=== PATIENT | female | born 1940 | race Two or more races ===

== ENCOUNTER 2018-03-28 18:05 | Inpatient (IN) | payer MEDICAID, MEDICARE ==
--- NOTE | 2018-03-28 19:01 | RADIOLOGY REPORT (SQ) ---
EXAM DESCRIPTION: CHEST SINGLE VIEW COMPLETED DATE/TIME: 03/28/2018 6:54 pm REASON FOR STUDY: SOB COMPARISON: 03/23/2007 EXAM PARAMETERS: NUMBER OF VIEWS: One view. TECHNIQUE: Single frontal radiographic view of the chest acquired. RADIATION DOSE: NA LIMITATIONS: None. FINDINGS: LUNGS AND PLEURA: No opacities, masses or pneumothorax. No pleural effusion. MEDIASTINUM AND HILAR STRUCTURES: No masses. Contour normal. HEART AND VASCULAR STRUCTURES: Heart normal in size. Normal vasculature. BONES: No acute findings. HARDWARE: None in the chest. OTHER: No other significant finding. IMPRESSION: NO ACUTE RADIOGRAPHIC FINDING IN THE CHEST. TECHNICAL DOCUMENTATION: JOB ID: [id number] [employer]- All Rights Reserved Reading location - IP/workstation name: [email or web address]
[2018-03-28 19:02] LABS: HEMATOCRIT 29.2 % (36.0-47.0); HEMOGLOBIN 9.3 g/dL (12.0-15.5); MEAN CORPUSCULAR HEMOGLOBIN 24.4 pg (27.0-33.4); MEAN CORPUSCULAR VOLUME 76 fl (80-97); PLATELET COUNT 366 10^3/uL (150-450); RED BLOOD COUNT 3.82 10^6/uL (3.72-5.28); RED CELL DISTRIBUTION WIDTH 16.4 % (11.5-14.0); WHITE BLOOD COUNT 12.5 10^3/uL (4.0-10.5)
[2018-03-28 19:18] LABS: ALANINE AMINOTRANSFERASE 25 U/L (9-52); ALBUMIN 3.4 g/dL (3.5-5.0); ALKALINE PHOSPHATASE 115 U/L (38-126); ANION GAP 11 (5-19); ASPARTATE AMINO TRANSFERASE 26 U/L (14-36); BILIRUBIN,DIRECT 0.2 mg/dL (0.0-0.4); BILIRUBIN,TOTAL 0.4 mg/dL (0.2-1.3); BLOOD UREA NITROGEN 14 mg/dL (7-20); CALCIUM 8.8 mg/dL (8.4-10.2); CARBON DIOXIDE 27 mmol/L (22-30); CHLORIDE 99 mmol/L (98-107); GLUCOSE 168 mg/dL (75-110); POTASSIUM 3.9 mmol/L (3.6-5.0); TOTAL PROTEIN 6.9 g/dL (6.3-8.2)
[2018-03-28 19:20] LABS: ABSOLUTE LYMPHOCYTES# (MANUAL) 0.3 10^3/uL (0.5-4.7); ABSOLUTE MONOCYTES # (MANUAL) 0.3 10^3/uL (0.1-1.4); BASOPHILS % (MANUAL) 0 % (0-2); EOSINOPHILS % (MANUAL) 0 % (0-6); LYMPHOCYTES % (MANUAL) 2 % (13-45); MONOCYTES % (MANUAL) 2 % (3-13); SEGMENTED NEUTROPHILS % (MAN) 96 % (42-78); TOTAL CELLS COUNTED 100
[2018-03-28 19:23] LABS: ANISOCYTOSIS 1+; PLATELET COMMENT ADEQUATE
[2018-03-28] MEDS ORDERED: ALBUTEROL SULFATE 0.083% NEB 2.5 MG/3 ML AMPUL NEB ONE (19:40)
--- NOTE | 2018-03-28 19:41 | ER Document Report ---
ED General - General Chief Complaint: Shortness Of Breath Stated Complaint: SHORTNESS OF BREATH Time Seen by Provider: 03/28/18 18:19 TRAVEL OUTSIDE OF THE [place] IN LAST 30 DAYS: No - HPI Notes: Patient is a 89-year-old female that presents to the emergency department for chief complaint of cough and shortness of breath. Patient has a history of COPD and was last admitted to the hospital in [place] where she lives 1 week ago. She is currently off of steroids and was not discharged home on antibiotics. Last night she started having increased work of breathing and cough. Patient was seen at an urgent care facility today and had a O2 of 85% on room air. Urgent care gave her 125 mg of Solu-Medrol, 3 DuoNeb's, and 1 g IM Rocephin and referred her to the emergency room. Patient does not wear oxygen at home. She has not been intubated for her COPD previously. She has not had any fevers or increased sputum production. Patient denies chest pain as well. He does have a nebulizer at home that she has used one time today. Past Medical History: COPD, hypertension, hyperlipidemia, diabetes Past Surgical History: Tubal ligation Social History: Quit smoking 20 years ago. Denies alcohol. Family History: Reviewed and noncontributory for presenting illness Allergies: Reviewed, see documented allergy list. REVIEW OF SYSTEMS: CONSTITUTIONAL : No fever No chills No diaphoresis No recent illness EENT: No vision changes No congestion No sore throat CARDIOVASCULAR: No chest pain No palpitations RESPIRATORY: shortness of breath cough difficulty breathing GASTROINTESTINAL: No abdominal pain No nausea No vomiting No diarrhea GENITOURINARY: No dysuria No hematuria No difficulty urinating MUSCULOSKELETAL: No back pain No leg pain No arm pain SKIN: No rashes No lesions LYMPHATIC: No swollen, enlarged glands. NEUROLOGICAL: No lightheadedness No headache No weakness No paresthesias PSYCHIATRIC: No anxiety No depression PHYSICAL EXAMINATION: Vital signs reviewed, nursing noted reviewed. GENERAL: Well-appearing, well-nourished and in mild acute distress. HEAD: Atraumatic, normocephalic. EYES: Eyes appear normal, extraocular movements intact, sclera anicteric, conjunctiva are normal. ENT: nares patent, oropharynx clear without exudates. Moist mucous membranes. NECK: Normal range of motion, supple without lymphadenopathy LUNGS: Diminished lung sounds bilaterally with end expiratory wheezing, tachypnea, moderate accessory muscle use HEART: Cardiac rate and regular rhythm without murmurs ABDOMEN: Soft, nontender, normoactive bowel sounds. No rebound, guarding, or rigidity. No masses appreciated. EXTREMITIES: Nontender, good range of motion, no pitting or edema. NEUROLOGICAL: No focal neurological deficits. Moves all extremities spontaneously Motor and sensory grossly intact on exam. PSYCH: Normal mood, normal affect. SKIN: Warm, Dry, normal turgor, no rashes or lesions noted on exposed skin - Related Data Allergies/Adverse Reactions: Sulfa (Sulfonamide Antibiotics) Allergy (Intermediate, Verified 03/28/18 19:55) Hives codeine Adverse Reaction (Intermediate, Verified 03/28/18 19:56) Hives tiotropium [From Spiriva with HandiHaler] Adverse Reaction (Verified 03/28/18 19:57) Hives Past Medical History - Social History Smoking Status: Former Smoker Family History: Reviewed & Not Pertinent Physical Exam - Vital signs Vitals: Resp Pulse Ox 33 H 98 03/28/18 18:10 03/28/18 18:10 Course - Re-evaluation Re-evalutation: 03/28/18 19:38 Vitals reviewed. Nursing notes reviewed. Patient is currently oxygenating at 97% on 2 L nasal cannula. She reports significant improvement after receiving the 3 DuoNeb treatments. Patient is still very diminished and wheezing with increased work of breathing, she will be given other albuterol treatment. Patient's EKG shows tachycardia with multiple PVCs and PACs. Patient is tachycardic with a leukocytosis however chest x-ray shows no pneumonia. She is afebrile. Her leukocytosis and tachycardia are likely related to recent steroid use and the albuterol. She is not septic or requiring antibiotics. Patient is still requiring oxygen and will be admitted to the hospital for COPD exacerbation. Laboratory 03/28/18 03/28/18 03/28/18 18:30 18:30 18:30 WBC 12.5 H RBC 3.82 Hgb 9.3 L Hct 29.2 L MCV 76 L MCH 24.4 L MCHC 32.0 RDW 16.4 H Plt Count 366 Total Counted 100 Seg Neutrophils % Not Reportable Seg Neuts % (Manual) 96 H Lymphocytes % Not Reportable Lymphocytes % (Manual) 2 L Monocytes % Not Reportable Monocytes % (Manual) 2 L Eosinophils % Not Reportable Eosinophils % (Manual) 0 Basophils % Not Reportable Basophils % (Manual) 0 Absolute Neutrophils Not Reportable Abs Neuts (Manual) 12.0 H Absolute Lymphocytes Not Reportable Abs Lymphs (Manual) 0.3 L Absolute Monocytes Not Reportable Abs Monocytes (Manual) 0.3 Absolute Eosinophils Not Reportable Absolute Eos (Manual) 0.0 Absolute Basophils Not Reportable Abs Basophils (Manual) 0.0 Platelet Comment ADEQUATE Anisocytosis 1+ Microcytosis SLIGHT Sodium 137.0 Potassium 3.9 Chloride 99 Carbon Dioxide 27 Anion Gap 11 BUN 14 Creatinine 0.57 Est GFR ( Amer) > 60 Est GFR (Non-Af Amer) > 60 Glucose 168 H Calcium 8.8 Total Bilirubin 0.4 Direct Bilirubin 0.2 Neonat Total Bilirubin Not Reportable Neonat Direct Bilirubin Not Reportable Neonat Indirect Bili Not Reportable AST 26 ALT 25 Alkaline Phosphatase 115 Troponin I 0.025 Total Protein 6.9 Albumin 3.4 L Chest X-Ray 03/28/18 18:13 IMPRESSION: NO ACUTE RADIOGRAPHIC FINDING IN THE CHEST. 03/28/18 21:24 Patient's ABG shows hypoxia with no hypercapnia or acid-base disturbance. Her work of breathing was improved after the repeat albuterol. Patient is still requiring oxygen and will be admitted to the hospital for further management of her COPD exacerbation. She is not currently requiring noninvasive ventilation. She is stable at time of admission. Case discussed with admitting physician Dr. Johnston. - Vital Signs Vital signs: Temp Pulse Resp BP Pulse Ox 99.9 F 111 H 30 H 137/77 H 95 03/28/18 18:12 03/28/18 18:12 03/28/18 20:01 03/28/18 20:01 03/28/18 20:01 - Laboratory Result Diagrams: 03/28/18 18:30 03/28/18 18:30 Laboratory results interpreted by me: 03/28/18 03/28/18 03/28/18 18:30 18:30 20:25 WBC 12.5 H Hgb 9.3 L Hct 29.2 L MCV 76 L MCH 24.4 L RDW 16.4 H Seg Neuts % (Manual) 96 H Lymphocytes % (Manual) 2 L Monocytes % (Manual) 2 L Abs Neuts (Manual) 12.0 H Abs Lymphs (Manual) 0.3 L ABG pO2 74.0 L ABG HCO3 25.2 H ABG Total CO2 26.3 H Glucose 168 H Albumin 3.4 L - EKG Interpretation by Me Additional EKG results interpreted by me: 03/28/18 19:40 Interpreted by myself 1833: Sinus tachycardia, rate 106, normal axis, PVCs and PACs, incomplete right bundle branch block, borderline prolonged QT, QTc 494 Critical Care Note - Critical Care Note Total time excluding time spent on procedures (mins): 35 Comments: 35 Minutes of critical care time spent in direct contact evaluating and reevaluating the patient, treating symptoms, reviewing labs and studies and speaking with family and consultants excluding any procedures Discharge - Discharge Clinical Impression: COPD exacerbation, Hypoxia Condition: Stable Disposition: ADMITTED INPATIENT Admitting Provider: Hospitalist Unit Admitted: Medical Floor Referrals: LOCALMD,NO [NO LOCAL MD] - Follow up as needed
[2018-03-28 20:41] LABS: ARTERIAL BLOOD BASE EXCESS 1.2 mmol/L; ARTERIAL BLOOD H2CO3 1.13 mmol/L (1.05-1.35); ARTERIAL BLOOD HCO3 25.2 mmol/L (20-24); ARTERIAL BLOOD O2 SATURATION 95.5 % (94-98); ARTERIAL BLOOD PCO2 37.4 mmHg (35-45); ARTERIAL BLOOD PH 7.45 (7.35-7.45); ARTERIAL BLOOD TOTAL CO2 26.3 mmol/L (21-25)
[2018-03-28 20:42] LABS: ARTERIAL BLOOD FIO2 2L
[2018-03-28] MEDS ORDERED: MAGNESIUM HYDROXIDE SUSP 30 ML UDCUP PO PRN (21:32)
[2018-03-28] MEDS ORDERED: ONDANSETRON HCL INJ/PF 4 MG/2 ML SDV IV PRN (21:32)
[2018-03-28] MEDS ORDERED: MAG HYDROX/AL HYDROX/SIMETH SUSP 30 ML UDCUP PO PRN (21:32)
[2018-03-28] MEDS ORDERED: ONDANSETRON 4 MG TAB.RAPDIS PO PRN (21:32)
[2018-03-28] MEDS ORDERED: ACETAMINOPHEN 325 MG TABLET PO PRN (21:37)
[2018-03-28] MEDS ORDERED: ALBUTEROL SULFATE 0.083% NEB 2.5 MG/3 ML AMPUL NEB PRN (21:37)
[2018-03-28] MEDS ORDERED: ACETAMINOPHEN 650 MG SUPP.RECT PR PRN (21:37)
[2018-03-28] MEDS ORDERED: NICOTINE 21 MG/24 HR PATCH.TD24 TD PRN (21:41)
[2018-03-28] MEDS: FAMOTIDINE 20 MG TABLET PO SCH (21:58)
[2018-03-28] MEDS: HEPARIN SOD (PORCINE) 5,000 UNIT/ML 1 ML SYRINGE SUBCUT SCH (21:59)
[2018-03-28] MEDS ORDERED: LEVOFLOXACIN 500 MG TABLET PO SCH (22:00)
[2018-03-29] MEDS: METHYLPREDNISOLONE INJ 40 MG/1 ML SDV IV SCH ×3 (00:04→13:28)
[2018-03-29] MEDS: IPRATROPIUM BROMIDE 0.02% NEB 0.5 MG/2.5 ML AMPUL NEB SCH ×3 (00:05→16:08)
--- NOTE | 2018-03-29 00:15 | PDOC H&P ---
History of Present Illness Admission Date/PCP: 03/28/18 21:33 Patient complains of: Dyspnea History of Present Illness: ANALI MAIN is a 77 year old female who presented to the emergency room by direct transfer from the urgent care clinic where she had originally presented with a one-week history of progressively worsening dyspnea accompanied by a nonproductive cough. She admits that her dyspnea has been worsening since she was discharged from the hospital in [place] one week ago. She had been treated there for an exacerbation of her COPD and was not discharged on antibiotics but did receive a short course of steroids and uses a nebulizer on a regular basis. Over the last 24 hours prior to admission her dyspnea and cough significantly increased such that she felt the need for medical attention. She rates her dyspnea as severe and admits numerous similar prior episodes due to her COPD exacerbations. She has not identified any aggravating or ameliorating factors for her dyspnea at home. When she was seen at the urgent care her O2 saturation on room air was 85% and she was subsequently treated with a 125 mg Solu-Medrol injection as well as 3 DuoNeb treatments and she was given a gram of Rocephin IM. As she had not significantly improved she was sent to the emergency room where she was again treated with albuterol nebulizers and though she had shown some improvement she was still requiring supplemental O2 and had significant work of breathing. Chest x-ray showed no evidence of pneumonia and an ABG showed a low PaO2 of 74 on 28% oxygen. Thus patient was admitted to the hospital for further evaluation and treatment of her acute on chronic respiratory failure with hypoxia. Past Medical History Cardiac Medical History: Reports: Hyperlipidema, Hypertension Pulmonary Medical History: Reports: Chronic Obstructive Pulmonary Disease (COPD) EENT Medical History: Reports: None Neurological Medical History: Denies: Hemorrhagic CVA, Ischemic CVA, Multiple Sclerosis, Seizures Endocrine Medical History: Reports: Diabetes Mellitus Type 2 Denies: Diabetes Mellitus Type 1, Obesity Renal/ Medical History: Denies: Chronic Kidney Disease, Nephrolithiasis Malignancy Medical History: Reports: None GI Medical History: Denies: Cirrhosis, Hepatitis Musculoskeltal Medical History: Denies: Arthritis, Gout Skin Medical History: Denies: Eczema, Psoriasis Psychiatric Medical History: Denies: Alcohol Dependency, Substance Abuse, Tobacco Dependency Traumatic Medical History: Reports: None Hematology: Denies: Anemia, Bleeding Tendencies Infectious Medical History: Reports: None Past Surgical History Past Surgical History: Reports: Tubal Ligation Social History Information Source: Patient Smoking Status: Former Smoker Frequency of Alcohol Use: None Hx Recreational Drug Use: No Drugs: None Hx Prescription Drug Abuse: No - Advance Directive Resuscitation Status: Full Code Surrogate healthcare decision maker:: J Luis Main Family History Family History: DM, Hypertension Parental Family History Reviewed: Yes Children Family History Reviewed: No Sibling(s) Family History Reviewed.: Yes Medication/Allergy Allergies/Adverse Reactions: Sulfa (Sulfonamide Antibiotics) Allergy (Intermediate, Verified 03/28/18 19:55) Hives codeine Adverse Reaction (Intermediate, Verified 03/28/18 19:56) Hives tiotropium [From Spiriva with HandiHaler] Adverse Reaction (Verified 03/28/18 19:57) Hives Review of Systems Constitutional: ABSENT: chills, fever(s) Eyes: ABSENT: visual disturbances, other Ears: PRESENT: other - Ear pain. ABSENT: hearing changes Nose, Mouth, and Throat: ABSENT: mouth pain, sore throat Cardiovascular: PRESENT: dyspnea on exertion. ABSENT: chest pain, orthropnea, palpitations Respiratory: PRESENT: cough - Nonproductive, dyspnea. ABSENT: hemoptysis Gastrointestinal: ABSENT: abdominal pain, constipation, diarrhea, nausea, vomiting Genitourinary: ABSENT: dysuria, hematuria Musculoskeletal: ABSENT: back pain, joint swelling Integumentary: ABSENT: pruritus, rash Neurological: ABSENT: confusion, convulsions, lack of coordination, memory loss, tremor(s) Psychiatric: ABSENT: anxiety, depression Endocrine: ABSENT: cold intolerance, heat intolerance Hematologic/Lymphatic: ABSENT: easy bleeding, easy bruising Physical Exam Vital Signs: Temp Pulse Resp BP Pulse Ox 99.9 F 111 H 30 H 137/77 H 95 03/28/18 18:12 03/28/18 18:12 03/28/18 20:01 03/28/18 20:01 03/28/18 20:01 Intake & Output 03/26/18 03/27/18 03/28/18 23:59 23:59 23:59 Weight 46.2 kg General appearance: PRESENT: cooperative, mild distress - Respiratory distress, thin Head exam: PRESENT: atraumatic, normocephalic Eye exam: PRESENT: conjunctiva pink, EOMI. ABSENT: scleral icterus Ear exam: PRESENT: normal external ear exam. ABSENT: drainage Mouth exam: PRESENT: dry mucosa, neck supple Neck exam: ABSENT: thyromegaly, tracheal deviation Respiratory exam: PRESENT: accessory muscle use, decreased breath sounds - Mild decreased breath sounds throughout all rodríguez, prolonged expiratory phas - Moderately prolonged expiratory phase, retraction, symmetrical, tachypnea, wheezes - High-pitched end expiratory wheezing. ABSENT: rales, rhonchi Cardiovascular exam: PRESENT: RRR, tachycardia. ABSENT: clicks, gallop, rubs Pulses: PRESENT: normal radial pulses, normal dorsalis pedis pul Vascular exam: PRESENT: normal capillary refill. ABSENT: pallor GI/Abdominal exam: PRESENT: normal bowel sounds, soft Rectal exam: PRESENT: deferred Extremities exam: ABSENT: joint swelling, pedal edema Musculoskeletal exam: ABSENT: deformity, dislocation Neurological exam: PRESENT: alert, oriented to person, oriented to place, oriented to time, oriented to situation Psychiatric exam: PRESENT: appropriate affect, normal mood Skin exam: PRESENT: dry, intact, warm. ABSENT: jaundice, rash, urticaria Results Laboratory Results: 03/28/18 18:30 03/28/18 18:30 03/28/18 03/28/18 03/28/18 18:30 18:30 20:21 WBC 12.5 H RBC 3.82 Hgb 9.3 L Hct 29.2 L MCV 76 L MCH 24.4 L MCHC 32.0 RDW 16.4 H Plt Count 366 Seg Neutrophils % Not Reportable Lymphocytes % Not Reportable Monocytes % Not Reportable Eosinophils % Not Reportable Basophils % Not Reportable Absolute Neutrophils Not Reportable Absolute Lymphocytes Not Reportable Absolute Monocytes Not Reportable Absolute Eosinophils Not Reportable Absolute Basophils Not Reportable Carbonic Acid HCO3/H2CO3 Ratio ABG pH ABG pCO2 ABG pO2 ABG HCO3 ABG O2 Saturation ABG Base Excess FiO2 Sodium 137.0 Potassium 3.9 Chloride 99 Carbon Dioxide 27 Anion Gap 11 BUN 14 Creatinine 0.57 Est GFR ( Amer) > 60 Est GFR (Non-Af Amer) > 60 Glucose 168 H Lactic Acid 1.0 Calcium 8.8 Total Bilirubin 0.4 AST 26 ALT 25 Alkaline Phosphatase 115 Total Protein 6.9 Albumin 3.4 L 03/28/18 20:25 WBC RBC Hgb Hct MCV MCH MCHC RDW Plt Count Seg Neutrophils % Lymphocytes % Monocytes % Eosinophils % Basophils % Absolute Neutrophils Absolute Lymphocytes Absolute Monocytes Absolute Eosinophils Absolute Basophils Carbonic Acid 1.13 HCO3/H2CO3 Ratio 22:1 ABG pH 7.45 ABG pCO2 37.4 ABG pO2 74.0 L ABG HCO3 25.2 H ABG O2 Saturation 95.5 ABG Base Excess 1.2 FiO2 2L Sodium Potassium Chloride Carbon Dioxide Anion Gap BUN Creatinine Est GFR ( Amer) Est GFR (Non-Af Amer) Glucose Lactic Acid Calcium Total Bilirubin AST ALT Alkaline Phosphatase Total Protein Albumin 03/28/18 18:30 Troponin I 0.025 Impressions: Chest X-Ray 03/28/18 18:13 IMPRESSION: NO ACUTE RADIOGRAPHIC FINDING IN THE CHEST. Status: Image reviewed by me - Changes consistent with moderate COPD, no acute airspace or interstitial disease, no cardiac or pulmonary acute process present. Assessment & Plan - Diagnosis (1) Acute on chronic respiratory failure with hypoxia Is this a current diagnosis for this admission?: Yes Plan: Patient is admitted to the medical floor and is continued on oxygen supplementation. She will be receiving an aggressive pulmonary toilet utilizing Xopenex, Atrovent, albuterol and Pulmicort. She will also be receiving IV steroids utilizing Solu-Medrol. She will be reassessed clinically on an ongoing basis. (2) COPD exacerbation Is this a current diagnosis for this admission?: Yes Plan: Patient is admitted to the medical floor and is continued on oxygen supplementation. She will be receiving an aggressive pulmonary toilet utilizing Xopenex, Atrovent, albuterol and Pulmicort. She will also be receiving IV steroids utilizing Solu-Medrol. She will be reassessed clinically on an ongoing basis. Additionally she will be receiving Levaquin 500 mg p.o. daily. (3) HTN (hypertension) Qualifiers: Hypertension type: essential hypertension Qualified Code(s): I10 - Essenti al (primary) hypertension Is this a current diagnosis for this admission?: Yes Plan: Patient will be continued on her home antihypertensive regiment as soon as that information is available. (4) Diabetes mellitus type 2 in nonobese Is this a current diagnosis for this admission?: Yes Plan: Patient will be continued on her home diabetic regiment as soon that information is available. (5) HLD (hyperlipidemia) Qualifiers: Hyperlipidemia type: unspecified Qualified Code(s): E78.5 - Hyperlipidemia, unspecified Is this a current diagnosis for this admission?: Yes Plan: Patient will be continued on her routine therapy as soon as that information is available. - Time Time Spent: 30 to 50 Minutes Critical Time spent with patient: Less than 15 minutes Medications reviewed and adjusted accordingly: Yes Anticipated discharge: Home - Inpatient Certification Based on my medical assessment, after consideration of the patient's comorbidities, presenting symptoms, or acuity I expect that the services needed warrant INPATIENT care.: Yes I certify that my determination is in accordance with my understanding of Medicare's requirements for reasonable and necessary INPATIENT services [42 CFR 412.3e].: Yes Medical Necessity: Failure to Improve With Outpatient Therapy, Significant Comorbidiites Make Outpatient Treatment Too Risky, Need Close Monitoring Due to Risk of Patient Decompensation, Need for Nebulizer Therapy and Monitoring of Response, Risk of Complication if Not Cared For in Hospital
[2018-03-29] MEDS: LEVALBUTEROL HCL NEB 1.25 MG/3 ML AMPUL NEB SCH ×3 (00:19→16:08)
[2018-03-29] MEDS: HEPARIN SOD (PORCINE) 5,000 UNIT/ML 1 ML SYRINGE SUBCUT SCH ×3 (05:40→23:09)
[2018-03-29 06:36] LABS: ABSOLUTE LYMPHOCYTES (AUTO) 0.2 10^3/uL (0.5-4.7); ABSOLUTE MONOCYTES (AUTO) 0.1 10^3/uL (0.1-1.4); ABSOLUTE NEUT (AUTO) 1.8 10^3/uL (1.7-8.2); BASOPHILS % (AUTO) 0.4 % (0-2); EOSINOPHILS % (AUTO) 0.1 % (0-6); HEMATOCRIT 24.7 % (36.0-47.0); LYMPHOCYTES % (AUTO) 8.8 % (13-45); MEAN CORPUSCULAR HEMOGLOBIN 24.1 pg (27.0-33.4); MEAN CORPUSCULAR HGB CONC 31.9 g/dL (32.0-36.0); MEAN CORPUSCULAR VOLUME 76 fl (80-97); PLATELET COUNT 262 10^3/uL (150-450); RED BLOOD COUNT 3.26 10^6/uL (3.72-5.28); SEGMENTED NEUTROPHILS % (AUTO) 85.7 % (42-78); TOTAL CELLS COUNTED % (AUTO) 100 %
[2018-03-29 06:58] LABS: HEMOGLOBIN 7.9 g/dL (12.0-15.5); WHITE BLOOD COUNT 2.2 10^3/uL (4.0-10.5)
[2018-03-29] MEDS ORDERED: DIPHENHYDRAMINE HCL 25 MG CAPSULE PO PRN (06:58)
[2018-03-29] MEDS ORDERED: ACETAMINOPHEN 325 MG TABLET PO PRN (06:58)
[2018-03-29] MEDS ORDERED: NORMAL SALINE 250 ML IV PRN ×2 (06:58)
[2018-03-29 07:07] LABS: ANION GAP 10 (5-19); BLOOD UREA NITROGEN 24 mg/dL (7-20); CALCIUM 8.2 mg/dL (8.4-10.2); CARBON DIOXIDE 27 mmol/L (22-30); CHLORIDE 102 mmol/L (98-107); GLUCOSE 206 mg/dL (75-110); POTASSIUM 4.2 mmol/L (3.6-5.0); SODIUM 138.5 mmol/L (137-145)
[2018-03-29] MEDS: BUDESONIDE NEB 0.5 MG/2 ML AMPUL NEB SCH ×2 (07:28→20:48)
[2018-03-29 09:40] LABS: FREE T3 2.55 pg/mL (2.77-5.27); FREE T4 (FREE THYROXINE) 1.37 ng/dL (0.78-2.19)
[2018-03-29 09:53] LABS: THYROID STIMULATING HORMONE 1.38 uIU/mL (0.47-4.68)
[2018-03-29] MEDS ORDERED: PENTOSAN POLYSULFATE SODIUM PO SCH (10:00)
[2018-03-29] MEDS: DOCUSATE SODIUM 100 MG CAPSULE PO SCH ×2 (10:08→17:26)
[2018-03-29] MEDS: FAMOTIDINE 20 MG TABLET PO SCH ×2 (10:08→23:06)
--- NOTE | 2018-03-29 14:54 | EKG REPORT ---
SEVERITY:- ABNORMAL ECG - SINUS TACHYCARDIA INCOMPLETE RIGHT BUNDLE BRANCH BLOCK BORDERLINE PROLONGED QT INTERVAL : Confirmed by: Wilbur Quarles 29-Mar-2018 14:53:13
--- NOTE | 2018-03-29 17:41 | PDOC PROGRESS REPORT ---
Subjective Progress Note for:: 03/29/18 Subjective:: No adverse events overnight. She says she feels like her breathing has improved. She has not had a cough. No sputum production. No fever. Reason For Visit: ACUTE EXACERBATION OF COPD Physical Exam Vital Signs: Temp Pulse Resp BP Pulse Ox 98.3 F 79 15 141/36 H 97 03/29/18 15:34 03/29/18 15:34 03/29/18 15:34 03/29/18 15:34 03/29/18 15:34 Intake & Output 03/28/18 03/29/18 03/30/18 06:59 06:59 06:59 Weight 46.2 kg 44.9 kg General appearance: PRESENT: no acute distress, cooperative, disheveled, thin Teeth exam: PRESENT: edentulous Respiratory exam: PRESENT: symmetrical, unlabored, wheezes - Bilaterally. ABSENT: accessory muscle use, crackles, rhonchi, tachypnea Cardiovascular exam: PRESENT: RRR, +S1, +S2 Vascular exam: PRESENT: normal capillary refill GI/Abdominal exam: PRESENT: normal bowel sounds, soft. ABSENT: distended, guarding, rebound, tenderness Extremities exam: ABSENT: clubbing, pedal edema Musculoskeletal exam: PRESENT: normal inspection. ABSENT: deformity Neurological exam: PRESENT: alert, awake, oriented to person, oriented to place, oriented to time Psychiatric exam: PRESENT: appropriate affect, normal mood Skin exam: PRESENT: dry, warm Results Laboratory Results: 03/29/18 06:17 03/29/18 06:17 03/28/18 03/28/18 03/28/18 18:30 18:30 20:21 WBC 12.5 H RBC 3.82 Hgb 9.3 L Hct 29.2 L MCV 76 L MCH 24.4 L MCHC 32.0 RDW 16.4 H Plt Count 366 Seg Neutrophils % Not Reportable Lymphocytes % Not Reportable Monocytes % Not Reportable Eosinophils % Not Reportable Basophils % Not Reportable Absolute Neutrophils Not Reportable Absolute Lymphocytes Not Reportable Absolute Monocytes Not Reportable Absolute Eosinophils Not Reportable Absolute Basophils Not Reportable Carbonic Acid HCO3/H2CO3 Ratio ABG pH ABG pCO2 ABG pO2 ABG HCO3 ABG O2 Saturation ABG Base Excess FiO2 Sodium 137.0 Potassium 3.9 Chloride 99 Carbon Dioxide 27 Anion Gap 11 BUN 14 Creatinine 0.57 Est GFR ( Amer) > 60 Est GFR (Non-Af Amer) > 60 Glucose 168 H Lactic Acid 1.0 Calcium 8.8 Magnesium Total Bilirubin 0.4 AST 26 ALT 25 Alkaline Phosphatase 115 Total Protein 6.9 Albumin 3.4 L TSH Free T4 Free T3 pg/mL Blood Type Antibody Screen 03/28/18 03/29/18 03/29/18 20:25 06:17 06:17 WBC 2.2 L D RBC 3.26 L Hgb 7.9 L Hct 24.7 L MCV 76 L MCH 24.1 L MCHC 31.9 L RDW 16.0 H Plt Count 262 Seg Neutrophils % 85.7 H Lymphocytes % 8.8 L Monocytes % 5.0 Eosinophils % 0.1 Basophils % 0.4 Absolute Neutrophils 1.8 Absolute Lymphocytes 0.2 L Absolute Monocytes 0.1 Absolute Eosinophils 0.0 Absolute Basophils 0.0 Carbonic Acid 1.13 HCO3/H2CO3 Ratio 22:1 ABG pH 7.45 ABG pCO2 37.4 ABG pO2 74.0 L ABG HCO3 25.2 H ABG O2 Saturation 95.5 ABG Base Excess 1.2 FiO2 2L Sodium 138.5 Potassium 4.2 Chloride 102 Carbon Dioxide 27 Anion Gap 10 BUN 24 H Creatinine 0.67 Est GFR ( Amer) > 60 Est GFR (Non-Af Amer) > 60 Glucose 206 H Lactic Acid Calcium 8.2 L Magnesium 1.6 Total Bilirubin AST ALT Alkaline Phosphatase Total Protein Albumin TSH Free T4 Free T3 pg/mL Blood Type Antibody Screen 03/29/18 03/29/18 06:17 07:32 WBC RBC Hgb Hct MCV MCH MCHC RDW Plt Count Seg Neutrophils % Lymphocytes % Monocytes % Eosinophils % Basophils % Absolute Neutrophils Absolute Lymphocytes Absolute Monocytes Absolute Eosinophils Absolute Basophils Carbonic Acid HCO3/H2CO3 Ratio ABG pH ABG pCO2 ABG pO2 ABG HCO3 ABG O2 Saturation ABG Base Excess FiO2 Sodium Potassium Chloride Carbon Dioxide Anion Gap BUN Creatinine Est GFR ( Amer) Est GFR (Non-Af Amer) Glucose Lactic Acid Calcium Magnesium Total Bilirubin AST ALT Alkaline Phosphatase Total Protein Albumin TSH 1.38 Free T4 1.37 Free T3 pg/mL 2.55 L Blood Type O POSITIVE Antibody Screen NEGATIVE 03/28/18 18:30 Troponin I 0.025 Impressions: Chest X-Ray 03/28/18 18:13 IMPRESSION: NO ACUTE RADIOGRAPHIC FINDING IN THE CHEST. Assessment & Plan - Diagnosis (1) Acute on chronic respiratory failure with hypoxia Is this a current diagnosis for this admission?: Yes Plan: Currently stable on 2 L nasal cannula. Continue to maintain oxygen saturation greater than 90%. (2) COPD exacerbation Is this a current diagnosis for this admission?: Yes Plan: Continue steroids and bronchodilators. - Time Time Spent with patient: 15-24 minutes
[2018-03-29] MEDS: MONTELUKAST SODIUM 10 MG TABLET PO SCH (23:06)
[2018-03-29] MEDS: ZOLPIDEM TARTRATE 5 MG TABLET PO PRN (23:07)
[2018-03-29] MEDS: LEVOFLOXACIN 500 MG TABLET PO SCH (23:07)
[2018-03-30] MEDS: LEVALBUTEROL HCL NEB 1.25 MG/3 ML AMPUL NEB SCH ×3 (00:17→16:33)
[2018-03-30] MEDS: IPRATROPIUM BROMIDE 0.02% NEB 0.5 MG/2.5 ML AMPUL NEB SCH ×3 (00:17→16:33)
[2018-03-30] MEDS: HEPARIN SOD (PORCINE) 5,000 UNIT/ML 1 ML SYRINGE SUBCUT SCH ×3 (05:48→21:52)
[2018-03-30 06:30] LABS: ABSOLUTE LYMPHOCYTES (AUTO) 0.6 10^3/uL (0.5-4.7); ABSOLUTE MONOCYTES (AUTO) 0.8 10^3/uL (0.1-1.4); ABSOLUTE NEUT (AUTO) 4.8 10^3/uL (1.7-8.2); BASOPHILS % (AUTO) 0.5 % (0-2); HEMATOCRIT 24.6 % (36.0-47.0); LYMPHOCYTES % (AUTO) 9.5 % (13-45); MEAN CORPUSCULAR HEMOGLOBIN 24.6 pg (27.0-33.4); MEAN CORPUSCULAR HGB CONC 32.5 g/dL (32.0-36.0); MEAN CORPUSCULAR VOLUME 76 fl (80-97); PLATELET COUNT 285 10^3/uL (150-450); RED BLOOD COUNT 3.24 10^6/uL (3.72-5.28); RED CELL DISTRIBUTION WIDTH 16.1 % (11.5-14.0); TOTAL CELLS COUNTED % (AUTO) 100 %
[2018-03-30 06:35] LABS: WHITE BLOOD COUNT 6.3 10^3/uL (4.0-10.5)
[2018-03-30 06:47] LABS: ANION GAP 8 (5-19); BLOOD UREA NITROGEN 37 mg/dL (7-20); CALCIUM 8.5 mg/dL (8.4-10.2); CARBON DIOXIDE 28 mmol/L (22-30); CHLORIDE 103 mmol/L (98-107); GLUCOSE 105 mg/dL (75-110)
[2018-03-30] MEDS: BUDESONIDE NEB 0.5 MG/2 ML AMPUL NEB SCH ×2 (08:30→19:43)
[2018-03-30] MEDS: FAMOTIDINE 20 MG TABLET PO SCH ×2 (09:43→21:52)
[2018-03-30] MEDS: DOCUSATE SODIUM 100 MG CAPSULE PO SCH ×2 (10:03→17:47)
[2018-03-30] MEDS ORDERED: PREDNISONE 20 MG TABLET PO ONE (11:30)
--- NOTE | 2018-03-30 17:27 | PDOC PROGRESS REPORT ---
Subjective Progress Note for:: 03/30/18 Subjective:: No adverse events overnight. No new complaints. She denies cough or fever. She feels okay at rest and when she tries to get up and move around she gets short of breath and it takes her a few minutes to catch her breath. She still currently on 2 L of oxygen and is stable on that. Reason For Visit: ACUTE EXACERBATION OF COPD Physical Exam Vital Signs: Temp Pulse Resp BP Pulse Ox 97.4 F 80 18 167/44 H 99 03/30/18 11:57 03/30/18 11:57 03/30/18 11:57 03/30/18 11:57 03/30/18 11:57 Intake & Output 03/29/18 03/30/18 03/31/18 06:59 06:59 06:59 Intake Total 328 Balance 328 Weight 46.2 kg 45.7 kg General appearance: PRESENT: no acute distress, cooperative, disheveled, thin Teeth exam: PRESENT: edentulous Respiratory exam: PRESENT: symmetrical, unlabored, wheezes - Bilaterally, prolonged expiratory phase. ABSENT: accessory muscle use, crackles, rhonchi, tachypnea Cardiovascular exam: PRESENT: RRR, +S1, +S2 Vascular exam: PRESENT: normal capillary refill GI/Abdominal exam: PRESENT: normal bowel sounds, soft. ABSENT: distended, guarding, rebound, tenderness Extremities exam: ABSENT: clubbing, pedal edema Musculoskeletal exam: PRESENT: normal inspection. ABSENT: deformity Neurological exam: PRESENT: alert, awake, oriented to person, oriented to place, oriented to time Psychiatric exam: PRESENT: appropriate affect, normal mood Skin exam: PRESENT: dry, warm Results Laboratory Results: 03/30/18 05:30 03/30/18 05:30 03/30/18 03/30/18 05:30 05:30 WBC 6.3 D RBC 3.24 L Hgb 8.0 L Hct 24.6 L MCV 76 L MCH 24.6 L MCHC 32.5 RDW 16.1 H Plt Count 285 Seg Neutrophils % 77.0 Lymphocytes % 9.5 L Monocytes % 13.0 Eosinophils % 0.0 Basophils % 0.5 Absolute Neutrophils 4.8 Absolute Lymphocytes 0.6 Absolute Monocytes 0.8 Absolute Eosinophils 0.0 Absolute Basophils 0.0 Sodium 139.0 Potassium 4.0 Chloride 103 Carbon Dioxide 28 Anion Gap 8 BUN 37 H Creatinine 0.73 Est GFR ( Amer) > 60 Est GFR (Non-Af Amer) > 60 Glucose 105 Calcium 8.5 Magnesium 2.1 03/28/18 18:30 Troponin I 0.025 Impressions: Chest X-Ray 03/28/18 18:13 IMPRESSION: NO ACUTE RADIOGRAPHIC FINDING IN THE CHEST. Assessment & Plan - Diagnosis (1) Acute on chronic respiratory failure with hypoxia Is this a current diagnosis for this admission?: Yes Plan: Currently stable on 2 L nasal cannula. Continue to maintain oxygen saturation greater than 90%. (2) COPD exacerbation Is this a current diagnosis for this admission?: Yes Plan: Continue steroids and bronchodilators. She is diabetic so we are keeping an eye on her blood sugars to make sure they do not get to high from steroids. - Time Time Spent with patient: 15-24 minutes
[2018-03-30] MEDS: METFORMIN HCL 500 MG TABLET PO SCH (17:43)
[2018-03-30] MEDS: ZOLPIDEM TARTRATE 5 MG TABLET PO PRN (21:52)
[2018-03-30] MEDS: LEVOFLOXACIN 500 MG TABLET PO SCH (21:52)
[2018-03-30] MEDS: MONTELUKAST SODIUM 10 MG TABLET PO SCH (22:03)
[2018-03-30] MEDS: IPRATROPIUM/ALBUTEROL 0.5-2.5 MG/3 ML AMPUL NEB SCH (23:14)
[2018-03-31] MEDS: IPRATROPIUM/ALBUTEROL 0.5-2.5 MG/3 ML AMPUL NEB SCH ×5 (02:22→19:54)
[2018-03-31] MEDS: HEPARIN SOD (PORCINE) 5,000 UNIT/ML 1 ML SYRINGE SUBCUT SCH ×3 (05:51→21:37)
[2018-03-31 06:50] LABS: ABSOLUTE LYMPHOCYTES (AUTO) 1.2 10^3/uL (0.5-4.7); ABSOLUTE MONOCYTES (AUTO) 0.6 10^3/uL (0.1-1.4); ABSOLUTE NEUT (AUTO) 3.3 10^3/uL (1.7-8.2); BASOPHILS % (AUTO) 0.3 % (0-2); EOSINOPHILS % (AUTO) 0.4 % (0-6); HEMATOCRIT 22.7 % (36.0-47.0); LYMPHOCYTES % (AUTO) 23.5 % (13-45); MEAN CORPUSCULAR HEMOGLOBIN 24.4 pg (27.0-33.4); MEAN CORPUSCULAR HGB CONC 32.4 g/dL (32.0-36.0); MEAN CORPUSCULAR VOLUME 75 fl (80-97); MONOCYTES % (AUTO) 11.3 % (3-13); PLATELET COUNT 245 10^3/uL (150-450); RED BLOOD COUNT 3.01 10^6/uL (3.72-5.28); RED CELL DISTRIBUTION WIDTH 15.5 % (11.5-14.0); SEGMENTED NEUTROPHILS % (AUTO) 64.5 % (42-78); TOTAL CELLS COUNTED % (AUTO) 100 %; WHITE BLOOD COUNT 5.1 10^3/uL (4.0-10.5)
[2018-03-31 07:03] LABS: HEMOGLOBIN 7.4 g/dL (12.0-15.5)
[2018-03-31 07:11] LABS: ANION GAP 7 (5-19); BLOOD UREA NITROGEN 31 mg/dL (7-20); CALCIUM 8.5 mg/dL (8.4-10.2); CARBON DIOXIDE 29 mmol/L (22-30); CHLORIDE 103 mmol/L (98-107); GLUCOSE 90 mg/dL (75-110); SODIUM 138.5 mmol/L (137-145)
[2018-03-31] MEDS: BUDESONIDE NEB 0.5 MG/2 ML AMPUL NEB SCH ×2 (08:27→19:52)
[2018-03-31] MEDS: DOCUSATE SODIUM 100 MG CAPSULE PO SCH ×2 (09:18→17:13)
[2018-03-31] MEDS: METFORMIN HCL 500 MG TABLET PO SCH ×2 (09:18→17:12)
[2018-03-31] MEDS: FAMOTIDINE 20 MG TABLET PO SCH ×2 (09:19→21:35)
[2018-03-31] MEDS ORDERED: PREDNISONE 20 MG TABLET PO SCH (10:00)
[2018-03-31] MEDS ORDERED: METHYLPREDNISOLONE INJ 125 MG/2 ML SDV ONE (10:05)
[2018-03-31 10:14] LABS: ABSOLUTE RETICS # 0.067 10^6/uL (0.028-0.122)
[2018-03-31 11:36] LABS: FOLATE 5.46 ng/mL (>2.76); IRON(TIBC) < 10.1 ug/dL (37-170)
[2018-03-31 11:37] LABS: FERRITIN 8.55 ng/mL (11.1-264.0)
[2018-03-31] MEDS: GUAIFENESIN 600 MG TABLET.SA PO SCH ×2 (11:44→21:35)
[2018-03-31] MEDS ORDERED: METHYLPREDNISOLONE INJ 125 MG/2 ML SDV IV ONE (12:00)
[2018-03-31] MEDS ORDERED: IPRATROPIUM/ALBUTEROL 0.5-2.5 MG/3 ML AMPUL NEB ONE (13:00)
--- NOTE | 2018-03-31 16:07 | PDOC PROGRESS REPORT ---
Subjective Progress Note for:: 03/31/18 Subjective:: She was refusing her neb treatments yesterday because she said she did not think they were helping. Her breathing had gotten worse this morning so we gave her a neb and she sounded a little bit better and we gave her another 1, her breathing had been improved to the point where we were not concerned about having to put her on BiPAP. Reason For Visit: ACUTE EXACERBATION OF COPD Physical Exam Vital Signs: Temp Pulse Resp BP Pulse Ox 98.4 F 105 H 20 141/43 H 98 03/31/18 12:00 03/31/18 12:13 03/31/18 12:13 03/31/18 12:00 03/31/18 12:13 Intake & Output 03/30/18 03/31/18 04/01/18 06:59 06:59 06:59 Intake Total 328 2100 Balance 328 2100 Weight 45.7 kg 45.6 kg General appearance: PRESENT: cooperative, disheveled, mild distress, thin Respiratory exam: PRESENT: prolonged expiratory phas, rhonchi, symmetrical, wheezes. ABSENT: accessory muscle use, crackles, stridor, tachypnea, unlabored Cardiovascular exam: PRESENT: RRR, +S1, +S2 Vascular exam: PRESENT: normal capillary refill GI/Abdominal exam: PRESENT: normal bowel sounds, soft. ABSENT: distended, guarding, rebound, tenderness Extremities exam: ABSENT: clubbing, pedal edema Musculoskeletal exam: PRESENT: normal inspection. ABSENT: deformity Neurological exam: PRESENT: alert, awake, oriented to person, oriented to place, oriented to situation Psychiatric exam: PRESENT: anxious Skin exam: PRESENT: dry, warm Results Laboratory Results: 03/31/18 06:09 03/31/18 06:09 03/31/18 03/31/18 03/31/18 06:09 06:09 06:09 WBC 5.1 RBC 3.01 L Hgb 7.4 L Hct 22.7 L MCV 75 L MCH 24.4 L MCHC 32.4 RDW 15.5 H Plt Count 245 Seg Neutrophils % 64.5 Lymphocytes % 23.5 Monocytes % 11.3 Eosinophils % 0.4 Basophils % 0.3 Absolute Neutrophils 3.3 Absolute Lymphocytes 1.2 Absolute Monocytes 0.6 Absolute Eosinophils 0.0 Absolute Basophils 0.0 Retic Count (auto) 2.20 Absolute Retic 0.067 Sodium 138.5 Potassium 4.0 Chloride 103 Carbon Dioxide 29 Anion Gap 7 BUN 31 H Creatinine 0.76 Est GFR ( Amer) > 60 Est GFR (Non-Af Amer) > 60 Glucose 90 Calcium 8.5 Magnesium 2.3 Iron TIBC % Saturation Ferritin Vitamin B12 Folate 03/31/18 06:09 WBC RBC Hgb Hct MCV MCH MCHC RDW Plt Count Seg Neutrophils % Lymphocytes % Monocytes % Eosinophils % Basophils % Absolute Neutrophils Absolute Lymphocytes Absolute Monocytes Absolute Eosinophils Absolute Basophils Retic Count (auto) Absolute Retic Sodium Potassium Chloride Carbon Dioxide Anion Gap BUN Creatinine Est GFR ( Amer) Est GFR (Non-Af Amer) Glucose Calcium Magnesium Iron < 10.1 L TIBC 349 % Saturation UNABLE TO CALCULATE Ferritin 8.55 L Vitamin B12 423.0 Folate 5.46 03/28/18 18:30 Troponin I 0.025 Impressions: Chest X-Ray 03/28/18 18:13 IMPRESSION: NO ACUTE RADIOGRAPHIC FINDING IN THE CHEST. Assessment & Plan - Diagnosis (1) Acute on chronic respiratory failure with hypoxia Is this a current diagnosis for this admission?: Yes Plan: I was able to convince her of the importance of using a nebulizer treatments and they began to show the desired effect. For now she is doing fine on the nasal cannula, but want to keep a close eye on her to make sure she does not need to go on BiPAP. (2) COPD exacerbation Is this a current diagnosis for this admission?: Yes Plan: I have stopped the prednisone in favor of putting her back on IV Solu-Medrol. She is also getting some antibiotics. We will continue with bronchodilator therapy as well as supplemental O2. - Time Time Spent with patient: 25-34 minutes
[2018-03-31] MEDS: METHYLPREDNISOLONE INJ 125 MG/2 ML SDV IV SCH (17:12)
[2018-03-31] MEDS ORDERED: IRON SUCROSE COMPLEX INJ/PF 100 MG/5 ML SDV IV ONE ×2 (17:15→17:45)
[2018-03-31] MEDS: MONTELUKAST SODIUM 10 MG TABLET PO SCH (21:35)
[2018-03-31] MEDS: LEVOFLOXACIN 500 MG TABLET PO SCH (21:37)
[2018-04-01] MEDS: IPRATROPIUM/ALBUTEROL 0.5-2.5 MG/3 ML AMPUL NEB SCH ×7 (00:05→23:47)
[2018-04-01] MEDS: METHYLPREDNISOLONE INJ 125 MG/2 ML SDV IV SCH ×3 (02:36→17:28)
[2018-04-01] MEDS: HEPARIN SOD (PORCINE) 5,000 UNIT/ML 1 ML SYRINGE SUBCUT SCH ×3 (06:15→21:54)
[2018-04-01] MEDS: BUDESONIDE NEB 0.5 MG/2 ML AMPUL NEB SCH ×2 (08:37→20:36)
[2018-04-01] MEDS: METFORMIN HCL 500 MG TABLET PO SCH ×2 (08:55→17:28)
[2018-04-01] MEDS: DOCUSATE SODIUM 100 MG CAPSULE PO SCH ×2 (10:26→17:28)
[2018-04-01] MEDS: FAMOTIDINE 20 MG TABLET PO SCH ×2 (10:27→22:30)
[2018-04-01] MEDS: GUAIFENESIN 600 MG TABLET.SA PO SCH ×2 (10:27→22:30)
--- NOTE | 2018-04-01 18:08 | PDOC PROGRESS REPORT ---
Subjective Progress Note for:: 04/01/18 Subjective:: No adverse events overnight. She is doing a lot better this morning. She is off supplemental O2. She says her breathing feels better. She says that she can feel that she is not wheezing. No cough. No sputum production. No fever. Reason For Visit: ACUTE EXACERBATION OF COPD Physical Exam Vital Signs: Temp Pulse Resp BP Pulse Ox 98.7 F 94 18 137/45 H 96 04/01/18 16:00 04/01/18 16:00 04/01/18 16:00 04/01/18 16:00 04/01/18 16:00 Intake & Output 03/31/18 04/01/18 04/02/18 06:59 06:59 06:59 Intake Total 2099 1949 Balance 2099 1949 Weight 45.6 kg 45.9 kg General appearance: PRESENT: no acute distress, cooperative, disheveled, thin Teeth exam: PRESENT: edentulous Respiratory exam: PRESENT: decreased breath sounds, prolonged expiratory phas - Lightly, unlabored, wheezes - Faint wheezing in the left lung base. ABSENT: accessory muscle use, rhonchi, tachypnea Cardiovascular exam: PRESENT: RRR, +S1, +S2, systolic murmur - Now that her lungs cleared up, I can hear that she has what sounds like a 3 out of 6 systolic murmur Vascular exam: PRESENT: normal capillary refill GI/Abdominal exam: PRESENT: normal bowel sounds, soft. ABSENT: distended, guarding, rebound, tenderness Extremities exam: ABSENT: clubbing, pedal edema Musculoskeletal exam: PRESENT: normal inspection. ABSENT: deformity Neurological exam: PRESENT: alert, awake, oriented to person, oriented to place, oriented to situation Psychiatric exam: PRESENT: appropriate affect, normal mood Skin exam: PRESENT: dry, warm Results Laboratory Results: 03/31/18 06:09 03/31/18 06:09 03/28/18 18:30 Troponin I 0.025 Impressions: Chest X-Ray 03/28/18 18:13 IMPRESSION: NO ACUTE RADIOGRAPHIC FINDING IN THE CHEST. Assessment & Plan - Diagnosis (1) Acute on chronic respiratory failure with hypoxia Is this a current diagnosis for this admission?: Yes Plan: This is resolved. Her oxygen saturations are greater than 90% on room air. (2) COPD exacerbation Is this a current diagnosis for this admission?: Yes Plan: Still wheezing a bit but overall improved. I will probably switch her to oral prednisone tomorrow. Continue with antibiotics and nebulizer treatments. - Time Time Spent with patient: 15-24 minutes
[2018-04-01] MEDS: MONTELUKAST SODIUM 10 MG TABLET PO SCH (22:30)
[2018-04-01] MEDS: ZOLPIDEM TARTRATE 5 MG TABLET PO PRN (22:30)
[2018-04-02] MEDS: IPRATROPIUM/ALBUTEROL 0.5-2.5 MG/3 ML AMPUL NEB SCH ×3 (04:07→11:38)
[2018-04-02] MEDS: METHYLPREDNISOLONE INJ 125 MG/2 ML SDV IV SCH ×2 (04:21→09:33)
[2018-04-02] MEDS: HEPARIN SOD (PORCINE) 5,000 UNIT/ML 1 ML SYRINGE SUBCUT SCH (05:14)
[2018-04-02] MEDS: BUDESONIDE NEB 0.5 MG/2 ML AMPUL NEB SCH (08:01)
[2018-04-02] MEDS: METFORMIN HCL 500 MG TABLET PO SCH (08:20)
[2018-04-02] MEDS: GUAIFENESIN 600 MG TABLET.SA PO SCH (09:33)
[2018-04-02] MEDS: FAMOTIDINE 20 MG TABLET PO SCH (09:33)
[2018-04-02] MEDS: DOCUSATE SODIUM 100 MG CAPSULE PO SCH (09:33)
[2018-04-02 12:37] VITALS: BP 107/58
--- NOTE | 2018-04-02 17:45 | PDOC DISCHARGE SUMMARY ---
General - Admit/Disc Date/PCP Admission Date/Primary Care Provider: 03/28/18 21:33 Discharge Date: 04/02/18 - Discharge Diagnosis (1) Acute on chronic respiratory failure with hypoxia Is this a current diagnosis for this admission?: Yes Summary: She at one point was going to require BiPAP but we were able to improve her breathing and keep her on a nasal cannula. We were eventually able to titrate off the nasal cannula and she was breathing fine on room air at discharge. (2) COPD exacerbation Is this a current diagnosis for this admission?: Yes Summary: It took her a couple of days before she really started to improve on IV steroids. She is going to finish up her course of prednisone and antibiotics at home. - Additional Information Resuscitation Status: Full Code Discharge Diet: Diabetic Discharge Activity: Slowly Increase Activity, Supervised Activity Prescriptions: Doxycycline Hyclate [Vibramycin 100 mg Tablet] 100 mg PO BID #10 tablet Prednisone [Deltasone 20 mg Tablet] 60 mg PO DAILY #15 tablet Home Medications: Arformoterol Tartrate [Brovana Inhalation Solution 15 mcg/2 mL] 15 mcg IH BID 03/29/18 Budesonide [Pulmicort Neb 0.5 mg/2 ml Ampul] 0.5 mg IH BID 03/29/18 Esomeprazole Mag Trihydrate [Nexium] 1 cap PO DAILY 03/29/18 Metformin HCl 1,000 mg PO BID 03/29/18 Montelukast Sodium [Singulair 10 mg Tablet] 10 mg PO QHS 03/29/18 Pentosan Polysulfate Sodium [Elmiron 100 mg Capsule] 1 cap PO TID 03/29/18 Zolpidem Tartrate [Ambien] 10 mg PO HSP PRN 03/29/18 Doxycycline Hyclate [Vibramycin 100 mg Tablet] 100 mg PO BID #10 tablet 04/02/18 Prednisone [Deltasone 20 mg Tablet] 60 mg PO DAILY #15 tablet 04/02/18 History of Present Illness History of Present Illness: ANALI ARIAS is a 77 year old female who presented to the emergency room by direct transfer from the urgent care clinic where she had originally presented with a one-week history of progressively worsening dyspnea accompanied by a nonproductive cough. She admits that her dyspnea has been worsening since she was discharged from the hospital in [place] one week ago. She had been treated there for an exacerbation of her COPD and was not discharged on antibiotics but did receive a short course of steroids and uses a nebulizer on a regular basis. Over the last 24 hours prior to admission her dyspnea and cough significantly increased such that she felt the need for medical attention. She rates her dyspnea as severe and admits numerous similar prior episodes due to her COPD exacerbations. She has not identified any aggravating or ameliorating factors for her dyspnea at home. When she was seen at the urgent care her O2 saturation on room air was 85% and she was subsequently treated with a 125 mg Solu-Medrol injection as well as 3 DuoNeb treatments and she was given a gram of Rocephin IM. As she had not significantly improved she was sent to the emergency room where she was again treated with albuterol nebulizers and though she had shown some improvement she was still requiring supplemental O2 and had significant work of breathing. Chest x-ray showed no evidence of pneumonia and an ABG showed a low PaO2 of 74 on 28% oxygen. Thus patient was admitted to the hospital for further evaluation and treatment of her acute on chronic respiratory failure with hypoxia. Hospital Course Hospital Course: It took her a couple of days before she really started to improve. At one point she was refusing the bronchodilators because she thought they were helping. However, one morning without we are going to have to put her on BiPAP and we gave her a couple of neb treatments and opened her up and she continued to do fine on the nasal cannula. We were able to get her on room air and she was able to ambulate to the bathroom without getting short of breath. She is here with her daughter and they are planning to return to [place] in the next couple of days. We gave her a prescription for prednisone and antibiotic to finish as an outpatient. She has a nebulizer and she has medication for it. Her labs and examination were reassuring and she was discharged today in good condition. Physical Exam Vital Signs: Temp Pulse Resp BP Pulse Ox 98.3 F 91 14 107/58 L 99 04/02/18 12:34 04/02/18 12:34 04/02/18 12:34 04/02/18 12:34 04/02/18 12:34 Intake & Output 04/01/18 04/02/18 04/03/18 06:59 06:59 06:59 Intake Total 1950 725 Balance 1950 725 Weight 45.9 kg 46.6 kg General appearance: PRESENT: no acute distress, cooperative, disheveled, thin Teeth exam: PRESENT: edentulous Respiratory exam: PRESENT: decreased breath sounds, prolonged expiratory phase - slightly; unlabored, breath sounds are a bit coarse. ABSENT: accessory muscle use, rhonchi, tachypnea, wheezes Cardiovascular exam: PRESENT: RRR, +S1, +S2, systolic murmur - Now that her lungs cleared up, I can hear that she has what sounds like a 3 out of 6 systolic murmur Vascular exam: PRESENT: normal capillary refill GI/Abdominal exam: PRESENT: normal bowel sounds, soft. ABSENT: distended, guarding, rebound, tenderness Extremities exam: ABSENT: clubbing, pedal edema Musculoskeletal exam: PRESENT: normal inspection. ABSENT: deformity Neurological exam: PRESENT: alert, awake, oriented to person, oriented to place, oriented to situation Psychiatric exam: PRESENT: appropriate affect, normal mood Skin exam: PRESENT: dry, warm Results Laboratory Results: 03/31/18 06:09 03/31/18 06:09 03/28/18 18:30 Troponin I 0.025 Impressions: Chest X-Ray 03/28/18 18:13 IMPRESSION: NO ACUTE RADIOGRAPHIC FINDING IN THE CHEST. Qualifiers - * PATIENT BEING DISCHARGED WITH ANY OF THE FOLLOWING DIAGNOSIS: No
== END 2018-04-02 13:00 | disposition home or self-care (01) | DRG 189 ==
LOC: ER 18:05 → EH 21:33 → 5 03-29 12:21
PROVIDERS: ADMIT Emergency Medicine; ATTEND Emergency Medicine
PROC: 3E0F73Z Introduction of Anti-inflammatory into Respiratory Tract, Via Natural or Artificial Opening (ICD-10-PCS; principal; 2018-03-28)
DX: J96.21 Acute and chronic respiratory failure with hypoxia (principal); J44.1 Chronic obstructive pulmonary disease with (acute) exacerbation; I10 Essential (primary) hypertension; E78.5 Hyperlipidemia, unspecified; E11.9 Type 2 diabetes mellitus without complications; Z87.891 Personal history of nicotine dependence; Z88.2 Allergy status to sulfonamides; Z88.6 Allergy status to analgesic agent; Z88.8 Allergy status to other drugs, medicaments and biological substances
CPT/HCPCS: 36415; 36600; 71045; 80048; 80053; 82607; 82728; 82746; 82803; 83540; 83550; 83605; 83735; 84439; 84443; 84481; 84484; 85025; 85045; 86850; 86900; 86901; 86920; 87040; 93005; 93010; 99291; J1644; J1756; J2920; J2930; J3490; J7512; J7620

== ENCOUNTER 2019-03-24 12:12 | Inpatient (IN) | payer MEDICARE, MEDICAID ==
[2019-03-24] MEDS ORDERED: IPRATROPIUM/ALBUTEROL 0.5-2.5 MG/3 ML AMPUL NEB ONE ×2 (12:26→15:46)
--- NOTE | 2019-03-24 12:43 | EKG REPORT ---
SEVERITY:- ABNORMAL ECG - SINUS TACHYCARDIA INCOMPLETE RIGHT BUNDLE BRANCH BLOCK : Confirmed by: Rosa Johnson MD 24-Mar-2019 12:43:25
[2019-03-24 12:44] LABS: ABSOLUTE BASOPHILS # (AUTO) 0.1 10^3/uL (0.0-0.2); ABSOLUTE LYMPHOCYTES (AUTO) 2.2 10^3/uL (0.5-4.7); ABSOLUTE MONOCYTES (AUTO) 0.8 10^3/uL (0.1-1.4); ABSOLUTE NEUT (AUTO) 12.7 10^3/uL (1.7-8.2); BASOPHILS % (AUTO) 0.4 % (0-2); EOSINOPHILS % (AUTO) 0.2 % (0-6); HEMOGLOBIN 9.6 g/dL (12.0-15.5); LYMPHOCYTES % (AUTO) 13.7 % (13-45); MEAN CORPUSCULAR HEMOGLOBIN 28.6 pg (27.0-33.4); MEAN CORPUSCULAR VOLUME 92 fl (80-97); MONOCYTES % (AUTO) 4.9 % (3-13); PLATELET COUNT 270 10^3/uL (150-450); RED BLOOD COUNT 3.35 10^6/uL (3.72-5.28); RED CELL DISTRIBUTION WIDTH 15.1 % (11.5-14.0); SEGMENTED NEUTROPHILS % (AUTO) 80.8 % (42-78); TOTAL CELLS COUNTED % (AUTO) 100 %; WHITE BLOOD COUNT 15.8 10^3/uL (4.0-10.5)
[2019-03-24 13:01] LABS: VENOUS BLOOD BASE EXCESS -2.3 mmol/L; VENOUS BLOOD HCO3 24.9 mmol/L (20-32); VENOUS BLOOD PCO2 54.6 mmHg (35-63); VENOUS BLOOD PH 7.28 (7.30-7.42)
[2019-03-24 13:07] LABS: ALKALINE PHOSPHATASE 87 U/L (38-126); ANION GAP 9 (5-19); ASPARTATE AMINO TRANSFERASE 93 U/L (14-36); BILIRUBIN,DIRECT 0.2 mg/dL (0.0-0.4); BILIRUBIN,TOTAL 0.5 mg/dL (0.2-1.3); BLOOD UREA NITROGEN 23 mg/dL (7-20); CALCIUM 8.5 mg/dL (8.4-10.2); CARBON DIOXIDE 26 mmol/L (22-30); CHLORIDE 108 mmol/L (98-107); CREATINE KINASE 90 U/L (30-135); POTASSIUM 3.8 mmol/L (3.6-5.0); TOTAL PROTEIN 6.2 g/dL (6.3-8.2)
[2019-03-24 13:10] LABS: GLUCOSE 62 mg/dL (75-110)
[2019-03-24] MEDS ORDERED: WATER IV ONE (13:12)
[2019-03-24] MEDS ORDERED: DEXTROSE 10% IV ONE (13:12)
--- NOTE | 2019-03-24 13:12 | ER Document Report ---
Entered by SHELBY LOZA SCRIBE 03/24/19 1225 Acting as scribe for:SANDRINE VIDAL MD ED General - General Stated Complaint: DIFFICULTY BREATHING Time Seen by Provider: 03/24/19 12:20 Mode of Arrival: Medic Information source: Relative, Emergency Med Personnel, [facility] Records Notes: This 78 year old female patient with a history of COPD brought in by EMS presents to the ED today with complaints of dyspnea that began prior to arrival per EMS. EMS states that the patient had an upper respiratory infection last night according to the family and when they arrived today, the patient was unre sponsive and had a O2 Sat of 59%. EMS notes that after giving the patient a non- rebreather mask, O2 sat went up to 100% and the patient became more responsive. Per EMS, patient was given 3 albuterol and 1 DuoNeb. Patient's relative states that the patient is visiting from [place] and experienced similar symptoms when she was visiting last year around this time. The patient has never been on a ve ntilator. She has been on BiPAP several times in the past. TRAVEL OUTSIDE OF THE [place] IN LAST 30 DAYS: No - Related Data Allergies/Adverse Reactions: Sulfa (Sulfonamide Antibiotics) Allergy (Intermediate, Verified 03/28/18 19:55) Hives codeine Adverse Reaction (Intermediate, Verified 03/28/18 19:56) Hives tiotropium [From Spiriva with HandiHaler] Adverse Reaction (Verified 03/28/18 19:57) Hives Past Medical History - General Information source: Relative, Emergency Med Personnel, [facility] Records - Social History Smoking Status: Former Smoker - quit x20 years ago Cigarette use (# per day): No Chew tobacco use (# tins/day): No Smoking Education Provided: No Frequency of alcohol use: None Drug Abuse: None Occupation: retired Lives with: Family Family History: DM, Hypertension - Past Medical History Cardiac Medical History: Reports: Hx Hypercholesterolemia, Hx Hypertension, Othe r - Aortic Stenosis Pulmonary Medical History: Reports: Hx COPD Endocrine Medical History: Reports: Hx Diabetes Mellitus Type 2 Past Surgical History: Reports: Hx Tubal Ligation - Immunizations Hx Pneumococcal Vaccination: 05/03/17 Review of Systems - Review of Systems Constitutional: No symptoms reported EENT: No symptoms reported Cardiovascular: See HPI, Dyspnea Respiratory: See HPI, Cough Gastrointestinal: No symptoms reported Genitourinary: No symptoms reported Female Genitourinary: No symptoms reported Musculoskeletal: No symptoms reported Skin: No symptoms reported Hematologic/Lymphatic: No symptoms reported Neurological/Psychological: No symptoms reported -: Yes All other systems reviewed and negative Physical Exam - Vital signs Vitals: Temp Resp BP Pulse Ox 100.6 F H 29 H 152/47 H 100 03/24/19 12:19 03/24/19 12:19 03/24/19 12:19 03/24/19 12:19 - General General appearance: Alert, Other - Weak - HEENT Head: Normocephalic, Atraumatic Eyes: Normal Pupils: PERRL - Respiratory Respiratory status: Respiratory distress - on BiPAP Chest status: Nontender Breath sounds: Rhonchi - diffused expiratory rhonchi, Wheezing - diffused expiratory wheezing Chest palpation: Normal - Cardiovascular Rhythm: Tachycardia Heart sounds: Normal auscultation Murmur: No - Abdominal Inspection: Normal Distension: No distension Bowel sounds: Normal Tenderness: Nontender Organomegaly: No organomegaly - Back Back: Normal, Nontender - Extremities General upper extremity: Normal inspection General lower extremity: Edema - trace pitting edema - Neurological Neuro grossly intact: Yes Orientation: AAOx4 - Psychological Associated symptoms: Normal affect, Normal mood - Skin Skin Temperature: Warm Skin Moisture: Dry Skin Color: Normal Course - Re-evaluation Re-evalutation: 03/24/19 14:39 The patient is alert, oriented, tolerating BiPAP well. She is smiling now and states her breathing does feel much better. - Vital Signs Vital signs: Temp Pulse Resp BP Pulse Ox 100.6 F H 30 H 113/42 L 98 03/24/19 12:19 03/24/19 14:01 03/24/19 14:00 03/24/19 14:01 - Laboratory Result Diagrams: 03/24/19 12:30 03/24/19 12:30 Laboratory results interpreted by me: 03/24/19 03/24/19 03/24/19 12:30 12:30 12:30 WBC 15.8 H RBC 3.35 L Hgb 9.6 L Hct 31.0 L MCHC 31.0 L RDW 15.1 H Absolute Neuts (auto) 12.7 H Seg Neutrophils % 80.8 H VBG pH 7.28 L Chloride 108 H BUN 23 H Glucose 62 L AST 93 H Total Protein 6.2 L Albumin 3.0 L Urine Protein Urine Blood 03/24/19 14:31 WBC RBC Hgb Hct MCHC RDW Absolute Neuts (auto) Seg Neutrophils % VBG pH Chloride BUN Glucose AST Total Protein Albumin Urine Protein >=500 H Urine Blood SMALL H - Diagnostic Test Radiology reviewed: Image reviewed - Chest x-ray appears to show moderate COPD with no airspace disease., Reports reviewed - Chest x-ray does not show acute cardiopulmonary process. - EKG Interpretation by Me EKG shows normal: Sinus rhythm, Royal, Intervals, QRS Complexes, ST-T Waves Rate: Tachycardia - 113 Royal/QRS: RBBB - Incomplete right bundle branch block When compared to previous EKG there are: No significant change - Consults Dr. Myers Time consulted: 15:10 Consulted provider: will come to ER Critical Care Note - Critical Care Note Total time excluding time spent on procedures (mins): 40 Discharge - Discharge Clinical Impression: Acute on chronic respiratory failure with hypoxia, COPD exacerbation, Hypoxia, Hypoglycemia associated with type 2 diabetes mellitus, Elevated troponin Leukocytosis Qualifiers: Leukocytosis type: unspecified Qualified Code(s): D72.829 - Elevated white blood cell count, unspecified Fever Qualifiers: Fever type: unspecified Qualified Code(s): R50.9 - Fever, unspecified Condition: Fair Disposition: ADMITTED INPATIENT Admitting Provider: Louis (Hospitalist) Unit Admitted: [facility] Scribe Attestation: 03/24/19 14:48 I personally performed the services described in the documentation, reviewed and edited the documentation which was dictated to the scribe in my presence, and it accurately records my words and actions. I personally performed the services described in the documentation, reviewed and edited the documentation which was dictated to the scribe in my presence, and it accurately records my words and actions.
[2019-03-24] MEDS: MAGNESIUM SULFATE/D5W 1 GM/100 ML RTUPB IV SCH ×2 (13:17→13:50)
[2019-03-24] MEDS ORDERED: LEVOFLOXACIN 750 MG/D5W RTU 750 MG/150 ML RTUPB IV ONE (13:53)
--- NOTE | 2019-03-24 13:59 | RADIOLOGY REPORT (SQ) ---
EXAM DESCRIPTION: CHEST SINGLE VIEW COMPLETED DATE/TIME: 03/24/2019 1:13 pm REASON FOR STUDY: COPD exacerbation, hypoxia COMPARISON: 03/28/2018 EXAM PARAMETERS: NUMBER OF VIEWS: One view. TECHNIQUE: Single frontal radiographic view of the chest acquired. RADIATION DOSE: NA LIMITATIONS: None FINDINGS: LUNGS AND PLEURA: No opacities, masses or pneumothorax. No pleural effusion. MEDIASTINUM AND HILAR STRUCTURES: No masses. Contour normal. HEART AND VASCULAR STRUCTURES: Heart normal in size. Normal vasculature. BONES: No acute findings. HARDWARE: None in the chest. OTHER: No other significant finding. IMPRESSION: NO ACUTE RADIOGRAPHIC FINDING IN THE CHEST. TECHNICAL DOCUMENTATION: JOB ID: [id number] [employer]- All Rights Reserved Reading location - IP/workstation name: [email or web address]
[2019-03-24] MEDS ORDERED: ACETAMINOPHEN 325 MG TABLET PO ONE (14:39)
[2019-03-24] MEDS ORDERED: ALBUTEROL SULFATE 0.083% NEB 2.5 MG/3 ML AMPUL NEB ONE (14:39)
[2019-03-24 14:57] LABS: APPEARANCE,URINE SLIGHTLY-CLOUDY; BILIRUBIN,URINE NEGATIVE (NEGATIVE); COLOR,URINE YELLOW; GLUCOSE, URINE NEGATIVE (NEGATIVE); KETONES,URINE NEGATIVE (NEGATIVE); LEUKOCYTE ESTERASE,URINE NEGATIVE (NEGATIVE); NITRITE,URINE NEGATIVE (NEGATIVE); PROTEIN,URINE >=500 mg/dL (NEGATIVE); URINE SPECIFIC GRAVITY 1.016; UROBILINOGEN,URINE NEGATIVE mg/dL (<2.0)
[2019-03-24 15:06] LABS: A TYPE INFLUENZA AG NEGATIVE (NEGATIVE); B INFLUENZA AG NEGATIVE (NEGATIVE)
[2019-03-24] MEDS ORDERED: NORMAL SALINE 1000 ML 1,000 ML IV PRN (15:46)
[2019-03-24] MEDS ORDERED: ONDANSETRON HCL INJ/PF 4 MG/2 ML SDV IV PRN (15:46)
[2019-03-24] MEDS ORDERED: ACETAMINOPHEN 325 MG TABLET PO PRN (15:46)
[2019-03-24] MEDS ORDERED: GLUCAGON,HUMAN RECOMB 1 MG INJ IM PRN (15:54)
[2019-03-24] MEDS ORDERED: DEXTROSE 40% GEL 15 GM TUBE PO PRN ×2 (15:54)
[2019-03-24] MEDS ORDERED: DEXTROSE 50%-WATER 25 GM/50 ML DISP.SYRIN IV PRN ×2 (15:54)
[2019-03-24] MEDS ORDERED: CEFTRIAXONE INJ 1000 MG VIAL IV SCH (16:00)
--- NOTE | 2019-03-24 16:08 | PDOC H&P ---
History of Present Illness Patient complains of: Shortness of breath associated with wheezing from this morning History of Present Illness: ANALI ARIAS is a 78 year old female with history of COPD not on home oxygen, hypertension, diabetes mellitus, history of aortic stenosis, ex-smoker, hypercholesterolemia brought to the emergency room by family members after noticing increasing shortness of breath associated with wheezing from this morning. She came to visit her family from [place]. Primary care physician in [place]. Most of the history provided by the family members patient is unable to speak any Khmer. Work-up in the emergency room indicates elevated WBC of 15,000, temp of 100.6 in the ER with hypoxia. Troponin was elevated 2.2 in the emergency room EKG was normal the impression from the ER physician is most likely secondary to hypoxia demand mismatch. Family is aware of the elevated troponin they agreed to keep the patient here for further investigation and management of the COPD. As per the family members CODE STATUS is full code. Past Medical History Cardiac Medical History: Reports: Hyperlipidema, Hypertension, Other - Aortic Stenosis Pulmonary Medical History: Reports: Chronic Obstructive Pulmonary Disease (COPD) Neurological Medical History: Denies: Seizures Endocrine Medical History: Reports: Diabetes Mellitus Type 2 Denies: Diabetes Mellitus Type 1 GI Medical History: Denies: Cirrhosis, Hepatitis Musculoskeltal Medical History: Denies: Arthritis, Gout Skin Medical History: Denies: Eczema, Psoriasis Hematology: Denies: Anemia, Bleeding Tendencies Past Surgical History Past Surgical History: Reports: Tubal Ligation Social History Information 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, 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 Lives with: Family Smoking Status: Former Smoker - quit x20 years ago Electronic Cigarette use?: No Frequency of Alcohol Use: None Hx Recreational Drug Use: No Drugs: None Hx Prescription Drug Abuse: No - Advance Directive Resuscitation Status: Full Code Family History Family History: DM, Hypertension Parental Family History Reviewed: Yes - Other with history of hypertension and diabetes mellitus Children Family History Reviewed: Yes Sibling(s) Family History Reviewed.: Yes Medication/Allergy Allergies/Adverse Reactions: Sulfa (Sulfonamide Antibiotics) Allergy (Intermediate, Verified 03/28/18 19:55) Hives codeine Adverse Reaction (Intermediate, Verified 03/28/18 19:56) Hives tiotropium [From Spiriva with HandiHaler] Adverse Reaction (Verified 03/28/18 19:57) Hives Review of Systems Constitutional: PRESENT: fever(s). ABSENT: chills, fatigue Eyes: ABSENT: visual disturbances Ears: ABSENT: hearing changes Nose, Mouth, and Throat: ABSENT: sore throat Cardiovascular: ABSENT: chest pain, dyspnea on exertion Respiratory: PRESENT: cough, dyspnea, other - Wheezing Gastrointestinal: ABSENT: abdominal pain, constipation, diarrhea, hematemesis, hematochezia, nausea, vomiting Genitourinary: ABSENT: dysuria, hematuria Integumentary: ABSENT: rash, wounds Neurological: PRESENT: other - Patient was confused this morning as per the family members Psychiatric: ABSENT: anxiety, depression, homidical ideation, suicidal ideation Physical Exam Vital Signs: Temp Pulse Resp BP Pulse Ox 100.6 F H 30 H 113/42 L 98 03/24/19 12:19 03/24/19 14:01 03/24/19 14:00 03/24/19 14:01 Intake & Output 03/23/19 03/24/19 03/25/19 06:59 06:59 06:59 Intake Total 350 Balance 350 Weight 50.7 kg General appearance: PRESENT: no acute distress, thin Head exam: PRESENT: atraumatic Eye exam: PRESENT: PERRLA Mouth exam: PRESENT: moist, tongue midline Teeth exam: PRESENT: poor dentation Neck exam: ABSENT: carotid bruit, JVD, lymphadenopathy, thyromegaly Respiratory exam: PRESENT: decreased breath sounds. ABSENT: rales, rhonchi, wheezes Cardiovascular exam: PRESENT: systolic murmur Pulses: PRESENT: normal dorsalis pedis pul GI/Abdominal exam: PRESENT: normal bowel sounds, soft. ABSENT: distended, guarding, mass, organolmegaly, rebound, tenderness Rectal exam: PRESENT: deferred Extremities exam: PRESENT: full ROM. ABSENT: calf tenderness, clubbing, pedal edema Neurological exam: PRESENT: alert, awake, oriented to person, oriented to place, oriented to time, oriented to situation, CN II-XII grossly intact. ABSENT: motor sensory deficit Psychiatric exam: PRESENT: appropriate affect, normal mood. ABSENT: homicidal ideation, suicidal ideation Results Laboratory Results: 03/24/19 12:30 03/24/19 12:30 03/24/19 03/24/19 03/24/19 12:30 12:30 12:30 WBC 15.8 H RBC 3.35 L Hgb 9.6 L Hct 31.0 L MCV 92 MCH 28.6 MCHC 31.0 L RDW 15.1 H Plt Count 270 Seg Neutrophils % 80.8 H VBG pH VBG pCO2 VBG HCO3 VBG Base Excess Sodium 142.5 Potassium 3.8 Chloride 108 H Carbon Dioxide 26 Anion Gap 9 BUN 23 H Creatinine 0.90 Est GFR ( Amer) > 60 Glucose 62 L Lactic Acid 2.1 Calcium 8.5 Total Bilirubin 0.5 AST 93 H Alkaline Phosphatase 87 Total Protein 6.2 L Albumin 3.0 L Urine Color Urine Appearance Urine pH Ur Specific [place] Urine Protein Urine Glucose (UA) Urine Ketones Urine Blood Urine Nitrite Ur Leukocyte Esterase Urine WBC (Auto) Urine RBC (Auto) 03/24/19 03/24/19 12:30 14:31 WBC RBC Hgb Hct MCV MCH MCHC RDW Plt Count Seg Neutrophils % VBG pH 7.28 L VBG pCO2 54.6 VBG HCO3 24.9 VBG Base Excess -2.3 Sodium Potassium Chloride Carbon Dioxide Anion Gap BUN Creatinine Est GFR ( Amer) Glucose Lactic Acid Calcium Total Bilirubin AST Alkaline Phosphatase Total Protein Albumin Urine Color YELLOW Urine Appearance SLIGHTLY-CLOUDY Urine pH 5.0 Ur Specific [place] 1.016 Urine Protein >=500 H Urine Glucose (UA) NEGATIVE Urine Ketones NEGATIVE Urine Blood SMALL H Urine Nitrite NEGATIVE Ur Leukocyte Esterase NEGATIVE Urine WBC (Auto) 0 Urine RBC (Auto) 2 03/24/19 03/24/19 12:30 12:30 Creatine Kinase 90 Troponin I 2.200 Impressions: Chest X-Ray 03/24/19 12:30 IMPRESSION: NO ACUTE RADIOGRAPHIC FINDING IN THE CHEST. Assessment and Plan - Diagnosis (1) Acute on chronic respiratory failure with hypoxia Is this a current diagnosis for this admission?: Yes Plan: 03/24/2019-patient is going to be admitted to [facility] with a diagnosis of acute on chronic respiratory failure with hypoxia plan is to do the CT chest without contrast. Chest x-ray did not indicate of any pneumonia. Patient is going to be on supplemental oxygen 2 L oxygen via nasal cannula, albuterol nebulizations and a flutter valve therapy. Started on IV Rocephin 2 g daily. Blood cultures sputum cultures are requested. At the time of discharge plan is to evaluate for home oxygen needs. GI prophylaxis initiated started on full dose of Lovenox because of the elevated troponins. (2) Elevated troponin Is this a current diagnosis for this admission?: Yes Plan: 03/24/2019-troponin is 2.2 today plan is to do the every 6 hours serial troponins, started on Lovenox 40 mg subcu every 12 hours, aspirin and atorvastatin. Repeat EKG was requested around 8 PM today. Elevated troponins in my opinion most likely secondary to oxygen demand and supply mismatch. KG was in normal sinus rhythm no acute changes noticed. (3) Leukocytosis Qualifiers: Leukocytosis type: unspecified Qualified Code(s): D72.829 - Elevated white blood cell count, unspecified Is this a current diagnosis for this admission?: Yes Plan: 03/24/2019-patient's WBC count is elevated 15,600 most likely secondary to underlying section. Started on IV Rocephin 2 g daily. Blood cultures, urine analysis and sputum cultures are requested. (4) Diabetes mellitus type 2 in nonobese Is this a current diagnosis for this admission?: No Plan: 03/24/2019-has a history of type 2 diabetes mellitus started on insulin sliding scale before meals and at bedtime and to check for hemoglobin A1c in the morning. (5) HTN (hypertension) Qualifiers: Hypertension type: essential hypertension Qualified Code(s): I10 - Essential (primary) hypertension Is this a current diagnosis for this admission?: No Plan: 03/24/2019-patient has history of chronic essential hypertension blood pressure is 113/42 started on IV fluids normal saline at 75 cc/h to closely monitor the blood pressures every shift. (6) SIRS (systemic inflammatory response syndrome) Is this a current diagnosis for this admission?: Yes Plan: 03/24/2019-patient came in with fever of 100.6, WBC count of 15,600 and lactic acid level is 2.1. Started on IV fluids normal saline 75 cc/h plan is to give IV Rocephin 2 g daily. Patient latest systolic blood pressure in the 90s to g joya normal saline bolus 500 cc continue IV fluids at 75 cc/h. Plan is to repeat the lactic acid level tonight.
[2019-03-24] MEDS ORDERED: NORMAL SALINE 1000 ML 1,000 ML IV ONE (16:09)
[2019-03-24] MEDS: INSULIN LISPRO 100 UNIT/ML 3 ML VIAL SUBCUT SCH (16:37)
--- NOTE | 2019-03-24 16:50 | RADIOLOGY REPORT (SQ) ---
EXAM DESCRIPTION: CT CHEST WITHOUT COMPLETED DATE/TIME: 03/24/2019 4:23 pm REASON FOR STUDY: shortness of breath COMPARISON: Chest films 03/24/2019, 03/28/2018, 03/23/2007 TECHNIQUE: CT scan performed of the chest without intravenous contrast. Images reviewed with lung, soft tissue and bone windows. Reconstructed coronal and sagittal MPR images reviewed. All images st ored on PACS. All CT scanners at this facility use dose modulation, iterative reconstruction, and/or weight based d osing when appropriate to reduce radiation dose to as low as reasonably achievable (ALARA). [facility]: Dose Right [facility]: CareDose [facility]: Dose Right [facility]: Teradose 4D [facility]: [employer] Technologies RADIATION DOSE: CT Rad equipment meets quality standard of care and radiation dose reduction techniq ues were employed. CTDIvol: 5.7 mGy. DLP: 204 mGy-cm. mGy. LIMITATIONS: No technical limitations. FINDINGS: LUNGS AND PLEURA: A 1.5 x 1.4 cm lung nodule is present in the left upper lobe, best shown on axial image 30/59, coronal image 21, sagittal image 54. A 6 mm nodule is present in the right middle lobe on axial image 35/59. This could represent volume averaging artifact, this is difficult to discern on the sagittal and coronal reconstructions. No focal pulmonary infiltrates worrisome for pneumonia. Small bilateral pleural effusions are present. No pneumothorax HILAR AND MEDIASTINAL STRUCTURES: No identified masses or abnormal nodes. No obvious aneurysm. HEART AND VASCULAR STRUCTURES: No aneurysm. No pericardial effusion. Calcified aortic valve. Moder ate coronary artery calcifications UPPER ABDOMEN: Moderate ascites in the upper abdomen. Nodular contour of the liver worrisome for cir rhosis. THYROID AND OTHER SOFT TISSUES: No masses. No adenopathy. BONES: No significant finding. HARDWARE: None in the chest. OTHER: No other significant findings. IMPRESSION: 1.5 cm left upper lobe mass worrisome for malignancy 6 mm right middle lobe nodule of uncertain clinical significance Upper abdominal ascites, nodular liver from cirrhosis TECHNICAL DOCUMENTATION: JOB ID: [id number] Quality ID # [id number]: Final reports with documentation of one or more dose reduction techniques (e.g., Au tomated exposure control, adjustment of the mA and/or kV according to patient size, use of iterative reconstruction technique) 2010 [employer]- All Rights Reserved Reading location - IP/workstation name: [email or web address]
[2019-03-24] MEDS: CEFTRIAXONE 2 GM/D5W RTU 2 GM/50 ML RTUPB IV SCH (17:25)
[2019-03-24] MEDS: FERROUS SULFATE 325 MG TABLET PO SCH (19:41)
[2019-03-24] MEDS: ASCORBIC ACID 500 MG TABLET PO SCH (19:42)
[2019-03-24] MEDS: ASPIRIN 81 MG TABLET, CHEWABLE PO SCH (19:42)
[2019-03-24] MEDS ORDERED: ENOXAPARIN SODIUM INJ 40 MG/0.4 ML DISP.SYRIN SUBCUT SCH (22:00)
[2019-03-24] MEDS ORDERED: HEPARIN SOD (PORCINE) 5,000 UNIT/ML 1 ML VIAL SUBCUT SCH (22:00)
--- NOTE | 2019-03-24 22:30 | EKG REPORT ---
SEVERITY:- ABNORMAL ECG - SINUS RHYTHM RIGHT BUNDLE BRANCH BLOCK : Confirmed by: Rosa Johnson MD 24-Mar-2019 22:29:42
[2019-03-24] MEDS: FAMOTIDINE 20 MG TABLET PO SCH (22:57)
[2019-03-24] MEDS: MONTELUKAST SODIUM 10 MG TABLET PO SCH (22:57)
[2019-03-25] MEDS: ENOXAPARIN SODIUM INJ 60 MG/0.6 ML DISP.SYRIN SUBCUT SCH ×3 (00:08→21:12)
[2019-03-25] MEDS: INSULIN LISPRO 100 UNIT/ML 3 ML VIAL SUBCUT SCH ×3 (03:14→22:03)
[2019-03-25 05:05] LABS: HEMATOCRIT 23.3 % (36.0-47.0); MEAN CORPUSCULAR HEMOGLOBIN 29.1 pg (27.0-33.4); MEAN CORPUSCULAR VOLUME 91 fl (80-97); PLATELET COUNT 114 10^3/uL (150-450); RED BLOOD COUNT 2.57 10^6/uL (3.72-5.28); RED CELL DISTRIBUTION WIDTH 14.7 % (11.5-14.0); WHITE BLOOD COUNT 6.2 10^3/uL (4.0-10.5)
[2019-03-25 05:07] LABS: HEMOGLOBIN 7.5 g/dL (12.0-15.5)
[2019-03-25 05:16] LABS: ALBUMIN 2.4 g/dL (3.5-5.0); ALKALINE PHOSPHATASE 58 U/L (38-126); ANION GAP 8 (5-19); ASPARTATE AMINO TRANSFERASE 151 U/L (14-36); BILIRUBIN,DIRECT 0.1 mg/dL (0.0-0.4); BILIRUBIN,TOTAL 0.2 mg/dL (0.2-1.3); BLOOD UREA NITROGEN 29 mg/dL (7-20); CALCIUM 7.6 mg/dL (8.4-10.2); CARBON DIOXIDE 23 mmol/L (22-30); CHLORIDE 109 mmol/L (98-107); GLUCOSE 136 mg/dL (75-110); POTASSIUM 3.7 mmol/L (3.6-5.0); TOTAL PROTEIN 5.3 g/dL (6.3-8.2)
[2019-03-25 05:34] LABS: ABSOLUTE LYMPHOCYTES# (MANUAL) 0.2 10^3/uL (0.5-4.7); ABSOLUTE MONOCYTES # (MANUAL) 0.3 10^3/uL (0.1-1.4); BAND NEUTROPHILS % (MANUAL) 2 % (3-5); BASOPHILS % (MANUAL) 0 % (0-2); EOSINOPHILS % (MANUAL) 0 % (0-6); LYMPHOCYTES % (MANUAL) 3 % (13-45); MONOCYTES % (MANUAL) 5 % (3-13); SEGMENTED NEUTROPHILS % (MAN) 90 % (42-78); TOTAL CELLS COUNTED 100
[2019-03-25 05:37] LABS: ANISOCYTOSIS SLIGHT; OVALOCYTES SLIGHT; PLATELET COMMENT DECREASED; POIKILOCYTOSIS SLIGHT; SCHISTOCYTES SLIGHT; TEAR DROP CELLS SLIGHT; TOXIC GRANULATION SLIGHT
[2019-03-25 06:28] LABS: ARTERIAL BLOOD BASE EXCESS -4.2 mmol/L; ARTERIAL BLOOD H2CO3 1.13 mmol/L (1.05-1.35); ARTERIAL BLOOD HCO3 20.8 mmol/L (20-24); ARTERIAL BLOOD O2 SATURATION 83.5 % (94-98); ARTERIAL BLOOD PCO2 37.5 mmHg (35-45); ARTERIAL BLOOD PH 7.36 (7.35-7.45)
[2019-03-25 06:29] LABS: ARTERIAL BLOOD FIO2 28%
--- NOTE | 2019-03-25 08:50 | PDOC PROGRESS REPORT ---
Subjective Progress Note for:: 03/25/19 Subjective:: 03/25/2019-chest pain Reason For Visit: COPD EXARBATION Physical Exam Vital Signs: Temp Pulse Resp BP Pulse Ox 98.2 F 93 22 H 167/51 H 98 03/25/19 07:31 03/25/19 07:31 03/25/19 07:31 03/25/19 07:31 03/25/19 07:31 Intake & Output 03/24/19 03/25/19 03/26/19 06:59 06:59 06:59 Intake Total 1550 Balance 1550 Weight 51.5 kg General appearance: PRESENT: no acute distress, well-developed, well-nourished Neck exam: ABSENT: carotid bruit, JVD, lymphadenopathy, thyromegaly Respiratory exam: PRESENT: decreased breath sounds, rales - Bases, symmetrical, tachypnea, unlabored, wheezes Cardiovascular exam: PRESENT: RRR. ABSENT: diastolic murmur, rubs, systolic murmur Pulses: PRESENT: +1 pedal pulses bilateral Vascular exam: PRESENT: normal capillary refill GI/Abdominal exam: PRESENT: normal bowel sounds, soft. ABSENT: distended, guarding, mass, organolmegaly, rebound, tenderness Extremities exam: PRESENT: full ROM. ABSENT: calf tenderness, clubbing, pedal edema Neurological exam: PRESENT: alert, awake, oriented to person, oriented to place, oriented to time, oriented to situation, CN II-XII grossly intact. ABSENT: motor sensory deficit Psychiatric exam: PRESENT: appropriate affect, normal mood. ABSENT: homicidal ideation, suicidal ideation Skin exam: PRESENT: dry, intact, warm. ABSENT: cyanosis, rash Results Laboratory Results: 03/25/19 04:24 03/25/19 04:24 03/24/19 03/24/19 03/24/19 12:30 12:30 12:30 WBC 15.8 H RBC 3.35 L Hgb 9.6 L Hct 31.0 L MCV 92 MCH 28.6 MCHC 31.0 L RDW 15.1 H Plt Count 270 Seg Neutrophils % 80.8 H Carbonic Acid HCO3/H2CO3 Ratio ABG pH ABG pCO2 ABG pO2 ABG HCO3 ABG O2 Saturation ABG Base Excess VBG pH VBG pCO2 VBG HCO3 VBG Base Excess FiO2 Sodium 142.5 Potassium 3.8 Chloride 108 H Carbon Dioxide 26 Anion Gap 9 BUN 23 H Creatinine 0.90 Est GFR ( Amer) > 60 Glucose 62 L Lactic Acid 2.1 Calcium 8.5 Magnesium Total Bilirubin 0.5 AST 93 H Alkaline Phosphatase 87 Total Protein 6.2 L Albumin 3.0 L TSH Urine Color Urine Appearance Urine pH Ur Specific [place] Urine Protein Urine Glucose (UA) Urine Ketones Urine Blood Urine Nitrite Ur Leukocyte Esterase Urine WBC (Auto) Urine RBC (Auto) 03/24/19 03/24/19 03/25/19 12:30 14:31 04:24 WBC 6.2 RBC 2.57 L Hgb 7.5 L D Hct 23.3 L MCV 91 MCH 29.1 MCHC 32.0 RDW 14.7 H Plt Count 114 L Seg Neutrophils % Not Reportable Carbonic Acid HCO3/H2CO3 Ratio ABG pH ABG pCO2 ABG pO2 ABG HCO3 ABG O2 Saturation ABG Base Excess VBG pH 7.28 L VBG pCO2 54.6 VBG HCO3 24.9 VBG Base Excess -2.3 FiO2 Sodium Potassium Chloride Carbon Dioxide Anion Gap BUN Creatinine Est GFR ( Amer) Glucose Lactic Acid Calcium Magnesium Total Bilirubin AST Alkaline Phosphatase Total Protein Albumin TSH Urine Color YELLOW Urine Appearance SLIGHTLY-CLOUDY Urine pH 5.0 Ur Specific [place] 1.016 Urine Protein >=500 H Urine Glucose (UA) NEGATIVE Urine Ketones NEGATIVE Urine Blood SMALL H Urine Nitrite NEGATIVE Ur Leukocyte Esterase NEGATIVE Urine WBC (Auto) 0 Urine RBC (Auto) 2 03/25/19 03/25/19 03/25/19 04:24 04:24 06:20 WBC RBC Hgb Hct MCV MCH MCHC RDW Plt Count Seg Neutrophils % Carbonic Acid 1.13 HCO3/H2CO3 Ratio 18:1 ABG pH 7.36 ABG pCO2 37.5 ABG pO2 49.0 L ABG HCO3 20.8 ABG O2 Saturation 83.5 L ABG Base Excess -4.2 VBG pH VBG pCO2 VBG HCO3 VBG Base Excess FiO2 28% Sodium 139.7 Potassium 3.7 Chloride 109 H Carbon Dioxide 23 Anion Gap 8 BUN 29 H Creatinine 1.08 Est GFR ( Amer) > 60 Glucose 136 H Lactic Acid Calcium 7.6 L Magnesium 2.5 H Total Bilirubin 0.2 AST 151 H Alkaline Phosphatase 58 Total Protein 5.3 L Albumin 2.4 L TSH 1.55 Urine Color Urine Appearance Urine pH Ur Specific [place] Urine Protein Urine Glucose (UA) Urine Ketones Urine Blood Urine Nitrite Ur Leukocyte Esterase Urine WBC (Auto) Urine RBC (Auto) 03/24/19 03/24/19 03/24/19 12:30 12:30 16:33 Creatine Kinase 90 Troponin I 2.200 3.410 03/24/19 03/25/19 21:47 04:24 Creatine Kinase Troponin I 2.750 2.110 Impressions: Chest CT 03/24/19 00:00 IMPRESSION: 1.5 cm left upper lobe mass worrisome for malignancy 6 mm right middle lobe nodule of uncertain clinical significance Upper abdominal ascites, nodular liver from cirrhosis Chest X-Ray 03/24/19 12:30 IMPRESSION: NO ACUTE RADIOGRAPHIC FINDING IN THE CHEST. Assessment and Plan - Diagnosis (1) Acute on chronic respiratory failure with hypoxia Is this a current diagnosis for this admission?: Yes Plan: 03/24/2019-patient is going to be admitted to [facility] with a diagnosis of acute on chronic respiratory failure with hypoxia plan is to do the CT chest without contrast. Chest x-ray did not indicate of any pneumonia. Patient is going to be on supplemental oxygen 2 L oxygen via nasal cannula, albuterol nebulizations and a flutter valve therapy. Started on IV Rocephin 2 g daily. Blood cultures sputum cultures are requested. At the time of discharge plan is to evaluate for home oxygen needs. GI prophylaxis initiated started on full dose of Lovenox because of the elevated troponins. 03/25/2019-CTA chest shows possible mass suspicious for malignancy. Will discuss this with patient. Patient continues on nasal cannula at this time able to speak in broken sentences. Cough with complaint of chest pain without radiation. Most likely costochondral in nature. Patient did have positive troponins and was given full dose Lovenox. Patient was started on Rocephin 2 g IV daily, bronchodilators. Will follow (2) Elevated troponin Is this a current diagnosis for this admission?: Yes Plan: 03/24/2019-troponin is 2.2 today plan is to do the every 6 hours serial troponins, started on Lovenox 40 mg subcu every 12 hours, aspirin and atorvastatin. Repeat EKG was requested around 8 PM today. Elevated troponins in my opinion most likely secondary to oxygen demand and supply mismatch. KG was in normal sinus rhythm no acute changes noticed. (3) Leukocytosis Qualifiers: Leukocytosis type: unspecified Qualified Code(s): D72.829 - Elevated white blood cell count, unspecified Is this a current diagnosis for this admission?: Yes Plan: 03/24/2019-patient's WBC count is elevated 15,600 most likely secondary to underlying section. Started on IV Rocephin 2 g daily. Blood cultures, urine analysis and sputum cultures are requested. 03/25/2019-continue antibiotic therapy await cultures (4) SIRS (systemic inflammatory response syndrome) Is this a current diagnosis for this admission?: Yes Plan: 03/24/2019-patient came in with fever of 100.6, WBC count of 15,600 and lactic acid level is 2.1. Started on IV fluids normal saline 75 cc/h plan is to give IV Rocephin 2 g daily. Patient latest systolic blood pressure in the 90s to give normal saline bolus 500 cc continue IV fluids at 75 cc/h. Plan is to repeat the lactic acid level tonight. 03/25/2019-resolved. White count down to 6000 and fever down to 98.2. Will follow DC IV fluids at this time. Will give patient 40 mg IV Lasix as patient sounds wet. (5) Diabetes mellitus type 2 in nonobese Is this a current diagnosis for this admission?: No Plan: 03/24/2019-has a history of type 2 diabetes mellitus started on insulin sliding scale before meals and at bedtime and to check for hemoglobin A1c in the morning. 03/25/2019-stable continue sliding scale insulin before meals and at bedtime. A1c 5.1 this is most likely due to stress and steroid use. (6) HTN (hypertension) Qualifiers: Hypertension type: essential hypertension Qualified Code(s): I10 - Essential (primary) hypertension Is this a current diagnosis for this admission?: No Plan: 03/24/2019-patient has history of chronic essential hypertension blood pressure is 113/42 started on IV fluids normal saline at 75 cc/h to closely monitor the blood pressures every shift. 03/25/2019-running high at this time 167 systolic will restart home lisinopril and Coreg - Time Time Spent with patient: 15-24 minutes - Inpatient Certification Based on my medical assessment, after consideration of the patient's comorbidities, presenting symptoms, or acuity I expect that the services needed warrant INPATIENT care.: Yes I certify that my determination is in accordance with my understanding of Medicare's requirements for reasonable and necessary INPATIENT services [42 CFR 412.3e].: Yes Medical Necessity: Significant Comorbidiites Make Outpatient Treatment Too Risky, Need Close Monitoring Due to Risk of Patient Decompensation
[2019-03-25] MEDS: CARVEDILOL 12.5 MG TABLET PO SCH ×2 (09:24→21:02)
[2019-03-25] MEDS: PANTOPRAZOLE SODIUM 40 MG TABLET.DR PO SCH (09:25)
[2019-03-25] MEDS: ATORVASTATIN CALCIUM 40 MG TABLET PO SCH (09:25)
[2019-03-25] MEDS: ASCORBIC ACID 500 MG TABLET PO SCH (09:25)
[2019-03-25] MEDS: FERROUS SULFATE 325 MG TABLET PO SCH ×2 (09:25→20:18)
[2019-03-25] MEDS: LISINOPRIL 10 MG TABLET PO SCH (09:25)
[2019-03-25] MEDS: FAMOTIDINE 20 MG TABLET PO SCH ×2 (09:25→21:03)
[2019-03-25] MEDS: ASPIRIN 81 MG TABLET, CHEWABLE PO SCH (09:25)
[2019-03-25] MEDS: CEFTRIAXONE 2 GM/D5W RTU 2 GM/50 ML RTUPB IV SCH (09:28)
[2019-03-25] MEDS ORDERED: FUROSEMIDE INJ/PF 40 MG/4 ML SDV IV ONE (09:30)
[2019-03-25] MEDS ORDERED: NORMAL SALINE 250 ML IV PRN ×2 (09:57)
[2019-03-25] MEDS ORDERED: PREDNISONE 5 MG TABLET PO SCH (10:00)
[2019-03-25] MEDS ORDERED: ATORVASTATIN CALCIUM 10 MG TABLET PO SCH (10:00)
[2019-03-25] MEDS ORDERED: MORPHINE SULFATE 10 MG/ML INJ IV ONE (10:30)
--- NOTE | 2019-03-25 10:32 | PDOC CONSULTATION ---
Consultation Consult Date: 03/25/19 Attending physician:: ANGELY ALMAZAN Provider Consulted: CARISSA BRUNO Consult reason:: Elevated troponin History of Present Illness Admission Date/PCP: 03/24/19 16:02 Patient complains of: Shortness of breath History of Present Illness: ANALI ARIAS is a 78 year old female With past medical history of COPD, diabetes, hypertension, aortic stenosis, ex- smoker, hyperlipidemia comes to the hospital with progressively increasing shortness of breath. No orthopnea. No PND. While she was in the emergency department her troponin was noted to be 2.2 and it went up to 3.8. She has no chest pain. She did have some minimal fever. No prior history of known coronary artery disease. Currently non-smoker. No alcohol. No drugs. No significant family history. Patient is a poor historian. Past Medical History Cardiac Medical History: Reports: Hyperlipidema, Hypertension, Other - Aortic Stenosis Pulmonary Medical History: Reports: Chronic Obstructive Pulmonary Disease (COPD) Neurological Medical History: Denies: Seizures Endocrine Medical History: Reports: Diabetes Mellitus Type 2 Denies: Diabetes Mellitus Type 1 GI Medical History: Denies: Cirrhosis, Hepatitis Musculoskeltal Medical History: Denies: Arthritis, Gout Skin Medical History: Denies: Eczema, Psoriasis Hematology: Denies: Anemia, Bleeding Tendencies Past Surgical History Past Surgical History: Reports: Tubal Ligation Social History Lives with: Family Smoking Status: Former Smoker Electronic Cigarette use?: No Frequency of Alcohol Use: None Hx Recreational Drug Use: No Drugs: None Hx Prescription Drug Abuse: No - Advance Directive Resuscitation Status: Full Code Family History Family History: DM, Hypertension Parental Family History Reviewed: Yes Children Family History Reviewed: Yes Sibling(s) Family History Reviewed.: Yes Medication/Allergy Home Medications: Arformoterol Tartrate [Brovana] 15 mcg IH BID 03/24/19 Ascorbic Acid [Vitamin C 500 mg Tablet] 500 mg PO DAILY 03/24/19 Atorvastatin Calcium [Lipitor 40 mg Tablet] 40 mg PO DAILY 03/24/19 Budesonide [Pulmicort] 0.5 mg IH BID 03/24/19 Carvedilol [Coreg 12.5 mg Tablet] 12.5 mg PO BID 03/24/19 Esomeprazole Mag Trihydrate [Nexium] 40 mg PO DAILY 03/24/19 Ferrous Sulfate [Feosol] 325 mg PO BID 03/24/19 Lisinopril [Prinivil 10 mg Tablet] 10 mg PO DAILY 03/24/19 Metformin HCl 500 mg PO BID 03/24/19 Montelukast Sodium [Singulair 10 mg Tablet] 10 mg PO QHS 03/24/19 Prednisone [Deltasone 5 mg Tablet] 5 mg PO DAILY 03/24/19 Zolpidem Tartrate 10 mg PO QHS 03/24/19 Allergies/Adverse Reactions: Sulfa (Sulfonamide Antibiotics) Allergy (Intermediate, Verified 03/28/18 19:55) Hives codeine Adverse Reaction (Intermediate, Verified 03/28/18 19:56) Hives tiotropium [From Spiriva with HandiHaler] Adverse Reaction (Verified 03/28/18 19:57) Hives Physical Exam Vital Signs: Temp Pulse Resp BP Pulse Ox 98.2 F 93 22 H 167/51 H 98 03/25/19 07:31 03/25/19 07:31 03/25/19 07:31 03/25/19 07:31 03/25/19 07:31 Intake & Output 03/24/19 03/25/19 03/26/19 06:59 06:59 06:59 Intake Total 1550 Balance 1550 Weight 51.5 kg Respiratory exam: PRESENT: rhonchi, wheezes Results Laboratory Results: 03/25/19 04:24 03/25/19 04:24 03/24/19 03/24/19 03/24/19 12:30 12:30 12:30 WBC 15.8 H RBC 3.35 L Hgb 9.6 L Hct 31.0 L MCV 92 MCH 28.6 MCHC 31.0 L RDW 15.1 H Plt Count 270 Seg Neutrophils % 80.8 H Carbonic Acid HCO3/H2CO3 Ratio ABG pH ABG pCO2 ABG pO2 ABG HCO3 ABG O2 Saturation ABG Base Excess VBG pH VBG pCO2 VBG HCO3 VBG Base Excess FiO2 Sodium 142.5 Potassium 3.8 Chloride 108 H Carbon Dioxide 26 Anion Gap 9 BUN 23 H Creatinine 0.90 Est GFR ( Amer) > 60 Glucose 62 L Lactic Acid 2.1 Calcium 8.5 Magnesium Total Bilirubin 0.5 AST 93 H Alkaline Phosphatase 87 Total Protein 6.2 L Albumin 3.0 L TSH Urine Color Urine Appearance Urine pH Ur Specific Devers Urine Protein Urine Glucose (UA) Urine Ketones Urine Blood Urine Nitrite Ur Leukocyte Esterase Urine WBC (Auto) Urine RBC (Auto) 03/24/19 03/24/19 03/25/19 12:30 14:31 04:24 WBC 6.2 RBC 2.57 L Hgb 7.5 L D Hct 23.3 L MCV 91 MCH 29.1 MCHC 32.0 RDW 14.7 H Plt Count 114 L Seg Neutrophils % Not Reportable Carbonic Acid HCO3/H2CO3 Ratio ABG pH ABG pCO2 ABG pO2 ABG HCO3 ABG O2 Saturation ABG Base Excess VBG pH 7.28 L VBG pCO2 54.6 VBG HCO3 24.9 VBG Base Excess -2.3 FiO2 Sodium Potassium Chloride Carbon Dioxide Anion Gap BUN Creatinine Est GFR ( Amer) Glucose Lactic Acid Calcium Magnesium Total Bilirubin AST Alkaline Phosphatase Total Protein Albumin TSH Urine Color YELLOW Urine Appearance SLIGHTLY-CLOUDY Urine pH 5.0 Ur Specific Devers 1.016 Urine Protein >=500 H Urine Glucose (UA) NEGATIVE Urine Ketones NEGATIVE Urine Blood SMALL H Urine Nitrite NEGATIVE Ur Leukocyte Esterase NEGATIVE Urine WBC (Auto) 0 Urine RBC (Auto) 2 03/25/19 03/25/19 03/25/19 04:24 04:24 06:20 WBC RBC Hgb Hct MCV MCH MCHC RDW Plt Count Seg Neutrophils % Carbonic Acid 1.13 HCO3/H2CO3 Ratio 18:1 ABG pH 7.36 ABG pCO2 37.5 ABG pO2 49.0 L ABG HCO3 20.8 ABG O2 Saturation 83.5 L ABG Base Excess -4.2 VBG pH VBG pCO2 VBG HCO3 VBG Base Excess FiO2 28% Sodium 139.7 Potassium 3.7 Chloride 109 H Carbon Dioxide 23 Anion Gap 8 BUN 29 H Creatinine 1.08 Est GFR ( Amer) > 60 Glucose 136 H Lactic Acid Calcium 7.6 L Magnesium 2.5 H Total Bilirubin 0.2 AST 151 H Alkaline Phosphatase 58 Total Protein 5.3 L Albumin 2.4 L TSH 1.55 Urine Color Urine Appearance Urine pH Ur Specific Devers Urine Protein Urine Glucose (UA) Urine Ketones Urine Blood Urine Nitrite Ur Leukocyte Esterase Urine WBC (Auto) Urine RBC (Auto) 03/24/19 03/24/19 03/24/19 12:30 12:30 16:33 Creatine Kinase 90 Troponin I 2.200 3.410 03/24/19 03/25/19 03/25/19 21:47 04:24 08:54 Creatine Kinase Troponin I 2.750 2.110 1.780 Impressions: Chest CT 03/24/19 00:00 IMPRESSION: 1.5 cm left upper lobe mass worrisome for malignancy 6 mm right middle lobe nodule of uncertain clinical significance Upper abdominal ascites, nodular liver from cirrhosis Chest X-Ray 03/24/19 12:30 IMPRESSION: NO ACUTE RADIOGRAPHIC FINDING IN THE CHEST. Assessment & Plan - Diagnosis (1) Elevated troponin Is this a current diagnosis for this admission?: Yes Plan: This is most likely a type II myocardial infarction. Her troponins have come down. She can get another 24 hours of heparin after which she can be discontinued. I reviewed the echocardiogram. I do not see any significant wall motion abnormalities. Since she is not from here I would not do a cardiac catheterization. 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 I suspect this elevation in troponin is most likely due to COPD exacerbation (2) Aortic stenosis Qualifiers: Cardiac valve disease etiology: nonrheumatic Qualified Code(s): I35.0 - Nonrheumatic aortic (valve) stenosis Is this a current diagnosis for this admission?: Yes Plan: this does not seem to be an acute issue at this time.
[2019-03-25] MEDS ORDERED: NITROGLYCERIN 2% OINTMENT 1 GM PACKET ONE (10:37)
[2019-03-25] MEDS: METHYLPREDNISOLONE INJ 40 MG/1 ML SDV IV SCH ×2 (13:28→21:02)
[2019-03-25] MEDS ORDERED: HYDRALAZINE HCL INJ/PF 20 MG/1 ML SDV IV PRN (16:13)
[2019-03-25] MEDS ORDERED: ONDANSETRON HCL INJ/PF 4 MG/2 ML SDV IV PRN (16:56)
[2019-03-25] MEDS ORDERED: LORAZEPAM INJ 2 MG/1 ML VIAL ONE (16:57)
[2019-03-25] MEDS: CLONIDINE HCL 0.2 MG TABLET PO SCH (17:10)
[2019-03-25] MEDS ORDERED: HYDRALAZINE HCL INJ/PF 20 MG/1 ML SDV IV ONE (17:30)
[2019-03-25] MEDS ORDERED: LORAZEPAM INJ 2 MG/1 ML VIAL IV ONE (17:30)
[2019-03-25] MEDS ORDERED: IPRATROPIUM/ALBUTEROL 0.5-2.5 MG/3 ML AMPUL NEB ONE (18:15)
--- NOTE | 2019-03-25 19:29 | XCELERA REPORT ---
[address] [address] Transthoracic Echocardiogram Report Name: ANALI ARIAS Age: 78 yrs Gender: Female : 1940 Patient Status: Inpatient Patient Location: [address] [place] [address] Study Date: 03/24/2019 05:55 PM Height: 61 in Weight: 111 lb BSA: 1.5 m2 Procedure: A complete two-dimensional transthoracic echocardiogram was performed (2D, M-mode, spectral and color flow Doppler). The study was technically difficult with many images being suboptimal in quality. Reason For Study: elevated troponoin Ordering Physician: CARISSA BRUNO Performed By: Deborah Chen Interpretation Summary The left ventricular ejection fraction is normal. There is mild concentric left ventricular hypertrophy. The left ventricle is grossly normal size. Doppler measurements suggest pseudonormalized left ventricular relaxation, which is associated with grade II/IV or mild to moderate diastolic dysfunction Wall motion cannot be accurately commented on, but no definite regional wall motion abnormalities noted. The right ventricular systolic function is normal. The left atrium is mildly dilated. The right atrium is normal. There is a mild amount of mitral regurgitation There is no mitral valve stenosis. Can not R/O severe , looks severe by planimetry but moderate by gradient. There is moderate to severe aortic stenosis There is a mild amount of aortic regurgitation There is a mild amount of tricuspid regurgitation Right ventricular systolic pressure is at the upper limits of normal The aortic root is not well visualized. The inferior vena cava appeared normal and decreased > 50% with respiration (RAP 5-10 mmHg) There is no pericardial effusion. MMode/2D Measurements & Calculations RVDd: 1.9 cm LVIDd: 5.0 cm FS: 23.6 % Ao root diam: 2.5 cm IVSd: 0.69 cm LVIDs: 3.8 cm EDV(Teich): 117.5 ml Ao root area: 4.8 cm2 LVPWd: 0.76 cm ESV(Teich): 62.3 ml LA dimension: 3.2 cm EF(Teich): 47.0 % LVOT diam: 1.9 cm LVOT area: 2.9 cm2 Doppler Measurements & Calculations MV E max stevenson: MV P1/2t max stevenson: Ao V2 max: AI max stevenson: 79.0 cm/sec 119.1 cm/sec 246.7 cm/sec 252.5 cm/sec MV A max stevenson: MV P1/2t: 58.8 msec Ao max PG: AI max P.5 mmHg 92.8 cm/sec MVA(P1/2t): 3.7 cm2 24.3 mmHg AI dec slope: MV E/A: 0.85 MV dec slope: FABIANO(V,D): 0.97 rd5373.4 cm/sec2 AI P1/2t: 380.4 msec 593.7 cm/sec2 MV dec time: 0.21 sec LV V1 max PG: PA V2 max: TR max stevenson: AV P1/2t-pr_phl: 2.8 mmHg 73.8 cm/sec 237.5 cm/sec 380.4 msec LV V1 max: PA max P.2 mmHg TR max P.6 cm/sec 22.6 mmHg MV P1/2t-pr_phl: 58.8 msec Left Ventricle The left ventricle is grossly normal size. There is mild concentric left ventricular hypertrophy. The left ventricular ejection fraction is normal. Doppler measurements suggest pseudonormalized left ventricular relaxation, which is associated with grade II/IV or mild to moderate diastolic dysfunction. Wall motion cannot be accurately commented on, but no definite regional wall motion abnormalities noted. Right Ventricle The right ventricle is grossly normal size. There is normal right ventricular wall thickness. The right ventricular systolic function is normal. Atria The right atrium is normal. The left atrium is mildly dilated. Interarterial septum not well visualized and not well dopplered. Cannot comment on ASD/PFO presence. Mitral Valve The mitral valve leaflets are sclerotic, but show no functional abnormalities. There is no mitral valve stenosis. There is a mild amount of mitral regurgitation. Aortic Valve The aortic valve is heavily calcified. There is moderate to severe aortic stenosis. Can not R/O severe , looks severe by planimetry but moderate by gradient. There is a mild amount of aortic regurgitation. Tricuspid Valve The tricuspid valve is not well visualized, but is grossly normal. There is no tricuspid stenosis. There is a mild amount of tricuspid regurgitation. Right ventricular systolic pressure is at the upper limits of normal. Pulmonic Valve The pulmonic valve is not well visualized. Great Vessels The aortic root is not well visualized. The inferior vena cava appeared normal and decreased > 50% with respiration (RAP 5-10 mmHg). Effusions There is no pericardial effusion. : CARISSA BRUNO Shyamal
--- NOTE | 2019-03-25 20:17 | EKG REPORT ---
SEVERITY:- ABNORMAL ECG - SINUS RHYTHM INCOMPLETE RIGHT BUNDLE BRANCH BLOCK CONSIDER LEFT VENTRICULAR HYPERTROPHY : Confirmed by: Rosa Johnson MD 25-Mar-2019 20:16:09
[2019-03-25] MEDS ORDERED: FUROSEMIDE INJ/PF 20 MG/2 ML SDV IV ONE (20:30)
[2019-03-25] MEDS: ZOLPIDEM TARTRATE 5 MG TABLET PO SCH (21:02)
[2019-03-25] MEDS: MONTELUKAST SODIUM 10 MG TABLET PO SCH (21:03)
[2019-03-25 22:06] LABS: HEMATOCRIT 25.7 % (36.0-47.0); HEMOGLOBIN 8.4 g/dL (12.0-15.5); MEAN CORPUSCULAR HEMOGLOBIN 29.4 pg (27.0-33.4); MEAN CORPUSCULAR HGB CONC 32.7 g/dL (32.0-36.0); MEAN CORPUSCULAR VOLUME 90 fl (80-97); PLATELET COUNT 113 10^3/uL (150-450); RED BLOOD COUNT 2.85 10^6/uL (3.72-5.28); RED CELL DISTRIBUTION WIDTH 14.8 % (11.5-14.0); WHITE BLOOD COUNT 4.5 10^3/uL (4.0-10.5)
[2019-03-26] MEDS: CLONIDINE HCL 0.2 MG TABLET PO SCH ×4 (00:54→21:19)
[2019-03-26 05:49] LABS: HEMATOCRIT 24.3 % (36.0-47.0); MEAN CORPUSCULAR HEMOGLOBIN 29.2 pg (27.0-33.4); MEAN CORPUSCULAR HGB CONC 32.6 g/dL (32.0-36.0); MEAN CORPUSCULAR VOLUME 90 fl (80-97); PLATELET COUNT 105 10^3/uL (150-450); RED CELL DISTRIBUTION WIDTH 14.6 % (11.5-14.0); WHITE BLOOD COUNT 3.1 10^3/uL (4.0-10.5)
[2019-03-26 05:50] LABS: HEMOGLOBIN 7.9 g/dL (12.0-15.5)
[2019-03-26 06:04] LABS: BLOOD UREA NITROGEN 49 mg/dL (7-20); CALCIUM 7.9 mg/dL (8.4-10.2); GLUCOSE 113 mg/dL (75-110)
[2019-03-26 06:05] LABS: ANION GAP 9 (5-19); CARBON DIOXIDE 24 mmol/L (22-30); CHLORIDE 107 mmol/L (98-107)
[2019-03-26] MEDS: METHYLPREDNISOLONE INJ 40 MG/1 ML SDV IV SCH ×3 (06:38→21:22)
[2019-03-26] MEDS: INSULIN LISPRO 100 UNIT/ML 3 ML VIAL SUBCUT SCH ×4 (08:50→21:48)
--- NOTE | 2019-03-26 09:03 | PDOC PROGRESS REPORT ---
Subjective Progress Note for:: 03/26/19 Subjective:: 03/25/2019-chest pain 03/26/2019-no complaints this a.m. Reason For Visit: COPD EXARBATION Physical Exam Vital Signs: Temp Pulse Resp BP Pulse Ox 98.1 F 66 16 140/57 H 100 03/26/19 07:42 03/26/19 07:42 03/26/19 07:42 03/26/19 07:42 03/26/19 07:42 Intake & Output 03/25/19 03/26/19 03/27/19 06:59 06:59 06:59 Intake Total 1550 2122 Output Total 400 Balance 1550 1722 Weight 51.5 kg 49.3 kg General appearance: PRESENT: no acute distress, well-developed, well-nourished Neck exam: ABSENT: carotid bruit, JVD, lymphadenopathy, thyromegaly Respiratory exam: PRESENT: decreased breath sounds, symmetrical, unlabored. ABSENT: rales, rhonchi, wheezes Cardiovascular exam: PRESENT: RRR. ABSENT: diastolic murmur, rubs, systolic mur mur Pulses: PRESENT: +1 pedal pulses bilateral Vascular exam: PRESENT: normal capillary refill Extremities exam: PRESENT: full ROM. ABSENT: calf tenderness, clubbing, pedal edema Neurological exam: PRESENT: alert, awake, oriented to person, oriented to place, oriented to time, oriented to situation, CN II-XII grossly intact. ABSENT: motor sensory deficit Psychiatric exam: PRESENT: appropriate affect, normal mood. ABSENT: homicidal ideation, suicidal ideation Skin exam: PRESENT: dry, intact, warm. ABSENT: cyanosis, rash Results Laboratory Results: 03/26/19 05:25 03/26/19 05:25 03/25/19 03/25/19 03/26/19 11:05 21:59 05:25 WBC 4.5 3.1 L RBC 2.85 L 2.70 L Hgb 8.4 L 7.9 L Hct 25.7 L 24.3 L MCV 90 90 MCH 29.4 29.2 MCHC 32.7 32.6 RDW 14.8 H 14.6 H Plt Count 113 L 105 L Sodium Potassium Chloride Carbon Dioxide Anion Gap BUN Creatinine Est GFR ( Amer) Glucose Calcium Blood Type O POSITIVE Antibody Screen NEGATIVE 03/26/19 05:25 WBC RBC Hgb Hct MCV MCH MCHC RDW Plt Count Sodium 140.2 Potassium 4.0 Chloride 107 Carbon Dioxide 24 Anion Gap 9 BUN 49 H Creatinine 1.10 Est GFR ( Amer) 58 L Glucose 113 H Calcium 7.9 L Blood Type Antibody Screen 03/24/19 03/24/19 03/24/19 12:30 12:30 16:33 Creatine Kinase 90 Troponin I 2.200 3.410 03/24/19 03/25/19 03/25/19 21:47 04:24 08:54 Creatine Kinase Troponin I 2.750 2.110 1.780 Impressions: Chest CT 03/24/19 00:00 IMPRESSION: 1.5 cm left upper lobe mass worrisome for malignancy 6 mm right middle lobe nodule of uncertain clinical significance Upper abdominal ascites, nodular liver from cirrhosis Chest X-Ray 03/24/19 12:30 IMPRESSION: NO ACUTE RADIOGRAPHIC FINDING IN THE CHEST. Assessment and Plan - Diagnosis (1) Acute on chronic respiratory failure with hypoxia Is this a current diagnosis for this admission?: Yes Plan: 03/24/2019-patient is going to be admitted to [facility] with a diagnosis of acute on chronic respiratory failure with hypoxia plan is to do the CT chest without contrast. Chest x-ray did not indicate of any pneumonia. Patient is going to be on supplemental oxygen 2 L oxygen via nasal cannula, albuterol nebulizations and a flutter valve therapy. Started on IV Rocephin 2 g daily. Blood cultures sputum cultures are requested. At the time of discharge plan is to evaluate for home oxygen needs. GI prophylaxis initiated started on full dose of Lovenox because of the elevated troponins. 03/25/2019-CTA chest shows possible mass suspicious for malignancy. Will discuss this with patient. Patient continues on nasal cannula at this time able to speak in broken sentences. Cough with complaint of chest pain without radiation. Most likely costochondral in nature. Patient did have positive tro ponins and was given full dose Lovenox. Patient was started on Rocephin 2 g IV daily, bronchodilators. Will follow 03/26/2019-consult oncology for left upper mass worrisome for malignancy. Also 6 mm right middle lobe nodule uncertain clinical significance. Chest pain is resolved most likely costochondral in nature. I have stopped Lovenox. Patient able to talk in full sentences on nasal cannula. (2) Elevated troponin Is this a current diagnosis for this admission?: Yes Plan: 03/24/2019-troponin is 2.2 today plan is to do the every 6 hours serial troponins, started on Lovenox 40 mg subcu every 12 hours, aspirin and leela rvastatin. Repeat EKG was requested around 8 PM today. Elevated troponins in my opinion most likely secondary to oxygen demand and supply mismatch. KG was in normal sinus rhythm no acute changes noticed. 03/26/2019-patient evaluated by cardiology suspect this is mostly from COPD demand. Lovenox has been DC'd. Continue aspirin atorvastatin and beta- blockers. (3) Leukocytosis Qualifiers: Leukocytosis type: unspecified Qualified Code(s): D72.829 - Elevated white blood cell count, unspecified Is this a current diagnosis for this admission?: Yes Plan: 03/24/2019-patient's WBC count is elevated 15,600 most likely secondary to underlying section. Started on IV Rocephin 2 g daily. Blood cultures, urine analysis and sputum cultures are requested. 03/25/2019-continue antibiotic therapy await cultures 03/26/2019-resolved stable (4) SIRS (systemic inflammatory response syndrome) Is this a current diagnosis for this admission?: Yes Plan: 03/24/2019-patient came in with fever of 100.6, WBC count of 15,600 and lactic acid level is 2.1. Started on IV fluids normal saline 75 cc/h plan is to give IV Rocephin 2 g daily. Patient latest systolic blood pressure in the 90s to give normal saline bolus 500 cc continue IV fluids at 75 cc/h. Plan is to repeat the lactic acid level tonight. 03/25/2019-resolved. White count down to 6000 and fever down to 98.2. Will follow DC IV fluids at this time. Will give patient 40 mg IV Lasix as patient sounds wet. 03/26/2019-resolved stable (5) Diabetes mellitus type 2 in nonobese Is this a current diagnosis for this admission?: No Plan: 03/24/2019-has a history of type 2 diabetes mellitus started on insulin sliding scale before meals and at bedtime and to check for hemoglobin A1c in the morning. 03/25/2019-stable continue sliding scale insulin before meals and at bedtime. A1c 5.1 this is most likely due to stress and steroid use. 03/26/2019-hyperglycemia secondary to stress reaction to acute illness. Continue slight scale insulin. A1c 5.1 (6) HTN (hypertension) Qualifiers: Hypertension type: essential hypertension Qualified Code(s): I10 - Essential (primary) hypertension Is this a current diagnosis for this admission?: No Plan: 03/24/2019-patient has history of chronic essential hypertension blood pressure is 113/42 started on IV fluids normal saline at 75 cc/h to closely monitor the blood pressures every shift. 03/25/2019-running high at this time 167 systolic will restart home lisinopril and Coreg 03/26/2019-improved. I did have to start clonidine 0.2 mg p.o. 3 times daily yesterday blood pressures in the 140 systolic. - Time Time Spent with patient: 15-24 minutes - Inpatient Certification Based on my medical assessment, after consideration of the patient's comorbidities, presenting symptoms, or acuity I expect that the services needed warrant INPATIENT care.: Yes I certify that my determination is in accordance with my understanding of Medicare's requirements for reasonable and necessary INPATIENT services [42 CFR 412.3e].: Yes Medical Necessity: Significant Comorbidiites Make Outpatient Treatment Too Risky, Need Close Monitoring Due to Risk of Patient Decompensation, Need for IV Antibiotics
[2019-03-26] MEDS: ATORVASTATIN CALCIUM 40 MG TABLET PO SCH (09:50)
[2019-03-26] MEDS: FERROUS SULFATE 325 MG TABLET PO SCH ×2 (09:50→17:07)
[2019-03-26] MEDS: ASCORBIC ACID 500 MG TABLET PO SCH (09:50)
[2019-03-26] MEDS: FAMOTIDINE 20 MG TABLET PO SCH ×2 (09:50→21:22)
[2019-03-26] MEDS: LISINOPRIL 10 MG TABLET PO SCH (09:50)
[2019-03-26] MEDS: CARVEDILOL 12.5 MG TABLET PO SCH ×2 (09:51→21:19)
[2019-03-26] MEDS: CEFTRIAXONE 2 GM/D5W RTU 2 GM/50 ML RTUPB IV SCH (09:51)
[2019-03-26] MEDS: PANTOPRAZOLE SODIUM 40 MG TABLET.DR PO SCH (09:51)
[2019-03-26 09:53] LABS: IRON(TIBC) 25.3 ug/dL (37-170)
--- NOTE | 2019-03-26 09:53 | PDOC CONSULTATION ---
Consultation Consult Date: 03/26/19 Attending physician:: SAURAV SINGLETON Provider Consulted: WIL BAL Consult reason:: Left lung lesion History of Present Illness Admission Date/PCP: 03/24/19 16:02 Patient complains of: Shortness of breath, dyspnea on exertion History of Present Illness: ANALI ARIAS is a 78 year old female who presented with multiple medical issues including what appears to be a COPD exacerbation, but also troponin elevation which was sent because of chest pressure, ultimately it was decided by cardiology that most likely this troponin elevation is related to the COPD exacerbation and heart strain from that as opposed to true coronary artery disease. CT of the chest was done because of the shortness of breath which indicated a 1.5 cm left upper lobe nodule and a 6 mm right lung nodule. She does have extensive smoking history. Was not able to get much more history from her as she is Maltese-speaking only and I placed a call to her daughter but have yet to hear back. Past Medical History Cardiac Medical History: Reports: Hyperlipidema, Hypertension, Other - Aortic Stenosis Pulmonary Medical History: Reports: Chronic Obstructive Pulmonary Disease (COPD) Neurological Medical History: Denies: Seizures Endocrine Medical History: Reports: Diabetes Mellitus Type 2 Denies: Diabetes Mellitus Type 1 GI Medical History: Denies: Cirrhosis, Hepatitis Musculoskeltal Medical History: Denies: Arthritis, Gout Skin Medical History: Denies: Eczema, Psoriasis Hematology: Denies: Anemia, Bleeding Tendencies Past Surgical History Past Surgical History: Reports: Tubal Ligation Social History Information Source: Patient, [facility] Records Lives with: Family Smoking Status: Former Smoker Electronic Cigarette use?: No Frequency of Alcohol Use: None Hx Recreational Drug Use: No Drugs: None Hx Prescription Drug Abuse: No - Advance Directive Resuscitation Status: Full Code Family History Family History: DM, Hypertension Parental Family History Reviewed: Yes Children Family History Reviewed: Yes Sibling(s) Family History Reviewed.: Yes Medication/Allergy Home Medications: Arformoterol Tartrate [Brovana] 15 mcg IH BID 03/24/19 Ascorbic Acid [Vitamin C 500 mg Tablet] 500 mg PO DAILY 03/24/19 Atorvastatin Calcium [Lipitor 40 mg Tablet] 40 mg PO DAILY 03/24/19 Budesonide [Pulmicort] 0.5 mg IH BID 03/24/19 Carvedilol [Coreg 12.5 mg Tablet] 12.5 mg PO BID 03/24/19 Esomeprazole Mag Trihydrate [Nexium] 40 mg PO DAILY 03/24/19 Ferrous Sulfate [Feosol] 325 mg PO BID 03/24/19 Lisinopril [Prinivil 10 mg Tablet] 10 mg PO DAILY 03/24/19 Metformin HCl 500 mg PO BID 03/24/19 Montelukast Sodium [Singulair 10 mg Tablet] 10 mg PO QHS 03/24/19 Prednisone [Deltasone 5 mg Tablet] 5 mg PO DAILY 03/24/19 Zolpidem Tartrate 10 mg PO QHS 03/24/19 Allergies/Adverse Reactions: Sulfa (Sulfonamide Antibiotics) Allergy (Intermediate, Verified 03/28/18 19:55) Hives codeine Adverse Reaction (Intermediate, Verified 03/28/18 19:56) Hives tiotropium [From Spiriva with HandiHaler] Adverse Reaction (Verified 03/28/18 19:57) Hives Review of Systems Constitutional: ABSENT: chills, fever(s), headache(s), weight gain, weight loss Eyes: ABSENT: visual disturbances Ears: ABSENT: hearing changes Cardiovascular: ABSENT: chest pain, dyspnea on exertion, edema, orthropnea, palpitations Respiratory: ABSENT: cough, hemoptysis Gastrointestinal: ABSENT: abdominal pain, constipation, diarrhea, hematemesis, hematochezia, nausea, vomiting Genitourinary: ABSENT: dysuria, hematuria Musculoskeletal: ABSENT: joint swelling Integumentary: ABSENT: rash, wounds Neurological: ABSENT: abnormal gait, abnormal speech, confusion, dizziness, focal weakness, syncope Psychiatric: ABSENT: anxiety, depression, homidical ideation, suicidal ideation Endocrine: ABSENT: cold intolerance, heat intolerance, polydipsia, polyuria Hematologic/Lymphatic: ABSENT: easy bleeding, easy bruising Physical Exam Vital Signs: Temp Pulse Resp BP Pulse Ox 98.1 F 66 16 140/57 H 100 03/26/19 07:42 03/26/19 07:42 03/26/19 07:42 03/26/19 07:42 03/26/19 07:42 Intake & Output 03/25/19 03/26/19 03/27/19 06:59 06:59 06:59 Intake Total 1550 2122 Output Total 400 Balance 1550 1722 Weight 51.5 kg 49.3 kg General appearance: PRESENT: no acute distress, well-developed, well-nourished Head exam: PRESENT: atraumatic, normocephalic Eye exam: PRESENT: conjunctiva pink, EOMI, PERRLA. ABSENT: scleral icterus Ear exam: PRESENT: normal external ear exam Mouth exam: PRESENT: moist, tongue midline Neck exam: ABSENT: carotid bruit, JVD, lymphadenopathy, thyromegaly Respiratory exam: PRESENT: clear to auscultation wilmer. ABSENT: rales, rhonchi, wheezes Cardiovascular exam: PRESENT: RRR. ABSENT: diastolic murmur, rubs, systolic murmur Pulses: PRESENT: normal dorsalis pedis pul Vascular exam: PRESENT: normal capillary refill GI/Abdominal exam: PRESENT: normal bowel sounds, soft. ABSENT: distended, guarding, mass, organolmegaly, rebound, tenderness Rectal exam: PRESENT: deferred Extremities exam: PRESENT: full ROM. ABSENT: calf tenderness, clubbing, pedal edema Neurological exam: PRESENT: alert, awake, oriented to person, oriented to place, oriented to time, oriented to situation, CN II-XII grossly intact. ABSENT: motor sensory deficit Psychiatric exam: PRESENT: appropriate affect, normal mood. ABSENT: homicidal ideation, suicidal ideation Skin exam: PRESENT: dry, intact, warm. ABSENT: cyanosis, rash Results Laboratory Results: 03/26/19 05:25 03/26/19 05:25 03/25/19 03/25/19 03/26/19 11:05 21:59 05:25 WBC 4.5 3.1 L RBC 2.85 L 2.70 L Hgb 8.4 L 7.9 L Hct 25.7 L 24.3 L MCV 90 90 MCH 29.4 29.2 MCHC 32.7 32.6 RDW 14.8 H 14.6 H Plt Count 113 L 105 L Sodium Potassium Chloride Carbon Dioxide Anion Gap BUN Creatinine Est GFR ( Amer) Glucose Calcium Blood Type O POSITIVE Antibody Screen NEGATIVE 03/26/19 05:25 WBC RBC Hgb Hct MCV MCH MCHC RDW Plt Count Sodium 140.2 Potassium 4.0 Chloride 107 Carbon Dioxide 24 Anion Gap 9 BUN 49 H Creatinine 1.10 Est GFR ( Amer) 58 L Glucose 113 H Calcium 7.9 L Blood Type Antibody Screen 03/24/19 03/24/19 03/24/19 12:30 12:30 16:33 Creatine Kinase 90 Troponin I 2.200 3.410 03/24/19 03/25/19 03/25/19 21:47 04:24 08:54 Creatine Kinase Troponin I 2.750 2.110 1.780 Impressions: Chest CT 03/24/19 00:00 IMPRESSION: 1.5 cm left upper lobe mass worrisome for malignancy 6 mm right middle lobe nodule of uncertain clinical significance Upper abdominal ascites, nodular liver from cirrhosis Chest X-Ray 03/24/19 12:30 IMPRESSION: NO ACUTE RADIOGRAPHIC FINDING IN THE CHEST. Status: Image reviewed by me Assessment & Plan - Diagnosis (1) Lung mass Is this a current diagnosis for this admission?: Yes Plan: Patient does have a pulmonary nodule that is worrisome for primary lung cancer, ultimately she would benefit from a PET/CT upon discharge. In discussion with the nurse, it appears she lives in [place] so she may need to get follow-up there. I tried to contact her daughter, but the number that is in the chart says it is disconnected. I will have them call me when she comes back in. - Time Time Spent: Greater than 70 Minutes - Inpatient Certification Based on my medical assessment, after consideration of the patient's comorbidities, presenting symptoms, or acuity I expect that the services needed warrant INPATIENT care.: Yes I certify that my determination is in accordance with my understanding of Medicare's requirements for reasonable and necessary INPATIENT services [42 CFR 412.3e].: Yes Medical Necessity: Need for Nebulizer Therapy and Monitoring of Response, Risk of Complication if Not Cared For in Hospital
[2019-03-26 09:56] LABS: ABSOLUTE RETICS # 0.063 10^6/uL (0.028-0.122); RETICULOCYTE COUNT (AUTO) 2.38 % (0.66-2.85)
[2019-03-26] MEDS ORDERED: CARVEDILOL 3.125 MG TABLET PO SCH (10:00)
[2019-03-26] MEDS ORDERED: ASPIRIN 81 MG TABLET, CHEWABLE PO SCH (10:00)
[2019-03-26] MEDS: ASPIRIN 81 MG TABLET, CHEWABLE PO SCH (10:44)
[2019-03-26 11:01] LABS: FOLATE 4.33 ng/mL (>2.76)
[2019-03-26] MEDS: ZOLPIDEM TARTRATE 5 MG TABLET PO SCH (21:22)
[2019-03-26] MEDS: MONTELUKAST SODIUM 10 MG TABLET PO SCH (21:22)
[2019-03-27 04:00] LABS: APPEARANCE,URINE CLEAR; BILIRUBIN,URINE NEGATIVE (NEGATIVE); COLOR,URINE YELLOW; GLUCOSE, URINE NEGATIVE (NEGATIVE); KETONES,URINE NEGATIVE (NEGATIVE); LEUKOCYTE ESTERASE,URINE NEGATIVE (NEGATIVE); NITRITE,URINE NEGATIVE (NEGATIVE); PROTEIN,URINE 100 mg/dL (NEGATIVE); URINE SPECIFIC GRAVITY 1.015; UROBILINOGEN,URINE NEGATIVE mg/dL (<2.0)
[2019-03-27] MEDS: METHYLPREDNISOLONE INJ 40 MG/1 ML SDV IV SCH ×3 (05:24→21:40)
[2019-03-27] MEDS: CLONIDINE HCL 0.2 MG TABLET PO SCH ×3 (05:24→21:38)
[2019-03-27 05:31] LABS: HEMATOCRIT 23.7 % (36.0-47.0); MEAN CORPUSCULAR HEMOGLOBIN 29.3 pg (27.0-33.4); MEAN CORPUSCULAR HGB CONC 32.7 g/dL (32.0-36.0); MEAN CORPUSCULAR VOLUME 90 fl (80-97); PLATELET COUNT 111 10^3/uL (150-450); RED BLOOD COUNT 2.64 10^6/uL (3.72-5.28); RED CELL DISTRIBUTION WIDTH 15.2 % (11.5-14.0); WHITE BLOOD COUNT 2.8 10^3/uL (4.0-10.5)
[2019-03-27 05:33] LABS: HEMOGLOBIN 7.7 g/dL (12.0-15.5)
[2019-03-27 05:56] LABS: ANION GAP 9 (5-19); BLOOD UREA NITROGEN 62 mg/dL (7-20); CALCIUM 7.8 mg/dL (8.4-10.2); CARBON DIOXIDE 25 mmol/L (22-30); CHLORIDE 105 mmol/L (98-107); GLUCOSE 155 mg/dL (75-110); POTASSIUM 3.9 mmol/L (3.6-5.0)
--- NOTE | 2019-03-27 07:58 | PDOC PROGRESS REPORT ---
Subjective Progress Note for:: 03/27/19 Subjective:: No acute events overnight, apparently patient sat in a chair yesterday. I now have a good number for the patient's daughter, and I placed a call to her awaiting callback Reason For Visit: COPD EXARBATION Physical Exam Vital Signs: Temp Pulse Resp BP Pulse Ox 97.2 F 55 L 16 155/42 H 100 03/27/19 04:09 03/27/19 07:00 03/27/19 04:09 03/27/19 04:09 03/27/19 04:09 Intake & Output 03/26/19 03/27/19 03/28/19 06:59 06:59 06:59 Intake Total 2122 750 Output Total 400 600 Balance 1722 150 Weight 49.3 kg 50.2 kg General appearance: PRESENT: no acute distress, well-developed, well-nourished Head exam: PRESENT: atraumatic, normocephalic Eye exam: PRESENT: conjunctiva pink, EOMI, PERRLA. ABSENT: scleral icterus Ear exam: PRESENT: normal external ear exam Mouth exam: PRESENT: moist, tongue midline Neck exam: ABSENT: carotid bruit, JVD, lymphadenopathy, thyromegaly Respiratory exam: PRESENT: clear to auscultation wilmer. ABSENT: rales, rhonchi, wheezes Cardiovascular exam: PRESENT: RRR. ABSENT: diastolic murmur, rubs, systolic m urmur Pulses: PRESENT: normal dorsalis pedis pul Vascular exam: PRESENT: normal capillary refill GI/Abdominal exam: PRESENT: normal bowel sounds, soft. ABSENT: distended, guarding, mass, organolmegaly, rebound, tenderness Rectal exam: PRESENT: deferred Extremities exam: PRESENT: full ROM. ABSENT: calf tenderness, clubbing, pedal edema Neurological exam: PRESENT: alert, awake, oriented to person, oriented to place, oriented to time, oriented to situation, CN II-XII grossly intact. ABSENT: motor sensory deficit Psychiatric exam: PRESENT: appropriate affect, normal mood. ABSENT: homicidal ideation, suicidal ideation Skin exam: PRESENT: dry, intact, warm. ABSENT: cyanosis, rash Results Laboratory Results: 03/27/19 04:44 03/27/19 04:44 03/26/19 03/26/19 03/26/19 05:25 05:25 22:55 WBC RBC Hgb Hct MCV MCH MCHC RDW Plt Count Retic Count (auto) 2.38 Sodium Potassium Chloride Carbon Dioxide Anion Gap BUN Creatinine Est GFR ( Amer) Glucose Calcium Iron 25.3 L TIBC 258 % Saturation 10 Ferritin 59.30 Vitamin B12 637.0 Folate 4.33 Urine Color YELLOW Urine Appearance CLEAR Urine pH 5.0 Ur Specific [place] 1.015 Urine Protein 100 H Urine Glucose (UA) NEGATIVE Urine Ketones NEGATIVE Urine Blood NEGATIVE Urine Nitrite NEGATIVE Ur Leukocyte Esterase NEGATIVE Urine WBC (Auto) 1 Urine RBC (Auto) 0 03/27/19 03/27/19 04:44 04:44 WBC 2.8 L RBC 2.64 L Hgb 7.7 L Hct 23.7 L MCV 90 MCH 29.3 MCHC 32.7 RDW 15.2 H Plt Count 111 L Retic Count (auto) Sodium 139.1 Potassium 3.9 Chloride 105 Carbon Dioxide 25 Anion Gap 9 BUN 62 H Creatinine 1.26 H Est GFR ( Amer) 50 L Glucose 155 H Calcium 7.8 L Iron TIBC % Saturation Ferritin Vitamin B12 Folate Urine Color Urine Appearance Urine pH Ur Specific [place] Urine Protein Urine Glucose (UA) Urine Ketones Urine Blood Urine Nitrite Ur Leukocyte Esterase Urine WBC (Auto) Urine RBC (Auto) 03/24/19 03/24/19 03/24/19 12:30 12:30 16:33 Creatine Kinase 90 Troponin I 2.200 3.410 03/24/19 03/25/19 03/25/19 21:47 04:24 08:54 Creatine Kinase Troponin I 2.750 2.110 1.780 Impressions: Chest CT 03/24/19 00:00 IMPRESSION: 1.5 cm left upper lobe mass worrisome for malignancy 6 mm right middle lobe nodule of uncertain clinical significance Upper abdominal ascites, nodular liver from cirrhosis Chest X-Ray 03/24/19 12:30 IMPRESSION: NO ACUTE RADIOGRAPHIC FINDING IN THE CHEST. Assessment & Plan - Diagnosis (1) Lung mass Is this a current diagnosis for this admission?: Yes Plan: As an outpatient, patient would benefit from PET/CT. Hopefully I will be able to connect with the daughter to make sure the patient will desire to stay around this area for further work-up and care for the probable primary lung cancer. - Time Time Spent with patient: 35 or more minutes
[2019-03-27] MEDS: INSULIN LISPRO 100 UNIT/ML 3 ML VIAL SUBCUT SCH ×4 (08:01→21:40)
--- NOTE | 2019-03-27 08:41 | PDOC PROGRESS REPORT ---
Subjective Progress Note for:: 03/27/19 Subjective:: 03/25/2019-chest pain 03/26/2019-no complaints this a.m. 03/27/2019-no complaints Reason For Visit: COPD EXARBATION Physical Exam Vital Signs: Temp Pulse Resp BP Pulse Ox 97.3 F 57 L 18 170/41 H 100 03/27/19 07:44 03/27/19 07:44 03/27/19 07:44 03/27/19 07:44 03/27/19 07:44 Intake & Output 03/26/19 03/27/19 03/28/19 06:59 06:59 06:59 Intake Total 2122 750 Output Total 400 600 Balance 1722 150 Weight 49.3 kg 50.2 kg General appearance: PRESENT: no acute distress, well-developed, well-nourished Neck exam: ABSENT: carotid bruit, JVD, lymphadenopathy, thyromegaly Respiratory exam: PRESENT: decreased breath sounds, symmetrical, unlabored. ABSENT: rales, rhonchi, wheezes Cardiovascular exam: PRESENT: RRR. ABSENT: diastolic murmur, rubs, systolic murmur Pulses: PRESENT: +1 pedal pulses bilateral Vascular exam: PRESENT: normal capillary refill GI/Abdominal exam: PRESENT: normal bowel sounds, soft. ABSENT: distended, guarding, mass, organolmegaly, rebound, tenderness Extremities exam: PRESENT: full ROM. ABSENT: calf tenderness, clubbing, pedal edema Neurological exam: PRESENT: alert, awake, oriented to person, oriented to place, oriented to time, oriented to situation, CN II-XII grossly intact. ABSENT: motor sensory deficit Psychiatric exam: PRESENT: appropriate affect, normal mood. ABSENT: homicidal ideation, suicidal ideation Skin exam: PRESENT: dry, intact, warm. ABSENT: cyanosis, rash Results Laboratory Results: 03/27/19 04:44 03/27/19 04:44 03/26/19 03/26/19 03/26/19 05:25 05:25 22:55 WBC RBC Hgb Hct MCV MCH MCHC RDW Plt Count Retic Count (auto) 2.38 Sodium Potassium Chloride Carbon Dioxide Anion Gap BUN Creatinine Est GFR ( Amer) Glucose Calcium Iron 25.3 L TIBC 258 % Saturation 10 Ferritin 59.30 Vitamin B12 637.0 Folate 4.33 Urine Color YELLOW Urine Appearance CLEAR Urine pH 5.0 Ur Specific [place] 1.015 Urine Protein 100 H Urine Glucose (UA) NEGATIVE Urine Ketones NEGATIVE Urine Blood NEGATIVE Urine Nitrite NEGATIVE Ur Leukocyte Esterase NEGATIVE Urine WBC (Auto) 1 Urine RBC (Auto) 0 03/27/19 03/27/19 04:44 04:44 WBC 2.8 L RBC 2.64 L Hgb 7.7 L Hct 23.7 L MCV 90 MCH 29.3 MCHC 32.7 RDW 15.2 H Plt Count 111 L Retic Count (auto) Sodium 139.1 Potassium 3.9 Chloride 105 Carbon Dioxide 25 Anion Gap 9 BUN 62 H Creatinine 1.26 H Est GFR ( Amer) 50 L Glucose 155 H Calcium 7.8 L Iron TIBC % Saturation Ferritin Vitamin B12 Folate Urine Color Urine Appearance Urine pH Ur Specific [place] Urine Protein Urine Glucose (UA) Urine Ketones Urine Blood Urine Nitrite Ur Leukocyte Esterase Urine WBC (Auto) Urine RBC (Auto) 03/24/19 03/24/19 03/24/19 12:30 12:30 16:33 Creatine Kinase 90 Troponin I 2.200 3.410 03/24/19 03/25/19 03/25/19 21:47 04:24 08:54 Creatine Kinase Troponin I 2.750 2.110 1.780 Impressions: Chest CT 03/24/19 00:00 IMPRESSION: 1.5 cm left upper lobe mass worrisome for malignancy 6 mm right middle lobe nodule of uncertain clinical significance Upper abdominal ascites, nodular liver from cirrhosis Chest X-Ray 03/24/19 12:30 IMPRESSION: NO ACUTE RADIOGRAPHIC FINDING IN THE CHEST. Assessment and Plan - Diagnosis (1) Acute on chronic respiratory failure with hypoxia Is this a current diagnosis for this admission?: Yes Plan: 03/24/2019-patient is going to be admitted to [facility] with a diagnosis of acute on chronic respiratory failure with hypoxia plan is to do the CT chest without contrast. Chest x-ray did not indicate of any pneumonia. Patient is going to be on supplemental oxygen 2 L oxygen via nasal cannula, albuterol nebulizations and a flutter valve therapy. Started on IV Rocephin 2 g daily. Blood cultures sputum cultures are requested. At the time of discharge plan is to evaluate for home oxygen needs. GI prophylaxis initiated started on full dose of Lovenox because of the elevated troponins. 03/25/2019-CTA chest shows possible mass suspicious for malignancy. Will discuss this with patient. Patient continues on nasal cannula at this time able to speak in broken sentences. Cough with complaint of chest pain without radia tion. Most likely costochondral in nature. Patient did have positive troponins and was given full dose Lovenox. Patient was started on Rocephin 2 g IV daily, bronchodilators. Will follow 03/26/2019-consult oncology for left upper mass worrisome for malignancy. Also 6 mm right middle lobe nodule uncertain clinical significance. Chest pain is resolved most likely costochondral in nature. I have stopped Lovenox. Patient able to talk in full sentences on nasal cannula. 03/27/2019-continue to follow with oncology. Patient with most likely benefit from PET scan/CT scan outpatient. Will discuss with patient's daughter (2) Elevated troponin Is this a current diagnosis for this admission?: Yes Plan: 03/24/2019-troponin is 2.2 today plan is to do the every 6 hours serial troponins, started on Lovenox 40 mg subcu every 12 hours, aspirin and atorvastatin. Repeat EKG was requested around 8 PM today. Elevated troponins in my opinion most likely secondary to oxygen demand and supply mismatch. KG was in normal sinus rhythm no acute changes noticed. 03/26/2019-patient evaluated by cardiology suspect this is mostly from COPD demand. Lovenox has been DC'd. Continue aspirin atorvastatin and beta- blockers. 03/27/2019-stable. Continue current therapy (3) Leukocytosis Qualifiers: Leukocytosis type: unspecified Qualified Code(s): D72.829 - Elevated white blood cell count, unspecified Is this a current diagnosis for this admission?: Yes Plan: 03/24/2019-patient's WBC count is elevated 15,600 most likely secondary to underlying section. Started on IV Rocephin 2 g daily. Blood cultures, urine analysis and sputum cultures are requested. 03/25/2019-continue antibiotic therapy await cultures 03/26/2019-resolved stable 03/27/2019-stable (4) SIRS (systemic inflammatory response syndrome) Is this a current diagnosis for this admission?: Yes Plan: 03/24/2019-patient came in with fever of 100.6, WBC count of 15,600 and lactic acid level is 2.1. Started on IV fluids normal saline 75 cc/h plan is to give IV Rocephin 2 g daily. Patient latest systolic blood pressure in the 90s to give normal saline bolus 500 cc continue IV fluids at 75 cc/h. Plan is to repeat the lactic acid level tonight. 03/25/2019-resolved. White count down to 6000 and fever down to 98.2. Will follow DC IV fluids at this time. Will give patient 40 mg IV Lasix as patient sounds wet. 03/26/2019-resolved stable 03/27/2019-stable (5) Diabetes mellitus type 2 in nonobese Is this a current diagnosis for this admission?: No Plan: 03/24/2019-has a history of type 2 diabetes mellitus started on insulin sliding scale before meals and at bedtime and to check for hemoglobin A1c in the morning. 03/25/2019-stable continue sliding scale insulin before meals and at bedtime. A1c 5.1 this is most likely due to stress and steroid use. 03/26/2019-hyperglycemia secondary to stress reaction to acute illness. Continue slight scale insulin. A1c 5.1 03/27/2019-stable (6) HTN (hypertension) Qualifiers: Hypertension type: essential hypertension Qualified Code(s): I10 - Essential (primary) hypertension Is this a current diagnosis for this admission?: No Plan: 03/24/2019-patient has history of chronic essential hypertension blood pressure is 113/42 started on IV fluids normal saline at 75 cc/h to closely monitor the blood pressures every shift. 03/25/2019-running high at this time 167 systolic will restart home lisinopril and Coreg 03/26/2019-improved. I did have to start clonidine 0.2 mg p.o. 3 times daily yesterday blood pressures in the 140 systolic. 03/27/2019-elevated again today. Hydralazine 25 mg p.o. 3 times daily. Titrate to effect - Time Time Spent with patient: 15-24 minutes - Inpatient Certification Based on my medical assessment, after consideration of the patient's comorbidities, presenting symptoms, or acuity I expect that the services needed warrant INPATIENT care.: Yes I certify that my determination is in accordance with my understanding of Medicare's requirements for reasonable and necessary INPATIENT services [42 CFR 412.3e].: Yes Medical Necessity: Significant Comorbidiites Make Outpatient Treatment Too Risky, Need Close Monitoring Due to Risk of Patient Decompensation, Need For IV Fluids
[2019-03-27] MEDS: ASPIRIN 81 MG TABLET, CHEWABLE PO SCH ×2 (09:50→10:15)
[2019-03-27] MEDS: CEFTRIAXONE 2 GM/D5W RTU 2 GM/50 ML RTUPB IV SCH (09:50)
[2019-03-27] MEDS: ASCORBIC ACID 500 MG TABLET PO SCH (09:51)
[2019-03-27] MEDS: FERROUS SULFATE 325 MG TABLET PO SCH ×2 (09:51→17:15)
[2019-03-27] MEDS: PANTOPRAZOLE SODIUM 40 MG TABLET.DR PO SCH ×2 (09:51→10:01)
[2019-03-27] MEDS: ATORVASTATIN CALCIUM 40 MG TABLET PO SCH (09:51)
[2019-03-27] MEDS: FAMOTIDINE 20 MG TABLET PO SCH ×3 (09:51→21:38)
[2019-03-27] MEDS: NORMAL SALINE 1000 ML 1,000 ML IV PRN (09:51)
[2019-03-27] MEDS: CARVEDILOL 12.5 MG TABLET PO SCH ×2 (09:51→21:39)
[2019-03-27] MEDS: LISINOPRIL 10 MG TABLET PO SCH ×2 (09:51→10:15)
[2019-03-27] MEDS: HYDRALAZINE HCL 25 MG TABLET PO SCH ×2 (16:02→21:39)
[2019-03-27] MEDS: ZOLPIDEM TARTRATE 5 MG TABLET PO SCH (21:38)
[2019-03-27] MEDS: MONTELUKAST SODIUM 10 MG TABLET PO SCH (21:39)
[2019-03-28 05:15] LABS: HEMATOCRIT 25.4 % (36.0-47.0); HEMOGLOBIN 8.3 g/dL (12.0-15.5); MEAN CORPUSCULAR HEMOGLOBIN 29.3 pg (27.0-33.4); MEAN CORPUSCULAR HGB CONC 32.6 g/dL (32.0-36.0); MEAN CORPUSCULAR VOLUME 90 fl (80-97); PLATELET COUNT 117 10^3/uL (150-450); RED BLOOD COUNT 2.82 10^6/uL (3.72-5.28); RED CELL DISTRIBUTION WIDTH 15.4 % (11.5-14.0); WHITE BLOOD COUNT 3.4 10^3/uL (4.0-10.5)
[2019-03-28] MEDS: HYDRALAZINE HCL 25 MG TABLET PO SCH (05:29)
[2019-03-28] MEDS: CLONIDINE HCL 0.2 MG TABLET PO SCH (05:29)
[2019-03-28] MEDS: METHYLPREDNISOLONE INJ 40 MG/1 ML SDV IV SCH (05:30)
[2019-03-28 05:38] LABS: ANION GAP 7 (5-19); BLOOD UREA NITROGEN 52 mg/dL (7-20); CALCIUM 7.8 mg/dL (8.4-10.2); CARBON DIOXIDE 26 mmol/L (22-30); CHLORIDE 109 mmol/L (98-107); GLUCOSE 168 mg/dL (75-110); POTASSIUM 3.8 mmol/L (3.6-5.0)
[2019-03-28] MEDS: NORMAL SALINE 1000 ML 1,000 ML IV PRN (07:55)
--- NOTE | 2019-03-28 08:25 | PDOC PROGRESS REPORT ---
Subjective Progress Note for:: 03/28/19 Subjective:: Had long discussion with patient's daughter yesterday, spent about 45 minutes in discussion. The daughter and the patient both live in [place] and are just visiting her brother. Therefore they would like to pursue further diagnostic and treatment in [place] for the lung mass. I communicated that a PET/CT would be the next best step for them. She voiced understanding and agreement. Reason For Visit: COPD EXARBATION Physical Exam Vital Signs: Temp Pulse Resp BP Pulse Ox 97.2 F 59 L 18 143/38 H 100 03/28/19 07:30 03/28/19 07:30 03/28/19 07:30 03/28/19 07:30 03/28/19 07:30 Intake & Output 03/27/19 03/28/19 03/29/19 06:59 06:59 06:59 Intake Total 750 1510 Output Total 600 Balance 150 1510 Weight 50.2 kg 50 kg General appearance: PRESENT: no acute distress, well-developed, well-nourished Head exam: PRESENT: atraumatic, normocephalic Eye exam: PRESENT: conjunctiva pink, EOMI, PERRLA. ABSENT: scleral icterus Ear exam: PRESENT: normal external ear exam Mouth exam: PRESENT: moist, tongue midline Neck exam: ABSENT: carotid bruit, JVD, lymphadenopathy, thyromegaly Respiratory exam: PRESENT: clear to auscultation wilmer. ABSENT: rales, rhonchi, wheezes Cardiovascular exam: PRESENT: RRR. ABSENT: diastolic murmur, rubs, systolic murmur Pulses: PRESENT: normal dorsalis pedis pul Vascular exam: PRESENT: normal capillary refill GI/Abdominal exam: PRESENT: normal bowel sounds, soft. ABSENT: distended, guarding, mass, organolmegaly, rebound, tenderness Rectal exam: PRESENT: deferred Extremities exam: PRESENT: full ROM. ABSENT: calf tenderness, clubbing, pedal edema Neurological exam: PRESENT: alert, awake, oriented to person, oriented to place, oriented to time, oriented to situation, CN II-XII grossly intact. ABSENT: motor sensory deficit Psychiatric exam: PRESENT: appropriate affect, normal mood. ABSENT: homicidal ideation, suicidal ideation Skin exam: PRESENT: dry, intact, warm. ABSENT: cyanosis, rash Results Laboratory Results: 03/28/19 04:45 03/28/19 04:45 03/28/19 03/28/19 04:45 04:45 WBC 3.4 L RBC 2.82 L Hgb 8.3 L Hct 25.4 L MCV 90 MCH 29.3 MCHC 32.6 RDW 15.4 H Plt Count 117 L Sodium 141.6 Potassium 3.8 Chloride 109 H Carbon Dioxide 26 Anion Gap 7 BUN 52 H Creatinine 1.01 Est GFR ( Amer) > 60 Glucose 168 H Calcium 7.8 L 03/24/19 03/24/19 03/24/19 12:30 12:30 16:33 Creatine Kinase 90 Troponin I 2.200 3.410 03/24/19 03/25/19 03/25/19 21:47 04:24 08:54 Creatine Kinase Troponin I 2.750 2.110 1.780 Impressions: Chest CT 03/24/19 00:00 IMPRESSION: 1.5 cm left upper lobe mass worrisome for malignancy 6 mm right middle lobe nodule of uncertain clinical significance Upper abdominal ascites, nodular liver from cirrhosis Chest X-Ray 03/24/19 12:30 IMPRESSION: NO ACUTE RADIOGRAPHIC FINDING IN THE CHEST. Assessment & Plan - Diagnosis (1) Lung mass Is this a current diagnosis for this admission?: Yes Plan: Plan for discharge soon per hospitalist team based upon lung status, COPD exacerbation as well as pneumonia, next step in outpatient care would be a PET/CT, this will be done per daughter in [place]. I will sign off, please call with any questions. - Time Time Spent with patient: 35 or more minutes
[2019-03-28] MEDS: INSULIN LISPRO 100 UNIT/ML 3 ML VIAL SUBCUT SCH (08:36)
--- NOTE | 2019-03-28 09:06 | PDOC DISCHARGE SUMMARY ---
Impression - Admit/DC Date/PCP Admission Date/Primary Care Provider: 03/24/19 16:02 Discharge Date: 03/28/19 - Discharge Diagnosis (1) Acute on chronic respiratory failure with hypoxia Is this a current diagnosis for this admission?: Yes (2) Elevated troponin Is this a current diagnosis for this admission?: Yes (3) Leukocytosis Is this a current diagnosis for this admission?: Yes (4) SIRS (systemic inflammatory response syndrome) Is this a current diagnosis for this admission?: Yes (5) Diabetes mellitus type 2 in nonobese Is this a current diagnosis for this admission?: No (6) HTN (hypertension) Is this a current diagnosis for this admission?: No - Additional Information Resuscitation Status: Full Code Discharge Diet: As Tolerated Discharge Activity: Activity As Tolerated Home Medications: Arformoterol Tartrate [Brovana Inhalation Solution 15 mcg/2 mL] 15 mcg IH BID Ascorbic Acid [Vitamin C 500 mg Tablet] 500 mg PO DAILY 03/24/19 Atorvastatin Calcium [Lipitor 40 mg Tablet] 40 mg PO DAILY 03/24/19 Budesonide [Pulmicort] 0.5 mg IH BID 03/24/19 Carvedilol [Coreg 12.5 mg Tablet] 12.5 mg PO BID 03/24/19 Esomeprazole Mag Trihydrate [Nexium] 40 mg PO DAILY 03/24/19 Ferrous Sulfate [Feosol] 325 mg PO BID 03/24/19 Lisinopril [Prinivil 10 mg Tablet] 10 mg PO DAILY 03/24/19 Metformin HCl 500 mg PO BID 03/24/19 Montelukast Sodium [Singulair 10 mg Tablet] 10 mg PO QHS 03/24/19 Prednisone [Deltasone 5 mg Tablet] 5 mg PO DAILY 03/24/19 Zolpidem Tartrate 10 mg PO QHS 03/24/19 Aspirin [Aspirin 81 mg Chewable Tablet] 81 mg PO DAILY tab.chew 03/28/19 History of Present Illiness History of Present Illness: ANALI MAIN is a 78 year old female who presented to the ER with shortness of breath associated with wheezing. Hospital Course Hospital Course: Patient presented to the ER with a history of COPD not on home oxygen, hypertension, diabetes mellitus, history of aortic stenosis, ex-smoker, hypercholesterolemia who was brought to the ER by family member after dose increasing shortness of breath associated with wheezing. She is from [place] visiting her family here in [place]. Patient found to have white blood cell count of 15,000, temp of 100.6 and hypoxia. Troponin was elevated 2.2 with normal EKG. Patient was admitted to [facility] treated aggressively with bronchodilators, steroids and antibiotics. Patient was also found to have a 1.5 cm right upper lobe mass suspicious for primary neoplasm of the lung. Patient has been treated aggressively and evaluated by cardiology. Cardiology suspects that elevated troponin was from demand versus from her COPD. Patient remains on aspirin at this time. Patient has improved sufficiently and will be discharged today with follow-up with her primary care in [place] as well as an outpatient PET scan. Patient family agrees with plan of care. Physical Exam Vital Signs: Temp Pulse Resp BP Pulse Ox 97.2 F 59 L 18 143/38 H 100 03/28/19 07:30 03/28/19 07:30 03/28/19 07:30 03/28/19 07:30 03/28/19 07:30 Intake & Output 03/27/19 03/28/19 03/29/19 06:59 06:59 06:59 Intake Total 750 1510 Output Total 600 Balance 150 1510 Weight 50.2 kg 50 kg General appearance: PRESENT: no acute distress Neck exam: ABSENT: carotid bruit, JVD, lymphadenopathy, thyromegaly Respiratory exam: PRESENT: clear to auscultation wilmer. ABSENT: rales, rhonchi, wheezes Cardiovascular exam: PRESENT: RRR. ABSENT: diastolic murmur, rubs, systolic murmur Pulses: PRESENT: normal dorsalis pedis pul Vascular exam: PRESENT: normal capillary refill GI/Abdominal exam: PRESENT: normal bowel sounds, soft. ABSENT: distended, guarding, mass, organolmegaly, rebound, tenderness Extremities exam: PRESENT: full ROM. ABSENT: calf tenderness, clubbing, pedal edema Neurological exam: PRESENT: alert, awake, oriented to person, oriented to place, oriented to time, oriented to situation, CN II-XII grossly intact. ABSENT: motor sensory deficit Psychiatric exam: PRESENT: appropriate affect, normal mood. ABSENT: homicidal ideation, suicidal ideation Skin exam: PRESENT: dry, intact, warm. ABSENT: cyanosis, rash Results Laboratory Results: WBC 3.4 10^3/uL (4.0-10.5) L 03/28/19 04:45 RBC 2.82 10^6/uL (3.72-5.28) L 03/28/19 04:45 Hgb 8.3 g/dL (12.0-15.5) L 03/28/19 04:45 Hct 25.4 % (36.0-47.0) L 03/28/19 04:45 MCV 90 fl (80-97) 03/28/19 04:45 MCH 29.3 pg (27.0-33.4) 03/28/19 04:45 MCHC 32.6 g/dL (32.0-36.0) 03/28/19 04:45 RDW 15.4 % (11.5-14.0) H 03/28/19 04:45 Plt Count 117 10^3/uL (150-450) L 03/28/19 04:45 Lymph % (Auto) Not Reportable 03/25/19 04:24 [place] % (Auto) Not Reportable 03/25/19 04:24 Eos % (Auto) Not Reportable 03/25/19 04:24 Baso % (Auto) Not Reportable 03/25/19 04:24 Reticulocyte # 0.063 10^6/uL (0.028-0.122) 03/26/19 05:25 Absolute Neuts (auto) Not Reportable 03/25/19 04:24 Absolute Lymphs (auto) Not Reportable 03/25/19 04:24 Absolute Monos (auto) Not Reportable 03/25/19 04:24 Absolute Eos (auto) Not Reportable 03/25/19 04:24 Absolute Basos (auto) Not Reportable 03/25/19 04:24 Total Counted 100 03/25/19 04:24 Seg Neutrophils % Not Reportable 03/25/19 04:24 Seg Neuts % (Manual) 90 % (42-78) H 03/25/19 04:24 Band Neutrophils % 2 % (3-5) L 03/25/19 04:24 Lymphocytes % (Manual) 3 % (13-45) L 03/25/19 04:24 Monocytes % (Manual) 5 % (3-13) 03/25/19 04:24 Eosinophils % (Manual) 0 % (0-6) 03/25/19 04:24 Basophils % (Manual) 0 % (0-2) 03/25/19 04:24 Abs Neuts (Manual) 5.7 10^3/uL (1.7-8.2) 03/25/19 04:24 Abs Lymphs (Manual) 0.2 10^3/uL (0.5-4.7) L 03/25/19 04:24 Abs Monocytes (Manual) 0.3 10^3/uL (0.1-1.4) 03/25/19 04:24 Absolute Eos (Manual) 0.0 10^3/uL (0.0-0.6) 03/25/19 04:24 Abs Basophils (Manual) 0.0 10^3/uL (0.0-0.2) 03/25/19 04:24 Toxic Granulation SLIGHT 03/25/19 04:24 Platelet Comment DECREASED 03/25/19 04:24 Poikilocytosis SLIGHT 03/25/19 04:24 Basophilic Stippling PRESENT 03/25/19 04:24 Anisocytosis SLIGHT 03/25/19 04:24 Tear Drop Cells SLIGHT 03/25/19 04:24 Ovalocytes SLIGHT 03/25/19 04:24 Schistocytes SLIGHT 03/25/19 04:24 Retic Count (auto) 2.38 % (0.66-2.85) 03/26/19 05:25 Carbonic Acid 1.13 mmol/L (1.05-1.35) 03/25/19 06:20 HCO3/H2CO3 Ratio 18:1 03/25/19 06:20 ABG pH 7.36 (7.35-7.45) 03/25/19 06:20 ABG pCO2 37.5 mmHg (35-45) 03/25/19 06:20 ABG pO2 49.0 mmHg (80-100) L 03/25/19 06:20 ABG HCO3 20.8 mmol/L (20-24) 03/25/19 06:20 ABG Total CO2 22.0 mmol/L (21-25) 03/25/19 06:20 ABG O2 Saturation 83.5 % (94-98) L 03/25/19 06:20 ABG Base Excess -4.2 mmol/L 03/25/19 06:20 VBG pH 7.28 (7.30-7.42) L 03/24/19 12:30 VBG pCO2 54.6 mmHg (35-63) 03/24/19 12:30 VBG HCO3 24.9 mmol/L (20-32) 03/24/19 12:30 VBG Base Excess -2.3 mmol/L 03/24/19 12:30 FiO2 28% 03/25/19 06:20 Sodium 141.6 mmol/L (137-145) 03/28/19 04:45 Potassium 3.8 mmol/L (3.6-5.0) 03/28/19 04:45 Chloride 109 mmol/L (98-107) H 03/28/19 04:45 Carbon Dioxide 26 mmol/L (22-30) 03/28/19 04:45 Anion Gap 7 (5-19) 03/28/19 04:45 BUN 52 mg/dL (7-20) H 03/28/19 04:45 Creatinine 1.01 mg/dL (0.52-1.25) 03/28/19 04:45 Est GFR ( Amer) > 60 (>60) 03/28/19 04:45 Est GFR (MDRD) Non-Af 53 (>60) L 03/28/19 04:45 Glucose 168 mg/dL (75-110) H 03/28/19 04:45 POC Glucose 203 mg/dL (70-110) H 03/28/19 08:13 Hemoglobin A1c % 5.2 % (4.7-6.0) 03/25/19 04:24 Lactic Acid 2.1 mmol/L (0.7-2.1) 03/24/19 12:30 Calcium 7.8 mg/dL (8.4-10.2) L 03/28/19 04:45 Magnesium 2.5 mg/dL (1.6-2.3) H 03/25/19 04:24 Iron 25.3 ug/dL (37-170) L 03/26/19 05:25 TIBC 258 ug/dL (250-450) 03/26/19 05:25 % Saturation 10 % 03/26/19 05:25 Ferritin 59.30 ng/mL (11.1-264.0) 03/26/19 05:25 Total Bilirubin 0.2 mg/dL (0.2-1.3) 03/25/19 04:24 Direct Bilirubin 0.1 mg/dL (0.0-0.4) 03/25/19 04:24 Neonat Total Bilirubin Not Reportable 03/25/19 04:24 Neonat Direct Bilirubin Not Reportable 03/25/19 04:24 Neonat Indirect Bili Not Reportable 03/25/19 04:24 AST 151 U/L (14-36) H 03/25/19 04:24 ALT 62 U/L (<35) 03/25/19 04:24 Alkaline Phosphatase 58 U/L (38-126) 03/25/19 04:24 Creatine Kinase 90 U/L (30-135) 03/24/19 12:30 Troponin I 1.780 ng/mL 03/25/19 08:54 Total Protein 5.3 g/dL (6.3-8.2) L 03/25/19 04:24 Albumin 2.4 g/dL (3.5-5.0) L 03/25/19 04:24 Vitamin B12 637.0 pg/mL (239-931) 03/26/19 05:25 Folate 4.33 ng/mL (>2.76) 03/26/19 05:25 TSH 1.55 uIU/mL (0.47-4.68) 03/25/19 04:24 Urine Color YELLOW 03/26/19 22:55 Urine Appearance CLEAR 03/26/19 22:55 Urine pH 5.0 (5.0-9.0) 03/26/19 22:55 Ur Specific [place] 1.015 03/26/19 22:55 Urine Protein 100 mg/dL (NEGATIVE) H 03/26/19 22:55 Urine Glucose (UA) NEGATIVE mg/dL (NEGATIVE) 03/26/19 22:55 Urine Ketones NEGATIVE mg/dL (NEGATIVE) 03/26/19 22:55 Urine Blood NEGATIVE (NEGATIVE) 03/26/19 22:55 Urine Nitrite NEGATIVE (NEGATIVE) 03/26/19 22:55 Urine Bilirubin NEGATIVE (NEGATIVE) 03/26/19 22:55 Urine Urobilinogen NEGATIVE mg/dL (<2.0) 03/26/19 22:55 Ur Leukocyte Esterase NEGATIVE (NEGATIVE) 03/26/19 22:55 Urine WBC (Auto) 1 /HPF 03/26/19 22:55 Urine RBC (Auto) 0 /HPF 03/26/19 22:55 U Hyaline Cast (Auto) 1 /LPF 03/26/19 22:55 Squamous Epi Cells Auto 4 /HPF 03/26/19 22:55 Urine Mucus (Auto) RARE /LPF 03/26/19 22:55 Urine Ascorbic Acid 40 (NEGATIVE) H 03/26/19 22:55 Heparin-induced Plt Ab 0.287 OD (0.000-0.40) 03/25/19 11:05 Influenza A (Rapid) NEGATIVE (NEGATIVE) 03/24/19 14:31 Influenza B (Rapid) NEGATIVE (NEGATIVE) 03/24/19 14:31 Blood Type O POSITIVE 03/25/19 11:05 Antibody Screen NEGATIVE 03/25/19 11:05 Crossmatch See Detail 03/25/19 11:05 03/24/19 03/24/19 03/24/19 12:30 16:33 21:47 Troponin I 2.200 3.410 2.750 03/25/19 03/25/19 04:24 08:54 Troponin I 2.110 1.780 Impressions: Chest CT 03/24/19 00:00 IMPRESSION: 1.5 cm left upper lobe mass worrisome for malignancy 6 mm right middle lobe nodule of uncertain clinical significance Upper abdominal ascites, nodular liver from cirrhosis Chest X-Ray 03/24/19 12:30 IMPRESSION: NO ACUTE RADIOGRAPHIC FINDING IN THE CHEST. Plan Plan of Treatment: Ms. Main is from out of town. She will make her follow-up appointment as soon as, she gets home. Goals: Ms. Main is from out of town. She will make her follow-up appointment as soon as, she gets home. Time Spent: Greater than 30 Minutes Stroke Is this a Stroke Patient?: No Acute Heart Failure - Is this a Heart Failure Patient?: No
[2019-03-28] MEDS: ASCORBIC ACID 500 MG TABLET PO SCH (09:31)
[2019-03-28] MEDS: FERROUS SULFATE 325 MG TABLET PO SCH (09:31)
[2019-03-28] MEDS: CARVEDILOL 12.5 MG TABLET PO SCH (09:31)
[2019-03-28] MEDS: ATORVASTATIN CALCIUM 40 MG TABLET PO SCH (09:31)
[2019-03-28] MEDS: FAMOTIDINE 20 MG TABLET PO SCH (09:31)
[2019-03-28] MEDS: CEFTRIAXONE 2 GM/D5W RTU 2 GM/50 ML RTUPB IV SCH (09:31)
[2019-03-28] MEDS: PANTOPRAZOLE SODIUM 40 MG TABLET.DR PO SCH (09:31)
[2019-03-28] MEDS: LISINOPRIL 10 MG TABLET PO SCH (09:31)
[2019-03-28] MEDS: ASPIRIN 81 MG TABLET, CHEWABLE PO SCH (09:32)
[2019-03-28 10:30] VITALS: BP 139/41
== END 2019-03-28 11:10 | disposition home or self-care (01) | DRG 189 ==
LOC: ER 12:12 → EH 16:02 → 3N 17:41
PROVIDERS: ADMIT Internal Medicine; ATTEND Internal Medicine
PROC: 30233N1 Transfusion of Nonautologous Red Blood Cells into Peripheral Vein, Percutaneous Approach (ICD-10-PCS; principal; 2019-03-25)
DX: J96.21 Acute and chronic respiratory failure with hypoxia (principal); J44.1 Chronic obstructive pulmonary disease with (acute) exacerbation; R65.10 Systemic inflammatory response syndrome (SIRS) of non-infectious origin without acute organ dysfunction; R91.8 Other nonspecific abnormal finding of lung field; E78.00 Pure hypercholesterolemia, unspecified; I10 Essential (primary) hypertension; I35.0 Nonrheumatic aortic (valve) stenosis; E11.8 Type 2 diabetes mellitus with unspecified complications; D72.829 Elevated white blood cell count, unspecified; R00.0 Tachycardia, unspecified; D64.9 Anemia, unspecified; Z79.84 Long term (current) use of oral hypoglycemic drugs; Z79.52 Long term (current) use of systemic steroids; Z79.899 Other long term (current) drug therapy; Z88.2 Allergy status to sulfonamides; Z88.8 Allergy status to other drugs, medicaments and biological substances
CPT/HCPCS: 36415; 36430; 36600; 71045; 71250; 80048; 80053; 81001; 82550; 82607; 82728; 82746; 82803; 82962; 83036; 83540; 83550; 83605; 83735; 84443; 84484; 85025; 85027; 85045; 86022; 86850; 86900; 86901; 86920; 87040; 87804; 93005; 93010; 93306; 94640; 94660; 94667; 94668; 96365; 96366; 96367; 99291; J0360; J0696; J1650; J1815; J1940; J1956; J2060; J2270; J2405; J2920; J3475; J3490; J7030; J7620; P9016

== ENCOUNTER 2019-03-30 16:07 | Inpatient (IN) | payer MEDICARE, MEDICAID ==
--- NOTE | 2019-03-30 17:13 | ER Document Report ---
ED Medical Screen (RME) - General Chief Complaint: Fall Injury Stated Complaint: FALL/LEFT HIP PAIN Time Seen by Provider: 03/30/19 17:09 Mode of Arrival: Wheelchair Information source: Patient, Relative Notes: 78-year-old female presents with complaints of left hip pain. Daughter reports patient was transferring from the toilet and fell and landed on her left hip. Reports she has been complaining of pain since that happened yesterday. Reports she will not walk on it and she usually walks around. Left hip very tender to palpate swelling noted. I have greeted and performed a rapid initial assessment of this patient. A comprehensive ED assessment and evaluation of the patient, analysis of test results and completion of the medical decision making process will be conducted by additional ED providers. TRAVEL OUTSIDE OF THE [place] IN LAST 30 DAYS: No - Related Data Allergies/Adverse Reactions: Sulfa (Sulfonamide Antibiotics) Allergy (Intermediate, Verified 03/30/19 17:08) Hives codeine Adverse Reaction (Intermediate, Verified 03/30/19 17:08) Hives tiotropium [From Spiriva with HandiHaler] Adverse Reaction (Verified 03/30/19 17:08) Hives Past Medical History - Past Medical History Cardiac Medical History: Reports: Hx Hypercholesterolemia, Hx Hypertension Pulmonary Medical History: Reports: Hx COPD Neurological Medical History: Denies: Hx Seizures Endocrine Medical History: Reports: Hx Diabetes Mellitus Type 2. Denies: Hx Diabetes Mellitus Type 1 Renal/ Medical History: Denies: Hx Peritoneal Dialysis GI Medical History: Denies: Hx Cirrhosis, Hx Hepatitis Musculoskeltal Medical History: Denies Hx Arthritis, Denies Hx Gout Skin Medical History: Denies Hx Eczema, Denies Hx Psoriasis Infectious Medical History: Denies: Hx Hepatitis Past Surgical History: Reports: Hx Tubal Ligation Physical Exam - Vital signs Vitals: Temp Pulse Resp BP Pulse Ox 98.4 F 95 16 151/37 H 97 03/30/19 16:57 03/30/19 16:57 03/30/19 16:57 03/30/19 16:57 03/30/19 16:57 Course - Vital Signs Vital signs: Temp Pulse Resp BP Pulse Ox 98.4 F 95 16 151/37 H 97 03/30/19 16:57 03/30/19 16:57 03/30/19 16:57 03/30/19 16:57 03/30/19 16:57
--- NOTE | 2019-03-30 18:15 | ER Document Report ---
ED General - General Chief Complaint: Hip Injury Stated Complaint: FALL/LEFT HIP PAIN Time Seen by Provider: 03/30/19 17:09 Mode of Arrival: Wheelchair TRAVEL OUTSIDE OF THE [place] IN LAST 30 DAYS: No - Related Data Allergies/Adverse Reactions: Sulfa (Sulfonamide Antibiotics) Allergy (Intermediate, Verified 03/30/19 17:08) Hives codeine Adverse Reaction (Intermediate, Verified 03/30/19 17:08) Hives tiotropium [From Spiriva with HandiHaler] Adverse Reaction (Verified 03/30/19 17:08) Hives Past Medical History - General Information source: Patient, Relative - Social History Smoking Status: Unknown if Ever Smoked Family History: DM, Hypertension Patient has suicidal ideation: No Patient has homicidal ideation: No - Past Medical History Cardiac Medical History: Reports: Hx Hypercholesterolemia, Hx Hypertension Pulmonary Medical History: Reports: Hx COPD Neurological Medical History: Denies: Hx Seizures Endocrine Medical History: Reports: Hx Diabetes Mellitus Type 2. Denies: Hx Diabetes Mellitus Type 1 Renal/ Medical History: Denies: Hx Peritoneal Dialysis GI Medical History: Denies: Hx Cirrhosis, Hx Hepatitis Musculoskeletal Medical History: Denies Hx Arthritis, Denies Hx Gout Skin Medical History: Denies Hx Eczema, Denies Hx Psoriasis Infectious Medical History: Denies: Hx Hepatitis Past Surgical History: Reports: Hx Tubal Ligation - Immunizations Hx Pneumococcal Vaccination: 05/03/17 Physical Exam - Vital signs Vitals: Temp Pulse Resp BP Pulse Ox 98.4 F 95 16 151/37 H 97 03/30/19 16:57 03/30/19 16:57 03/30/19 16:57 03/30/19 16:57 03/30/19 16:57 - Notes Notes: Patient presents [facility] department complaining of left hip pain status post fall last night. She was in the bathroom to fall and found her laying on the floor. She was not knocked out. Helped her up and carried into bed and today she started having increasing pain in her left hip that he bring in for evaluation. He does not remember what happened. They did not think she hit her head. She denies any headaches or neck pain chest pain shortness of breath abdominal pain. She is been a little nauseated today. Pain increases with movement Past medical history sent for hypertension diabetes COPD mild aortic stenosis. In hospital 2 days ago with COPD at that time CT showed a new lung mass she also has some mild dementia but is ambulatory and functional Social history smoker quit no alcohol. Allergies she had Tylenol with codeine many years ago has some localized hives Review of systems pertinent positives and negatives in HPI otherwise all the systems were reviewed and acutely negative PHYSICIAN EXAM -vital signs are noted triage note and note from triage reviewed GENERAL: Well-appearing, well-nourished and in ___no acute distress___ HEAD: Atraumatic, normocephalic. EYES: Pupils equal round and reactive to light, extraocular movements intact, sclera anicteric, conjunctiva are normal. ENT: nares patent, oropharynx clear without exudates. Moist mucous membranes. Face is nontender NECK: supple without lymphadenopathy nontender midline with full range of motion LUNGS: Breath sounds clear to auscultation bilaterally and equal. Few scattered wheezes but no respiratory distress no chest wall tenderness HEART: Regular rate and rhythm without murmurs ABDOMEN: Soft, nontender, normoactive bowel sounds. EXTREMITIES: Upper extremities are nontender with good range of motion. Right lower extremity is nontender left lower extremity ducted and shortened tenderness over the anterior lateral aspect of the hip is with any movement. Ankle and knee are nontender NEUROLOGICAL: Awake and alert she is no she is in the hospital the year and her name did not remember what month it is or date a week with family says to me ayan t always remember that. She has symmetrical smile and facial expressions. Her motor strength is 5/5 in the upper extremities negative Romberg. 5/5 in the right lower extremity downgoing toes she has 5/5 strength dorsiflexion plantarflexion on the left foot PSYCH: Normal mood, normal affect. SKIN: Warm, Dry, normal turgor, no rashes or lesions noted. BACK-nontender in the midline no pain with sitting. Pelvis is stable with no pain with movement of the right hip Fracture contusion Course - Re-evaluation Re-evalutation: 03/30/19 22:43 ED patient is remained stable she was given IV fluids pain medications potassium and Diaz catheter was inserte Medical decision making patient presents status post post fall with right hip fracture will need admission to the hospital I have consulted hospitalist and discussed the findings he requested we consult cardiology since patient was just here. Initially unable to get Dr. lambert with the patient in the hospital however we were only able to contact him later I discussed the case with the patient including laboratory findings. This was again probably related to her underlying COPD and non-STEMI and the patient can be admitted here medically cleared initially did reconsult hospitalist Note also after discussing plans with family to discuss the possibility of trans ferring the patient. I said that patient could clearly not be transported by automobile and I would be very difficult to find a medical transport to take the patient all the way up to [place] not something we could arrange from here. Indicated that they wanted to try to transfer the patient later changed her mind and were agreeable to have the patient admitted here - Vital Signs Vital signs: Temp Pulse Resp BP Pulse Ox 98.8 F 70 13 148/78 H 100 03/30/19 19:55 03/30/19 18:43 03/30/19 21:02 03/30/19 21:02 03/30/19 21:02 - Laboratory Result Diagrams: 03/30/19 18:51 03/30/19 18:51 Laboratory results interpreted by me: 03/30/19 03/30/19 18:51 18:51 WBC 11.0 H D RBC 3.33 L Hgb 9.8 L Hct 30.0 L RDW 16.0 H [place] % (Auto) 13.1 H Potassium 3.2 L BUN 25 H AST 47 H Total Protein 5.7 L Albumin 2.7 L - Diagnostic Test Radiology reviewed: Reports reviewed - EKG Interpretation by Me Additional EKG results interpreted by me: 03/30/19 22:45 2 EKG read by me shows a normal sinus rhythm with incomplete right bundle branch block. Repeat EKG is unchanged from the first Discharge - Discharge Clinical Impression: COPD exacerbation Closed left hip fracture Qualifiers: Encounter type: initial encounter Qualified Code(s): S72.002A - Fracture of unspecified part of neck of left femur, initial encounter for closed fracture Anemia Qualifiers: Anemia type: unspecified type Qualified Code(s): D64.9 - Anemia, unspecified Condition: Good Disposition: ADMITTED INPATIENT Admitting Provider: Elmer (Hospitalist) Unit Admitted: Telemetry
[2019-03-30] MEDS ORDERED: NORMAL SALINE 1000 ML 1,000 ML IV PRN (18:17)
[2019-03-30] MEDS ORDERED: ONDANSETRON HCL INJ/PF 4 MG/2 ML SDV IV ONE ×2 (18:17→18:51)
[2019-03-30] MEDS ORDERED: NORMAL SALINE 500 ML IV ONE (18:17)
--- NOTE | 2019-03-30 18:28 | RADIOLOGY REPORT (SQ) ---
EXAM DESCRIPTION: CHEST SINGLE VIEW COMPLETED DATE/TIME: 03/30/2019 5:55 pm REASON FOR STUDY: hip fx preop COMPARISON: Chest radiographs 03/24/2019 and 03/28/2018 EXAM PARAMETERS: NUMBER OF VIEWS: One view. TECHNIQUE: Single frontal radiographic view of the chest acquired. RADIATION DOSE: NA LIMITATIONS: None. FINDINGS: LUNGS AND PLEURA: No opacities, masses or pneumothorax. No pleural effusion. MEDIASTINUM AND HILAR STRUCTURES: Unchanged contours. HEART AND VASCULAR STRUCTURES: Heart normal in size. Calcified atherosclerotic changes of the thorac ic aorta. BONES: No acute findings. Old left humeral neck fracture. HARDWARE: None in the chest. OTHER: No other significant finding. IMPRESSION: No acute pulmonary findings. TECHNICAL DOCUMENTATION: JOB ID: [id number] [employer]- All Rights Reserved Reading location - IP/workstation name: [email or web address]
--- NOTE | 2019-03-30 18:34 | RADIOLOGY REPORT (SQ) ---
EXAM DESCRIPTION: HIP LEFT AP/LATERAL COMPLETED DATE/TIME: 03/30/2019 5:55 pm REASON FOR STUDY: fell yesterday, pain swelling COMPARISON: None. NUMBER OF VIEWS: Two views. TECHNIQUE: AP pelvis and additional frog-leg view of the left hip. LIMITATIONS: None. FINDINGS: MINERALIZATION: Normal. LEFT HIP: Comminuted intratrochanteric fracture of the superior and medial displacement of fracture f ragments. RIGHT HIP: No fracture or dislocation. No worrisome bone lesions. PUBIS AND ISCHIUM: No fracture. PELVIS: No fracture. SACRUM: No fracture or dislocation. No worrisome bone lesions. LOWER LUMBAR SPINE: Degenerative changes. SOFT TISSUES: No findings. OTHER: No other significant finding. IMPRESSION: Comminuted intertrochanteric left hip fracture. TECHNICAL DOCUMENTATION: JOB ID: [id number] [email or web address]- All Rights Reserved Reading location - IP/workstation name: [email or web address]
[2019-03-30] MEDS ORDERED: MORPHINE SULFATE 10 MG/ML INJ IV ONE (18:51)
[2019-03-30 19:12] LABS: ABSOLUTE BASOPHILS # (AUTO) 0.1 10^3/uL (0.0-0.2); ABSOLUTE LYMPHOCYTES (AUTO) 1.6 10^3/uL (0.5-4.7); ABSOLUTE MONOCYTES (AUTO) 1.4 10^3/uL (0.1-1.4); ABSOLUTE NEUT (AUTO) 7.8 10^3/uL (1.7-8.2); BASOPHILS % (AUTO) 0.8 % (0-2); EOSINOPHILS % (AUTO) 0.3 % (0-6); HEMOGLOBIN 9.8 g/dL (12.0-15.5); LYMPHOCYTES % (AUTO) 14.2 % (13-45); MEAN CORPUSCULAR HEMOGLOBIN 29.6 pg (27.0-33.4); MEAN CORPUSCULAR HGB CONC 32.7 g/dL (32.0-36.0); MEAN CORPUSCULAR VOLUME 90 fl (80-97); MONOCYTES % (AUTO) 13.1 % (3-13); PLATELET COUNT 199 10^3/uL (150-450); RED BLOOD COUNT 3.33 10^6/uL (3.72-5.28); SEGMENTED NEUTROPHILS % (AUTO) 71.6 % (42-78); TOTAL CELLS COUNTED % (AUTO) 100 %
[2019-03-30 19:13] LABS: INTERNATIONAL RATION (INR) 1.13; PROTHROMBIN TIME 14.6 SEC (11.4-15.4)
[2019-03-30 19:26] LABS: ALBUMIN 2.7 g/dL (3.5-5.0); ALKALINE PHOSPHATASE 64 U/L (38-126); ANION GAP 9 (5-19); ASPARTATE AMINO TRANSFERASE 47 U/L (14-36); BILIRUBIN,DIRECT 0.2 mg/dL (0.0-0.4); BILIRUBIN,TOTAL 0.9 mg/dL (0.2-1.3); BLOOD UREA NITROGEN 25 mg/dL (7-20); CALCIUM 8.4 mg/dL (8.4-10.2); CARBON DIOXIDE 26 mmol/L (22-30); CHLORIDE 106 mmol/L (98-107); GLUCOSE 99 mg/dL (75-110); POTASSIUM 3.2 mmol/L (3.6-5.0); TOTAL PROTEIN 5.7 g/dL (6.3-8.2)
--- NOTE | 2019-03-30 19:26 | EKG REPORT ---
SEVERITY:- ABNORMAL ECG - SINUS RHYTHM ATRIAL PREMATURE COMPLEX INCOMPLETE RIGHT BUNDLE BRANCH BLOCK : Confirmed by: Rosa Johnson MD 30-Mar-2019 19:26:04
[2019-03-30] MEDS ORDERED: CARVEDILOL 12.5 MG TABLET PO ONE (20:22)
[2019-03-30] MEDS ORDERED: LISINOPRIL 10 MG TABLET PO ONE (20:23)
[2019-03-30] MEDS ORDERED: POTASSIUM CHLORIDE 10 MEQ TABLET.ER PO ONE (21:07)
[2019-03-30] MEDS ORDERED: ONDANSETRON HCL INJ/PF 4 MG/2 ML SDV IV PRN (22:09)
[2019-03-30] MEDS ORDERED: LEVALBUTEROL HCL NEB 0.63 MG/3 ML AMPUL NEB PRN (22:09)
[2019-03-30] MEDS ORDERED: ACETAMINOPHEN 650 MG SUPP.RECT PR PRN (22:18)
[2019-03-30] MEDS ORDERED: MORPHINE SULFATE 10 MG/ML INJ IV PRN ×2 (22:18)
[2019-03-30] MEDS ORDERED: HYDRALAZINE HCL INJ/PF 20 MG/1 ML SDV IV PRN (22:18)
[2019-03-30] MEDS ORDERED: DEXTROSE 50%-WATER 25 GM/50 ML DISP.SYRIN IV PRN ×2 (22:19)
[2019-03-30] MEDS ORDERED: DEXTROSE 40% GEL 15 GM TUBE PO PRN ×2 (22:19)
[2019-03-30] MEDS ORDERED: GLUCAGON,HUMAN RECOMB 1 MG INJ IM PRN (22:19)
[2019-03-30] MEDS ORDERED: LORAZEPAM INJ 2 MG/1 ML VIAL IV PRN (22:20)
[2019-03-30] MEDS ORDERED: METOPROLOL TARTRATE PF/INJ 5 MG/5 ML SDV IV PRN (22:20)
[2019-03-31] MEDS ORDERED: FAMOTIDINE INJ/PF 20 MG/2 ML SDV IV ONE (00:15)
[2019-03-31] MEDS: LEVALBUTEROL HCL NEB 1.25 MG/3 ML AMPUL NEB SCH ×3 (00:49→16:01)
[2019-03-31] MEDS: IPRATROPIUM BROMIDE 0.02% NEB 0.5 MG/2.5 ML AMPUL NEB SCH ×3 (00:49→16:01)
[2019-03-31] MEDS: FAMOTIDINE INJ/PF 20 MG/2 ML SDV IV SCH ×2 (00:53→09:13)
[2019-03-31] MEDS: MORPHINE SULFATE 10 MG/ML INJ IV PRN ×4 (01:03→19:30)
[2019-03-31] MEDS: RINGERS SOLUTION,LACTATED 1,000 ML IV PRN ×2 (01:03→08:59)
[2019-03-31] MEDS ORDERED: MAG HYDROX/AL HYDROX/SIMETH SUSP 30 ML UDCUP PO PRN (01:28)
[2019-03-31] MEDS ORDERED: MAGNESIUM HYDROXIDE SUSP 30 ML UDCUP PO PRN (01:28)
[2019-03-31 04:38] LABS: MEAN CORPUSCULAR HEMOGLOBIN 29.2 pg (27.0-33.4); MEAN CORPUSCULAR HGB CONC 32.2 g/dL (32.0-36.0); MEAN CORPUSCULAR VOLUME 91 fl (80-97); PLATELET COUNT 127 10^3/uL (150-450); RED BLOOD COUNT 2.64 10^6/uL (3.72-5.28); RED CELL DISTRIBUTION WIDTH 16.5 % (11.5-14.0); WHITE BLOOD COUNT 7.9 10^3/uL (4.0-10.5)
[2019-03-31 04:41] LABS: ALBUMIN 2.3 g/dL (3.5-5.0); ALKALINE PHOSPHATASE 53 U/L (38-126); ANION GAP 9 (5-19); ASPARTATE AMINO TRANSFERASE 36 U/L (14-36); BILIRUBIN,DIRECT 0.3 mg/dL (0.0-0.4); BILIRUBIN,TOTAL 0.6 mg/dL (0.2-1.3); BLOOD UREA NITROGEN 23 mg/dL (7-20); CALCIUM 7.9 mg/dL (8.4-10.2); CARBON DIOXIDE 26 mmol/L (22-30); CHLORIDE 107 mmol/L (98-107); CREATINE KINASE 44 U/L (30-135); GLUCOSE 76 mg/dL (75-110); POTASSIUM 3.7 mmol/L (3.6-5.0)
[2019-03-31 04:46] LABS: HEMOGLOBIN 7.7 g/dL (12.0-15.5)
[2019-03-31 04:52] LABS: CREATINE KINASE MB 1.37 ng/mL (<4.55)
[2019-03-31] MEDS: HEPARIN SOD (PORCINE) 5,000 UNIT/ML 1 ML VIAL SUBCUT SCH ×2 (05:02→14:33)
[2019-03-31 05:03] LABS: TROPONIN I 0.213 ng/mL
--- NOTE | 2019-03-31 05:19 | PDOC H&P ---
History of Present Illness Admission Date/PCP: 03/30/2019 21:48 No local PCP Patient complains of: Left hip pain History of Present Illness: ANALI MAIN is a 78 year old female who presented to the emergency room with a 1 day history of left hip pain following a fall. The patient and her family admit that she fell in the bathroom last night and had no apparent loss of consciousness with no obvious injuries immediately after the fall. The family members carried her to bed where she rested through the night but upon arising this morning was unable to move or bear weight on her left hip due to exquisite severe pain. Her pain was accompanied by nausea and made worse by any movement or attempted weightbearing. Patient denies prior similar episodes. Patient denies any additional accompanying or associated signs and symptoms. Patient has not identified any additional aggravating or ameliorating factors for her left hip pain. An acute comminuted intertrochanteric fracture of the left hip. Additionally she was noted to have a mildly elevated troponin I which was consistent with prior levels measured on a recent hospitalization for COPD. Patient was subsequently admitted to the hospital service and orthopedic consultation with Dr. Jack Randall will be obtained. Past Medical History Cardiac Medical History: Reports: Hyperlipidema, Hypertension Denies: Atrial Fibrillation, Congestive Heart Failure, Coronary Artery Disease, Myocardial Infarction Pulmonary Medical History: Reports: Chronic Obstructive Pulmonary Disease (COPD), Other - Pulmonary nodule found on recent visit Denies: Asthma EENT Medical History: Denies: Cataracts, Ears - Hearing aids Neurological Medical History: Denies: Hemorrhagic CVA, Ischemic CVA, Seizures Endocrine Medical History: Reports: Diabetes Mellitus Type 2 Denies: Diabetes Mellitus Type 1, Hyperthyroidism, Hypothyroidism, Obesity Renal/ Medical History: Denies: Chronic Kidney Disease, Nephrolithiasis Malignancy Medical History: Reports: None GI Medical History: Denies: Cirrhosis, Crohn's Disease, Gastroesophageal Reflux Disease, Hepatitis, Peptic Ulcer Disease, Ulcerative Colitis Musculoskeltal Medical History: Denies: Arthritis, Gout Skin Medical History: Denies: Eczema, Psoriasis Psychiatric Medical History: Denies: Alcohol Dependency, Substance Abuse, Tobacco Dependency Traumatic Medical History: Reports: None Hematology: Reports: Anemia - Chronic Denies: Bleeding Tendencies Infectious Medical History: Reports: None Past Surgical History Past Surgical History: Reports: Tubal Ligation Social History Information Source: Patient Lives with: Family Smoking Status: Former Smoker Electronic Cigarette use?: No Frequency of Alcohol Use: None Hx Recreational Drug Use: No Drugs: None Hx Prescription Drug Abuse: No - Advance Directive Resuscitation Status: Full Code Surrogate healthcare decision maker:: J Luis Main Family History Family History: DM, Hypertension. denies: CAD, Malignancy Parental Family History Reviewed: Yes Children Family History Reviewed: No Sibling(s) Family History Reviewed.: Yes Medication/Allergy Home Medications: Ascorbic Acid [Vitamin C 500 mg Tablet] 500 mg PO DAILY 03/24/19 Atorvastatin Calcium [Lipitor 40 mg Tablet] 40 mg PO QPM 03/24/19 Carvedilol [Coreg 12.5 mg Tablet] 12.5 mg PO BID 03/24/19 Esomeprazole Mag Trihydrate [Nexium] 40 mg PO DAILY 03/24/19 Ferrous Sulfate [Feosol] 325 mg PO QPM 03/24/19 Lisinopril [Prinivil 10 mg Tablet] 10 mg PO DAILY 03/24/19 Metformin HCl 500 mg PO BID 03/24/19 Montelukast Sodium [Singulair 10 mg Tablet] 10 mg PO QPM 03/24/19 Prednisone [Deltasone 5 mg Tablet] 5 mg PO DAILY 03/24/19 Zolpidem Tartrate 10 mg PO QHS 03/24/19 Allergies/Adverse Reactions: Sulfa (Sulfonamide Antibiotics) Allergy (Intermediate, Verified 03/30/19 17:08) Hives codeine Adverse Reaction (Intermediate, Verified 03/30/19 17:08) Hives tiotropium [From Spiriva with HandiHaler] Adverse Reaction (Verified 03/30/19 17:08) Hives Review of Systems Constitutional: ABSENT: chills, fever(s) Eyes: ABSENT: visual disturbances, other - Eye pain Ears: ABSENT: hearing changes, other - Ear pain Nose, Mouth, and Throat: ABSENT: headache(s), mouth pain, sore throat Cardiovascular: PRESENT: dyspnea on exertion - With recent exacerbation of COPD. ABSENT: chest pain, palpitations Respiratory: PRESENT: cough - With recent exacerbation of COPD, dyspnea - With recent exacerbation of COPD Gastrointestinal: PRESENT: as per HPI, nausea. ABSENT: abdominal pain, constipation, diarrhea, vomiting Genitourinary: ABSENT: dysuria, hematuria Musculoskeletal: PRESENT: as per HPI, other - Severely painful left hip. ABSENT: back pain, joint swelling, muscle weakness Integumentary: ABSENT: pruritus, rash Neurological: ABSENT: confusion, convulsions, focal weakness, memory loss, syncope Psychiatric: ABSENT: anxiety, depression Endocrine: ABSENT: cold intolerance, heat intolerance Hematologic/Lymphatic: ABSENT: easy bleeding, easy bruising Allergic/Immunologic: ABSENT: seasonal rhinorrhea Physical Exam Vital Signs: Temp Pulse Resp BP Pulse Ox 98.8 F 70 13 148/78 H 100 03/30/19 19:55 03/30/19 18:43 03/30/19 21:02 03/30/19 21:02 03/30/19 21:02 Intake & Output 03/28/19 03/29/19 03/30/19 23:59 23:59 23:59 Intake Total 500 Output Total 850 Balance -350 Weight 52.163 kg General appearance: PRESENT: cooperative, mild distress - Secondary to left hip pain Head exam: PRESENT: atraumatic, normocephalic Eye exam: PRESENT: conjunctiva pink. ABSENT: conjunctival injection, scleral icterus Ear exam: PRESENT: normal external ear exam. ABSENT: bleeding, drainage Mouth exam: PRESENT: dry mucosa, neck supple Neck exam: ABSENT: JVD, thyromegaly, tracheal deviation Respiratory exam: PRESENT: decreased breath sounds - Mildly decreased breath sounds throughout all rodríguez consistent with mild to moderate COPD, prolonged expiratory phas - Minimally prolonged expiratory phase in all rodríguez, symmetrical, unlabored, wheezes - Minimal end expiratory wheezes in all rodríguez Cardiovascular exam: PRESENT: RRR, systolic murmur - 2/6 crescendo decrescendo systolic murmur heard best at the aortic root with radiation to the neck. ABSENT: clicks, gallop, rubs Pulses: PRESENT: normal radial pulses, normal dorsalis pedis pul Vascular exam: PRESENT: normal capillary refill. ABSENT: pallor GI/Abdominal exam: PRESENT: normal bowel sounds, soft Rectal exam: PRESENT: deferred Extremities exam: PRESENT: tenderness - Severe tenderness palpation and movement of the left hip. ABSENT: joint swelling, pedal edema Musculoskeletal exam: PRESENT: deformity - Left lower extremity shortened and externally rotated. ABSENT: dislocation Neurological exam: PRESENT: alert, oriented to person, oriented to place, oriented to time, oriented to situation, CN II-XII grossly intact. ABSENT: motor sensory deficit Psychiatric exam: PRESENT: appropriate affect, normal mood Skin exam: PRESENT: dry, intact, warm. ABSENT: jaundice, rash, urticaria Results Laboratory Results: 03/30/19 18:51 03/30/19 18:51 03/30/19 03/30/19 18:51 18:51 WBC 11.0 H D RBC 3.33 L Hgb 9.8 L Hct 30.0 L MCV 90 MCH 29.6 MCHC 32.7 RDW 16.0 H Plt Count 199 Seg Neutrophils % 71.6 Sodium 141.2 Potassium 3.2 L Chloride 106 Carbon Dioxide 26 Anion Gap 9 BUN 25 H Creatinine 0.65 Est GFR ( Amer) > 60 Glucose 99 Calcium 8.4 Total Bilirubin 0.9 AST 47 H Alkaline Phosphatase 64 Total Protein 5.7 L Albumin 2.7 L 03/30/19 18:51 Troponin I 0.282 Impressions: Chest X-Ray 03/30/19 00:00 IMPRESSION: No acute pulmonary findings. Hip X-Ray 03/30/19 17:12 IMPRESSION: Comminuted intertrochanteric left hip fracture. Assessment and Plan - Diagnosis (1) Closed comminuted intertrochanteric fracture of left femur Qualifiers: Encounter type: initial encounter Qualified Code(s): S72.142A - Displaced intertrochanteric fracture of left femur, initial encounter for closed fracture Is this a current diagnosis for this admission?: Yes (2) Chronic obstructive pulmonary disease Qualifiers: COPD type: unspecified COPD Qualified Code(s): J44.9 - Chronic obstructive pulmonary disease, unspecified Is this a current diagnosis for this admission?: Yes (3) HTN (hypertension) Qualifiers: Hypertension type: essential hypertension Qualified Code(s): I10 - Essential (primary) hypertension Is this a current diagnosis for this admission?: Yes (4) Diabetes mellitus type 2 in nonobese Is this a current diagnosis for this admission?: Yes (5) HLD (hyperlipidemia) Qualifiers: Hyperlipidemia type: unspecified Qualified Code(s): E78.5 - Hyperlipidemia, unspecified Is this a current diagnosis for this admission?: Yes (6) Elevated troponin Is this a current diagnosis for this admission?: Yes (7) Leukocytosis Qualifiers: Leukocytosis type: unspecified Qualified Code(s): D72.829 - Elevated white blood cell count, unspecified Is this a current diagnosis for this admission?: Yes (8) Aortic stenosis Qualifiers: Cardiac valve disease etiology: nonrheumatic Qualified Code(s): I35.0 - Nonrheumatic aortic (valve) stenosis Is this a current diagnosis for this admission?: Yes (9) Lung mass Is this a current diagnosis for this admission?: Yes - Plan Summary Summary: Patient will be admitted to the surgical floor where she will receive routine supportive and symptomatic cares. A surgical consultation for Dr. Jack Randall will be placed. Patient will be maintained n.p.o. overnight until evaluated by Dr. Randall. Patient will be maintained on IV fluids utilizing lactated Ringer's at 125 mL/h. She will be treated with morphine sulfate 2 to 4 mg IV every 2 hours on an as-needed basis utilizing a sliding scale for pain. Serial CBCs and metabolic profiles with magnesium levels will be obtained as appropriate. A pulmonary toilet utilizing Xopenex, Pulmicort and Atrovent delivered via nebulizer therapy will be instituted. Before meals and at bedtime Accu-Cheks will be obtained with sliding scale insulin used to treat hyperglycemia and a hypoglycemic protocol in place. - Time Time Spent with patient: 15-24 minutes Medications reviewed and adjusted accordingly: Yes Anticipated discharge: SNF - Inpatient Certification Based on my medical assessment, after consideration of the patient's comorbidities, presenting symptoms, or acuity I expect that the services needed warrant INPATIENT care.: Yes I certify that my determination is in accordance with my understanding of Medicare's requirements for reasonable and necessary INPATIENT services [42 CFR 412.3e].: Yes Medical Necessity: Significant Comorbidiites Make Outpatient Treatment Too Risky, Need Close Monitoring Due to Risk of Patient Decompensation, Need For IV Fluids, Need For Continuous Telemetry Monitoring, Need for Nebulizer Therapy and Monitoring of Response, Need for Pain Control, Need for Surgery, Risk of Complication if Not Cared For in Hospital
--- NOTE | 2019-03-31 07:42 | EKG REPORT ---
SEVERITY:- ABNORMAL ECG - SINUS RHYTHM INCOMPLETE RIGHT BUNDLE BRANCH BLOCK : Confirmed by: Khanh Florentino MD 31-Mar-2019 07:42:24
[2019-03-31] MEDS: INSULIN REG, HUMAN 100 UNIT/ML 3 ML VIAL (PYX) SUBCUT SCH ×3 (07:44→16:43)
[2019-03-31] MEDS: BUDESONIDE NEB 0.5 MG/2 ML AMPUL NEB SCH ×2 (08:06→21:11)
[2019-03-31] MEDS: POTASSIUM CHLORIDE 10 MEQ TABLET.ER PO SCH ×3 (09:02→18:03)
[2019-03-31] MEDS: DOCUSATE SODIUM 100 MG CAPSULE PO SCH ×2 (09:02→18:02)
[2019-03-31 10:44] LABS: CREATINE KINASE MB 1.54 ng/mL (<4.55); TROPONIN I 0.22 ng/mL
--- NOTE | 2019-03-31 12:46 | PDOC CONSULTATION ---
Consultation Consult Date: 03/31/19 Provider Consulted: BETH BARR JR Consult reason:: Left hip fracture. Left shoulder fracture dislocation History of Present Illness Admission Date/PCP: 03/30/19 23:14 SOL EARL MD History of Present Illness: ANALI ARIAS is a 78 year old female taken some Ativan this morning and was very sleepy. I was unable to obtain a full history from her. However I spoke with her daughter afterwards on the telephone who explains that she is demented at baseline and her daughter does much of the medical decision making for her. She fell onto her left side sustaining a a injury that led her to be unable to ambulate. She has severe pain on the left side. Further history is unobtainable at this time Past Medical History Past Medical History: Not able to obtain at this time directly from the patient due to patient condition Cardiac Medical History: Reports: Hyperlipidema, Hypertension Denies: Atrial Fibrillation, Congestive Heart Failure, Coronary Artery Disease, Myocardial Infarction Pulmonary Medical History: Reports: Chronic Obstructive Pulmonary Disease (COPD), Other - Pulmonary nodule found on recent visit Denies: Asthma EENT Medical History: Denies: Cataracts, Ears - Hearing aids Neurological Medical History: Denies: Hemorrhagic CVA, Ischemic CVA, Seizures Endocrine Medical History: Reports: Diabetes Mellitus Type 2 Denies: Diabetes Mellitus Type 1, Hyperthyroidism, Hypothyroidism, Obesity Renal/ Medical History: Denies: Chronic Kidney Disease, Nephrolithiasis Malignancy Medical History: Reports: None GI Medical History: Denies: Cirrhosis, Crohn's Disease, Gastroesophageal Reflux Disease, Hepatitis, Peptic Ulcer Disease, Ulcerative Colitis Musculoskeltal Medical History: Denies: Arthritis, Gout Skin Medical History: Denies: Eczema, Psoriasis Psychiatric Medical History: Denies: Alcohol Dependency, Substance Abuse, Tobacco Dependency Traumatic Medical History: Reports: None Hematology: Reports: Anemia - Chronic Denies: Bleeding Tendencies Infectious Medical History: Reports: None Past Surgical History Past Surgical History: Reports: Tubal Ligation Social History Information Source: Patient Lives with: Family Smoking Status: Former Smoker Electronic Cigarette use?: No Frequency of Alcohol Use: None Hx Recreational Drug Use: No Drugs: None Hx Prescription Drug Abuse: No - Advance Directive Resuscitation Status: Full Code Family History Family History: DM, Hypertension. denies: CAD, Malignancy Parental Family History Reviewed: No Children Family History Reviewed: NA Sibling(s) Family History Reviewed.: NA Medication/Allergy Home Medications: Ascorbic Acid [Vitamin C 500 mg Tablet] 500 mg PO DAILY 03/24/19 Atorvastatin Calcium [Lipitor 40 mg Tablet] 40 mg PO QPM 03/24/19 Carvedilol [Coreg 12.5 mg Tablet] 12.5 mg PO BID 03/24/19 Esomeprazole Mag Trihydrate [Nexium] 40 mg PO DAILY 03/24/19 Ferrous Sulfate [Feosol] 325 mg PO QPM 03/24/19 Lisinopril [Prinivil 10 mg Tablet] 10 mg PO DAILY 03/24/19 Metformin HCl 500 mg PO BID 03/24/19 Montelukast Sodium [Singulair 10 mg Tablet] 10 mg PO QPM 03/24/19 Prednisone [Deltasone 5 mg Tablet] 5 mg PO DAILY 03/24/19 Zolpidem Tartrate 10 mg PO QHS 03/24/19 Allergies/Adverse Reactions: Sulfa (Sulfonamide Antibiotics) Allergy (Intermediate, Verified 03/30/19 17:08) Hives codeine Adverse Reaction (Intermediate, Verified 03/30/19 17:08) Hives tiotropium [From Spiriva with HandiHaler] Adverse Reaction (Verified 03/30/19 17:08) Hives Review of Systems ROS unobtainable: Due to mental status Physical Exam Vital Signs: Temp Pulse Resp BP Pulse Ox 97.9 F 85 14 133/57 H 98 03/31/19 11:18 03/31/19 11:18 03/31/19 11:18 03/31/19 11:18 03/31/19 11:18 Intake & Output 03/30/19 03/31/19 04/01/19 06:59 06:59 06:59 Intake Total 500 992 Output Total 1050 75 Balance -550 917 Weight 38.3 kg Physical Exam: General appearance: PRESENT: no acute distress, lethargic, thin Head exam: PRESENT: atraumatic, normocephalic Eye exam: PRESENT: EOMI Ear exam: PRESENT: normal external ear exam Mouth exam: PRESENT: neck supple Neck exam: ABSENT: tracheal deviation Respiratory exam: PRESENT: symmetrical, unlabored. ABSENT: accessory muscle use, wheezes Pulses: PRESENT: normal radial pulses, normal dorsalis pedis pulse Vascular exam: PRESENT: normal capillary refill GI/Abdominal exam: ABSENT: distended, firm Extremities exam: PRESENT: Unable to obtain a full active exam due to patient condition Musculoskeletal exam: PRESENT: full ROM, normal inspection of all 4 extremities aside from that noted below. Neurological exam: PRESENT: Currently lethargic, sleeping Psychiatric exam: PRESENT: Sleeping. ABSENT: agitated Skin exam: PRESENT: intact. ABSENT: dry All as above aside from that noted in the HPI and the following: Results Laboratory Results: 03/31/19 03:37 03/31/19 03:37 03/30/19 03/30/19 03/31/19 18:51 18:51 03:37 WBC 11.0 H D RBC 3.33 L Hgb 9.8 L Hct 30.0 L MCV 90 MCH 29.6 MCHC 32.7 RDW 16.0 H Plt Count 199 Seg Neutrophils % 71.6 Sodium 141.2 141.9 Potassium 3.2 L 3.7 Chloride 106 107 Carbon Dioxide 26 26 Anion Gap 9 9 BUN 25 H 23 H Creatinine 0.65 0.71 Est GFR ( Amer) > 60 > 60 Glucose 99 76 Calcium 8.4 7.9 L Magnesium 2.1 Total Bilirubin 0.9 0.6 AST 47 H 36 Alkaline Phosphatase 64 53 Total Protein 5.7 L 5.0 L Albumin 2.7 L 2.3 L 03/31/19 03:37 WBC 7.9 RBC 2.64 L Hgb 7.7 L D Hct 24.0 L MCV 91 MCH 29.2 MCHC 32.2 RDW 16.5 H Plt Count 127 L Seg Neutrophils % Sodium Potassium Chloride Carbon Dioxide Anion Gap BUN Creatinine Est GFR ( Amer) Glucose Calcium Magnesium Total Bilirubin AST Alkaline Phosphatase Total Protein Albumin 03/30/19 03/30/19 03/30/19 18:51 21:25 21:25 Creatine Kinase 51 CK-MB (CK-2) Troponin I 0.282 0.258 03/30/19 03/31/19 03/31/19 21:25 03:37 03:37 Creatine Kinase 44 CK-MB (CK-2) 1.15 1.37 Troponin I Cancelled 0.213 03/31/19 03/31/19 09:53 09:53 Creatine Kinase 44 CK-MB (CK-2) 1.54 Troponin I 0.220 Impressions: Chest X-Ray 03/30/19 00:00 IMPRESSION: No acute pulmonary findings. Hip X-Ray 03/30/19 17:12 IMPRESSION: Comminuted intertrochanteric left hip fracture. Assessment & Plan - Diagnosis (1) Closed comminuted intertrochanteric fracture of left femur Qualifiers: Encounter type: initial encounter Qualified Code(s): S72.142A - Displaced intertrochanteric fracture of left femur, initial encounter for closed fracture Is this a current diagnosis for this admission?: Yes Plan: Plan will be for intramedullary nailing of the left hip tomorrow. Patient will likely need medical clearance due to her multiple comorbidities. Optimization proceed further today. Make n.p.o. at midnight tonight. Hold all chemical anticoagulation at midnight tonight. Bed rest.
[2019-03-31] MEDS ORDERED: LORAZEPAM INJ 2 MG/1 ML VIAL IV PRN (12:50)
[2019-03-31] MEDS: DEXTROSE 5%-NORMAL SALINE 1,000 ML IV PRN (14:37)
--- NOTE | 2019-03-31 15:52 | PDOC PROGRESS REPORT ---
Subjective Progress Note for:: 03/31/19 Subjective:: The patient is a 78-year-old female with a past medical history of h yperlipidemia, hypertension, COPD, and DM 2 who was admitted 03/30/2019 for a closed left femur fracture related to mechanical fall at home. Patient was seen on morning rounds with her daughter present. He was offered and declined at this time; daughter provided translation services. Patient was found resting in bed comfortably, on supplemental oxygen via nasal cannula. She is not home O2 dependent. Patient is slightly confused this morning which the daughter relates to need for IV Ativan overnight due to acute agitation. She does report that her pain is well controlled at present so long as she does not move. She otherwise denies fever, chills, chest pain, palpitations, dyspnea, cough, abdominal pain, nausea vomiting diarrhea. Looking forward to having surgical repair of her hip tomorrow. They have no other questions or concerns at this time. Nursing reports the patient has had downward trend in glucose; request adjustment to IV fluids as the patient will be n.p.o. beginning this evening. Reason For Visit: CLOSED COMMINUTED INTERTROCHANTERIC FRACTURE OF Physical Exam Vital Signs: Temp Pulse Resp BP Pulse Ox 97.9 F 85 14 133/57 H 98 03/31/19 11:18 03/31/19 11:18 03/31/19 11:18 03/31/19 11:18 03/31/19 11:18 Intake & Output 03/30/19 03/31/19 04/01/19 06:59 06:59 06:59 Intake Total 500 1696 Output Total 1050 75 Balance -550 1621 Weight 38.3 kg General appearance: PRESENT: no acute distress, cooperative, thin, well- developed Head exam: PRESENT: atraumatic, normocephalic Eye exam: PRESENT: conjunctiva pink, EOMI, PERRLA. ABSENT: scleral icterus Ear exam: PRESENT: normal external ear exam Mouth exam: PRESENT: moist, tongue midline Teeth exam: PRESENT: poor dentation Neck exam: ABSENT: carotid bruit, JVD, lymphadenopathy, thyromegaly Respiratory exam: PRESENT: clear to auscultation wilmer, prolonged expiratory phas, symmetrical, unlabored, other - Supplemental oxygen via nasal cannula. ABSENT: rales, rhonchi, wheezes Cardiovascular exam: PRESENT: RRR, +S1, +S2, systolic murmur. ABSENT: diastolic murmur, rubs Pulses: PRESENT: normal dorsalis pedis pul Vascular exam: PRESENT: normal capillary refill GI/Abdominal exam: PRESENT: normal bowel sounds, soft. ABSENT: distended, guarding, mass, organolmegaly, rebound, tenderness Rectal exam: PRESENT: deferred Extremities exam: PRESENT: tenderness - Left hip shortened and externally rotated. ABSENT: calf tenderness, clubbing, pedal edema Neurological exam: PRESENT: alert, awake, oriented to person, oriented to place, oriented to time, oriented to situation, CN II-XII grossly intact. ABSENT: guillaume r sensory deficit Psychiatric exam: PRESENT: appropriate affect, normal mood. ABSENT: homicidal ideation, suicidal ideation Skin exam: PRESENT: dry, intact, warm. ABSENT: cyanosis, rash Results Laboratory Results: 03/31/19 03:37 03/31/19 03:37 03/30/19 03/30/19 03/31/19 18:51 18:51 03:37 WBC 11.0 H D RBC 3.33 L Hgb 9.8 L Hct 30.0 L MCV 90 MCH 29.6 MCHC 32.7 RDW 16.0 H Plt Count 199 Seg Neutrophils % 71.6 Sodium 141.2 141.9 Potassium 3.2 L 3.7 Chloride 106 107 Carbon Dioxide 26 26 Anion Gap 9 9 BUN 25 H 23 H Creatinine 0.65 0.71 Est GFR ( Amer) > 60 > 60 Glucose 99 76 Calcium 8.4 7.9 L Magnesium 2.1 Total Bilirubin 0.9 0.6 AST 47 H 36 Alkaline Phosphatase 64 53 Total Protein 5.7 L 5.0 L Albumin 2.7 L 2.3 L 03/31/19 03:37 WBC 7.9 RBC 2.64 L Hgb 7.7 L D Hct 24.0 L MCV 91 MCH 29.2 MCHC 32.2 RDW 16.5 H Plt Count 127 L Seg Neutrophils % Sodium Potassium Chloride Carbon Dioxide Anion Gap BUN Creatinine Est GFR ( Amer) Glucose Calcium Magnesium Total Bilirubin AST Alkaline Phosphatase Total Protein Albumin 03/30/19 03/30/19 03/30/19 18:51 21:25 21:25 Creatine Kinase 51 CK-MB (CK-2) Troponin I 0.282 0.258 03/30/19 03/31/1919 21:25 03:37 03:37 Creatine Kinase 44 CK-MB (CK-2) 1.15 1.37 Troponin I Cancelled 0.213 03/31/19 03/31/19 09:53 09:53 Creatine Kinase 44 CK-MB (CK-2) 1.54 Troponin I 0.220 Impressions: Chest X-Ray 03/30/19 00:00 IMPRESSION: No acute pulmonary findings. Hip X-Ray 03/30/19 17:12 IMPRESSION: Comminuted intertrochanteric left hip fracture. Assessment and Plan - Diagnosis (1) Closed comminuted intertrochanteric fracture of left femur Qualifiers: Encounter type: initial encounter Qualified Code(s): S72.142A - Displaced intertrochanteric fracture of left femur, initial encounter for closed fracture Is this a current diagnosis for this admission?: Yes Plan: Primary management per orthopedic service. We will defer DVT prophylaxis to their expertise. Cardiology service has been consulted to provide preoperative clearance. Analgesics as needed. (2) Chronic obstructive pulmonary disease Qualifiers: COPD type: unspecified COPD Qualified Code(s): J44.9 - Chronic obstructive pulmonary disease, unspecified Is this a current diagnosis for this admission?: Yes Plan: Stable and without exacerbation at this time. Continue supplemental oxygen as needed to maintain saturations greater than 89%. Continue scheduled and as needed nebulizer treatments. Pulmicort twice daily. Continue home dose of p.o. prednisone and Singulair Incentive spirometer and flutter valve to bedside. (3) Aortic stenosis Qualifiers: Cardiac valve disease etiology: nonrheumatic Qualified Code(s): I35.0 - Nonrheumatic aortic (valve) stenosis Is this a current diagnosis for this admission?: Yes Plan: Cardiology services consulted to provide preop clearance. Avoid drastic fluid volume changes. (4) Diabetes mellitus type 2 in nonobese Is this a current diagnosis for this admission?: Yes Plan: A1C 5.2% Currently on cardiac/consistent carb diet. N.p.o. after midnight for surgery. Accu-Cheks before meals and at bedtime with Humalog for sliding scale coverage. Due to poor p.o. intake and downward trend in glucose; have started the patient on D5 NS @ 100ml/hr. Hypoglycemia protocol. Given the patient's age, frailty and risk for falls, will advise liberating diet and discontinuing diabetic medications at discharge. For a patient of this age and life expectancy, a goal A1c of less than 8.5% is acceptable. (5) Elevated troponin Is this a current diagnosis for this admission?: Yes Plan: Stable; 0.282 -> 0.258-> 0.213-> 0.220 Unchanged from previous admission. Nml renal function. EKG shows incomplete RBBB; no acute changes. Pt denies chest pain. Cardiology services is consulted. (6) HLD (hyperlipidemia) Qualifiers: Hyperlipidemia type: unspecified Qualified Code(s): E78.5 - Hyperlipidemia, unspecified Is this a current diagnosis for this admission?: Yes Plan: Cardiac diet. Continue home dose statin therapy. (7) HTN (hypertension) Qualifiers: Hypertension type: essential hypertension Qualified Code(s): I10 - Essential (primary) hypertension Is this a current diagnosis for this admission?: Yes Plan: Cardiac diet. Continue home dose carvedilol and lisinopril. (8) Leukocytosis Qualifiers: Leukocytosis type: unspecified Qualified Code(s): D72.829 - Elevated white blood cell count, unspecified Is this a current diagnosis for this admission?: Yes Plan: Resolved; Secondary to #1. No s/sx of infectious process No indications for antibiotic therapy at this time. (9) Lung mass Is this a current diagnosis for this admission?: Yes Plan: Follow up as outpatient as previously arranged. - Time Time Spent with patient: 25-34 minutes Medications reviewed and adjusted accordingly: Yes Anticipated discharge: SNF Within: within 72 hours
[2019-03-31] MEDS ORDERED: NORMAL SALINE 250 ML IV PRN ×2 (17:16)
[2019-03-31] MEDS: ATORVASTATIN CALCIUM 40 MG TABLET PO SCH (18:02)
[2019-03-31] MEDS: CARVEDILOL 12.5 MG TABLET PO SCH (18:02)
[2019-03-31] MEDS: FERROUS SULFATE 325 MG TABLET PO SCH (18:02)
[2019-03-31] MEDS: MONTELUKAST SODIUM 10 MG TABLET PO SCH (18:02)
[2019-04-01] MEDS: HEPARIN SOD (PORCINE) 5,000 UNIT/ML 1 ML VIAL SUBCUT SCH ×4 (00:12→22:35)
[2019-04-01] MEDS: INSULIN REG, HUMAN 100 UNIT/ML 3 ML VIAL (PYX) SUBCUT SCH ×5 (00:12→23:17)
[2019-04-01] MEDS: FAMOTIDINE INJ/PF 20 MG/2 ML SDV IV SCH ×3 (00:14→23:18)
[2019-04-01] MEDS: LEVALBUTEROL HCL NEB 1.25 MG/3 ML AMPUL NEB SCH ×3 (00:25→20:27)
[2019-04-01] MEDS: IPRATROPIUM BROMIDE 0.02% NEB 0.5 MG/2.5 ML AMPUL NEB SCH ×3 (00:25→20:27)
[2019-04-01 07:25] LABS: BLOOD UREA NITROGEN 18 mg/dL (7-20); CALCIUM 7.8 mg/dL (8.4-10.2); GLUCOSE 119 mg/dL (75-110); POTASSIUM 3.5 mmol/L (3.6-5.0)
[2019-04-01 07:30] LABS: CARBON DIOXIDE 28 mmol/L (22-30); CHLORIDE 111 mmol/L (98-107)
[2019-04-01 07:48] LABS: ANION GAP 4 (5-19)
[2019-04-01] MEDS: POTASSIUM CHLORIDE 10 MEQ TABLET.ER PO SCH ×3 (08:00→17:28)
[2019-04-01] MEDS: BUDESONIDE NEB 0.5 MG/2 ML AMPUL NEB SCH ×2 (08:00→20:27)
[2019-04-01 08:32] LABS: HEMATOCRIT 30.3 % (36.0-47.0); HEMOGLOBIN 9.9 g/dL (12.0-15.5); MEAN CORPUSCULAR HEMOGLOBIN 29.6 pg (27.0-33.4); MEAN CORPUSCULAR HGB CONC 32.8 g/dL (32.0-36.0); MEAN CORPUSCULAR VOLUME 90 fl (80-97); PLATELET COUNT 117 10^3/uL (150-450); RED BLOOD COUNT 3.36 10^6/uL (3.72-5.28); RED CELL DISTRIBUTION WIDTH 16.4 % (11.5-14.0); WHITE BLOOD COUNT 9.4 10^3/uL (4.0-10.5)
[2019-04-01] MEDS: MORPHINE SULFATE 10 MG/ML INJ IV PRN ×3 (08:43→20:31)
--- NOTE | 2019-04-01 09:13 | PDOC PROGRESS REPORT ---
Subjective Progress Note for:: 04/01/19 Subjective:: Patient is awake this morning. Oriented and appropriately responsive but still lethargic and somewhat unreliable this morning in regards to her history and physical exam. Reason For Visit: CLOSED COMMINUTED INTERTROCHANTERIC FRACTURE OF Physical Exam Vital Signs: Temp Pulse Resp BP Pulse Ox 100.2 F 87 18 159/72 H 98 04/01/19 07:42 04/01/19 08:00 04/01/19 08:00 04/01/19 07:42 04/01/19 08:00 Intake & Output 03/31/19 04/01/19 04/02/19 06:59 06:59 06:59 Intake Total 1500 2286 Output Total 1050 725 Balance 450 1561 Weight 38.3 kg 38.3 kg Physical Exam: General appearance: PRESENT: no acute distress, cooperative, well-nourished Head exam: PRESENT: atraumatic, normocephalic Eye exam: PRESENT: EOMI Ear exam: PRESENT: normal external ear exam Mouth exam: PRESENT: neck supple Neck exam: ABSENT: tracheal deviation Respiratory exam: PRESENT: symmetrical, slightly labored on oxygen Pulses: PRESENT: normal radial pulses, normal dorsalis pedis pulse Vascular exam: PRESENT: normal capillary refill GI/Abdominal exam: ABSENT: distended, firm Neurological exam: PRESENT: alert, awake, oriented to person, oriented to place, oriented to time Psychiatric exam: PRESENT: appropriate affect. ABSENT: agitated Focused psych exam: ABSENT: catatonic Skin exam: PRESENT: intact. ABSENT: dry All as above aside from that noted in the HPI and the following: Musculoskeletal -Pulses 2+ distally -Compartments soft -Sensation grossly intact to L3-4-5 S1 -Motor grossly intact to EHL TA gastroc and quad Leg shortened externally rotated Results Laboratory Results: 04/01/19 06:43 04/01/19 06:43 03/31/19 04/01/19 04/01/19 17:53 06:43 06:43 WBC 9.4 RBC 3.36 L Hgb 9.9 L D Hct 30.3 L MCV 90 MCH 29.6 MCHC 32.8 RDW 16.4 H Plt Count 117 L Sodium 143.2 Potassium 3.5 L Chloride 111 H Carbon Dioxide 28 Anion Gap 4 L BUN 18 Creatinine 0.79 Est GFR ( Amer) > 60 Glucose 119 H Calcium 7.8 L Magnesium 1.8 Blood Type O POSITIVE Antibody Screen NEGATIVE 03/30/19 03/30/19 03/30/19 18:51 21:25 21:25 Creatine Kinase 51 CK-MB (CK-2) Troponin I 0.282 0.258 03/30/19 03/31/19 03/31/19 21:25 03:37 03:37 Creatine Kinase 44 CK-MB (CK-2) 1.15 1.37 Troponin I Cancelled 0.213 03/31/19 03/31/19 09:53 09:53 Creatine Kinase 44 CK-MB (CK-2) 1.54 Troponin I 0.220 Impressions: Chest X-Ray 03/30/19 00:00 IMPRESSION: No acute pulmonary findings. Hip X-Ray 03/30/19 17:12 IMPRESSION: Comminuted intertrochanteric left hip fracture. Assessment & Plan - Diagnosis (1) Closed comminuted intertrochanteric fracture of left femur Qualifiers: Encounter type: initial encounter Qualified Code(s): S72.142A - Displaced intertrochanteric fracture of left femur, initial encounter for closed fracture Is this a current diagnosis for this admission?: Yes Plan: Unfortunately due to the patient's multiple comorbidities we will have to hold operative intervention at this time. -She received 1 unit of packed red blood cells due to preoperative anemia and expected blood loss -She is getting a nuclear scan today for further cardiac evaluation prior to op erative clearance -I have placed her on the schedule for tomorrow morning she is to be n.p.o. at midnight tonight -Bedrest with regular mobilization to prevent bedsore development -Diaz catheter in place -Ancef to be given 2 g preoperatively 30 minutes prior to procedure -Continue current DVT prophylaxis, cease all chemical DVT prophylaxis at 12:00 tonight - Time Time Spent with patient: Less than 15 minutes
[2019-04-01 09:36] LABS: APPEARANCE,URINE CLEAR; BILIRUBIN,URINE NEGATIVE (NEGATIVE); CALCIUM OXALATE CRYSTALS,URINE RARE /HPF; COLOR,URINE YELLOW; GLUCOSE, URINE NEGATIVE (NEGATIVE); KETONES,URINE NEGATIVE (NEGATIVE); PROTEIN,URINE 100 mg/dL (NEGATIVE); URINE SPECIFIC GRAVITY 1.013; UROBILINOGEN,URINE NEGATIVE mg/dL (<2.0)
[2019-04-01] MEDS: LISINOPRIL 10 MG TABLET PO SCH (10:00)
[2019-04-01] MEDS ORDERED: PREDNISONE 5 MG TABLET PO SCH (10:00)
[2019-04-01] MEDS: CARVEDILOL 12.5 MG TABLET PO SCH ×2 (10:00→17:27)
--- NOTE | 2019-04-01 14:36 | PDOC CONSULTATION ---
Consultation-Blank Consultation: Cardiology Consultation by on . Prelimnary Note .Formal consult to follow. No evidence of recent NC by Technitium Pyrophosphate scan.hence patient in view of her age and frail build and COPD will be moderate risk for this orthopedic procedure.Elevated Troponin most likely due to acute Anemia.(Type 2 Mi due to supply demand mismatch). Discussed with the hospitalist provider and the patient's daughter by phone. CARDIOLOGY CONSULTATION by Dr. Rosa Elizabeth on 04/01/2019. Patient seen at 12:30 PM. 60 minutes spent on this patient. REASON FOR CONSULTATION: Preoperative risk assessment in a patient with elevated troponin. CONSULT REQUESTING PHYSICIAN: Ms. Bhakti Fierro, nurse practitioner, [facility] and Dr. Randall orthopedist. HISTORY OF PRESENT ILLNESS: The patient does not speak [place]onese and also has dementia. Hence history obtained from the chart and also from the patient's daughter on the telephone. The patient admitted with a fall and fracture of her hip. Although she had no chest pain or discomfort the patient troponin was elevated. Of note the patient was admitted recently to this hospital with acute exacerbation of COPD and had an elevated troponin. It was thought it was secondary to type II supply demand mismatch by the funeral limousine driver was consulted at that time. The patient had no chest pain then also. She had an echocardiogram which is within normal limits as per the report. This admission the patient has no acute exacerbation COPD symptoms, but her hemoglobin did drop to 7.7. The troponins are trending down. The EKG shows no acute changes. The patient had a technetium pyrophosphate scan nuclear scan [infarct AVID scan] and this showed no evidence of recent NC at least within the last 72 hours. The patient appears to be in no acute distress. Past Medical History Cardiac Medical History: Reports: Hyperlipidema, Hypertension Denies: Atrial Fibrillation, Congestive Heart Failure, Coronary Artery Disease, Myocardial Infarction Pulmonary Medical History: Reports: Chronic Obstructive Pulmonary Disease (COPD), Other - Pulmonary nodule found on recent visit Denies: Asthma EENT Medical History: Denies: Cataracts, Ears - Hearing aids Neurological Medical History: Denies: Hemorrhagic CVA, Ischemic CVA, Seizures Endocrine Medical History: Reports: Diabetes Mellitus Type 2 Denies: Diabetes Mellitus Type 1, Hyperthyroidism, Hypothyroidism, Obesity Renal/ Medical History: Denies: Chronic Kidney Disease, Nephrolithiasis Malignancy Medical History: Reports: None GI Medical History: Denies: Cirrhosis, Crohn's Disease, Gastroesophageal Reflux Disease, Hepatitis, Peptic Ulcer Disease, Ulcerative Colitis Musculoskeltal Medical History: Denies: Arthritis, Gout Skin Medical History: Denies: Eczema, Psoriasis Psychiatric Medical History: Denies: Alcohol Dependency, Substance Abuse, Tobacco Dependency Traumatic Medical History: Reports: None Hematology: Reports: Anemia - Chronic Denies: Bleeding Tendencies Infectious Medical History: Reports: None Past Surgical History Past Surgical History: Reports: Tubal Ligation Social History Information Source: Patient Lives with: Family Smoking Status: Former Smoker Electronic Cigarette use?: No Frequency of Alcohol Use: None Hx Recreational Drug Use: No Drugs: None Hx Prescription Drug Abuse: No - Advance Directive Resuscitation Status: Full Code Surrogate healthcare decision maker:: J Luis Main Family History Family History: DM, Hypertension. denies: CAD, Malignancy Parental Family History Reviewed: Yes Children Family History Reviewed: No Sibling(s) Family History Reviewed.: Yes Medication/Allergy Home Medications: Ascorbic Acid [Vitamin C 500 mg Tablet] 500 mg PO DAILY 03/24/19 Atorvastatin Calcium [Lipitor 40 mg Tablet] 40 mg PO QPM 03/24/19 Carvedilol [Coreg 12.5 mg Tablet] 12.5 mg PO BID 03/24/19 Esomeprazole Mag Trihydrate [Nexium] 40 mg PO DAILY 03/24/19 Ferrous Sulfate [Feosol] 325 mg PO QPM 03/24/19 Lisinopril [Prinivil 10 mg Tablet] 10 mg PO DAILY 03/24/19 Metformin HCl 500 mg PO BID 03/24/19 Montelukast Sodium [Singulair 10 mg Tablet] 10 mg PO QPM 03/24/19 Prednisone [Deltasone 5 mg Tablet] 5 mg PO DAILY 03/24/19 Zolpidem Tartrate 10 mg PO QHS 03/24/19 Allergies/Adverse Reactions: Sulfa (Sulfonamide Antibiotics) Allergy (Intermediate, Verified 03/30/19 17:08) Hives codeine Adverse Reaction (Intermediate, Verified 03/30/19 17:08) Hives tiotropium [From Spiriva with HandiHaler] Adverse Reaction (Verified 03/30/19 17:08) Hives REVIEW of SYSTEMS: Not obtainable due to the patient's lack of speaking [place]onese and the patient having dementia. Physical EXAMINATION: The patient is a frail build and appears to be chronically ill. Selected Entries 04/01/19 11:28 Temperature 98.7 F Temperature Oral Source Pulse Rate 80 Respiratory 15 Rate Blood Pressure 162/46 H Blood Pressure 84 Mean BP Location Left Arm BP Position Supine O2 Sat by Pulse 97 Oximetry Oxygen Delivery Room Air Method HEAD: Is atraumatic normocephalic. PUPILS are equal round regular reactive light accommodation. ENT is negative. Neck is supple there is no JVD carotids are equal there is no bruit. There is no accessory muscle respiration use. Trachea central. Lungs are diminished air entry prolonged expiration. There is no rhonchi rales or wheezing. HEART: S1-S2 is heard. There is no S3 gallop. There is no S4 gallop there is systolic murmur left sternal border and the apex there is no rub. ABDOMEN: Soft. Nontender there is no possible megaly. Bowel sounds are well heard. EXTREMITIES: Femorals are diminished there is no femoral bruits. Leg pulses are diminished. There is no pedal edema. There is no DVT or cellulitis there is no calf tenderness. 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 PSYCHIATRIC site full psych exam not done due to patient's mental condition she does not appear to be agitated or anxious. Labs- Entire Visit 03/30/19 03/30/19 03/30/19 18:51 18:51 18:51 WBC 11.0 H D RBC 3.33 L Hgb 9.8 L Hct 30.0 L MCV 90 MCH 29.6 MCHC 32.7 RDW 16.0 H Plt Count 199 Lymph % (Auto) 14.2 [place] % (Auto) 13.1 H Eos % (Auto) 0.3 Baso % (Auto) 0.8 Absolute Neuts (auto) 7.8 Absolute Lymphs (auto) 1.6 Absolute Monos (auto) 1.4 Absolute Eos (auto) 0.0 Absolute Basos (auto) 0.1 Seg Neutrophils % 71.6 PT 14.6 INR 1.13 Sodium 141.2 Potassium 3.2 L Chloride 106 Carbon Dioxide 26 Anion Gap 9 BUN 25 H Creatinine 0.65 Est GFR ( Amer) > 60 Est GFR (MDRD) Non-Af > 60 Glucose 99 POC Glucose Calcium 8.4 Magnesium Total Bilirubin 0.9 Direct Bilirubin 0.2 Neonat Total Bilirubin Not Reportable Neonat Direct Bilirubin Not Reportable Neonat Indirect Bili Not Reportable AST 47 H ALT 60 Alkaline Phosphatase 64 Creatine Kinase CK-MB (CK-2) Troponin I Total Protein 5.7 L Albumin 2.7 L Urine Color Urine Appearance Urine pH Ur Specific [place] Urine Protein Urine Glucose (UA) Urine Ketones Urine Blood Urine Nitrite (Reflex) Urine Bilirubin Urine Urobilinogen Leukocyte Esterase Rfl Urine RBC (Auto) U Hyaline Cast (Auto) Urine Bacteria (Auto) Urine WBC (Reflex) Calcium Oxalate Cr Auto Urine Mucus (Auto) Urine Ascorbic Acid Blood Type Antibody Screen Crossmatch 03/30/19 03/30/19 03/30/19 18:51 21:25 21:25 WBC RBC Hgb Hct MCV MCH MCHC RDW Plt Count Lymph % (Auto) [place] % (Auto) Eos % (Auto) Baso % (Auto) Absolute Neuts (auto) Absolute Lymphs (auto) Absolute Monos (auto) Absolute Eos (auto) Absolute Basos (auto) Seg Neutrophils % PT INR Sodium Potassium Chloride Carbon Dioxide Anion Gap BUN Creatinine Est GFR ( Amer) Est GFR (MDRD) Non-Af Glucose POC Glucose Calcium Magnesium Total Bilirubin Direct Bilirubin Neonat Total Bilirubin Neonat Direct Bilirubin Neonat Indirect Bili AST ALT Alkaline Phosphatase Creatine Kinase 51 CK-MB (CK-2) Troponin I 0.282 0.258 Total Protein Albumin Urine Color Urine Appearance Urine pH Ur Specific [place] Urine Protein Urine Glucose (UA) Urine Ketones Urine Blood Urine Nitrite (Reflex) Urine Bilirubin Urine Urobilinogen Leukocyte Esterase Rfl Urine RBC (Auto) U Hyaline Cast (Auto) Urine Bacteria (Auto) Urine WBC (Reflex) Calcium Oxalate Cr Auto Urine Mucus (Auto) Urine Ascorbic Acid Blood Type Antibody Screen Crossmatch 03/30/19 03/31/19 03/31/19 21:25 03:37 03:37 WBC RBC Hgb Hct MCV MCH MCHC RDW Plt Count Lymph % (Auto) [place] % (Auto) Eos % (Auto) Baso % (Auto) Absolute Neuts (auto) Absolute Lymphs (auto) Absolute Monos (auto) Absolute Eos (auto) Absolute Basos (auto) Seg Neutrophils % PT INR Sodium 141.9 Potassium 3.7 Chloride 107 Carbon Dioxide 26 Anion Gap 9 BUN 23 H Creatinine 0.71 Est GFR ( Amer) > 60 Est GFR (MDRD) Non-Af > 60 Glucose 76 POC Glucose Calcium 7.9 L Magnesium 2.1 Total Bilirubin 0.6 Direct Bilirubin 0.3 Neonat Total Bilirubin Not Reportable Neonat Direct Bilirubin Not Reportable Neonat Indirect Bili Not Reportable AST 36 ALT 47 Alkaline Phosphatase 53 Creatine Kinase 44 CK-MB (CK-2) 1.15 1.37 Troponin I Cancelled 0.213 Total Protein 5.0 L Albumin 2.3 L Urine Color Urine Appearance Urine pH Ur Specific [place] Urine Protein Urine Glucose (UA) Urine Ketones Urine Blood Urine Nitrite (Reflex) Urine Bilirubin Urine Urobilinogen Leukocyte Esterase Rfl Urine RBC (Auto) U Hyaline Cast (Auto) Urine Bacteria (Auto) Urine WBC (Reflex) Calcium Oxalate Cr Auto Urine Mucus (Auto) Urine Ascorbic Acid Blood Type Antibody Screen Crossmatch 03/31/19 03/31/19 03/31/19 03:37 06:45 07:05 WBC 7.9 RBC 2.64 L Hgb 7.7 L D Hct 24.0 L MCV 91 MCH 29.2 MCHC 32.2 RDW 16.5 H Plt Count 127 L Lymph % (Auto) [place] % (Auto) Eos % (Auto) Baso % (Auto) Absolute Neuts (auto) Absolute Lymphs (auto) Absolute Monos (auto) Absolute Eos (auto) Absolute Basos (auto) Seg Neutrophils % PT INR Sodium Potassium Chloride Carbon Dioxide Anion Gap BUN Creatinine Est GFR ( Amer) Est GFR (MDRD) Non-Af Glucose POC Glucose 61 L 152 H Calcium Magnesium Total Bilirubin Direct Bilirubin Neonat Total Bilirubin Neonat Direct Bilirubin Neonat Indirect Bili AST ALT Alkaline Phosphatase Creatine Kinase CK-MB (CK-2) Troponin I Total Protein Albumin Urine Color Urine Appearance Urine pH Ur Specific [place] Urine Protein Urine Glucose (UA) Urine Ketones Urine Blood Urine Nitrite (Reflex) Urine Bilirubin Urine Urobilinogen Leukocyte Esterase Rfl Urine RBC (Auto) U Hyaline Cast (Auto) Urine Bacteria (Auto) Urine WBC (Reflex) Calcium Oxalate Cr Auto Urine Mucus (Auto) Urine Ascorbic Acid Blood Type Antibody Screen Crossmatch 03/31/19 03/31/19 03/31/19 07:55 09:53 09:53 WBC RBC Hgb Hct MCV MCH MCHC RDW Plt Count Lymph % (Auto) [place] % (Auto) Eos % (Auto) Baso % (Auto) Absolute Neuts (auto) Absolute Lymphs (auto) Absolute Monos (auto) Absolute Eos (auto) Absolute Basos (auto) Seg Neutrophils % PT INR Sodium Potassium Chloride Carbon Dioxide Anion Gap BUN Creatinine Est GFR ( Amer) Est GFR (MDRD) Non-Af Glucose POC Glucose 129 H Calcium Magnesium Total Bilirubin Direct Bilirubin Neonat Total Bilirubin Neonat Direct Bilirubin Neonat Indirect Bili AST ALT Alkaline Phosphatase Creatine Kinase 44 CK-MB (CK-2) 1.54 Troponin I 0.220 Total Protein Albumin Urine Color Urine Appearance Urine pH Ur Specific [place] Urine Protein Urine Glucose (UA) Urine Ketones Urine Blood Urine Nitrite (Reflex) Urine Bilirubin Urine Urobilinogen Leukocyte Esterase Rfl Urine RBC (Auto) U Hyaline Cast (Auto) Urine Bacteria (Auto) Urine WBC (Reflex) Calcium Oxalate Cr Auto Urine Mucus (Auto) Urine Ascorbic Acid Blood Type Antibody Screen Crossmatch 03/31/19 03/31/19 03/31/19 11:17 15:59 17:53 WBC RBC Hgb Hct MCV MCH MCHC RDW Plt Count Lymph % (Auto) [place] % (Auto) Eos % (Auto) Baso % (Auto) Absolute Neuts (auto) Absolute Lymphs (auto) Absolute Monos (auto) Absolute Eos (auto) Absolute Basos (auto) Seg Neutrophils % PT INR Sodium Potassium Chloride Carbon Dioxide Anion Gap BUN Creatinine Est GFR ( Amer) Est GFR (MDRD) Non-Af Glucose POC Glucose 89 130 H Calcium Magnesium Total Bilirubin Direct Bilirubin Neonat Total Bilirubin Neonat Direct Bilirubin Neonat Indirect Bili AST ALT Alkaline Phosphatase Creatine Kinase CK-MB (CK-2) Troponin I Total Protein Albumin Urine Color Urine Appearance Urine pH Ur Specific [place] Urine Protein Urine Glucose (UA) Urine Ketones Urine Blood Urine Nitrite (Reflex) Urine Bilirubin Urine Urobilinogen Leukocyte Esterase Rfl Urine RBC (Auto) U Hyaline Cast (Auto) Urine Bacteria (Auto) Urine WBC (Reflex) Calcium Oxalate Cr Auto Urine Mucus (Auto) Urine Ascorbic Acid Blood Type O POSITIVE Antibody Screen NEGATIVE Crossmatch See Detail 03/31/19 04/01/19 04/01/19 22:13 06:20 06:43 WBC 9.4 RBC 3.36 L Hgb 9.9 L D Hct 30.3 L MCV 90 MCH 29.6 MCHC 32.8 RDW 16.4 H Plt Count 117 L Lymph % (Auto) [place] % (Auto) Eos % (Auto) Baso % (Auto) Absolute Neuts (auto) Absolute Lymphs (auto) Absolute Monos (auto) Absolute Eos (auto) Absolute Basos (auto) Seg Neutrophils % PT INR Sodium Potassium Chloride Carbon Dioxide Anion Gap BUN Creatinine Est GFR ( Amer) Est GFR (MDRD) Non-Af Glucose POC Glucose 146 H 122 H Calcium Magnesium Total Bilirubin Direct Bilirubin Neonat Total Bilirubin Neonat Direct Bilirubin Neonat Indirect Bili AST ALT Alkaline Phosphatase Creatine Kinase CK-MB (CK-2) Troponin I Total Protein Albumin Urine Color Urine Appearance Urine pH Ur Specific [place] Urine Protein Urine Glucose (UA) Urine Ketones Urine Blood Urine Nitrite (Reflex) Urine Bilirubin Urine Urobilinogen Leukocyte Esterase Rfl Urine RBC (Auto) U Hyaline Cast (Auto) Urine Bacteria (Auto) Urine WBC (Reflex) Calcium Oxalate Cr Auto Urine Mucus (Auto) Urine Ascorbic Acid Blood Type Antibody Screen Crossmatch 04/01/19 04/01/19 04/01/19 06:43 08:45 11:29 WBC RBC Hgb Hct MCV MCH MCHC RDW Plt Count Lymph % (Auto) [place] % (Auto) Eos % (Auto) Baso % (Auto) Absolute Neuts (auto) Absolute Lymphs (auto) Absolute Monos (auto) Absolute Eos (auto) Absolute Basos (auto) Seg Neutrophils % PT INR Sodium 143.2 Potassium 3.5 L Chloride 111 H Carbon Dioxide 28 Anion Gap 4 L BUN 18 Creatinine 0.79 Est GFR ( Amer) > 60 Est GFR (MDRD) Non-Af > 60 Glucose 119 H POC Glucose 134 H Calcium 7.8 L Magnesium 1.8 Total Bilirubin Direct Bilirubin Neonat Total Bilirubin Neonat Direct Bilirubin Neonat Indirect Bili AST ALT Alkaline Phosphatase Creatine Kinase CK-MB (CK-2) Troponin I Total Protein Albumin Urine Color YELLOW Urine Appearance CLEAR Urine pH 5.0 Ur Specific [place] 1.013 Urine Protein 100 H Urine Glucose (UA) NEGATIVE Urine Ketones NEGATIVE Urine Blood MODERATE H Urine Nitrite (Reflex) NEGATIVE Urine Bilirubin NEGATIVE Urine Urobilinogen NEGATIVE Leukocyte Esterase Rfl TRACE H Urine RBC (Auto) 9 U Hyaline Cast (Auto) 3 Urine Bacteria (Auto) TRACE Urine WBC (Reflex) 12 Calcium Oxalate Cr Auto RARE Urine Mucus (Auto) RARE Urine Ascorbic Acid NEGATIVE Blood Type Antibody Screen Crossmatch 04/01/19 04/01/19 15:15 21:34 WBC RBC Hgb Hct MCV MCH MCHC RDW Plt Count Lymph % (Auto) [place] % (Auto) Eos % (Auto) Baso % (Auto) Absolute Neuts (auto) Absolute Lymphs (auto) Absolute Monos (auto) Absolute Eos (auto) Absolute Basos (auto) Seg Neutrophils % PT INR Sodium Potassium Chloride Carbon Dioxide Anion Gap BUN Creatinine Est GFR ( Amer) Est GFR (MDRD) Non-Af Glucose POC Glucose 137 H 201 H Calcium Magnesium Total Bilirubin Direct Bilirubin Neonat Total Bilirubin Neonat Direct Bilirubin Neonat Indirect Bili AST ALT Alkaline Phosphatase Creatine Kinase CK-MB (CK-2) Troponin I Total Protein Albumin Urine Color Urine Appearance Urine pH Ur Specific [place] Urine Protein Urine Glucose (UA) Urine Ketones Urine Blood Urine Nitrite (Reflex) Urine Bilirubin Urine Urobilinogen Leukocyte Esterase Rfl Urine RBC (Auto) U Hyaline Cast (Auto) Urine Bacteria (Auto) Urine WBC (Reflex) Calcium Oxalate Cr Auto Urine Mucus (Auto) Urine Ascorbic Acid Blood Type Antibody Screen Crossmatch Chest X-Ray 03/30/19 00:00 IMPRESSION: No acute pulmonary findings. The patient's echo report from previous admission has been reviewed. Hip X-Ray 03/30/19 17:12 IMPRESSION: Comminuted intertrochanteric left hip fracture. EKG x2 shows sinus rhythm with APCs and right bundle branch block pattern. No acute changes. TECHNETIUM PYROPHOSPHATE SCAN: Shows no evidence of myocardial infarction. This is within the timeframe of 72 hours. IMPRESSION RECOMMENDATION: 1. Elevated troponin I. No evidence of acute NC. This is a type II myocardial infarction secondary to supply demand mismatch, most likely secondary to patient's acute anemia/blood loss. 2. Fracture of left hip. For surgical repair 3. Hypertension: Blood pressure still not well controlled most likely secondary to pain. Would recommend increasing the patient's antihypertensive. 4. Chronic obstructive pulmonary disease: Stable 5. Preoperative cardiac risk assessment. 6. Possible dementia. Medications reviewed. Medical regimen and management plan discussed with the attending provider. Any condition making is of high complexity. In view of her age and frail build and COPD will be moderate risk for this orthopedic procedure. Will Follow.
[2019-04-01] MEDS ORDERED: IPRATROPIUM/ALBUTEROL 0.5-2.5 MG/3 ML AMPUL NEB ONE (14:45)
--- NOTE | 2019-04-01 15:51 | PDOC PROGRESS REPORT ---
Subjective Progress Note for:: 04/01/19 Subjective:: The patient is a 78-year-old female with a past medical history of h yperlipidemia, hypertension, COPD, and DM 2 who was admitted 03/30/2019 for a closed left femur fracture related to mechanical fall at home. Patient was seen on afternoon rounds; no family present at this time. Patient was found resting in bed comfortably, on supplemental oxygen via nasal cannula. She is not home O2 dependent. Patient reports that her pain is well controlled at present so long as she does not move. She otherwise denies fever, chills, chest pain, palpitations, dyspnea, orthop durga, cough, abdominal pain, nausea vomiting diarrhea. She has no questions or concerns at this time. No concerns per nursing. Reason For Visit: CLOSED COMMINUTED INTERTROCHANTERIC FRACTURE OF Physical Exam Vital Signs: Temp Pulse Resp BP Pulse Ox 98.7 F 85 18 162/46 H 98 04/01/19 11:28 04/01/19 14:59 04/01/19 14:59 04/01/19 11:28 04/01/19 14:59 Intake & Output 03/31/19 04/01/19 04/02/19 06:59 06:59 06:59 Intake Total 1500 2286 Output Total 1050 725 Balance 450 1561 Weight 38.3 kg 38.3 kg General appearance: PRESENT: no acute distress, cooperative, thin, well- developed Head exam: PRESENT: atraumatic, normocephalic Eye exam: PRESENT: conjunctiva pink, EOMI, PERRLA. ABSENT: scleral icterus Ear exam: PRESENT: normal external ear exam Mouth exam: PRESENT: moist, tongue midline Neck exam: ABSENT: carotid bruit, JVD, lymphadenopathy, thyromegaly Respiratory exam: PRESENT: prolonged expiratory phas, rhonchi, symmetrical, unlabored, wheezes, other - Supplemental oxygen via nasal cannula. ABSENT: rales Cardiovascular exam: PRESENT: RRR, +S1, +S2. ABSENT: diastolic murmur, rubs, systolic murmur Pulses: PRESENT: normal dorsalis pedis pul Vascular exam: PRESENT: normal capillary refill GI/Abdominal exam: PRESENT: normal bowel sounds, soft. ABSENT: distended, guarding, mass, organolmegaly, rebound, tenderness Rectal exam: PRESENT: deferred Extremities exam: ABSENT: calf tenderness, clubbing, full ROM - Left hip, pedal edema Neurological exam: PRESENT: alert, awake, oriented to person, oriented to place, oriented to time, oriented to situation, CN II-XII grossly intact. ABSENT: motor sensory deficit Psychiatric exam: PRESENT: appropriate affect, normal mood. ABSENT: homicidal ideation, suicidal ideation Skin exam: PRESENT: dry, intact, warm. ABSENT: cyanosis, rash Results Laboratory Results: 04/01/19 06:43 04/01/19 06:43 03/31/19 04/01/19 04/01/19 17:53 06:43 06:43 WBC 9.4 RBC 3.36 L Hgb 9.9 L D Hct 30.3 L MCV 90 MCH 29.6 MCHC 32.8 RDW 16.4 H Plt Count 117 L Sodium 143.2 Potassium 3.5 L Chloride 111 H Carbon Dioxide 28 Anion Gap 4 L BUN 18 Creatinine 0.79 Est GFR ( Amer) > 60 Glucose 119 H Calcium 7.8 L Magnesium 1.8 Urine Color Urine Appearance Urine pH Ur Specific Hunt Urine Protein Urine Glucose (UA) Urine Ketones Urine Blood Urine RBC (Auto) Blood Type O POSITIVE Antibody Screen NEGATIVE 04/01/19 08:45 WBC RBC Hgb Hct MCV MCH MCHC RDW Plt Count Sodium Potassium Chloride Carbon Dioxide Anion Gap BUN Creatinine Est GFR ( Amer) Glucose Calcium Magnesium Urine Color YELLOW Urine Appearance CLEAR Urine pH 5.0 Ur Specific Hunt 1.013 Urine Protein 100 H Urine Glucose (UA) NEGATIVE Urine Ketones NEGATIVE Urine Blood MODERATE H Urine RBC (Auto) 9 Blood Type Antibody Screen 03/30/19 03/30/19 03/30/19 18:51 21:25 21:25 Creatine Kinase 51 CK-MB (CK-2) Troponin I 0.282 0.258 03/30/19 03/31/19 03/31/19 21:25 03:37 03:37 Creatine Kinase 44 CK-MB (CK-2) 1.15 1.37 Troponin I Cancelled 0.213 03/31/19 03/31/19 09:53 09:53 Creatine Kinase 44 CK-MB (CK-2) 1.54 Troponin I 0.220 Impressions: Chest X-Ray 03/30/19 00:00 IMPRESSION: No acute pulmonary findings. Hip X-Ray 03/30/19 17:12 IMPRESSION: Comminuted intertrochanteric left hip fracture. Assessment and Plan - Diagnosis (1) Closed comminuted intertrochanteric fracture of left femur Qualifiers: Encounter type: initial encounter Qualified Code(s): S72.142A - Displaced intertrochanteric fracture of left femur, initial encounter for closed fracture Is this a current diagnosis for this admission?: Yes Plan: Primary management per orthopedic service. We will defer DVT prophylaxis to their expertise. Cardiology service has been consulted; Dr. Johnson advises patient has moderate cardiac risk related to orthopedic surgery. Analgesics as needed. (2) Chronic obstructive pulmonary disease Qualifiers: COPD type: unspecified COPD Qualified Code(s): J44.9 - Chronic obstructive pulmonary disease, unspecified Is this a current diagnosis for this admission?: Yes Plan: COPD exacerbation. Patient is noted to have slight expiratory wheeze, improved with intentional cough, and bilateral rhonchi. Continue supplemental oxygen as needed to maintain saturations greater than 89%. Continue scheduled and as needed nebulizer treatments; increased frequency of scheduled nebs. Pulmicort twice daily. Continue home dose Singulair Will provide IV Solu-Medrol for COPD exacerbation. Start Mucinex twice daily. Incentive spirometer and flutter valve to bedside. (3) Aortic stenosis Qualifiers: Cardiac valve disease etiology: nonrheumatic Qualified Code(s): I35.0 - Nonrheumatic aortic (valve) stenosis Is this a current diagnosis for this admission?: Yes Plan: Cardiology services consulted to provide preop clearance. Avoid drastic fluid volume changes. (4) Diabetes mellitus type 2 in nonobese Is this a current diagnosis for this admission?: Yes Plan: A1C 5.2% Currently on cardiac/consistent carb diet. N.p.o. after midnight for surgery. Accu-Cheks before meals and at bedtime with Humalog for sliding scale coverage. Due to poor p.o. intake and downward trend in glucose; have started the patient on D5 NS @ 100ml/hr. Hypoglycemia protocol. Given the patient's age, frailty and risk for falls, will advise liberating diet and discontinuing diabetic medications at discharge. For a patient of this age and life expectancy, a goal A1c of less than 8.5% is acceptable. (5) Elevated troponin Is this a current diagnosis for this admission?: Yes Plan: Stable; 0.282 -> 0.258-> 0.213-> 0.220 Unchanged from previous admission. Nml renal function. EKG shows incomplete RBBB; no acute changes. Pt denies chest pain. Now status post 1 unit PRBC. Nuclear medicine avid scan normal. Cardiology reports that elevated troponin is likely demand mismatch ischemia related to anemia. (6) HLD (hyperlipidemia) Qualifiers: Hyperlipidemia type: unspecified Qualified Code(s): E78.5 - Hyperlipidemia, unspecified Is this a current diagnosis for this admission?: Yes Plan: Cardiac diet. Continue home dose statin therapy. (7) HTN (hypertension) Qualifiers: Hypertension type: essential hypertension Qualified Code(s): I10 - Essential (primary) hypertension Is this a current diagnosis for this admission?: Yes Plan: Cardiac diet. Continue home dose carvedilol and lisinopril. (8) Leukocytosis Qualifiers: Leukocytosis type: unspecified Qualified Code(s): D72.829 - Elevated white blood cell count, unspecified Is this a current diagnosis for this admission?: Yes Plan: Resolved; Secondary to #1. No s/sx of infectious process No indications for antibiotic therapy at this time. Anticipate WBCs will increase tomorrow secondary to start of Solu-Medrol for COPD exacerbation. (9) Lung mass Is this a current diagnosis for this admission?: Yes Plan: Follow up as outpatient as previously arranged. - Time Time Spent with patient: 15-24 minutes Medications reviewed and adjusted accordingly: Yes Anticipated discharge: SNF Within: within 72 hours
[2019-04-01] MEDS: DOCUSATE SODIUM 100 MG CAPSULE PO SCH ×2 (17:15→17:30)
[2019-04-01] MEDS: MONTELUKAST SODIUM 10 MG TABLET PO SCH (17:27)
[2019-04-01] MEDS: ATORVASTATIN CALCIUM 40 MG TABLET PO SCH (17:27)
[2019-04-01] MEDS: METHYLPREDNISOLONE INJ 40 MG/1 ML SDV IV SCH ×2 (17:27→23:17)
[2019-04-01] MEDS: FERROUS SULFATE 325 MG TABLET PO SCH (17:28)
[2019-04-01] MEDS: GUAIFENESIN 600 MG TABLET.SA PO SCH (22:36)
[2019-04-02] MEDS: IPRATROPIUM BROMIDE 0.02% NEB 0.5 MG/2.5 ML AMPUL NEB SCH ×4 (02:16→20:24)
[2019-04-02] MEDS: LEVALBUTEROL HCL NEB 1.25 MG/3 ML AMPUL NEB SCH ×4 (02:16→20:24)
[2019-04-02] MEDS: HEPARIN SOD (PORCINE) 5,000 UNIT/ML 1 ML VIAL SUBCUT SCH ×3 (05:31→21:26)
[2019-04-02] MEDS: METHYLPREDNISOLONE INJ 40 MG/1 ML SDV IV SCH ×4 (05:33→21:32)
[2019-04-02 07:20] LABS: HEMATOCRIT 28.4 % (36.0-47.0); HEMOGLOBIN 9.2 g/dL (12.0-15.5); MEAN CORPUSCULAR HEMOGLOBIN 29.6 pg (27.0-33.4); MEAN CORPUSCULAR HGB CONC 32.5 g/dL (32.0-36.0); MEAN CORPUSCULAR VOLUME 91 fl (80-97); RED BLOOD COUNT 3.12 10^6/uL (3.72-5.28); RED CELL DISTRIBUTION WIDTH 16.8 % (11.5-14.0); WHITE BLOOD COUNT 3.1 10^3/uL (4.0-10.5)
[2019-04-02 07:34] LABS: ANION GAP 5 (5-19); BLOOD UREA NITROGEN 15 mg/dL (7-20); CALCIUM 7.6 mg/dL (8.4-10.2); CARBON DIOXIDE 25 mmol/L (22-30); CHLORIDE 114 mmol/L (98-107); GLUCOSE 189 mg/dL (75-110); POTASSIUM 4.3 mmol/L (3.6-5.0)
[2019-04-02] MEDS ORDERED: IPRATROPIUM/ALBUTEROL 0.5-2.5 MG/3 ML AMPUL NEB ONE (07:56)
[2019-04-02] MEDS ORDERED: MIDAZOLAM 2 MG/2 ML INJ ONE (07:58)
[2019-04-02] MEDS ORDERED: PROPOFOL INJ 200 MG/20 ML VIAL IV ONE (07:58)
[2019-04-02] MEDS ORDERED: LIDOCAINE 2% INJ-PF (20 MG/ML) 10 ML AMPUL ONE (07:58)
[2019-04-02] MEDS ORDERED: FENTANYL CITRATE INJ/PF 100 MCG/2 ML AMPUL ONE (07:58)
[2019-04-02] MEDS ORDERED: EPHEDRINE SULFATE INJ 50 MG/1 ML AMPULE ONE (07:59)
[2019-04-02] MEDS: INSULIN REG, HUMAN 100 UNIT/ML 3 ML VIAL (PYX) SUBCUT SCH ×4 (08:00→22:31)
[2019-04-02 08:06] LABS: PLATELET COUNT 97 10^3/uL (150-450)
[2019-04-02] MEDS: BUDESONIDE NEB 0.5 MG/2 ML AMPUL NEB SCH ×2 (08:23→20:24)
[2019-04-02] MEDS ORDERED: CEFAZOLIN INJ 1 GM VIAL ONE (08:46)
[2019-04-02] MEDS ORDERED: MEPERIDINE HCL/PF INJ 25 MG/1 ML DISP.SYRIN IV PRN (09:04)
[2019-04-02] MEDS ORDERED: FENTANYL CITRATE INJ/PF 100 MCG/2 ML AMPUL IV PRN ×3 (09:04)
[2019-04-02] MEDS ORDERED: ONDANSETRON HCL INJ/PF 4 MG/2 ML SDV IV PRN (09:04)
[2019-04-02] MEDS ORDERED: PROMETHAZINE HCL INJ 25 MG/1 ML VIAL IV PRN (09:04)
[2019-04-02] MEDS ORDERED: DIPHENHYDRAMINE HCL 50 MG/ML VIAL IV PRN (09:04)
[2019-04-02] MEDS ORDERED: OXYCODONE-ACETAMINOPHEN 5-325 MG TABLET PO PRN (09:04)
--- NOTE | 2019-04-02 09:45 | Operative Report ---
Operative Report DATE OF SURGERY: 04/02/19 PREOPERATIVE DIAGNOSIS: Left intertrochanteric hip fracture POSTOPERATIVE DIAGNOSIS: Left intertrochanteric hip fracture OPERATION: Left hip cephalomedullary nail SURGEON: BETH BARR JR ANESTHESIA: Spinal COMPLICATIONS: none ESTIMATED BLOOD LOSS: 50 cc PROCEDURE: DESCRIPTION OF OPERATION: The patient was brought to the operating room, lying supine in their hospital bed. A spinal anesthetic was administered. Once the patient was comfortable, they was transferred over to the fracture table. A Diaz catheter was present prior to surgery. IV antibiotics were administered preoperatively, 2 g of Ancef. The patient was secured onto the fracture table with a boot on the operative leg in a well leg stevens. A perineal post had been placed. The left lower extremity was secured down and longitudinal traction applied through the post. C-arm fluoroscopy was then brought in to check fracture alignment, and with adjustments we obtained near anatomic alignment on AP and lateral views. The lateral hip region was then prepped and draped out in the usual sterile fashion. A stab wound incision was made proximal to the tip of the greater trochanter and a long wire was placed on the tip of the greater trochanter. This was placed down into the femur to the level of the lesser trochanter as confir med by fluoroscopy.. The knife was used to enlarge the opening proximally and a protection guide opening reamer was placed down to the tip of the greater trochanter and then drilled. The cephalo-medullary nail was loaded onto a guide arm and this was then placed into the opened canal. We utilized a short 11 mm [place] nail. We then confirmed under fluoroscopy that it was at the level for appropriate placement of the hip screw. A trocar was placed through the guide arm and incision was made for the hip screw. A pin was then placed and confirmed to be in the center of the femoral head on both AP and lateral views. Measuring off the pin we found that a 95 screw was appropriate. We then set the reamer to that length and reamed up while confirming with fluoroscopy that in fact the length was appropriate. We then inserted our hip screw. After this we removed the trocar and placed another trocar into the distal screw guide. We made an incision, used a hemostat to spread to bone, and then advanced the trocar into the bone. We then drilled and measured off the drill to a 32.5 mm screw. We placed the screw and again took pictures confirming placement both on AP and lateral and then took final x-rays with the guide removed. All the wounds were then irrigated with dilute Betadine solution. The fascial layer proximally was repaired with 0 Vicryl stitches. Subcutaneous tissue was closed with inverted 2-0 PDS interrupted, and the skin was closed with a running 3-0 PDS stitch. Xeroform was then applied followed by sterile 4 x 4's and Tegaderm. The patient was then carefully transferred off the fracture table onto his hospital bed. The patient tolerated the procedure well and was brought to the recovery room in stable condition.
--- NOTE | 2019-04-02 09:57 | PDOC PROGRESS REPORT ---
Subjective Progress Note for:: 04/02/19 Subjective:: The patient had no acute events or complications overnight. I spoke with her daughter who was at bedside prior to surgery in the preoperative area and assists in history. She explains that there is some continued improvement in her overall baseline function. Reason For Visit: CLOSED COMMINUTED INTERTROCHANTERIC FRACTURE OF Physical Exam Vital Signs: Temp Pulse Resp BP Pulse Ox 97.5 F 69 15 186/44 H 100 04/02/19 08:31 04/02/19 08:31 04/02/19 08:31 04/02/19 08:31 04/02/19 08:31 Intake & Output 04/01/19 04/02/19 04/03/19 06:59 06:59 06:59 Intake Total 2286 Output Total 725 900 Balance 1561 -900 Weight 38.3 kg 42.5 kg Physical Exam: General appearance: PRESENT: no acute distress, cooperative, well-nourished Head exam: PRESENT: atraumatic, normocephalic Eye exam: PRESENT: EOMI Ear exam: PRESENT: normal external ear exam Mouth exam: PRESENT: neck supple Neck exam: ABSENT: tracheal deviation Respiratory exam: PRESENT: symmetrical, slightly labored on oxygen Pulses: PRESENT: normal radial pulses, normal dorsalis pedis pulse Vascular exam: PRESENT: normal capillary refill GI/Abdominal exam: ABSENT: distended, firm Neurological exam: Responds appropriately to instruction but has limited communication due to mental status. Currently awaking anesthesia status post left hip nail Psychiatric exam: PRESENT: appropriate affect. ABSENT: agitated Focused psych exam: ABSENT: catatonic Skin exam: PRESENT: intact. ABSENT: dry All as above aside from that noted in the HPI and the following: Musculoskeletal -Pulses 2+ distally -Compartments soft -Sensation grossly intact to L3-4-5 S1 -Motor grossly intact to EHL TA, still under the influence of spinal anesthesia -Wound is clean dry and intact Results Laboratory Results: 04/02/19 06:51 04/02/19 06:51 04/02/19 04/02/19 06:51 06:51 WBC 3.1 L RBC 3.12 L Hgb 9.2 L Hct 28.4 L MCV 91 MCH 29.6 MCHC 32.5 RDW 16.8 H Plt Count 97 L Sodium 143.5 Potassium 4.3 Chloride 114 H Carbon Dioxide 25 Anion Gap 5 BUN 15 Creatinine 0.63 Est GFR ( Amer) > 60 Glucose 189 H Calcium 7.6 L Magnesium 1.9 03/30/19 03/30/19 03/30/19 18:51 21:25 21:25 Creatine Kinase 51 CK-MB (CK-2) Troponin I 0.282 0.258 03/30/19 03/31/19 03/31/19 21:25 03:37 03:37 Creatine Kinase 44 CK-MB (CK-2) 1.15 1.37 Troponin I Cancelled 0.213 03/31/19 03/31/19 09:53 09:53 Creatine Kinase 44 CK-MB (CK-2) 1.54 Troponin I 0.220 Impressions: Chest X-Ray 03/30/19 00:00 IMPRESSION: No acute pulmonary findings. Hip X-Ray 03/30/19 17:12 IMPRESSION: Comminuted intertrochanteric left hip fracture. Assessment & Plan - Diagnosis (1) Closed comminuted intertrochanteric fracture of left femur Qualifiers: Encounter type: initial encounter Qualified Code(s): S72.142A - Displaced intertrochanteric fracture of left femur, initial encounter for closed fracture Is this a current diagnosis for this admission?: Yes Plan: -The patient underwent a left hip cephalo-medullary nail and is awakening anesthesia and recovery. - 2 doses of Ancef postoperatively q 8 hours to complete 24 hours perioperatively -Weightbearing as tolerated, no precautions, encourage out of bed NATA for ADL training - PT/OT -aspirin 325 daily for DVT prophylaxis for 6 weeks, will defer to medicine's recommendations -multimodal pain management to avoid excessive narcotics, including gabapentin, tramadol, Toradol, acetaminophen. -May change dressing as needed to clean dry sterile dressings -May shower with the dressing intact, if it starts to come off she should not get the incision wet. -I would like to follow the patient my office within the next 2 to [address] [place] [address]. in [place] office #: [phone] - Time Time Spent with patient: Less than 15 minutes
[2019-04-02] MEDS ORDERED: EPINEPHRINE INJ/PF 1 MG/1 ML AMPULE ONE (10:40)
--- NOTE | 2019-04-02 10:42 | RADIOLOGY REPORT (SQ) ---
EXAM DESCRIPTION: HIP LEFT AP/LATERAL COMPLETED DATE/TIME: 04/02/2019 10:27 am REASON FOR STUDY: post op COMPARISON: 03/30/2019. NUMBER OF VIEWS: Two view(s). TECHNIQUE: Digital radiographic images of the left hip post-procedure. LIMITATIONS: None. FINDINGS: BONES: Interval fixation of the intertrochanteric fracture. SOFT TISSUES: No worrisome findings. Expected postoperative soft tissue changes. IMPRESSION: SATISFACTORY POSTOPERATIVE LEFT HIP. TECHNICAL DOCUMENTATION: JOB ID: [id number] [employer]- All Rights Reserved Reading location - IP/workstation name: [email or web address]
--- NOTE | 2019-04-02 10:44 | RADIOLOGY REPORT (SQ) ---
EXAM DESCRIPTION: HIP IN OPERATING RM; NO CHG FLUORO COMPLETED DATE/TIME: 04/02/2019 10:33 am REASON FOR STUDY: ORIF LEFT HIP ASST WITH FLUORO IN OR COMPARISON: 03/30/2019. FLUOROSCOPY TIME: 0.9 minutes. 4 images saved to PACS. TECHNIQUE: Intra-operative images acquired during surgical procedure to evaluate progress. NUMBER OF IMAGES: 4 images. LIMITATIONS: None. FINDINGS: Images of the hip acquired during surgical fixation. IMPRESSION: IMAGE(S) OBTAINED DURING PROCEDURE. COMMENT: Quality ID [id number]: Final reports for procedures using fluoroscopy that document radiation exp osure indices, or exposure time and number of fluorographic images (if radiation exposure indices are not available) Please consult full operative report of the attending physician for description of the procedure. TECHNICAL DOCUMENTATION: JOB ID: [id number] [employer]- All Rights Reserved Reading location - IP/workstation name: [email or web address]
--- NOTE | 2019-04-02 10:44 | RADIOLOGY REPORT (SQ) ---
EXAM DESCRIPTION: HIP IN OPERATING RM; NO CHG FLUORO COMPLETED DATE/TIME: 04/02/2019 10:33 am REASON FOR STUDY: ORIF LEFT HIP ASST WITH FLUORO IN OR COMPARISON: 03/30/2019. FLUOROSCOPY TIME: 0.9 minutes. 4 images saved to PACS. TECHNIQUE: Intra-operative images acquired during surgical procedure to evaluate progress. NUMBER OF IMAGES: 4 images. LIMITATIONS: None. FINDINGS: Images of the hip acquired during surgical fixation. IMPRESSION: IMAGE(S) OBTAINED DURING PROCEDURE. COMMENT: Quality ID [id number]: Final reports for procedures using fluoroscopy that document radiation exp osure indices, or exposure time and number of fluorographic images (if radiation exposure indices are not available) Please consult full operative report of the attending physician for description of the procedure. TECHNICAL DOCUMENTATION: JOB ID: [id number] [employer]- All Rights Reserved Reading location - IP/workstation name: [email or web address]
[2019-04-02] MEDS: DEXTROSE 5%-NORMAL SALINE 1,000 ML IV PRN (12:00)
[2019-04-02] MEDS: CARVEDILOL 12.5 MG TABLET PO SCH ×2 (13:14→17:29)
[2019-04-02] MEDS: DOCUSATE SODIUM 100 MG CAPSULE PO SCH ×2 (13:14→17:32)
[2019-04-02] MEDS: FAMOTIDINE INJ/PF 20 MG/2 ML SDV IV SCH ×2 (13:14→21:33)
[2019-04-02] MEDS: LISINOPRIL 10 MG TABLET PO SCH (13:15)
[2019-04-02] MEDS: GUAIFENESIN 600 MG TABLET.SA PO SCH ×2 (13:15→21:33)
[2019-04-02] MEDS ORDERED: TRAMADOL HCL 50 MG TABLET PO PRN (13:21)
[2019-04-02] MEDS ORDERED: DEXTROSE 5%-NORMAL SALINE 1,000 ML IV PRN (13:34)
--- NOTE | 2019-04-02 13:36 | PDOC PROGRESS REPORT ---
Subjective Progress Note for:: 04/02/19 Subjective:: The patient is a 78-year-old female with a past medical history of h yperlipidemia, hypertension, COPD, and DM 2 who was admitted 03/30/2019 for a closed left femur fracture related to mechanical fall at home. Patient was seen on afternoon rounds following return from the OR; daughter is present. Patient was sleeping soundly, and she did wake slightly when I set her name but quickly fell back to sleep. Per daughter, the patient has had no new questions or concerns; specifically no report of difficulty breathing. She does inform me that they are interested in discharge to short-term rehab here in [place] prior to return home in [place]. She has no questions or concerns at this time. No concerns per nursing. Reason For Visit: CLOSED COMMINUTED INTERTROCHANTERIC FRACTURE OF Physical Exam Vital Signs: Temp Pulse Resp BP Pulse Ox 97.1 F 74 15 127/42 H 96 04/02/19 10:45 04/02/19 10:45 04/02/19 10:45 04/02/19 10:45 04/02/19 10:45 Intake & Output 04/01/19 04/02/19 04/03/19 06:59 06:59 06:59 Intake Total 3286 900 Output Total 725 900 400 Balance 2561 -900 500 Weight 38.3 kg 42.5 kg General appearance: PRESENT: no acute distress, thin, well-developed Head exam: PRESENT: atraumatic, normocephalic Eye exam: PRESENT: conjunctiva pink, EOMI, PERRLA. ABSENT: scleral icterus Ear exam: PRESENT: normal external ear exam Mouth exam: PRESENT: moist, tongue midline Respiratory exam: PRESENT: clear to auscultation wilmer, symmetrical, unlabored, other - Supplemental oxygen via nasal cannula. ABSENT: rales, rhonchi, wheezes Cardiovascular exam: PRESENT: RRR, +S1, +S2. ABSENT: diastolic murmur, rubs, systolic murmur Pulses: PRESENT: normal dorsalis pedis pul Vascular exam: PRESENT: normal capillary refill GI/Abdominal exam: PRESENT: normal bowel sounds, soft. ABSENT: distended, guarding, mass, organolmegaly, rebound, tenderness Rectal exam: PRESENT: deferred Extremities exam: ABSENT: calf tenderness, clubbing, pedal edema Neurological exam: PRESENT: oriented to person, oriented to place, oriented to situation, CN II-XII grossly intact, other - Arousable. ABSENT: motor sensory deficit Skin exam: PRESENT: dry, warm. ABSENT: cyanosis, rash Results Laboratory Results: 04/02/19 06:51 04/02/19 06:51 04/02/19 04/02/19 06:51 06:51 WBC 3.1 L RBC 3.12 L Hgb 9.2 L Hct 28.4 L MCV 91 MCH 29.6 MCHC 32.5 RDW 16.8 H Plt Count 97 L Sodium 143.5 Potassium 4.3 Chloride 114 H Carbon Dioxide 25 Anion Gap 5 BUN 15 Creatinine 0.63 Est GFR ( Amer) > 60 Glucose 189 H Calcium 7.6 L Magnesium 1.9 03/30/19 03/30/19 03/30/19 18:51 21:25 21:25 Creatine Kinase 51 CK-MB (CK-2) Troponin I 0.282 0.258 03/30/19 03/31/19 03/31/19 21:25 03:37 03:37 Creatine Kinase 44 CK-MB (CK-2) 1.15 1.37 Troponin I Cancelled 0.213 03/31/19 03/31/19 09:53 09:53 Creatine Kinase 44 CK-MB (CK-2) 1.54 Troponin I 0.220 Impressions: Chest X-Ray 03/30/19 00:00 IMPRESSION: No acute pulmonary findings. Fluoroscopy 04/02/19 00:00 IMPRESSION: IMAGE(S) OBTAINED DURING PROCEDURE. Hip X-Ray 04/02/19 00:00 IMPRESSION: IMAGE(S) OBTAINED DURING PROCEDURE. Assessment and Plan - Diagnosis (1) Closed comminuted intertrochanteric fracture of left femur Qualifiers: Encounter type: initial encounter Qualified Code(s): S72.142A - Displaced intertrochanteric fracture of left femur, initial encounter for closed fracture Is this a current diagnosis for this admission?: Yes Plan: Primary management per orthopedic service; now status post repair by Dr. Randall Per Dr. Randall; recommends 6 weeks of aspirin 325 mg daily for DVT prophylaxis. Cardiology service has been consulted; Dr. Johnson advises patient has mod erate cardiac risk related to orthopedic surgery. Analgesics as needed. PT/OT consulted. Discharge planning consulted. (2) Chronic obstructive pulmonary disease Qualifiers: COPD type: unspecified COPD Qualified Code(s): J44.9 - Chronic obstructive pulmonary disease, unspecified Is this a current diagnosis for this admission?: Yes Plan: COPD exacerbation is significantly improved; lung sounds are clear, no report of shortness of breath today. Does remain on supplemental oxygen at 2 L/min.. Continue supplemental oxygen as needed to maintain saturations greater than 89%. Continue scheduled and as needed nebulizer treatments Pulmicort twice daily. Continue home dose Singulair Will provide IV Solu-Medrol for COPD exacerbation; will begin weaning.. Start Mucinex twice daily. Incentive spirometer and flutter valve to bedside. (3) Aortic stenosis Qualifiers: Cardiac valve disease etiology: nonrheumatic Qualified Code(s): I35.0 - Nonrheumatic aortic (valve) stenosis Is this a current diagnosis for this admission?: Yes Plan: Cardiology services consulted to provide preop clearance. Avoid drastic fluid volume changes. (4) Diabetes mellitus type 2 in nonobese Is this a current diagnosis for this admission?: Yes Plan: A1C 5.2% Currently on cardiac/consistent carb diet. N.p.o. after midnight for surgery. Accu-Cheks before meals and at bedtime with Humalog for sliding scale coverage. Due to poor p.o. intake and downward trend in glucose; have started the patient on D5 NS @ 50ml/hr. Hypoglycemia protocol. Given the patient's age, frailty and risk for falls, will advise liberating diet and discontinuing diabetic medications at discharge. For a patient of this age and life expectancy, a goal A1c of less than 8.5% is acceptable. (5) Elevated troponin Is this a current diagnosis for this admission?: Yes Plan: Stable; 0.282 -> 0.258-> 0.213-> 0.220 Unchanged from previous admission. Nml renal function. EKG shows incomplete RBBB; no acute changes. Pt denies chest pain. Now status post 1 unit PRBC. Nuclear medicine avid scan normal. Cardiology reports that elevated troponin is likely demand mismatch ischemia related to anemia. (6) HLD (hyperlipidemia) Qualifiers: Hyperlipidemia type: unspecified Qualified Code(s): E78.5 - Hyperlipidemia, unspecified Is this a current diagnosis for this admission?: Yes Plan: Cardiac diet. Continue home dose statin therapy. (7) HTN (hypertension) Qualifiers: Hypertension type: essential hypertension Qualified Code(s): I10 - Essential (primary) hypertension Is this a current diagnosis for this admission?: Yes Plan: Cardiac diet. Continue home dose carvedilol and lisinopril. (8) Leukocytosis Qualifiers: Leukocytosis type: unspecified Qualified Code(s): D72.829 - Elevated white blood cell count, unspecified Is this a current diagnosis for this admission?: Yes Plan: Resolved; Secondary to #1. No s/sx of infectious process No indications for antibiotic therapy at this time. Anticipate WBCs will increase tomorrow secondary to start of Solu-Medrol for COPD exacerbation. (9) Lung mass Is this a current diagnosis for this admission?: Yes Plan: Follow up as outpatient as previously arranged. - Time Time Spent with patient: 25-34 minutes Medications reviewed and adjusted accordingly: Yes Anticipated discharge: SNF Within: when bed available
[2019-04-02] MEDS ORDERED: CEFAZOLIN 2 GM/D5W RTU 2 GM/50 ML RTUPB IV SCH (16:30)
[2019-04-02] MEDS: CEFAZOLIN SODIUM 2 GM in DEXTROSE 5%-WATER 100 ML IV SCH ×2 (17:20→21:31)
[2019-04-02] MEDS: MONTELUKAST SODIUM 10 MG TABLET PO SCH (17:32)
[2019-04-02] MEDS: ATORVASTATIN CALCIUM 40 MG TABLET PO SCH (17:32)
[2019-04-02] MEDS: FERROUS SULFATE 325 MG TABLET PO SCH (17:32)
[2019-04-02] MEDS: TRAMADOL HCL 50 MG TABLET PO PRN (17:40)
--- NOTE | 2019-04-02 19:04 | Progress Note ---
Provider Note Provider Note: Cardiology PROGRESS NOTE by Dr. Rosa Johnson on 04/02/2019. SUBJECTIVE: The patient had uneventful pin placement at the site of her left hip fracture. She denies any chest pain discomfort. She does not appear to be short of breath but the patient does have some rhonchi, but no wheezing. There is no TIA CVA symptoms she moves all 4 extremities. There is no cough.. PHYSICAL EXAMINATION: The patient is a frail build and appears to be chronically ill. Selected Entries 04/02/19 14:00 Temperature 97.3 F Pulse Rate 79 Respiratory 16 Rate Blood Pressure 129/29 H O2 Sat by Pulse 99 Oximetry Oxygen Delivery Nasal Cannula Method ( includes room air) Oxygen Flow 2 Rate HEAD: Is atraumatic normocephalic. PUPILS are equal round regular reactive light accommodation. ENT is negative. Neck is supple there is no JVD carotids are equal there is no bruit. There is no accessory muscle respiration use. Trachea central. Lungs are diminished air entry prolonged expiration. There is scattered rhonchi, but no rales or wheezing. HEART: S1-S2 is heard. There is no S3 gallop. There is no S4 gallop there is systolic murmur left sternal border and the apex there is no rub. ABDOMEN: Soft. Nontender there is no possible megaly. Bowel sounds are well heard. EXTREMITIES: Femorals are diminished there is no femoral bruits. Leg pulses are diminished. There is no pedal edema. There is no DVT or cellulitis there is no calf tenderness. [employer] the patient is conscious moves all 4 extremities. PSYCHIATRIC site full psych exam not done due to patient's mental condition she does not appear to be agitated or anxious. Labs- All tests 24 hr 04/01/19 04/02/19 04/02/19 21:34 06:45 06:51 WBC 3.1 L RBC 3.12 L Hgb 9.2 L Hct 28.4 L MCV 91 MCH 29.6 MCHC 32.5 RDW 16.8 H Plt Count 97 L Sodium Potassium Chloride Carbon Dioxide Anion Gap BUN Creatinine Est GFR ( Amer) Est GFR (MDRD) Non-Af Glucose POC Glucose 201 H 194 H Calcium Magnesium 04/02/19 04/02/19 04/02/19 06:51 09:59 11:56 WBC RBC Hgb Hct MCV MCH MCHC RDW Plt Count Sodium 143.5 Potassium 4.3 Chloride 114 H Carbon Dioxide 25 Anion Gap 5 BUN 15 Creatinine 0.63 Est GFR ( Amer) > 60 Est GFR (MDRD) Non-Af > 60 Glucose 189 H POC Glucose 215 H 230 H Calcium 7.6 L Magnesium 1.9 04/02/19 17:00 WBC RBC Hgb Hct MCV MCH MCHC RDW Plt Count Sodium Potassium Chloride Carbon Dioxide Anion Gap BUN Creatinine Est GFR ( Amer) Est GFR (MDRD) Non-Af Glucose POC Glucose 190 H Calcium Magnesium Chest X-Ray 03/30/19 00:00 IMPRESSION: No acute pulmonary findings. Hip X-Ray 03/30/19 17:12 IMPRESSION: Comminuted intertrochanteric left hip fracture. Fluoroscopy 04/02/19 00:00 IMPRESSION: IMAGE(S) OBTAINED DURING PROCEDURE. Hip X-Ray 04/02/19 00:00 IMPRESSION: SATISFACTORY POSTOPERATIVE LEFT HIP. Hip X-Ray 04/02/19 00:00 IMPRESSION: IMAGE(S) OBTAINED DURING PROCEDURE. IMPRESSION RECOMMENDATION: 1. Elevated troponin I. No evidence of acute GA. This is a type II myocardial infarction secondary to supply demand mismatch, most likely secondary to patient's acute anemia/blood loss. 2. Fracture of left hip. For surgical repair 3. Hypertension: Blood pressure still not well controlled most likely secondary to pain. Would recommend increasing the patient's antihypertensive. 4. Chronic obstructive pulmonary disease: Intensified rate respiratory breathing treatments. 5. Preoperative cardiac risk assessment. 6. Possible dementia. Discussed with the patient's son. Cardiac status is stable. Medications reviewed. Medical management and medical regimen discussed with attending physician on the case. Medical decision making is of moderate complexity. 40 minutes spent as patient more than 50% of time spent in direct patient care. Will sign off.
[2019-04-02] MEDS: MORPHINE SULFATE 10 MG/ML INJ IV PRN ×2 (20:09→23:38)
[2019-04-03] MEDS: LEVALBUTEROL HCL NEB 1.25 MG/3 ML AMPUL NEB SCH ×4 (02:00→20:39)
[2019-04-03] MEDS: IPRATROPIUM BROMIDE 0.02% NEB 0.5 MG/2.5 ML AMPUL NEB SCH ×4 (02:00→20:39)
[2019-04-03] MEDS: HEPARIN SOD (PORCINE) 5,000 UNIT/ML 1 ML VIAL SUBCUT SCH ×3 (05:04→21:17)
[2019-04-03] MEDS: METHYLPREDNISOLONE INJ 40 MG/1 ML SDV IV SCH ×3 (05:15→21:16)
[2019-04-03] MEDS: MORPHINE SULFATE 10 MG/ML INJ IV PRN ×3 (05:39→21:16)
[2019-04-03 05:57] LABS: HEMATOCRIT 27.9 % (36.0-47.0); HEMOGLOBIN 9.2 g/dL (12.0-15.5); MEAN CORPUSCULAR HEMOGLOBIN 29.9 pg (27.0-33.4); MEAN CORPUSCULAR HGB CONC 32.8 g/dL (32.0-36.0); MEAN CORPUSCULAR VOLUME 91 fl (80-97); PLATELET COUNT 179 10^3/uL (150-450); RED BLOOD COUNT 3.06 10^6/uL (3.72-5.28); RED CELL DISTRIBUTION WIDTH 17.3 % (11.5-14.0)
[2019-04-03 06:21] LABS: ANION GAP 8 (5-19); BLOOD UREA NITROGEN 20 mg/dL (7-20); CALCIUM 7.2 mg/dL (8.4-10.2); CARBON DIOXIDE 23 mmol/L (22-30); CHLORIDE 109 mmol/L (98-107); GLUCOSE 189 mg/dL (75-110); POTASSIUM 4.1 mmol/L (3.6-5.0)
[2019-04-03] MEDS ORDERED: MAGNESIUM CITRATE 296 ML BOTTLE PO ONE ×2 (08:00→11:00)
[2019-04-03] MEDS: INSULIN REG, HUMAN 100 UNIT/ML 3 ML VIAL (PYX) SUBCUT SCH ×4 (08:27→21:16)
[2019-04-03] MEDS ORDERED: NA PHOS,M-B/NA PHOS,DI-BA (ADULT) 133 ML ENEMA PR PRN ×2 (08:30→09:09)
[2019-04-03] MEDS: BUDESONIDE NEB 0.5 MG/2 ML AMPUL NEB SCH ×2 (09:12→20:39)
--- NOTE | 2019-04-03 09:33 | PDOC PROGRESS REPORT ---
Subjective Progress Note for:: 04/03/19 Subjective:: Doing well this morning. She has no complaints. Pain is well controlled. Reason For Visit: CLOSED COMMINUTED INTERTROCHANTERIC FRACTURE OF Physical Exam Vital Signs: Temp Pulse Resp BP Pulse Ox 97.8 F 62 18 144/35 H 97 04/02/19 23:46 04/03/19 07:00 04/03/19 02:00 04/02/19 23:46 04/03/19 02:00 Intake & Output 04/02/19 04/03/19 04/04/19 06:59 06:59 06:59 Intake Total 1220 Output Total 900 750 Balance -900 470 Weight 42.5 kg 51 kg Physical Exam: -Pulses 2+ distally -Compartments soft -Wound dressing is saturated this morning, will change, she had a significant amount of edema in the tissues at the time of surgery and will likely drain more than normal -Sensation grossly intact to L3-4-5 S1 -Motor grossly intact to EHL TA gastroc and quad Results Laboratory Results: 04/03/19 04:54 04/03/19 04:54 04/03/19 04/03/19 04:54 04:54 WBC 10.0 D RBC 3.06 L Hgb 9.2 L Hct 27.9 L MCV 91 MCH 29.9 MCHC 32.8 RDW 17.3 H Plt Count 179 Sodium 139.8 Potassium 4.1 Chloride 109 H Carbon Dioxide 23 Anion Gap 8 BUN 20 Creatinine 0.91 Est GFR ( Amer) > 60 Glucose 189 H Calcium 7.2 L 03/30/19 03/30/19 03/30/19 18:51 21:25 21:25 Creatine Kinase 51 CK-MB (CK-2) Troponin I 0.282 0.258 03/30/19 03/31/19 03/31/19 21:25 03:37 03:37 Creatine Kinase 44 CK-MB (CK-2) 1.15 1.37 Troponin I Cancelled 0.213 03/31/19 03/31/19 09:53 09:53 Creatine Kinase 44 CK-MB (CK-2) 1.54 Troponin I 0.220 Impressions: Chest X-Ray 03/30/19 00:00 IMPRESSION: No acute pulmonary findings. Fluoroscopy 04/02/19 00:00 IMPRESSION: IMAGE(S) OBTAINED DURING PROCEDURE. Hip X-Ray 04/02/19 00:00 IMPRESSION: IMAGE(S) OBTAINED DURING PROCEDURE. Assessment & Plan - Diagnosis (1) Closed comminuted intertrochanteric fracture of left femur Qualifiers: Encounter type: initial encounter Qualified Code(s): S72.142A - Displaced intertrochanteric fracture of left femur, initial encounter for closed fracture Is this a current diagnosis for this admission?: Yes Plan: - 2 doses of Ancef postoperatively q 8 hours to complete 24 hours perioperatively -Weightbearing as tolerated, no precautions, encourage out of bed NATA for ADL training - PT/OT -aspirin 325 daily for DVT prophylaxis for 6 weeks, will defer to medicine if other DVT prophylaxis preferred. -multimodal pain management to avoid excessive narcotics, including gabapentin, tramadol, Toradol, acetaminophen. -Change dressing as needed -May shower with the dressing intact, if it starts to come off she should not get the incision wet. -I would like to follow the patient my office within the next 7 to [address] [place] [address] in [place] office #: [phone] - Time Time Spent with patient: Less than 15 minutes
[2019-04-03] MEDS: DOCUSATE SODIUM 100 MG CAPSULE PO SCH ×2 (10:02→18:02)
[2019-04-03] MEDS: TRAMADOL HCL 50 MG TABLET PO PRN ×2 (10:02→14:17)
[2019-04-03] MEDS: ASPIRIN 325 MG TABLET PO SCH (10:03)
[2019-04-03] MEDS: LISINOPRIL 10 MG TABLET PO SCH (10:03)
[2019-04-03] MEDS: CARVEDILOL 12.5 MG TABLET PO SCH ×2 (10:03→18:02)
[2019-04-03] MEDS: GUAIFENESIN 600 MG TABLET.SA PO SCH ×2 (10:03→21:16)
[2019-04-03] MEDS: FAMOTIDINE INJ/PF 20 MG/2 ML SDV IV SCH ×2 (10:04→21:17)
--- NOTE | 2019-04-03 13:13 | PDOC PROGRESS REPORT ---
Subjective Progress Note for:: 04/03/19 Subjective:: The patient is a 78-year-old female with a past medical history of h yperlipidemia, hypertension, COPD, and DM 2 who was admitted 03/30/2019 for a closed left femur fracture related to mechanical fall at home. Patient was seen on morning rounds. Patient was sitting up to the recliner, comfortably, on supplemental oxygen. She is not home O2 dependent. She reports she is feeling well today. She reports that her pain is well controlled with current medications. She is helpful to have the Diaz catheter removed. She denies fever, chills, chest pain, palpitations, dyspnea, orthopnea, cough, abdominal pain, nausea vomiting and diarrhea. She has no questions or concerns at this time. No concerns per nursing. Reason For Visit: CLOSED COMMINUTED INTERTROCHANTERIC FRACTURE OF Physical Exam Vital Signs: Temp Pulse Resp BP Pulse Ox 97.6 F 68 18 145/42 H 98 04/03/19 07:43 04/03/19 09:12 04/03/19 09:12 04/03/19 07:43 04/03/19 09:12 Intake & Output 04/02/19 04/03/19 04/04/19 06:59 06:59 06:59 Intake Total 1220 Output Total 900 750 Balance -900 470 Weight 42.5 kg 51 kg General appearance: PRESENT: no acute distress, cooperative, thin, well- developed Head exam: PRESENT: atraumatic, normocephalic Eye exam: PRESENT: conjunctiva pink, EOMI, PERRLA. ABSENT: scleral icterus Ear exam: PRESENT: normal external ear exam Mouth exam: PRESENT: moist, tongue midline Respiratory exam: PRESENT: rhonchi, symmetrical, unlabored, wheezes, other - Supplemental oxygen via nasal cannula. ABSENT: rales Cardiovascular exam: PRESENT: RRR. ABSENT: diastolic murmur, rubs, systolic murmur Pulses: PRESENT: normal dorsalis pedis pul Vascular exam: PRESENT: normal capillary refill GI/Abdominal exam: PRESENT: normal bowel sounds, soft. ABSENT: distended, guarding, mass, organolmegaly, rebound, tenderness Rectal exam: PRESENT: deferred Extremities exam: PRESENT: full ROM. ABSENT: calf tenderness, clubbing, pedal edema Neurological exam: PRESENT: alert, awake, oriented to person, oriented to place, oriented to time, oriented to situation, CN II-XII grossly intact. ABSENT: motor sensory deficit Psychiatric exam: PRESENT: appropriate affect, normal mood. ABSENT: homicidal ideation, suicidal ideation Skin exam: PRESENT: dry, warm. ABSENT: cyanosis, rash Results Laboratory Results: 04/03/19 04:54 04/03/19 04:54 04/03/19 04/03/19 04:54 04:54 WBC 10.0 D RBC 3.06 L Hgb 9.2 L Hct 27.9 L MCV 91 MCH 29.9 MCHC 32.8 RDW 17.3 H Plt Count 179 Sodium 139.8 Potassium 4.1 Chloride 109 H Carbon Dioxide 23 Anion Gap 8 BUN 20 Creatinine 0.91 Est GFR ( Amer) > 60 Glucose 189 H Calcium 7.2 L 04/01/19 08:45 Clean Catch Midstream Urine Culture - Final NO GROWTH 2 DAYS 03/30/19 03/30/19 03/30/19 18:51 21:25 21:25 Creatine Kinase 51 CK-MB (CK-2) Troponin I 0.282 0.258 03/30/19 03/31/19 03/31/19 21:25 03:37 03:37 Creatine Kinase 44 CK-MB (CK-2) 1.15 1.37 Troponin I Cancelled 0.213 03/31/19 03/31/19 09:53 09:53 Creatine Kinase 44 CK-MB (CK-2) 1.54 Troponin I 0.220 Impressions: Chest X-Ray 03/30/19 00:00 IMPRESSION: No acute pulmonary findings. Fluoroscopy 04/02/19 00:00 IMPRESSION: IMAGE(S) OBTAINED DURING PROCEDURE. Hip X-Ray 04/02/19 00:00 IMPRESSION: IMAGE(S) OBTAINED DURING PROCEDURE. Assessment and Plan - Diagnosis (1) Closed comminuted intertrochanteric fracture of left femur Qualifiers: Encounter type: initial encounter Qualified Code(s): S72.142A - Displaced intertrochanteric fracture of left femur, initial encounter for closed fracture Is this a current diagnosis for this admission?: Yes Plan: Primary management per orthopedic service; now status post repair by Dr. Randall Per Dr. Randall; recommends 6 weeks of aspirin 325 mg daily for DVT prophylaxis. Cardiology service was consulted for cardiac clearance. Analgesics as needed. PT/OT consulted. Discharge planning consulted. (2) Chronic obstructive pulmonary disease Qualifiers: COPD type: COPD with acute exacerbation Qualified Code(s): J44.1 - Chronic obstructive pulmonary disease with (acute) exacerbation Is this a current diagnosis for this admission?: Yes Plan: COPD exacerbation is significantly improved; lung sounds are clear, no report of shortness of breath today. Does remain on supplemental oxygen at 2 L/min.. Continue supplemental oxygen as needed to maintain saturations greater than 89%. Continue scheduled and as needed nebulizer treatments Pulmicort twice daily. Continue home dose Singulair Will provide IV Solu-Medrol for COPD exacerbation; plan to transition to p.o. prednisone tomorrow. Mucinex twice daily. Incentive spirometer and flutter valve to bedside. (3) Aortic stenosis Qualifiers: Cardiac valve disease etiology: nonrheumatic Qualified Code(s): I35.0 - Nonrheumatic aortic (valve) stenosis Is this a current diagnosis for this admission?: Yes Plan: Cardiology services consulted to provide preop clearance. Avoid drastic fluid volume changes. (4) Diabetes mellitus type 2 in nonobese Is this a current diagnosis for this admission?: Yes Plan: A1C 5.2% Currently on cardiac/consistent carb diet. Accu-Cheks before meals and at bedtime with Humalog for sliding scale coverage. Hypoglycemia protocol. Given the patient's age, frailty and risk for falls, will advise liberating diet and discontinuing diabetic medications at discharge. For a patient of this age and life expectancy, a goal A1c of less than 8.5% is acceptable. (5) Elevated troponin Is this a current diagnosis for this admission?: Yes Plan: Stable; 0.282 -> 0.258-> 0.213-> 0.220 Unchanged from previous admission. Nml renal function. EKG shows incomplete RBBB; no acute changes. Pt denies chest pain. Now status post 1 unit PRBC. Nuclear medicine avid scan normal. Cardiology reports that elevated troponin is likely demand mismatch ischemia related to anemia. (6) HLD (hyperlipidemia) Qualifiers: Hyperlipidemia type: unspecified Qualified Code(s): E78.5 - Hyperlipidemia, unspecified Is this a current diagnosis for this admission?: Yes Plan: Cardiac diet. Continue home dose statin therapy. (7) HTN (hypertension) Qualifiers: Hypertension type: essential hypertension Qualified Code(s): I10 - Essential (primary) hypertension Is this a current diagnosis for this admission?: Yes Plan: Cardiac diet. Continue home dose carvedilol and lisinopril. (8) Leukocytosis Qualifiers: Leukocytosis type: unspecified Qualified Code(s): D72.829 - Elevated white blood cell count, unspecified Is this a current diagnosis for this admission?: Yes Plan: Resolved; Secondary to #1. No s/sx of infectious process No indications for antibiotic therapy at this time. Anticipate WBCs will increase tomorrow secondary to start of Solu-Medrol for COPD exacerbation. (9) Lung mass Is this a current diagnosis for this admission?: Yes Plan: Follow up as outpatient as previously arranged. - Time Time Spent with patient: 25-34 minutes Medications reviewed and adjusted accordingly: Yes Anticipated discharge: SNF Within: when bed available
[2019-04-03] MEDS ORDERED: MAGNESIUM HYDROXIDE SUSP 30 ML UDCUP PO PRN (16:30)
[2019-04-03] MEDS: FERROUS SULFATE 325 MG TABLET PO SCH (18:02)
[2019-04-03] MEDS: ATORVASTATIN CALCIUM 40 MG TABLET PO SCH (18:02)
[2019-04-03] MEDS: POLYETHYLENE GLYCOL 3350 POWDER 17 GM/1 PACKET PO SCH (18:02)
[2019-04-03] MEDS: MONTELUKAST SODIUM 10 MG TABLET PO SCH (18:02)
[2019-04-04] MEDS: IPRATROPIUM BROMIDE 0.02% NEB 0.5 MG/2.5 ML AMPUL NEB SCH ×3 (02:59→13:48)
[2019-04-04] MEDS: LEVALBUTEROL HCL NEB 1.25 MG/3 ML AMPUL NEB SCH ×3 (02:59→13:48)
[2019-04-04] MEDS: METHYLPREDNISOLONE INJ 40 MG/1 ML SDV IV SCH ×2 (05:28→15:58)
[2019-04-04] MEDS: HEPARIN SOD (PORCINE) 5,000 UNIT/ML 1 ML VIAL SUBCUT SCH ×2 (05:29→15:56)
[2019-04-04] MEDS: TRAMADOL HCL 50 MG TABLET PO PRN ×2 (05:29→12:02)
[2019-04-04] MEDS: BUDESONIDE NEB 0.5 MG/2 ML AMPUL NEB SCH (08:28)
--- NOTE | 2019-04-04 08:29 | PDOC PROGRESS REPORT ---
Subjective Progress Note for:: 04/04/19 Subjective:: Patient doing well this AM. Reports some pain, fairly well controlled on current pain medication. No acute events overnight. Reason For Visit: CLOSED COMMINUTED INTERTROCHANTERIC FRACTURE OF Physical Exam Vital Signs: Temp Pulse Resp BP Pulse Ox 98.1 F 61 16 166/57 H 98 04/04/19 07:52 04/04/19 07:52 04/04/19 07:52 04/04/19 07:52 04/04/19 07:52 Intake & Output 04/03/19 04/04/19 04/05/19 06:59 06:59 06:59 Intake Total 1220 662 Output Total 750 100 Balance 470 562 Weight 51 kg 49.9 kg Physical Exam: Left lower extremity -Pulses 2+ distally -Compartments soft -Wound dressing were changed yesterday, less drainage today. -Sensation grossly intact to L3-4-5 S1 -Motor grossly intact to EHL TA gastroc and quad Results Laboratory Results: 04/03/19 04:54 04/03/19 04:54 04/01/19 08:45 Clean Catch Midstream Urine Culture - Final NO GROWTH 2 DAYS 03/30/19 03/30/19 03/30/19 18:51 21:25 21:25 Creatine Kinase 51 CK-MB (CK-2) Troponin I 0.282 0.258 03/30/19 03/31/19 03/31/19 21:25 03:37 03:37 Creatine Kinase 44 CK-MB (CK-2) 1.15 1.37 Troponin I Cancelled 0.213 03/31/19 03/31/19 09:53 09:53 Creatine Kinase 44 CK-MB (CK-2) 1.54 Troponin I 0.220 Impressions: Chest X-Ray 03/30/19 00:00 IMPRESSION: No acute pulmonary findings. Fluoroscopy 04/02/19 00:00 IMPRESSION: IMAGE(S) OBTAINED DURING PROCEDURE. Hip X-Ray 04/02/19 00:00 IMPRESSION: IMAGE(S) OBTAINED DURING PROCEDURE. Assessment & Plan - Diagnosis (1) Closed comminuted intertrochanteric fracture of left femur Qualifiers: Qualified Code(s): S72.142A - Displaced intertrochanteric fracture of left femur, initial encounter for closed fracture Is this a current diagnosis for this admission?: Yes Plan: -Weightbearing as tolerated, no precautions, encourage out of bed NATA for ADL training - PT/OT -aspirin 325 daily for DVT prophylaxis for 6 weeks, will defer to medicine if other DVT prophylaxis preferred. -multimodal pain management to avoid excessive narcotics, including gabapentin, tramadol, Toradol, acetaminophen. -Change dressing as needed -May shower with the dressing intact, if it starts to come off she should not get the incision wet. -I would like to follow the patient my office within the next 7 to [address] [place] [address] in [place] office #: [phone] - Time Time Spent with patient: Less than 15 minutes
--- NOTE | 2019-04-04 08:30 | PDOC TRANSFER SUMMARY ---
Impression - Admit/DC Date/PCP Admission Date/Primary Care Provider: 03/30/19 23:14 Discharge Date: 04/04/19 - Discharge Diagnosis (1) Closed comminuted intertrochanteric fracture of left femur Is this a current diagnosis for this admission?: Yes (2) Chronic obstructive pulmonary disease Is this a current diagnosis for this admission?: Yes (3) Aortic stenosis Is this a current diagnosis for this admission?: Yes (4) Diabetes mellitus type 2 in nonobese Is this a current diagnosis for this admission?: Yes (5) Elevated troponin Is this a current diagnosis for this admission?: Yes (6) HLD (hyperlipidemia) Is this a current diagnosis for this admission?: Yes (7) HTN (hypertension) Is this a current diagnosis for this admission?: Yes (8) Leukocytosis Is this a current diagnosis for this admission?: Yes (9) Lung mass Is this a current diagnosis for this admission?: Yes - Additional Information Resuscitation Status: Full Code Discharge Diet: Cardiac, Diabetic Discharge Activity: Activity As Tolerated, Balance Activity w/Rest, Slowly Increase Activity, Supervised Activity Referrals: BETH BARR JR, DO [ACTIVE PROVISIONAL STAFF] - (Follow up in 7-10 days: S/P LEFT HIP FX REPAIR) Prescriptions: Aspirin [Aspirin 325 mg Tablet] 325 mg PO DAILY #60 tablet Prednisone [Deltasone 20 mg Tablet] 60 mg PO DAILY #12 tablet Guaifenesin [Mucinex Sr 600 mg Tablet.sa] 600 mg PO Q12 #14 tablet.sa Tramadol HCl [Ultram 50 mg Tablet] 50 mg PO Q4HP PRN #20 tablet PRN Reason: Home Medications: Ascorbic Acid [Vitamin C 500 mg Tablet] 500 mg PO DAILY 03/24/19 Atorvastatin Calcium [Lipitor 40 mg Tablet] 40 mg PO QPM 03/24/19 Carvedilol [Coreg 12.5 mg Tablet] 12.5 mg PO BID 03/24/19 Esomeprazole Mag Trihydrate [Nexium] 40 mg PO DAILY 03/24/19 Ferrous Sulfate [Feosol] 325 mg PO QPM 03/24/19 Lisinopril [Prinivil 10 mg Tablet] 10 mg PO DAILY 03/24/19 Montelukast Sodium [Singulair 10 mg Tablet] 10 mg PO QPM 03/24/19 Prednisone [Deltasone 5 mg Tablet] 5 mg PO DAILY 03/24/19 Zolpidem Tartrate 10 mg PO QHS 03/24/19 Acetaminophen [Tylenol 650 mg Supp] 650 mg GA Q4HP PRN supp.rect 04/04/19 Aspirin [Aspirin 325 mg Tablet] 325 mg PO DAILY #60 tablet 04/04/19 Guaifenesin [Mucinex Sr 600 mg Tablet.sa] 600 mg PO Q12 #14 tablet.sa 04/04/19 Polyethylene Glycol 3350 [Miralax Powder 17 gm/Packet] 17 gm PO DAILY powd.pack 04/04/19 Prednisone [Deltasone 20 mg Tablet] 60 mg PO DAILY #12 tablet 04/04/19 Tramadol HCl [Ultram 50 mg Tablet] 50 mg PO Q4HP PRN #20 tablet 04/04/19 History of Present Illiness History of Present Illness: Per H&P by Dr. Johnston: ANALI ARIAS is a 78 year old female who presented to the emergency room with a 1 day history of left hip pain following a fall. The patient and her family admit that she fell in the bathroom last night and had no apparent loss of consciousness with no obvious injuries immediately after the f all. The family members carried her to bed where she rested through the night but upon arising this morning was unable to move or bear weight on her left hip due to exquisite severe pain. Her pain was accompanied by nausea and made worse by any movement or attempted weightbearing. Patient denies prior similar episodes. Patient denies any additional accompanying or associated signs and symptoms. Patient has not identified any additional aggravating or ameliorating factors for her left hip pain. An acute comminuted intertrochanteric fracture of the left hip. Additionally she was noted to have a mildly elevated troponin I which was consistent with prior levels measured on a recent hospitalization for COPD. Patient was subsequently admitted to the hospital service and orthopedic consultation with Dr. Jack Barr will be obtained. Hospital Course Hospital Course: (1) Closed comminuted intertrochanteric fracture of left femur Now status post repair by Dr. Barr; follow up with Dr. Barr in 7-[address] Barr continue 6 weeks of aspirin 325 mg daily for DVT prophylaxis. Patient is discharged to SNF for short term rehab. (2) Chronic obstructive pulmonary disease COPD exacerbation is significantly improved; maintaining oxygen saturations on room air while at rest, lung sounds are clear, no report of shortness of breath today. Continue home dose Singulair Complete course of p.o. prednisone. Mucinex twice daily. Continue pulmonary toilet wiht Incentive spirometer and flutter valve. (3) Aortic stenosis Cardiology services were consulted to provide preop clearance. (4) Diabetes mellitus type 2 in nonobese A1C 5.2% Given the patient's age, frailty and risk for falls, will advise liberating diet and discontinuing diabetic medications at discharge. For a patient of this age and life expectancy, a goal A1c of less than 8.5% is acceptable. Continue with consistent carb diet. (5) Elevated troponin Stable; 0.282 -> 0.258-> 0.213-> 0.220 Unchanged from previous admission. Nml renal function. EKG shows incomplete RBBB; no acute changes. Pt denies chest pain. Now status post 1 unit PRBC. Nuclear medicine avid scan normal. Cardiology reports that elevated troponin is likely demand mismatch ischemia related to anemia. Follow up with outpatient cardiology upon return to [place], or sooner as needed. Return to the ED as needed for concerning symptoms. (6) HLD (hyperlipidemia) Cardiac diet. Continue home dose statin therapy. (7) HTN (hypertension) Cardiac diet. Continue home dose carvedilol and lisinopril. (8) Leukocytosis Resolved; Secondary to #1. No s/sx of infectious process No indications for antibiotic therapy at this time. (9) Lung mass Follow up as outpatient as previously arranged. Physical Exam Vital Signs: Temp Pulse Resp BP Pulse Ox 98.1 F 61 16 166/57 H 98 04/04/19 07:52 04/04/19 07:52 04/04/19 07:52 04/04/19 07:52 04/04/19 07:52 Intake & Output 04/03/19 04/04/19 04/05/19 06:59 06:59 06:59 Intake Total 1220 662 Output Total 750 100 Balance 470 562 Weight 51 kg 49.9 kg General appearance: PRESENT: no acute distress, cooperative, thin, well- developed Head exam: PRESENT: atraumatic, normocephalic Eye exam: PRESENT: conjunctiva pink, EOMI, PERRLA. ABSENT: scleral icterus Ear exam: PRESENT: normal external ear exam Mouth exam: PRESENT: moist, tongue midline Respiratory exam: PRESENT: clear to auscultation wilmer, symmetrical, unlabored. ABSENT: rales, rhonchi, wheezes Cardiovascular exam: PRESENT: RRR, +S1, +S2. ABSENT: diastolic murmur, rubs, systolic murmur Pulses: PRESENT: normal dorsalis pedis pul Vascular exam: PRESENT: normal capillary refill GI/Abdominal exam: PRESENT: normal bowel sounds, soft. ABSENT: distended, guarding, mass, organolmegaly, rebound, tenderness Rectal exam: PRESENT: deferred Extremities exam: PRESENT: full ROM - Left hip limited r/t pain. ABSENT: calf tenderness, clubbing, pedal edema Neurological exam: PRESENT: alert, awake, oriented to person, oriented to place, oriented to time, oriented to situation, CN II-XII grossly intact. ABSENT: motor sensory deficit Psychiatric exam: PRESENT: appropriate affect, normal mood. ABSENT: homicidal ideation, suicidal ideation Skin exam: PRESENT: dry, warm. ABSENT: cyanosis, rash Results Laboratory Results: WBC 10.0 10^3/uL (4.0-10.5) D 04/03/19 04:54 RBC 3.06 10^6/uL (3.72-5.28) L 04/03/19 04:54 Hgb 9.2 g/dL (12.0-15.5) L 04/03/19 04:54 Hct 27.9 % (36.0-47.0) L 04/03/19 04:54 MCV 91 fl (80-97) 04/03/19 04:54 MCH 29.9 pg (27.0-33.4) 04/03/19 04:54 MCHC 32.8 g/dL (32.0-36.0) 04/03/19 04:54 RDW 17.3 % (11.5-14.0) H 04/03/19 04:54 Plt Count 179 10^3/uL (150-450) 04/03/19 04:54 Lymph % (Auto) 14.2 % (13-45) 03/30/19 18:51 [place] % (Auto) 13.1 % (3-13) H 03/30/19 18:51 Eos % (Auto) 0.3 % (0-6) 03/30/19 18:51 Baso % (Auto) 0.8 % (0-2) 03/30/19 18:51 Absolute Neuts (auto) 7.8 10^3/uL (1.7-8.2) 03/30/19 18:51 Absolute Lymphs (auto) 1.6 10^3/uL (0.5-4.7) 03/30/19 18:51 Absolute Monos (auto) 1.4 10^3/uL (0.1-1.4) 03/30/19 18:51 Absolute Eos (auto) 0.0 10^3/uL (0.0-0.6) 03/30/19 18:51 Absolute Basos (auto) 0.1 10^3/uL (0.0-0.2) 03/30/19 18:51 Seg Neutrophils % 71.6 % (42-78) 03/30/19 18:51 PT 14.6 SEC (11.4-15.4) 03/30/19 18:51 INR 1.13 03/30/19 18:51 Sodium 139.8 mmol/L (137-145) 04/03/19 04:54 Potassium 4.1 mmol/L (3.6-5.0) 04/03/19 04:54 Chloride 109 mmol/L (98-107) H 04/03/19 04:54 Carbon Dioxide 23 mmol/L (22-30) 04/03/19 04:54 Anion Gap 8 (5-19) 04/03/19 04:54 BUN 20 mg/dL (7-20) 04/03/19 04:54 Creatinine 0.91 mg/dL (0.52-1.25) 04/03/19 04:54 Est GFR ( Amer) > 60 (>60) 04/03/19 04:54 Est GFR (MDRD) Non-Af > 60 (>60) 04/03/19 04:54 Glucose 189 mg/dL (75-110) H 04/03/19 04:54 POC Glucose 180 mg/dL (70-110) H 04/04/19 07:52 Calcium 7.2 mg/dL (8.4-10.2) L 04/03/19 04:54 Magnesium 1.9 mg/dL (1.6-2.3) 04/02/19 06:51 Total Bilirubin 0.6 mg/dL (0.2-1.3) 03/31/19 03:37 Direct Bilirubin 0.3 mg/dL (0.0-0.4) 03/31/19 03:37 Neonat Total Bilirubin Not Reportable 03/31/19 03:37 Neonat Direct Bilirubin Not Reportable 03/31/19 03:37 Neonat Indirect Bili Not Reportable 03/31/19 03:37 AST 36 U/L (14-36) 03/31/19 03:37 ALT 47 U/L (<35) 03/31/19 03:37 Alkaline Phosphatase 53 U/L (38-126) 03/31/19 03:37 Creatine Kinase 44 U/L (30-135) 03/31/19 09:53 CK-MB (CK-2) 1.54 ng/mL (<4.55) 03/31/19 09:53 Troponin I 0.220 ng/mL 03/31/19 09:53 Total Protein 5.0 g/dL (6.3-8.2) L 03/31/19 03:37 Albumin 2.3 g/dL (3.5-5.0) L 03/31/19 03:37 Urine Color YELLOW 04/01/19 08:45 Urine Appearance CLEAR 04/01/19 08:45 Urine pH 5.0 (5.0-9.0) 04/01/19 08:45 Ur Specific [place] 1.013 04/01/19 08:45 Urine Protein 100 mg/dL (NEGATIVE) H 04/01/19 08:45 Urine Glucose (UA) NEGATIVE mg/dL (NEGATIVE) 04/01/19 08:45 Urine Ketones NEGATIVE mg/dL (NEGATIVE) 04/01/19 08:45 Urine Blood MODERATE (NEGATIVE) H 04/01/19 08:45 Urine Nitrite (Reflex) NEGATIVE (NEGATIVE) 04/01/19 08:45 Urine Bilirubin NEGATIVE (NEGATIVE) 04/01/19 08:45 Urine Urobilinogen NEGATIVE mg/dL (<2.0) 04/01/19 08:45 Leukocyte Esterase Rfl TRACE (NEGATIVE) H 04/01/19 08:45 Urine RBC (Auto) 9 /HPF 04/01/19 08:45 U Hyaline Cast (Auto) 3 /LPF 04/01/19 08:45 Urine Bacteria (Auto) TRACE /HPF 04/01/19 08:45 Urine WBC (Reflex) 12 /HPF 04/01/19 08:45 Calcium Oxalate Cr Auto RARE /HPF 04/01/19 08:45 Urine Mucus (Auto) RARE /LPF 04/01/19 08:45 Urine Ascorbic Acid NEGATIVE (NEGATIVE) 04/01/19 08:45 Blood Type O POSITIVE 03/31/19 17:53 Antibody Screen NEGATIVE 03/31/19 17:53 Crossmatch See Detail 03/31/19 17:53 03/30/19 03/30/19 03/30/19 18:51 21:25 21:25 CK-MB (CK-2) 1.15 Troponin I 0.282 0.258 Cancelled 03/31/19 03/31/19 03:37 09:53 CK-MB (CK-2) 1.37 1.54 Troponin I 0.213 0.220 Impressions: Chest X-Ray 03/30/19 00:00 IMPRESSION: No acute pulmonary findings. Hip X-Ray 03/30/19 17:12 IMPRESSION: Comminuted intertrochanteric left hip fracture. Fluoroscopy 04/02/19 00:00 IMPRESSION: IMAGE(S) OBTAINED DURING PROCEDURE. Hip X-Ray 04/02/19 00:00 IMPRESSION: SATISFACTORY POSTOPERATIVE LEFT HIP. Hip X-Ray 04/02/19 00:00 IMPRESSION: IMAGE(S) OBTAINED DURING PROCEDURE. Plan Plan of Treatment: Patient is discharged to SNF for short term rehab. Recommend following up with her PCP in [place] immediately upon return to home. Follow up with Dr. Barr in 7-10 days. Take medications as prescribed. Eat a cardiac and consistent carb diet. Return to the emergency department as needed for concerning symptoms. Time Spent: Greater than 30 Minutes Stroke Is this a Stroke Patient?: No Acute Heart Failure - Is this a Heart Failure Patient?: No
[2019-04-04] MEDS: INSULIN REG, HUMAN 100 UNIT/ML 3 ML VIAL (PYX) SUBCUT SCH ×2 (08:36→13:02)
[2019-04-04] MEDS: FAMOTIDINE INJ/PF 20 MG/2 ML SDV IV SCH (09:50)
[2019-04-04] MEDS: POLYETHYLENE GLYCOL 3350 POWDER 17 GM/1 PACKET PO SCH (09:50)
[2019-04-04] MEDS: LISINOPRIL 10 MG TABLET PO SCH (09:50)
[2019-04-04] MEDS: DOCUSATE SODIUM 100 MG CAPSULE PO SCH (09:50)
[2019-04-04] MEDS: CARVEDILOL 12.5 MG TABLET PO SCH (09:50)
[2019-04-04] MEDS: GUAIFENESIN 600 MG TABLET.SA PO SCH (09:51)
[2019-04-04] MEDS: ASPIRIN 325 MG TABLET PO SCH (09:51)
[2019-04-04 12:13] VITALS: BP 158/36
--- NOTE | 2019-04-06 14:29 | RADIOLOGY REPORT (SQ) ---
TECHNETIUM 90 9M PYROPHOSPHATE SCAN. [INFARCT AVID NUCLEAR SCAN] DATE OF PROCEDURE: 04/01/2019 INDICATION: Elevated troponin I, hence assessment for myocardial infarction ORDERING PHYSICIAN: Dr. Tabitha Johnson. PROCEDURE: The patient was injected with 24.7 millicuries of technetium 99m pyrophosphate. 1 hour later imaging of the heart was done in the standard multiple views. FINDINGS: Review of the images shows that there is no hotspots indicative of myocardial uptake in the area of myocardial infarction. IMPRESSION: No evidence of myocardial infarction within the last 72 hours. MTDD
== END 2019-04-04 16:15 | DRG 481 ==
LOC: ER 16:07 → EH 23:14 → 4N 03-31 00:55
PROVIDERS: ADMIT Emergency Medicine; ATTEND Emergency Medicine
PROC: 30233N1 Transfusion of Nonautologous Red Blood Cells into Peripheral Vein, Percutaneous Approach (ICD-10-PCS; 2019-04-01)
PROC: 0SHB34Z Insertion of Internal Fixation Device into Left Hip Joint, Percutaneous Approach (ICD-10-PCS; principal; 2019-04-02 08:00)
DX: S72.142A Displaced intertrochanteric fracture of left femur, initial encounter for closed fracture (principal); J44.1 Chronic obstructive pulmonary disease with (acute) exacerbation; D62 Acute posthemorrhagic anemia; R79.89 Other specified abnormal findings of blood chemistry; R91.8 Other nonspecific abnormal finding of lung field; I35.0 Nonrheumatic aortic (valve) stenosis; I45.10 Unspecified right bundle-branch block; E11.8 Type 2 diabetes mellitus with unspecified complications; I10 Essential (primary) hypertension; E78.00 Pure hypercholesterolemia, unspecified; W18.39XA Other fall on same level, initial encounter; Y93.89 Activity, other specified; Y92.098 Other place in other non-institutional residence as the place of occurrence of the external cause; Z79.84 Long term (current) use of oral hypoglycemic drugs; Z79.51 Long term (current) use of inhaled steroids; Z79.52 Long term (current) use of systemic steroids; Z79.899 Other long term (current) drug therapy
CPT/HCPCS: 01230; 36415; 36430; 51702; 71045; 78466; 80048; 80053; 81001; 82550; 82553; 82962; 83735; 84484; 85025; 85027; 85610; 86850; 86900; 86901; 86920; 87086; 93005; 93010; 94640; 94667; 94799; 96361; 96374; 96375; 99291; A9538; C1713; J0171; J0360; J0690; J1644; J1815; J2060; J2250; J2270; J2405; J2704; J2920; J3010; J3490; J7030; J7040; J7042; J7060; J7120; J7614; J7620; P9016; Q9969; S0028

== ENCOUNTER 2019-04-11 20:09 | Inpatient (IN) | payer MEDICARE, MEDICAID ==
[2019-04-11 21:50] LABS: HEMATOCRIT 31.5 % (36.0-47.0); HEMOGLOBIN 9.7 g/dL (12.0-15.5); MEAN CORPUSCULAR HEMOGLOBIN 28.9 pg (27.0-33.4); MEAN CORPUSCULAR HGB CONC 30.9 g/dL (32.0-36.0); PLATELET COUNT 160 10^3/uL (150-450); RED BLOOD COUNT 3.37 10^6/uL (3.72-5.28); RED CELL DISTRIBUTION WIDTH 17.8 % (11.5-14.0); WHITE BLOOD COUNT 3.5 10^3/uL (4.0-10.5)
[2019-04-11 21:51] LABS: MEAN CORPUSCULAR VOLUME 94 fl (80-97)
[2019-04-11 22:01] LABS: ALBUMIN 2.2 g/dL (3.5-5.0); ALKALINE PHOSPHATASE 83 U/L (38-126); ANION GAP 7 (5-19); ASPARTATE AMINO TRANSFERASE 30 U/L (14-36); BILIRUBIN,DIRECT 0.4 mg/dL (0.0-0.4); BLOOD UREA NITROGEN 50 mg/dL (7-20); CALCIUM 8.5 mg/dL (8.4-10.2); CARBON DIOXIDE 22 mmol/L (22-30); CHLORIDE 106 mmol/L (98-107); CREATINE KINASE 29 U/L (30-135); GLUCOSE 166 mg/dL (75-110); POTASSIUM 4.8 mmol/L (3.6-5.0); TOTAL PROTEIN 5.2 g/dL (6.3-8.2)
[2019-04-11 22:13] LABS: CREATINE KINASE MB 1.08 ng/mL (<4.55)
[2019-04-11 22:15] LABS: ABSOLUTE LYMPHOCYTES# (MANUAL) 0.2 10^3/uL (0.5-4.7); ABSOLUTE MONOCYTES # (MANUAL) 0.2 10^3/uL (0.1-1.4); ANISOCYTOSIS 1+; BAND NEUTROPHILS % (MANUAL) 3 % (3-5); BASOPHILS % (MANUAL) 0 % (0-2); EOSINOPHILS % (MANUAL) 0 % (0-6); HYPOCHROMASIA 1+; LYMPHOCYTES % (MANUAL) 6 % (13-45); MONOCYTES % (MANUAL) 6 % (3-13); SEGMENTED NEUTROPHILS % (MAN) 85 % (42-78); TOTAL CELLS COUNTED 100
[2019-04-11 22:17] LABS: PLATELET COMMENT ADEQUATE; TROPONIN I 0.036 ng/mL
[2019-04-11 22:44] LABS: APPEARANCE,URINE SLIGHTLY-CLOUDY; BILIRUBIN,URINE NEGATIVE (NEGATIVE); COLOR,URINE YELLOW; GLUCOSE, URINE NEGATIVE (NEGATIVE); KETONES,URINE NEGATIVE (NEGATIVE); LEUKOCYTE ESTERASE,URINE TRACE (NEGATIVE); NITRITE,URINE NEGATIVE (NEGATIVE); PROTEIN,URINE 100 mg/dL (NEGATIVE); URINE SPECIFIC GRAVITY 1.016; UROBILINOGEN,URINE NEGATIVE mg/dL (<2.0)
--- NOTE | 2019-04-11 23:29 | RADIOLOGY REPORT (SQ) ---
EXAM DESCRIPTION: XR CHEST 1 VIEW COMPLETED DATE/TME: 04/11/2019 21:53 CLINICAL HISTORY: 78 years, Female, COUGH COMPARISON: 03/30/2019 chest NUMBER OF VIEWS: 1 TECHNIQUE: Portable chest LIMITATIONS: None. FINDINGS: Heart size normal. Atheromatous change thoracic ureter. Osteopenia. Fracture of the left humerus as before. Lungs are hyperinflated with minor emphysematous change. Equivocal right basilar infiltrate.. No pneumothorax. Biapical pleural thickening IMPRESSION: Underlying hyperinflation. Equivocal right basilar infiltrate. copyright 2010 [employer]- All Rights Reserved
[2019-04-11] MEDS ORDERED: NORMAL SALINE 500 ML IV ONE (23:31)
[2019-04-11] MEDS ORDERED: NORMAL SALINE IV ONE (23:42)
[2019-04-11] MEDS ORDERED: ACETAMINOPHEN 650 MG SUPP.RECT PR ONE (23:47)
[2019-04-11] MEDS ORDERED: ACETAMINOPHEN 325 MG SUPP.RECT PR ONE (23:48)
[2019-04-11] MEDS ORDERED: LEVALBUTEROL HCL NEB 0.63 MG/3 ML AMPUL NEB ONE (23:52)
[2019-04-11] MEDS ORDERED: METHYLPREDNISOLONE INJ 125 MG/2 ML SDV IV ONE (23:53)
[2019-04-11 23:55] LABS: INTERNATIONAL RATION (INR) 1.08
[2019-04-11] MEDS ORDERED: LEVOFLOXACIN 750 MG/D5W RTU 750 MG/150 ML RTUPB IV ONE (23:59)
[2019-04-12 00:26] LABS: VENOUS BLOOD BASE EXCESS -1.9 mmol/L; VENOUS BLOOD HCO3 22.9 mmol/L (20-32); VENOUS BLOOD PCO2 39.5 mmHg (35-63); VENOUS BLOOD PH 7.38 (7.30-7.42)
--- NOTE | 2019-04-12 00:28 | ER Document Report ---
Entered by HILTON ONEAL SCRIBE 04/11/19 [id number] Acting as scribe for:STEVEN MAYER IV, MD ED General - General Mode of Arrival: Medic Information source: Relative TRAVEL OUTSIDE OF THE [place] IN LAST 30 DAYS: No <STEVEN MAYER IV - Last Filed: 04/12/19 02:44> <ESTELABASILIO ALLISON - Last Filed: 04/12/19 04:16> - General Chief Complaint: General Weakness Stated Complaint: ABNORMAL LABS/GENERAL WEAKNESS Time Seen by Provider: 04/11/19 23:29 Notes: This 78 year old female patient presents to the emergency department today from her correction with complaints of generalized weakness. Family reports that the patient had hip surgery on 04/02/2019 and was put in a correction for rehab on 04/04/2019. Family reports when they went to visit the patient today she was not acting normally, her lungs sound junky, and she had bilateral leg swelling. (STEVEN MAYER IV) - Related Data Allergies/Adverse Reactions: Sulfa (Sulfonamide Antibiotics) Allergy (Intermediate, Verified 03/30/19 17:08) Hives codeine Adverse Reaction (Intermediate, Verified 03/30/19 17:08) Hives tiotropium [From Spiriva with HandiHaler] Adverse Reaction (Verified 03/30/19 17:08) Hives Past Medical History - General Information source: Relative, [facility] Records Cannot obtain history due to: Altered mental status - Social History Smoking Status: Former Smoker Cigarette use (# per day): No Family History: DM, Hypertension Patient has suicidal ideation: No Patient has homicidal ideation: No - Past Medical History Cardiac Medical History: Reports: Hx Hypercholesterolemia, Hx Hypertension Pulmonary Medical History: Reports: Hx COPD Denies: Hx Asthma Neurological Medical History: Denies: Hx Seizures Endocrine Medical History: Reports: Hx Diabetes Mellitus Type 2. Denies: Hx Diabetes Mellitus Type 1, Hx Hyperthyroidism, Hx Hypothyroidism Renal/ Medical History: Denies: Hx Peritoneal Dialysis GI Medical History: Denies: Hx Cirrhosis, Hx Crohn's Disease, Hx Jayde roesophageal Reflux Disease, Hx Hepatitis, Hx Ulcerative Colitis Musculoskeletal Medical History: Denies Hx Arthritis, Denies Hx Gout Skin Medical History: Denies Hx Eczema, Denies Hx Psoriasis Infectious Medical History: Denies: Hx Hepatitis Past Surgical History: Reports: Hx Tubal Ligation - Immunizations Hx Pneumococcal Vaccination: 05/03/17 <STEVEN MAYER IV - Last Filed: 04/12/19 02:44> Review of Systems - Review of Systems -: Yes ROS unobtainable due to patient's medical condition <STEVEN MAYER IV - Last Filed: 04/12/19 02:44> Physical Exam - Vital signs Interpretation: Normal - General General appearance: Appears well, Alert - HEENT Head: Normocephalic, Atraumatic Eyes: Normal Pupils: PERRL - Respiratory Respiratory status: Respiratory distress, Tachypnea Breath sounds: Rales - Cardiovascular Rhythm: Regular, Tachycardia - into the 130s Heart sounds: Normal auscultation Murmur: No - Abdominal Inspection: Normal Distension: No distension Bowel sounds: Normal Tenderness: Nontender Organomegaly: No organomegaly - Back Back: Normal, Nontender - Extremities General upper extremity: Normal inspection, Nontender, Normal color, Normal ROM, Normal temperature General lower extremity: Edema - 2-3+ edema bilaterally - Neurological Neuro grossly intact: Yes Cognition: Normal Orientation: AAOx4 [place] Coma Scale Eye Opening: Spontaneous [place] Coma Scale Verbal: Oriented [place] Coma Scale Motor: Obeys Commands [place] Coma Scale Total: 15 Speech: Normal Motor strength normal: LUE, RUE, LLE, RLE Sensory: Normal - Psychological Associated symptoms: Normal affect, Normal mood - Skin Skin Temperature: Warm Skin Moisture: Dry Skin Color: Normal <STEVEN MAYER IV - Last Filed: 04/12/19 02:44> - Vital signs Vitals: BP 136/43 H 04/11/19 20:15 Course - Laboratory Result Diagrams: 04/11/19 21:35 04/11/19 21:35 - Diagnostic Test Radiology reviewed: Reports reviewed - Consults KATE OLIVAS, ICU Time consulted: 01:15 - KATE MARTINZE WANTS TO SEE HOW PT DOES ON BIPAP FOR 30-60 MINUTES Consulted provider: will come to ER - Transfer of Care Care transferred to following provider: DR. TANNER [id number] <STEVEN MAYER SHAKA - Last Filed: 04/12/19 02:44> - Laboratory Result Diagrams: 04/11/19 21:35 04/11/19 21:35 <BASILIO ALBERTO - Last Filed: 04/12/19 04:16> - Re-evaluation Re-evalutation: 04/12/19 01:14 0105 hours: Patient remains tachypneic (STEVEN MAYER IV) 04/12/19 04:15 Patient remains tachypnea, still has some increased work of breathing on the BiPAP. LUANNE Olivas agrees to admit the patient to the ICU. (BASILIO ALBERTO) - Vital Signs Vital signs: Temp Pulse Resp BP Pulse Ox 25 H 114/41 L 97 04/12/19 03:01 04/12/19 03:01 04/12/19 03:01 - Laboratory Laboratory results interpreted by me: 04/11/19 04/11/19 04/11/19 21:35 21:35 22:07 WBC 3.5 L RBC 3.37 L Hgb 9.7 L Hct 31.5 L MCHC 30.9 L RDW 17.8 H Seg Neuts % (Manual) 85 H Lymphocytes % (Manual) 6 L Abs Lymphs (Manual) 0.2 L Carbonic Acid ABG pH ABG pCO2 Sodium 135.3 L BUN 50 H Est GFR (MDRD) Non-Af 59 L Glucose 166 H Lactic Acid Creatine Kinase 29 L Total Protein 5.2 L Albumin 2.2 L Urine Protein 100 H Ur Leukocyte Esterase TRACE H Urine Ascorbic Acid 40 H 04/11/19 04/12/19 23:59 01:25 WBC RBC Hgb Hct MCHC RDW Seg Neuts % (Manual) Lymphocytes % (Manual) Abs Lymphs (Manual) Carbonic Acid 0.89 L ABG pH 7.47 H ABG pCO2 29.6 L Sodium BUN Est GFR (MDRD) Non-Af Glucose Lactic Acid 3.9 H Creatine Kinase Total Protein Albumin Urine Protein Ur Leukocyte Esterase Urine Ascorbic Acid - EKG Interpretation by Me Additional EKG results interpreted by me: 04/12/19 01:20 EKG obtained on 04/11/2019 at 2156 hrs. was interpreted by this MD. Findings: Normal sinus rhythm with a rate of 98, P waves are present and preceding QRS complexes, axis is normal, incomplete right bundle branch block is present, there are no obvious patterns of ST elevation or depression seen to suggest myocardial ischemia or infarction. Impression: Sinus rhythm with incomplete right bundle branch block and nonspecific ST segments. (STEVEN MAYER IV) - Consults KATE OLIVAS, ICU Reason for consultation: 04/12/19 01:15 TACHYPNEA, PNEUMONIA, COPD (STEVEN MAYER IV) Critical Care Note - Critical Care Note Total time excluding time spent on procedures (mins): 60 <STEVEN MAYER IV - Last Filed: 04/12/19 02:44> Discharge <STEVEN MAYER IV - Last Filed: 04/12/19 02:44> - Discharge Admitting Provider: Darek (Mixer [employer]ts) - [facility] Admitted: ICU <BASILIO ALBERTO - Last Filed: 04/12/19 04:16> - Discharge Clinical Impression: Pneumonia Qualifiers: Pneumonia type: due to unspecified organism Laterality: right Lung location: lower lobe of lung Qualified Code(s): J18.9 - Pneumonia, unspecified organism Condition: Fair Disposition: ADMITTED INPATIENT I personally performed the services described in the documentation, reviewed and edited the documentation which was dictated to the scribe in my presence, and it accurately records my words and actions.
[2019-04-12 01:33] LABS: ARTERIAL BLOOD BASE EXCESS -2.2 mmol/L; ARTERIAL BLOOD H2CO3 0.89 mmol/L (1.05-1.35); ARTERIAL BLOOD O2 SATURATION 96.8 % (94-98); ARTERIAL BLOOD PCO2 29.6 mmHg (35-45); ARTERIAL BLOOD PH 7.47 (7.35-7.45); ARTERIAL BLOOD PO2 82.1 mmHg (80-100); ARTERIAL BLOOD TOTAL CO2 21.9 mmol/L (21-25)
[2019-04-12 01:34] LABS: ARTERIAL BLOOD FIO2 2L NC
[2019-04-12] MEDS ORDERED: LEVALBUTEROL HCL NEB 0.63 MG/3 ML AMPUL NEB ONE (01:50)
[2019-04-12] MEDS ORDERED: RINGERS SOLUTION,LACTATED 500 ML IV ONE (05:30)
[2019-04-12] MEDS ORDERED: GLUCAGON,HUMAN RECOMB 1 MG INJ IM PRN (06:22)
[2019-04-12] MEDS ORDERED: DEXTROSE 50%-WATER 25 GM/50 ML DISP.SYRIN IV PRN ×2 (06:22)
[2019-04-12] MEDS ORDERED: DEXTROSE 40% GEL 15 GM TUBE PO PRN ×2 (06:22)
[2019-04-12] MEDS ORDERED: CEFTRIAXONE 2 GM/D5W RTU 2 GM/50 ML RTUPB IV SCH (07:00)
[2019-04-12] MEDS: ALBUTEROL SULFATE 0.083% NEB 2.5 MG/3 ML AMPUL NEB SCH ×5 (07:42→21:02)
--- NOTE | 2019-04-12 08:33 | RADIOLOGY REPORT (SQ) ---
CLINICAL HISTORY: r/o intra-abdominal sepsis , EXAM: CT Pulmonary Angiogram 04/12/2019 12:00 [address] ASSISTANCE ADVISOR CT, Abdomen and Pelvis with contrast 04/12/2019 12:00 AM FINANCIAL ASSISTANCE ADVISOR COMPARISON: None. TECHNIQUE: Following the administration of intravenous contrast, Volumetric CT acquisition was performed through the chest, abdomen, and pelvis. Images in the axial, coronal, and sagittal planes were presented for interpretation. Delayed excretory phase images were also obtained. This exam was performed according to our departmental dose-optimization program, which includes automated exposure control, adjustment of the mA and/or kV according to patient size and/or use of iterative reconstruction technique. Radiation dose/contrast: DLP - 1908.86 FINDINGS: Chest: There are no evidence of pulmonary embolism on this diagnostic quality study.. There are mild emphysematous changes throughout the lungs bilaterally with an upper lobe predominance. There is mild peribronchial thickening throughout the lungs bilaterally. There is confluent nodular consolidation throughout the right lower lobe as well as patchy nodular consolidation in the left lower lobe best seen on axial image 77. There is no pleural effusion. The heart is normal in size with moderate coronary artery calcifications.. The thoracic aorta and its primary branches are normal in course and caliber with moderate vascular calcifications. The main pulmonary artery and visualized proximal tracheobronchial tree are within normal limits. There are are no pathologically enlarged mediastinal, hilar, supraclavicular, or axillary lymph nodes. The soft tissue structures of the chest wall are normal. The visualized osseous structures are within normal limits for the patient's age. Abdomen/Pelvis: Within the upper abdomen, the liver and spleen are normal in size and morphology. There is moderate abdominal/pelvic ascites diffusely. The gallbladder is normal in size with layering radiodense gallstones on axial image 157 in the dependent portion of the gallbladder. There is no intra or extrahepatic biliary ductal dilation. The pancreas and adrenal glands are normal in appearance. The kidneys are normal in size bilaterally and the ureters are normal in course and caliber. There are no renal calculi, distal obstructing stones, or evidence of hydronephrosis/hydroureter. The stomach and small intestines are within normal limits for this exam performed without enteric contrast. The appendix is well-visualized and normal, best seen on axial image 180 posterior to the cecum. The colon is stool filled and otherwise unremarkable. There are moderate descending and sigmoid colonic diverticula without associated wall thickening or inflammatory changes. Within the pelvis, the bladder and rectum are normal. The uterus and ovaries are age-appropriate.. There are no pathologically enlarged inguinal, retroperitoneal, portacaval, or mesenteric lymph nodes. The soft tissue structures of the abdominal wall are normal in appearance. The visualized osseous structures within normal limits for the patient's age. There is left proximal femoral fixation hardware. There are extensive vascular calcifications abdominal aorta and iliac arteries. There is ostial calcification of the bilateral renal arteries.. IMPRESSION: Chest: 1. No evidence of pulmonary embolism. 2. Peribronchial thickening with patchy consolidation throughout the lower lobes most confluent in the right lung base. Likely representing multifocal pneumonia. 3. Mild emphysema. 4. Coronary artery and vascular calcifications. Abdomen/Pelvis: 1. Generalized volume overload with mesenteric and body wall edema with moderate abdominal/pelvic ascites. 2. Cholelithiasis without evidence of cholecystitis. 3. Diverticulosis without evidence of diverticulitis.
--- NOTE | 2019-04-12 09:06 | CRITICAL CARE ADMISSION REPORT ---
HPI Date:: 04/12/19 Time:: 04:30 Reason for ICU Reason:: Acute hypoxic respiratory failure HPI: Mrs. Main is a 78 year-old female with PMH HLD, HTN, COPD, DM II who recently had hip surgery and was discharged on 04/04/2019 to a half-way facility for rehabilitation. Patient presented yesterday from SNF with family concerns that Mrs Main was more drowsy and weaker than normal, for which they requested the transfer. EMS had pt on 4L NC during transfer and SPO2 was 88% on room air during trial by ED RN for which she was returned to MD. Patient was noted to have inspiratory as well as expiratory accessory muscle use and ABG demonstrated respiratory alkalosis. She received Methylprednisolone and two Levalbuterol nebs in the ED which did not seem to help her much. To note, patient reportedly allergic to Ipratropium with a hive response that she developed after being on medication for ~1 year. Patient afebrile, sinus tachycardia HR 101, BP 131/39 MAP 70, RR 27, SPO2 99% on 4L NC upon initial encounter for which I suggested the patient be placed on BIPAP to see if work of breathing improved as well as considering the possibility of a PE given recent surgery, hypoxia, resp alkalosis, and immobility. Family reports patient has had a mild non-productive cough over the past couple of days, but denies fever, chills, night sweats, tachypnea, labored work of breathing, or nasal discharge. Upon follow-up, patient's work of breathing somewhat improved, though remains persistent. I am concerned if the patient continues to work, in time she will require intubation. She is a full code and will accept intubation if necessary/temporary. History obtained from:: patient, family, ER physician, medical record - Diagnosis/Plan (1) Acute respiratory failure with hypoxia Is this a current diagnosis for this admission?: Yes (2) Sepsis Qualifiers: Sepsis type: sepsis due to unspecified organism Sepsis acute organ dysfunction status: with acute organ dysfunction Severe sepsis acute organ dysfunction type: acute respiratory failure Acute respiratory failure type: with hypoxia Severe sepsis shock status: without septic shock Qualified Code(s): A41.9 - Sepsis, unspecified organism; R65.20 - Severe sepsis without septic shock; J96.01 - Acute respiratory failure with hypoxia Is this a current diagnosis for this admission?: Yes (3) Pneumonia Qualifiers: Pneumonia type: due to unspecified organism Laterality: right Lung location: lower lobe of lung Qualified Code(s): J18.9 - Pneumonia, unspecified organism Plan: Suspected Pneumonia (4) UTI (urinary tract infection), bacterial Is this a current diagnosis for this admission?: Yes (5) Chronic obstructive pulmonary disease Qualifiers: Is this a current diagnosis for this admission?: Yes (6) Anemia Qualifiers: Anemia type: unspecified type Qualified Code(s): D64.9 - Anemia, unspecified Is this a current diagnosis for this admission?: Yes - . Plan Summary: Neuro: limit sedating medications as able as these could impair respiratory drive, multimodal pain mgmt more ideal Pulm: CTA chest r/o PE, Continue BIPAP for support, scheduled Albuterol nebs which can be changed to Levalbuterol if HR >105, continue Methylprednisolone CV: perform POCUS to determine volume status and basic cardiac performance GI: NPO, start Pantoprazole as pt on Esomeprazole for GERD at home. CT abd/pelvis to r/o intra-abdominal process contributing to lactic acidemia and potentiating respiratory failure. : strict I&O Heme: daily AM CBC ID: Start Ceftriaxone and Azithromycin as empiric agents for possible PNA as well as GNR UTI from 04/09/2019 that is awaiting speciation. Check MRSA and Flu swabs, sputum Cx; BC's pending Endo: Start ISS for diabetes, last A1c 5.5% on 04/07/2019 MSK: Turn q2h, elevate HOB >30, bedrest for now given tenuous respiratory failure Past Medical History Cardiac Medical History: Reports: Hyperlipidema, Hypertension Denies: Atrial Fibrillation, Congestive Heart Failure, Coronary Artery Disease, Myocardial Infarction Pulmonary Medical History: Reports: Chronic Obstructive Pulmonary Disease (COPD), Pneumonia Denies: Asthma, Sleep Apnea EENT Medical History: Reports: Cataracts - s/p surgery both eyes Mar 2019 Neurological Medical History: Denies: Hemorrhagic CVA, Ischemic CVA, Migraine, Multiple Sclerosis, Seizures Endocrine Medical History: Reports: Diabetes Mellitus Type 2 Denies: Diabetes Mellitus Type 1, Hyperthyroidism, Hypothyroidism, Obesity Renal/ Medical History: Denies: Chronic Kidney Disease, Nephrolithiasis Malignancy Medical History: Reports: Other - recently discovred pulmonary nodules GI Medical History: Reports: Gastroesophageal Reflux Disease, Other - Hx H. Pylori 2015 without ulcer-takes Nexium Denies: Cirrhosis, Crohn's Disease, Diverticulitis, Hepatitis, Hiatal Hernia, Peptic Ulcer Disease, Ulcerative Colitis Musculoskeltal Medical History: Denies: Arthritis, Fibromyalgia, Gout Skin Medical History: Reports: Psoriasis Denies: Eczema Psychiatric Medical History: Reports: Other - quit smoking 20 years ago Denies: Alcohol Dependency, Attention Deficit Hyperactivity Disorder, Bipolar Disorder, Depression, General Anxiety Disorder, Post Traumatic Stress Disorder, Schizoaffective Disorder, Tobacco Dependency Traumatic Medical History: Reports: None Hematology: Reports: Anemia - Chronic Denies: Bleeding Tendencies, Heparin Induced Thrombocytopenia, Neutropenia Infectious Medical History: Denies: Clostridium Difficile, Hepatitis B, Hepatitis C, HIV, Methicillin- Resistant Staph Aureus, Vancomycin-Resistant Enterococci Past Surgical History Past Surgical History: Reports: Tubal Ligation, Other - left hip nailing 04/02/[address] Randall Social/Family History - Social History Lives with: Other - daughter in [facility] Smoking Status: Former Smoker - quit ~20 years ago Frequency of Alcohol Use: None Hx Recreational Drug Use: No Drugs: None Hx Prescription Drug Abuse: No - Family History Family History: Hyperlipidemia, Hypertension - Medication/Allergies Home Medications: Ascorbic Acid [Vitamin C 500 mg Tablet] 500 mg PO DAILY 03/24/19 Atorvastatin Calcium [Lipitor 40 mg Tablet] 40 mg PO QPM 03/24/19 Carvedilol [Coreg 12.5 mg Tablet] 12.5 mg PO BID 03/24/19 Esomeprazole Mag Trihydrate [Nexium] 40 mg PO DAILY 03/24/19 Ferrous Sulfate [Feosol] 325 mg PO QPM 03/24/19 Lisinopril [Prinivil 10 mg Tablet] 10 mg PO DAILY 03/24/19 Montelukast Sodium [Singulair 10 mg Tablet] 10 mg PO QPM 03/24/19 Prednisone [Deltasone 5 mg Tablet] 5 mg PO DAILY 03/24/19 Zolpidem Tartrate 10 mg PO QHS 03/24/19 Acetaminophen [Tylenol 650 mg Supp] 650 mg DE Q4HP PRN supp.rect 04/04/19 Aspirin [Aspirin 325 mg Tablet] 325 mg PO DAILY #60 tablet 04/04/19 Guaifenesin [Mucinex Sr 600 mg Tablet.sa] 600 mg PO Q12 #14 tablet.sa 04/04/19 Polyethylene Glycol 3350 [Miralax Powder 17 gm/Packet] 17 gm PO DAILY powd.pack 04/04/19 Prednisone [Deltasone 20 mg Tablet] 60 mg PO DAILY #12 tablet 04/04/19 Tramadol HCl [Ultram 50 mg Tablet] 50 mg PO Q4HP PRN #20 tablet 04/04/19 Allergies/Adverse Reactions: Sulfa (Sulfonamide Antibiotics) Allergy (Intermediate, Verified 03/30/19 17:08) Hives codeine Adverse Reaction (Intermediate, Verified 03/30/19 17:08) Hives tiotropium [From Spiriva with HandiHaler] Adverse Reaction (Verified 03/30/19 17:08) Hives Review of Systems Constitutional: ABSENT: anorexia, chills, fatigue, fever(s), headache(s), night sweats, weight gain, weight loss Eyes: ABSENT: visual disturbances Ears: ABSENT: hearing changes Nose, Mouth, and Throat: ABSENT: mouth pain, sore throat, vertigo Cardiovascular: PRESENT: edema - for ~ 3 days though it has been improving. ABSENT: chest pain, dyspnea on exertion, orthropnea, palpitations Respiratory: PRESENT: cough - for a few days, non-productive. ABSENT: dyspnea, hemoptysis, sputum Gastrointestinal: ABSENT: abdominal pain, bloating, coffee ground emesis, constipation, diarrhea, hematemesis, hematochezia, melena, nausea, vomiting Genitourinary: ABSENT: difficulty urinating, dysuria, hematuria, nocturia Musculoskeletal: PRESENT: muscle weakness. ABSENT: back pain, joint swelling Integumentary: PRESENT: wounds - surgical wound to hip. ABSENT: diaphoresis, erythema, lesions, pruritus, rash Neurological: ABSENT: confusion, convulsions, syncope Psychiatric: ABSENT: anxiety, depression, hallucinations Endocrine: ABSENT: cold intolerance, heat intolerance, polydipsia, polyphagia, polyuria Hematologic/Lymphatic: ABSENT: easy bleeding, easy bruising, lymphadenopathy Allergic/Immunologic: ABSENT: seasonal rhinorrhea Physical Exam Vital Signs: Temp Pulse Resp BP Pulse Ox 25 H 114/41 L 97 04/12/19 03:01 04/12/19 03:01 04/12/19 03:01 Intake & Output 04/10/19 04/11/19 04/12/19 06:59 06:59 06:59 Intake Total 150 Output Total 1200 Balance -1050 Weight 63 kg Weight/Height Weight 63 kg Height 4 ft 9 in General appearance: PRESENT: cooperative, mild distress, thin Head exam: PRESENT: atraumatic, normocephalic Eye exam: PRESENT: conjunctiva pink, EOMI, PERRLA Ear exam: PRESENT: normal external ear exam Mouth exam: PRESENT: moist, neck supple, tongue midline Throat exam: ABSENT: post pharyngeal erythema Neck exam: ABSENT: full ROM, JVD, lymphadenopathy, tenderness, tracheal deviat ion Respiratory exam: PRESENT: accessory muscle use, crackles, tachypnea. ABSENT: rhonchi, stridor, wheezes Cardiovascular exam: PRESENT: +S1, +S2, tachycardia - sinus Pulses: PRESENT: normal radial pulses, +2 pedal pulses bilateral Vascular exam: PRESENT: normal capillary refill GI/Abdominal exam: PRESENT: hypoactive bowel sounds, soft. ABSENT: Christy's sign, rebound, rigid, tenderness Rectal exam: PRESENT: deferred Gentrourinary exam: ABSENT: urethral discharge Extremities exam: PRESENT: pedal edema, +2 edema. ABSENT: calf tenderness, tenderness Musculoskeletal exam: PRESENT: normal inspection Neurological exam: PRESENT: awake, oriented to person, oriented to place, oriented to time, CN II-XII grossly intact Psychiatric exam: PRESENT: appropriate affect Skin exam: PRESENT: dry, intact, warm. ABSENT: rash Laboratory/Radiographs Laboratory Results: 04/11/19 21:35 04/11/19 21:35 04/11/19 04/11/19 04/11/19 21:35 21:35 22:07 WBC 3.5 L RBC 3.37 L Hgb 9.7 L Hct 31.5 L MCV 94 D MCH 28.9 MCHC 30.9 L RDW 17.8 H Plt Count 160 Seg Neutrophils % Not Reportable Carbonic Acid HCO3/H2CO3 Ratio ABG pH ABG pCO2 ABG pO2 ABG HCO3 ABG O2 Saturation ABG Base Excess VBG pH VBG pCO2 VBG HCO3 VBG Base Excess FiO2 Sodium 135.3 L Potassium 4.8 Chloride 106 Carbon Dioxide 22 Anion Gap 7 BUN 50 H Creatinine 0.92 Est GFR ( Amer) > 60 Glucose 166 H Lactic Acid Calcium 8.5 Total Bilirubin 1.0 AST 30 Alkaline Phosphatase 83 Total Protein 5.2 L Albumin 2.2 L Urine Color YELLOW Urine Appearance SLIGHTLY-CLOUDY Urine pH 5.0 Ur Specific [place] 1.016 Urine Protein 100 H Urine Glucose (UA) NEGATIVE Urine Ketones NEGATIVE Urine Blood NEGATIVE Urine Nitrite NEGATIVE Ur Leukocyte Esterase TRACE H Urine WBC (Auto) 15 Urine RBC (Auto) 0 04/11/19 04/11/19 04/12/19 23:59 23:59 01:25 WBC RBC Hgb Hct MCV MCH MCHC RDW Plt Count Seg Neutrophils % Carbonic Acid 0.89 L HCO3/H2CO3 Ratio 23:1 ABG pH 7.47 H ABG pCO2 29.6 L ABG pO2 82.1 ABG HCO3 21.0 ABG O2 Saturation 96.8 ABG Base Excess -2.2 VBG pH 7.38 VBG pCO2 39.5 VBG HCO3 22.9 VBG Base Excess -1.9 FiO2 2L NC Sodium Potassium Chloride Carbon Dioxide Anion Gap BUN Creatinine Est GFR ( Amer) Glucose Lactic Acid 3.9 H Calcium Total Bilirubin AST Alkaline Phosphatase Total Protein Albumin Urine Color Urine Appearance Urine pH Ur Specific [place] Urine Protein Urine Glucose (UA) Urine Ketones Urine Blood Urine Nitrite Ur Leukocyte Esterase Urine WBC (Auto) Urine RBC (Auto) 04/11/19 04/11/19 21:35 21:35 Creatine Kinase 29 L CK-MB (CK-2) 1.08 Troponin I 0.036 Impressions: Chest X-Ray 04/11/19 21:53 IMPRESSION: Underlying hyperinflation. Equivocal right basilar infiltrate. copyright 2011 [employer]- All Rights Reserved All labs, radiographs, diagnostic studies and EKGs were personally reviewed: Yes Critical Time Critical Time (minutes): 90 -: The care of a critically ill patient is dynamic. This note represents a static moment in the admission process. Orders and treatments may be given simultaneously and urgently, and time is not transportation services representative of the treatment process. This patient requires Critical Care secondary to life threatening organ or limb dysfunction. Without Critical Care services, the patient is at risk for increased mortality and morbidity.
[2019-04-12] MEDS ORDERED: AZITHROMYCIN INJ 500 MG VIAL IV SCH (10:00)
[2019-04-12] MEDS ORDERED: CEFTRIAXONE 1 GM/D5W RTU 1 GM/50 ML RTUPB IV SCH (10:00)
[2019-04-12] MEDS ORDERED: CEFTRIAXONE INJ 1000 MG VIAL IV SCH (10:00)
[2019-04-12] MEDS: RINGERS SOLUTION,LACTATED 1,000 ML IV PRN (10:34)
[2019-04-12] MEDS ORDERED: RINGERS SOLUTION,LACTATED 1,000 ML IV ONE (11:00)
--- NOTE | 2019-04-12 11:22 | Progress Note ---
Provider Note Provider Note: I personally saw and evaluated the patient reviewed data and labs and discussed this case with COLD MOLDING PRESS OPERATOR Michelle. I am in agreement with both his plan, findings and management. I examined the patient in the ICU after admission from the emergency room. She is Iranian-speaking but does know some Uzbek. Fortunately her nurse and family were also available and we were able to communicate together as her group. When asked specifically she denies any abdominal discomfort but on examination she is tender especially in the lower quadrant. She has no wheezing on lung exam but very poor air exchange. Evaluation of her left leg shows edema over the incision is clean and dry and the VAC mechanism was removed. There is no erythema there is no discharge. There was some serous fluid from incision points distal to the longest incision but no bleeding or exudate. Basic critical care echo shows a somewhat decreased ejection fraction however the IVC is underfilled and there is respirophasic changes Vascular ultrasound of the lower extremities in the femoral region shows compression of the femoral venous vessels. Does have edema and swelling of both legs left greater than right is unable to insonate the popliteal vessels. She does have palpable pulses in lower extremities and capillary refill is intact. Mentation appears to be intact but patient has baseline dementia which has become worse. Family states that there is been a decline in her health over the last few months. She had a fall in the bathroom and was found and had repair of the hip fracture recently. Ultrasound of the lungs shows significant P waves consistent with consolidation and not failure. She also has expanded lung on chest x-ray consistent with advanced emphysema. CT scans showed no PE however there appears to be a consolidation and/or mass in the right lower lobe. Review of her labs shows a BUN of 50 and a creatinine of 0.92. Given her very thin status this may be indicative of renal failure however GI bleed would need to be considered. Hemoglobin/hematocrit are where I would expect him to be post hip fracture but we will monitor for any evidence of bleeding. Other reasons for this could be prednisone which she has been on. Ultrasound of the abdomen shows extensive ascites. This may be related to her immobilized state with low protein status. I have obtained consent from the family to drain this fluid for interrogation for cytology and to rule out infection. Patient does meet criteria for possible SIRS based on her low white count and increased respiratory rate with a PCO2 less than 35. So was noted to have gram-negative elements in her urine. Her chest x-ray shows an early right lower lobe infiltrate. Even these findings we have placed the patient on Rocephin for possible UTI and pneumonia. Current guidelines from the infectious disease Society have changed and there is no longer a clinical syndrome of healthcare acquired infections. Therefore unless her situation worsens we will not broaden antibiotic coverage unless we have specific sensitivities to antibiotics. Will monitor for clinical deterioration. Patient will be maintained on BiPAP until her respiratory situation improves as well. A long lengthy discussion with family regarding CODE STATUS and end-of-life care. They are considering the possibility of no intubation and no resuscitation however the family has been awake for more than 24 hours and I have encouraged them to make that decision after some rest. They have dealt with the same situation with their father and I would like them to be refreshed before we have further discussions. Our opinion is that the patient should not have resuscitation or be on mechanical ventilation. Labs- Last Values WBC 3.5 10^3/uL (4.0-10.5) L 04/11/19 21:35 RBC 3.37 10^6/uL (3.72-5.28) L 04/11/19 21:35 Hgb 9.7 g/dL (12.0-15.5) L 04/11/19 21:35 Hct 31.5 % (36.0-47.0) L 04/11/19 21:35 MCV 94 fl (80-97) D 04/11/19 21:35 MCH 28.9 pg (27.0-33.4) 04/11/19 21:35 MCHC 30.9 g/dL (32.0-36.0) L 04/11/19 21:35 RDW 17.8 % (11.5-14.0) H 04/11/19 21:35 Plt Count 160 10^3/uL (150-450) 04/11/19 21:35 Lymph % (Auto) Not Reportable 04/11/19 21:35 [place] % (Auto) Not Reportable 04/11/19 21:35 Eos % (Auto) Not Reportable 04/11/19 21:35 Baso % (Auto) Not Reportable 04/11/19 21:35 Absolute Neuts (auto) Not Reportable 04/11/19 21:35 Absolute Lymphs (auto) Not Reportable 04/11/19 21:35 Absolute Monos (auto) Not Reportable 04/11/19 21:35 Absolute Eos (auto) Not Reportable 04/11/19 21:35 Absolute Basos (auto) Not Reportable 04/11/19 21:35 Total Counted 100 04/11/19 21:35 Seg Neutrophils % Not Reportable 04/11/19 21:35 Seg Neuts % (Manual) 85 % (42-78) H 04/11/19 21:35 Band Neutrophils % 3 % (3-5) 04/11/19 21:35 Lymphocytes % (Manual) 6 % (13-45) L 04/11/19 21:35 Monocytes % (Manual) 6 % (3-13) 04/11/19 21:35 Eosinophils % (Manual) 0 % (0-6) 04/11/19 21:35 Basophils % (Manual) 0 % (0-2) 04/11/19 21:35 Abs Neuts (Manual) 3.1 10^3/uL (1.7-8.2) 04/11/19 21:35 Abs Lymphs (Manual) 0.2 10^3/uL (0.5-4.7) L 04/11/19 21:35 Abs Monocytes (Manual) 0.2 10^3/uL (0.1-1.4) 04/11/19 21:35 Absolute Eos (Manual) 0.0 10^3/uL (0.0-0.6) 04/11/19 21:35 Abs Basophils (Manual) 0.0 10^3/uL (0.0-0.2) 04/11/19 21:35 Platelet Comment ADEQUATE 04/11/19 21:35 Hypochromasia 1+ 04/11/19 21:35 Anisocytosis 1+ 04/11/19 21:35 PT 14.0 SEC (11.4-15.4) 04/11/19 21:35 INR 1.08 04/11/19 21:35 D-Dimer 8.98 ug/mL (0.00-0.50) H 04/11/19 23:59 Carbonic Acid 0.89 mmol/L (1.05-1.35) L 04/12/19 01:25 HCO3/H2CO3 Ratio 23:1 04/12/19 01:25 ABG pH 7.47 (7.35-7.45) H 04/12/19 01:25 ABG pCO2 29.6 mmHg (35-45) L 04/12/19 01:25 ABG pO2 82.1 mmHg (80-100) 04/12/19 01:25 ABG HCO3 21.0 mmol/L (20-24) 04/12/19 01:25 ABG Total CO2 21.9 mmol/L (21-25) 04/12/19 01:25 ABG O2 Saturation 96.8 % (94-98) 04/12/19 01:25 ABG Base Excess -2.2 mmol/L 04/12/19 01:25 VBG pH 7.38 (7.30-7.42) 04/11/19 23:59 VBG pCO2 39.5 mmHg (35-63) 04/11/19 23:59 VBG HCO3 22.9 mmol/L (20-32) 04/11/19 23:59 VBG Base Excess -1.9 mmol/L 04/11/19 23:59 FiO2 2L NC 04/12/19 01:25 Sodium 135.3 mmol/L (137-145) L 04/11/19 21:35 Potassium 4.8 mmol/L (3.6-5.0) 04/11/19 21:35 Chloride 106 mmol/L (98-107) 04/11/19 21:35 Carbon Dioxide 22 mmol/L (22-30) 04/11/19 21:35 Anion Gap 7 (5-19) 04/11/19 21:35 BUN 50 mg/dL (7-20) H 04/11/19 21:35 Creatinine 0.92 mg/dL (0.52-1.25) 04/11/19 21:35 Est GFR ( Amer) > 60 (>60) 04/11/19 21:35 Est GFR (MDRD) Non-Af 59 (>60) L 04/11/19 21:35 Glucose 166 mg/dL (75-110) H 04/11/19 21:35 Lactic Acid 3.7 mmol/L (0.7-2.1) H 04/12/19 10:18 Calcium 8.5 mg/dL (8.4-10.2) 04/11/19 21:35 Total Bilirubin 1.0 mg/dL (0.2-1.3) 04/11/19 21:35 Direct Bilirubin 0.4 mg/dL (0.0-0.4) 04/11/19 21:35 Neonat Total Bilirubin Not Reportable 04/11/19 21:35 Neonat Direct Bilirubin Not Reportable 04/11/19 21:35 Neonat Indirect Bili Not Reportable 04/11/19 21:35 AST 30 U/L (14-36) 04/11/19 21:35 ALT 14 U/L (<35) 04/11/19 21:35 Alkaline Phosphatase 83 U/L (38-126) 04/11/19 21:35 Creatine Kinase 29 U/L (30-135) L 04/11/19 21:35 CK-MB (CK-2) 1.08 ng/mL (<4.55) 04/11/19 21:35 Troponin I 0.052 ng/mL 04/12/19 04:19 Total Protein 5.2 g/dL (6.3-8.2) L 04/11/19 21:35 Albumin 2.2 g/dL (3.5-5.0) L 04/11/19 21:35 Urine Color YELLOW 04/11/19 22:07 Urine Appearance SLIGHTLY-CLOUDY 04/11/19 22:07 Urine pH 5.0 (5.0-9.0) 04/11/19 22:07 Ur Specific [place] 1.016 04/11/19 22:07 Urine Protein 100 mg/dL (NEGATIVE) H 04/11/19 22:07 Urine Glucose (UA) NEGATIVE mg/dL (NEGATIVE) 04/11/19 22:07 Urine Ketones NEGATIVE mg/dL (NEGATIVE) 04/11/19 22:07 Urine Blood NEGATIVE (NEGATIVE) 04/11/19 22:07 Urine Nitrite NEGATIVE (NEGATIVE) 04/11/19 22:07 Urine Bilirubin NEGATIVE (NEGATIVE) 04/11/19 22:07 Urine Urobilinogen NEGATIVE mg/dL (<2.0) 04/11/19 22:07 Ur Leukocyte Esterase TRACE (NEGATIVE) H 04/11/19 22:07 Urine WBC (Auto) 15 /HPF 04/11/19 22:07 Urine RBC (Auto) 0 /HPF 04/11/19 22:07 Urine Bacteria (Auto) 3+ /HPF 04/11/19 22:07 Squamous Epi Cells Auto <1 /HPF 04/11/19 22:07 Urine Mucus (Auto) RARE /LPF 04/11/19 22:07 Urine Ascorbic Acid 40 (NEGATIVE) H 04/11/19 22:07 Chest X-Ray 04/11/19 21:53 IMPRESSION: Underlying hyperinflation. Equivocal right basilar infiltrate. copyright 2011 [employer]- All Rights Reserved Abdomen/Pelvis CT 04/12/19 00:00 IMPRESSION: Chest: 1. No evidence of pulmonary embolism. 2. Peribronchial thickening with patchy consolidation throughout the lower lobes most confluent in the right lung base. Likely representing multifocal pneumonia. 3. Mild emphysema. 4. Coronary artery and vascular calcifications. Abdomen/Pelvis: 1. Generalized volume overload with mesenteric and body wall edema with moderate abdominal/pelvic ascites. 2. Cholelithiasis without evidence of cholecystitis. 3. Diverticulosis without evidence of diverticulitis. Chest/Abdomen CTA 04/12/19 00:00 IMPRESSION: Chest: 1. No evidence of pulmonary embolism. 2. Peribronchial thickening with patchy consolidation throughout the lower lobes most confluent in the right lung base. Likely representing multifocal pneumonia. 3. Mild emphysema. 4. Coronary artery and vascular calcifications. Abdomen/Pelvis: 1. Generalized volume overload with mesenteric and body wall edema with moderate abdominal/pelvic ascites. 2. Cholelithiasis without evidence of cholecystitis. 3. Diverticulosis without evidence of diverticulitis. Total critical care time: 60 minutes
[2019-04-12] MEDS: OSELTAMIVIR PHOSPHATE 75 MG CAPSULE PO SCH ×2 (12:01→18:42)
[2019-04-12] MEDS: PANTOPRAZOLE SODIUM 40 MG VIAL IV SCH (12:19)
[2019-04-12] MEDS: METHYLPREDNISOLONE INJ 40 MG/1 ML SDV IV SCH ×2 (12:19→21:29)
[2019-04-12] MEDS: AZITHROMYCIN 500 MG in DEXTROSE 5%-WATER 250 ML IV SCH (12:20)
[2019-04-12] MEDS: ENOXAPARIN SODIUM INJ 40 MG/0.4 ML DISP.SYRIN SUBCUT SCH (12:20)
[2019-04-12] MEDS: ALBUMIN HUMAN 12.5 GM/50 ML RTUINJ IV SCH ×6 (12:21→19:01)
[2019-04-12] MEDS ORDERED: HYDROMORPHONE HCL INJ/PF 2 MG/ML AMPULE ONE (12:51)
[2019-04-12] MEDS: INSULIN REG, HUMAN 100 UNIT/ML 3 ML VIAL (PYX) SUBCUT SCH ×3 (12:54→23:24)
[2019-04-12] MEDS: HYDROMORPHONE HCL INJ/PF 2 MG/ML AMPULE IV PRN ×4 (12:55→23:23)
[2019-04-12] MEDS ORDERED: VASOPRESSIN INJ 20 UNIT/1 ML VIAL ONE (13:43)
[2019-04-12] MEDS ORDERED: DEXTROSE 5%-WATER 250 ML with VASOPRESSIN 100 UNIT IV PRN ×2 (13:46)
[2019-04-12] MEDS: DEXTROSE 5%-WATER 250 ML with VASOPRESSIN 100 UNIT IV PRN ×2 (13:50)
[2019-04-12] MEDS ORDERED: VANCOMYCIN HCL 0 MG in DEXTROSE 5%-WATER 250 ML IV NR (14:00)
[2019-04-12 14:10] LABS: A TYPE INFLUENZA AG NEGATIVE (NEGATIVE); B INFLUENZA AG NEGATIVE (NEGATIVE)
[2019-04-12] MEDS ORDERED: VANCOMYCIN HCL 1,250 MG in DEXTROSE 5%-WATER 250 ML IV ONE (15:00)
[2019-04-12] MEDS ORDERED: NORMAL SALINE INJ/PF 0.9% 10 ML SDV IV PRN (15:07)
--- NOTE | 2019-04-12 15:32 | RADIOLOGY REPORT (SQ) ---
EXAM DESCRIPTION: CHEST SINGLE VIEW COMPLETED DATE/TIME: 04/12/2019 3:13 pm REASON FOR STUDY: CENTRAL LINE PLACEMENT COMPARISON: 04/11/2019 FINDINGS: AP upright portable single view chest. Left subclavian line in place with tip appropriately to the superior vena cava. No pneumothorax. Stable appearance otherwise. TECHNICAL DOCUMENTATION: JOB ID: [id number] Reading location - IP/workstation name: [email or web address]
--- NOTE | 2019-04-12 16:04 | Operative Report ---
Bedside Procedure - History of Present Illness History of Present Illness: Mrs. Main is a 78 year-old female with PMH HLD, HTN, COPD, DM II who recently had hip surgery and was discharged on 04/04/2019 to a long term facility for rehabilitation. Patient presented yesterday from SNF with family concerns that Mrs Main was more drowsy and weaker than normal, for which they requested the transfer. The patient developed respiratory failure requiring BiPAP and is now become hypotensive. She is still responsive. She has poor venous access and has sepsis. Also has ascites on US concerning for infection or malignancy Indication for Procedure: Sepsis with shock Date: 04/12/19 Provider: RAHEL TRINIDAD - Central Line Left Subclavian Time completed: 16:01 Consent obtained: Yes Central line pre-insertion: Sterile PPE donned, Chloraprep applied, Sterile drapes applied Central line lumen type: Triple Anesthetic type: 1% Lidocaine mL's of anesthesia: 3 Ultrasound guided: Yes CM at insertion site: 15 Line secured with sutures: Yes Central line post-insertion: Blood return from lumens, Biopatch applied, Sutured, Sterile dressing applied, Position confirmed w/ CXR, Other - No Pneumothorax. Tip at SVC/RA junction Number of attempts: 1 Complications: No
[2019-04-12 16:06] LABS: ARTERIAL BLOOD BASE EXCESS -9.4 mmol/L; ARTERIAL BLOOD FIO2 25%; ARTERIAL BLOOD H2CO3 1.04 mmol/L (1.05-1.35); ARTERIAL BLOOD HCO3 16.2 mmol/L (20-24); ARTERIAL BLOOD O2 SATURATION 96.2 % (94-98); ARTERIAL BLOOD PCO2 34.4 mmHg (35-45); ARTERIAL BLOOD PH 7.29 (7.35-7.45); ARTERIAL BLOOD PO2 90.9 mmHg (80-100); ARTERIAL BLOOD TOTAL CO2 17.3 mmol/L (21-25)
[2019-04-12] MEDS ORDERED: NOREPINEPHRINE BITARTRATE INJ/PF 4 MG/4 ML SDV IV ONE ×2 (16:07→23:18)
[2019-04-12 16:21] LABS: ALBUMIN 1.9 g/dL (3.5-5.0)
[2019-04-12 16:24] LABS: ALBUMIN 1.8 g/dL (3.5-5.0); ALKALINE PHOSPHATASE 47 U/L (38-126); ANION GAP 12 (5-19); ASPARTATE AMINO TRANSFERASE 22 U/L (14-36); BILIRUBIN,DIRECT 0.7 mg/dL (0.0-0.4); BILIRUBIN,TOTAL 1.2 mg/dL (0.2-1.3); BLOOD UREA NITROGEN 41 mg/dL (7-20); CALCIUM 7.6 mg/dL (8.4-10.2); CARBON DIOXIDE 17 mmol/L (22-30); CHLORIDE 108 mmol/L (98-107); GLUCOSE 123 mg/dL (75-110); PHOSPHORUS 3.8 mg/dL (2.5-4.5); POTASSIUM 4.7 mmol/L (3.6-5.0); TOTAL PROTEIN 4.1 g/dL (6.3-8.2)
[2019-04-12] MEDS: DEXTROSE 5%-WATER 250 ML with NOREPINEPHRINE BITARTRATE 4 MG IV PRN ×4 (16:31→23:23)
--- NOTE | 2019-04-12 16:41 | Operative Report ---
Bedside Procedure - History of Present Illness History of Present Illness: Mrs. Main is a 78 year-old female with PMH HLD, HTN, COPD, DM II who recently had hip surgery and was discharged on 04/04/2019 to a [facility] facility for rehabilitation. Patient presented yesterday from SNF with family concerns that Mrs Main was more drowsy and weaker than normal, for which they requested the transfer. The patient developed respiratory failure requiring BiPAP and is now become hypotensive. She is still responsive. She has poor venous access and has sepsis. Also has ascites on US concerning for infection or malignancy Procedure Preprocedure diagnosis: Sepsis with shock Post procedure diagnosis: same Procedure: Placement of right femoral arterial catheter under ultrasound guidance Proceduralist: DO Darek [facility] Complications: Unable to pass wire provided. Required two attempts under US. Soft-tip wire acquired and used without incidence Findings: Good biphasic wave form EBL: 15 to 20 cc The patient was appropriate identified secondary to ongoing critical care, chart check, and bracelet. Timeout was called. Then was obtained by the family (daughters). The right femoral region was prepped and draped and sterilized with chlorhexidine x2. After this was allowed to dry and there was cleansing of the skin, under ultrasound guidance 1% lidocaine was instilled into the pre-fascial space. Next a Quinke-Seldinger needle was placed under ultrasound guidance and arterial blood was obtained on first attempt. The syringe was then removed. At this point a wire was placed through the needle however had difficulty advancing. An attempt to remove the wire was done however it was entangled on the tip of the needle. Both the wire and needle had to be removed en bloc and pressure was held. A repeat cannulation with the same needle was done and arterial blood jessica w was noted under ultrasound guidance. A soft tip long wire was then introduced via the needle and the needle was removed. A 20-gauge long catheter was then inserted over the wire without difficulty. The wire was removed and placed at bedside. Arterial blood blood was was allowed to pulsate to clear debris. Next a small pressure tubing was applied to the end to seal and this was aspirated. The catheter was sutured in place x2. The sterile pressure tubing was then applied to the long pressure tube and a good biphasic waveform was noted. Reapplication of chlorhexidine occurred and a bio patch was applied and sterile dressing was applied after reapplication and drying of chlorhexidine. Patient tolerated procedure well and there was no sequela from the wire removal. Excludes critical care time Indication for Procedure: Sepsis with shock, no available artery in wrists Date: 04/12/19 Provider: RAHEL TRINIDAD
--- NOTE | 2019-04-12 16:47 | Operative Report ---
Bedside Procedure - History of Present Illness History of Present Illness: Mrs. Main is a 78 year-old female with PMH HLD, HTN, COPD, DM II who recently had hip surgery and was [facility]. Patient presented yesterday from SNF with family concerns that Mrs Main was more drowsy and weaker than normal, for which they requested the transfer. The patient developed respiratory failure requiring BiPAP and is now become hypotensive. She is still responsive. She has poor venous access and has sepsis. Also has ascites on US concerning for infection or malignancy Procedure Preprocedure diagnosis: Sepsis with shock, Ascites Post procedure diagnosis: same Procedure: Paracentesis under ultrasound guidance Proceduralist: DO Darek [facility] Complications: None Findings: Turbid, yellow fluid EBL: 1-2 cc The patient was appropriate identified secondary to ongoing critical care, chart check, and bracelet. Timeout was called. Then was obtained by the family (daughters). The right lower abdomen region was prepped and draped and sterilized with chlorhexidine x2. After this was allowed to dry and there was cleansing of the skin, under ultrasound guidance 1% lidocaine was instilled into the pre-fascial space. Next a small incision was made in the skin to facilitate placement of the para safety centesis system . Under ultrasound guidance the catheter was placed through the peritoneum and fluid was obtained that was nonbloody. Approximately 30 cc of fluid was sent for analysis. After this the safety needle was removed catheter remained in place and approximately 1500 to 1600 cc of fluid was removed. The fluid was turbid and cellular but nonbloody. The fluid was removed the catheter was removed and a sterile bandage was applied. Tolerated the procedure well and the only bleeding that was noted was from the skin from the lidocaine instillation. Sample sent for analysis and blood work was sent for paracentesis evaluation Excludes critical care time Indication for Procedure: Sepsis, with ascites Date: 04/12/19 Provider: RAHEL TRINIDAD
[2019-04-12] MEDS ORDERED: WATER IV ONE (17:00)
[2019-04-12] MEDS ORDERED: GENTAMICIN SULFATE IV ONE (17:00)
[2019-04-12] MEDS ORDERED: DEXTROSE 5% IV ONE (17:00)
[2019-04-12 17:17] LABS: FLUID TYPE PERITONEAL
[2019-04-12 17:18] LABS: FLUID APPEARANCE CLOUDY; FLUID COLOR LIGHT YELLOW; FLUID SOURCE ABDOMEN; FLUID VISCOSITY LIQUID
[2019-04-12 17:42] LABS: HEMATOCRIT 21.6 % (36.0-47.0); MEAN CORPUSCULAR HEMOGLOBIN 29.3 pg (27.0-33.4); MEAN CORPUSCULAR HGB CONC 31.2 g/dL (32.0-36.0); MEAN CORPUSCULAR VOLUME 94 fl (80-97); RED CELL DISTRIBUTION WIDTH 18.4 % (11.5-14.0); WHITE BLOOD COUNT 6.9 10^3/uL (4.0-10.5)
[2019-04-12] MEDS ORDERED: CEFEPIME 1 GM/D5W RTU 1 GM/50 ML RTUPB IV SCH (18:00)
[2019-04-12] MEDS ORDERED: WATER FOR INJECTION,STERILE 1,000 ML with SODIUM BICARBONATE 125 MEQ IV PRN ×2 (18:04)
[2019-04-12] MEDS ORDERED: NORMAL SALINE 250 ML IV PRN (18:09)
[2019-04-12 18:45] LABS: HEMOGLOBIN 6.7 g/dL (12.0-15.5); PLATELET COUNT 65 10^3/uL (150-450)
[2019-04-12 18:49] LABS: ABSOLUTE LYMPHOCYTES# (MANUAL) 0.7 10^3/uL (0.5-4.7); ABSOLUTE MONOCYTES # (MANUAL) 0.2 10^3/uL (0.1-1.4); BASOPHILS % (MANUAL) 0 % (0-2); EOSINOPHILS % (MANUAL) 0 % (0-6); LYMPHOCYTES % (MANUAL) 10 % (13-45); METAMYELOCYTES % (MANUAL) 1 % (0-1); MONOCYTES % (MANUAL) 3 % (3-13); SEGMENTED NEUTROPHILS % (MAN) 70 % (42-78); TOTAL CELLS COUNTED 100
[2019-04-12] MEDS ORDERED: SODIUM BICARBONATE 8.4% INJ 50 MEQ/50 ML DISP.SYRIN ONE (18:51)
[2019-04-12 18:52] LABS: ANISOCYTOSIS 2+; PLATELET COMMENT DECREASED; PLATELET LARGE PRESENT
[2019-04-12 18:53] LABS: BAND NEUTROPHILS % (MANUAL) 16 % (3-5)
[2019-04-12] MEDS ORDERED: DEXTROSE 5% IV PRN ×4 (19:05→19:30)
[2019-04-12] MEDS ORDERED: SODIUM BICARBONATE IV PRN ×4 (19:05→19:30)
[2019-04-12] MEDS ORDERED: 1/4 NORMAL SALINE IV PRN ×2 (19:05)
[2019-04-12] MEDS ORDERED: MEROPENEM 1 GM VIAL IV PRN (19:16)
[2019-04-12] MEDS ORDERED: WATER IV PRN ×2 (19:30)
[2019-04-12] MEDS ORDERED: MEROPENEM 1 GM VIAL ONE (21:16)
[2019-04-12] MEDS: MEROPENEM 1 GM in NORMAL SALINE 50 ML IV SCH (21:29)
[2019-04-13] MEDS: ALBUTEROL SULFATE 0.083% NEB 2.5 MG/3 ML AMPUL NEB SCH ×7 (00:11→23:57)
[2019-04-13] MEDS: HYDROMORPHONE HCL INJ/PF 2 MG/ML AMPULE IV PRN ×3 (01:58→20:42)
[2019-04-13 04:07] LABS: HEMATOCRIT 35.9 % (36.0-47.0); MEAN CORPUSCULAR HEMOGLOBIN 30.1 pg (27.0-33.4); MEAN CORPUSCULAR HGB CONC 32.1 g/dL (32.0-36.0); MEAN CORPUSCULAR VOLUME 94 fl (80-97); RED BLOOD COUNT 3.82 10^6/uL (3.72-5.28); RED CELL DISTRIBUTION WIDTH 15.7 % (11.5-14.0); WHITE BLOOD COUNT 12.2 10^3/uL (4.0-10.5)
[2019-04-13 04:21] LABS: ANION GAP 12 (5-19); BLOOD UREA NITROGEN 43 mg/dL (7-20); CALCIUM 7.4 mg/dL (8.4-10.2); CARBON DIOXIDE 18 mmol/L (22-30); CHLORIDE 103 mmol/L (98-107); GLUCOSE 257 mg/dL (75-110); PHOSPHORUS 4.7 mg/dL (2.5-4.5)
[2019-04-13 04:31] LABS: HEMOGLOBIN 11.5 g/dL (12.0-15.5); PLATELET COUNT 89 10^3/uL (150-450)
[2019-04-13 04:33] LABS: ABSOLUTE LYMPHOCYTES# (MANUAL) 0.1 10^3/uL (0.5-4.7); ABSOLUTE MONOCYTES # (MANUAL) 0.2 10^3/uL (0.1-1.4); ANISOCYTOSIS 1+; BAND NEUTROPHILS % (MANUAL) 5 % (3-5); BASOPHILS % (MANUAL) 0 % (0-2); BURR CELLS 1+; EOSINOPHILS % (MANUAL) 0 % (0-6); LYMPHOCYTES % (MANUAL) 1 % (13-45); MONOCYTES % (MANUAL) 2 % (3-13); PLATELET COMMENT DECREASED; POIKILOCYTOSIS 1+; POLYCHROMASIA 1+; SEGMENTED NEUTROPHILS % (MAN) 92 % (42-78); TOTAL CELLS COUNTED 100
[2019-04-13] MEDS ORDERED: WATER FOR INJECTION,STERILE 1,000 ML with SODIUM BICARBONATE 125 MEQ IV PRN ×2 (05:00)
[2019-04-13] MEDS: RINGERS SOLUTION,LACTATED 1,000 ML IV PRN (05:21)
[2019-04-13] MEDS: INSULIN REG, HUMAN 100 UNIT/ML 3 ML VIAL (PYX) SUBCUT SCH ×3 (05:21→18:18)
[2019-04-13 05:22] LABS: ARTERIAL BLOOD H2CO3 1.29 mmol/L (1.05-1.35); ARTERIAL BLOOD O2 SATURATION 93.6 % (94-98); ARTERIAL BLOOD PH 7.24 (7.35-7.45); ARTERIAL BLOOD PO2 79.2 mmHg (80-100); ARTERIAL BLOOD TOTAL CO2 19.3 mmol/L (21-25)
[2019-04-13 05:24] LABS: ARTERIAL BLOOD FIO2 25%
[2019-04-13] MEDS ORDERED: MEROPENEM 1 GM VIAL ONE (05:25)
[2019-04-13] MEDS: MEROPENEM 1 GM in NORMAL SALINE 50 ML IV SCH ×3 (05:48→21:28)
[2019-04-13] MEDS ORDERED: HYDROMORPHONE HCL INJ/PF 2 MG/ML AMPULE IV PRN (05:59)
[2019-04-13] MEDS: WATER FOR INJECTION,STERILE 1,000 ML with SODIUM BICARBONATE 125 MEQ IV PRN ×4 (06:00→18:19)
--- NOTE | 2019-04-13 08:11 | RADIOLOGY REPORT (SQ) ---
EXAM DESCRIPTION: CHEST SINGLE VIEW COMPLETED DATE/TIME: 04/13/2019 6:17 am REASON FOR STUDY: f/u infiltrate; resp failure COMPARISON: 04/12/2019 FINDINGS: Single-view chest AP portable upright. Left central line remains in place, appropriate. No developing infiltrates are edema. Stable cardiomediastinal silhouette. No pneumothorax. TECHNICAL DOCUMENTATION: JOB ID: [id number] Reading location - IP/workstation name: [email or web address]
--- NOTE | 2019-04-13 08:19 | RADIOLOGY REPORT (SQ) ---
EXAM DESCRIPTION: U/S ABDOMEN LTD W/DOPPLER COMPLETED DATE/TIME: 04/12/2019 9:39 pm REASON FOR STUDY: cholecystitis COMPARISON: CT same date. TECHNIQUE: Dynamic and static grayscale images acquired of the abdomen and recorded on PACS. Nathanielo queenie selected color Doppler and spectral images recorded. LIMITATIONS: None. FINDINGS: PANCREAS: No masses. Visualized pancreatic duct normal caliber. LIVER: No masses. Echotexture normal. LIVER VASCULATURE: Normal directional flow of the main portal vein and hepatic veins. GALLBLADDER: Gallbladder looks thick walled. There is pericholecystic fluid and sludge. Wall measur es 3.7 cm. ULTRASOUND-DETECTED RED'S SIGN: Not reported. INTRAHEPATIC DUCTS AND COMMON DUCT: CBD and intrahepatic ducts normal caliber. No filling defects. INFERIOR VENA CAVA: Normal flow. AORTA: No aneurysm. RIGHT KIDNEY: Normal size. Normal echogenicity. No solid or suspicious masses. No hydronephrosis. No calcifications. PERITONEAL AND RIGHT PLEURAL SPACE: As seen on CT, there is ascites throughout the abdomen and pelvis . OTHER: No other significant findings. IMPRESSION: 1. Sludge in the gallbladder. Wall thickening may be related to the presence of ascites. If clinica lly warranted, nuclear medicine hepatobiliary study may further prove useful. TECHNICAL DOCUMENTATION: JOB ID: [id number] [employer]- All Rights Reserved Reading location - IP/workstation name: [email or web address]
[2019-04-13] MEDS: ENOXAPARIN SODIUM INJ 40 MG/0.4 ML DISP.SYRIN SUBCUT SCH (10:17)
[2019-04-13] MEDS: METHYLPREDNISOLONE INJ 40 MG/1 ML SDV IV SCH ×2 (10:19→21:28)
[2019-04-13] MEDS: PANTOPRAZOLE SODIUM 40 MG VIAL IV SCH (10:19)
[2019-04-13] MEDS: AZITHROMYCIN 500 MG in DEXTROSE 5%-WATER 250 ML IV SCH (10:19)
[2019-04-13] MEDS: OSELTAMIVIR PHOSPHATE 75 MG CAPSULE PO SCH (10:20)
[2019-04-13 11:15] LABS: ARTERIAL BLOOD BASE EXCESS -5.5 mmol/L; ARTERIAL BLOOD FIO2 25%; ARTERIAL BLOOD H2CO3 1.34 mmol/L (1.05-1.35); ARTERIAL BLOOD HCO3 20.9 mmol/L (20-24); ARTERIAL BLOOD O2 SATURATION 73.9 % (94-98); ARTERIAL BLOOD PCO2 44.4 mmHg (35-45); ARTERIAL BLOOD PH 7.29 (7.35-7.45); ARTERIAL BLOOD PO2 43.5 mmHg (80-100); ARTERIAL BLOOD TOTAL CO2 22.2 mmol/L (21-25)
[2019-04-13 12:44] LABS: ARTERIAL BLOOD BASE EXCESS -6.4 mmol/L; ARTERIAL BLOOD FIO2 25%; ARTERIAL BLOOD HCO3 18.8 mmol/L (20-24); ARTERIAL BLOOD PCO2 36.5 mmHg (35-45); ARTERIAL BLOOD PH 7.33 (7.35-7.45); ARTERIAL BLOOD PO2 85.8 mmHg (80-100); ARTERIAL BLOOD TOTAL CO2 19.9 mmol/L (21-25)
[2019-04-13] MEDS ORDERED: ONDANSETRON HCL INJ/PF 4 MG/2 ML SDV ONE (12:58)
--- NOTE | 2019-04-13 13:31 | XCELERA REPORT ---
[address] [address] Lower Extremity Venous Evaluation Procedure: Color flow and duplex imaging bilaterally of the veins of the lower extremities as well as the Common Femoral veins. Right Sided Venous Evaluation Challernging study due to pitting edema, proximal bandaging.. Normal vessel filling wall to wall, compression and augmentation as well as Colour flow down to the infrageniculate veins. Left Sided Venous Evaluation Normal vessel filling wall to wall, compression and augmentation as well as Colour flow down to the infrageniculate veins. Interpretation Summary No duplex evidence of DVT or obstruction in the bilateral lower extremities. Study challenges as noted. Name: ANALI ARIAS Age: 78 yrs Gender: Female : 1940 Patient Status: Inpatient Patient Location: [facility] Study Date: 04/13/2019 11:32 AM Reason For Study: elevated D dimer Ordering Physician: RAHEL TRINIDAD Performed By: Sean Zuniga : RAHEL TRINIDAD > Jonel Caro
[2019-04-13] MEDS ORDERED: HYDROMORPHONE HCL INJ/PF 2 MG/ML AMPULE ONE (13:41)
[2019-04-13] MEDS ORDERED: NOREPINEPHRINE BITARTRATE INJ/PF 4 MG/4 ML SDV IV ONE (13:57)
[2019-04-13] MEDS: ALBUMIN HUMAN 12.5 GM/50 ML RTUINJ IV SCH ×5 (14:02→22:41)
[2019-04-13] MEDS: VANCOMYCIN HCL 750 MG in DEXTROSE 5%-WATER 250 ML IV SCH (14:06)
[2019-04-13] MEDS: DEXTROSE 5%-WATER 250 ML with NOREPINEPHRINE BITARTRATE 4 MG IV PRN ×2 (14:07)
[2019-04-13] MEDS ORDERED: ONDANSETRON HCL INJ/PF 4 MG/2 ML SDV IV PRN (14:14)
--- NOTE | 2019-04-13 14:24 | RADIOLOGY REPORT (SQ) ---
EXAM DESCRIPTION: CT ABD/PELVIS WITH IV ONLY COMPLETED DATE/TIME: 04/13/2019 1:48 pm REASON FOR STUDY: sepsis with anemia COMPARISON: Study from yesterday. TECHNIQUE: CT scan of the abdomen and pelvis performed using helical scanning technique with dynamic intravenous contrast injection. No oral contrast. Images reviewed with lung, soft tissue, and bone windows. Reconstructed coronal and sagittal MPR images reviewed. Delayed images for evaluation of the urinary system also acquired. All images stored on PACS. All CT scanners at this facility use dose modulation, iterative reconstruction, and/or weight based d osing when appropriate to reduce radiation dose to as low as reasonably achievable (ALARA). [facility]: Dose Right [facility]: CareDose [facility]: Dose Right [facility]: Teradose 4D [facility]: Vinted CONTRAST TYPE AND DOSE: contrast/concentration: Isovue 350.00 mg/ml; Total Contrast Delivered: 73.0 ml; Total Saline Delivered: 66.0 ml RENAL FUNCTION: Creatinine 1.06 RADIATION DOSE: CT Rad equipment meets quality standard of care and radiation dose reduction techniq ues were employed. CTDIvol: 12.0 - 16.5 mGy. DLP: 1923 mGy-cm.. LIMITATIONS: None. FINDINGS: LOWER CHEST: Consolidating pneumonia right lower lobe, incompletely assessed. Small bilat eral effusions have developed. LIVER: Normal size. No masses. No dilated ducts. SPLEEN: Normal size. No focal lesions. PANCREAS: No masses. No significant calcifications. No adjacent inflammation or peripancreatic fluid collections. Pancreatic duct not dilated. GALLBLADDER: Cholelithiasis is suspected. ADRENAL GLANDS: No significant masses or asymmetry. RIGHT KIDNEY AND URETER: No solid masses. No significant calcification. No hydronephrosis or hydroure ter. LEFT KIDNEY AND URETER: No solid masses. No significant calcification. No hydronephrosis or hydrouret er. AORTA AND VESSELS: Atherosclerotic aorta without aneurysm or dissection. Collateral venous varices a re appreciated in the gastrohepatic ligament. RETROPERITONEUM: No retroperitoneal adenopathy, hemorrhage or masses. BOWEL AND PERITONEAL CAVITY: Large amount of stool. No mechanical bowel obstruction. Ascites throug hout the abdomen, as before. Fluid is generally in the teens- 20 is for Hounsfield units. Elevated density on some of the measurements is likely related to external streak artifact. No pneumoperitone um identified. APPENDIX: Normal. PELVIS: Pelvic fluid is present. Diaz catheter in the bladder with nondependent gas suggested. ABDOMINAL WALL: Generalized subcutaneous edema/ anasarca or cellulitis. No focal drainable collectio ns. BONES: L1 compression fracture, likely present previously but incompletely assessed. Left hip status post scratch sat left hip fracture status post open reduction internal fixation. The inferior exten t of the femoral hardware is not included. No focal regional mass or fluid suggested but incomplete imaging of the left hip. OTHER: No other significant finding. IMPRESSION: 1. As before, there is ascites and soft tissue edema generally. No focal drainable collections. 2. Bilateral effusions have developed in the lungs. There is right lower lobe consolidation/pneumoni a. TECHNICAL DOCUMENTATION: JOB ID: [id number] Quality ID # [id number]: Final reports with documentation of one or more dose reduction techniques (e.g., Au tomated exposure control, adjustment of the mA and/or kV according to patient size, use of iterative reconstruction technique) 2010 [employer]- All Rights Reserved Reading location - IP/workstation name: [email or web address]
[2019-04-13 14:39] LABS: HEMATOCRIT 31.9 % (36.0-47.0); HEMOGLOBIN 10.7 g/dL (12.0-15.5); MEAN CORPUSCULAR HEMOGLOBIN 30.4 pg (27.0-33.4); MEAN CORPUSCULAR HGB CONC 33.4 g/dL (32.0-36.0); MEAN CORPUSCULAR VOLUME 91 fl (80-97); RED CELL DISTRIBUTION WIDTH 15.7 % (11.5-14.0); WHITE BLOOD COUNT 8.4 10^3/uL (4.0-10.5)
--- NOTE | 2019-04-13 14:47 | XCELERA REPORT ---
[address] [address] Transthoracic Echocardiogram Report Name: ANALI ARIAS Age: 78 yrs Gender: Female : 1940 Patient Status: Inpatient Patient Location: ICU^602^A Study Date: 04/13/2019 10:50 AM Height: 62 in Weight: 141 lb BSA: 1.6 m2 Procedure: A two-dimensional transthoracic echocardiogram with color flow and Doppler was performed. The study was technically difficult with many images being suboptimal in quality. Study Quality: Technically suboptimal. Reason For Study: shock Ordering Physician: RAHEL TRINIDAD Performed By: Sean Zuniga Interpretation Summary The left ventricle is normal in size. There is normal left ventricular wall thickness. LV EF is 60% Left ventricular systolic function is normal. Doppler measurements suggest impaired left ventricular relaxation, which is associated with grade I/IV or mild diastolic dysfunction : By tissue dopplers. The left ventricular wall motion is normal. There is no thrombus. No ASD ,VSD ,or PFO seen. The right ventricle is mildly dilated. There is mild right ventricular hypertrophy. The right atrium is normal. The left atrial size is normal. There is no evidence of mitral valve prolapse. There is no vegetation seen on the mitral valve. There is no mitral valve stenosis. There is a moderate to severe amount of mitral regurgitation There is no aortic valvular vegetation. There is mild to moderate aortic stenosis There is a peak gradient of 22 mm of Hg. There is no LVOT obstruction. The Aortic Valve jet is probably underestimated. There is a mild to moderate amount of aortic regurgitation There is no tricuspid stenosis. There is a moderate amount of tricuspid regurgitation There is servere pulmonary hypertension by echo RVSP is 64 mm of Hg , at leastwith atleast a RA mean of 20. There is no pulmonic valvular stenosis. There is no pulmonic valvular regurgitation. The aortic root is not well visualized but is probably normal size. The inferior vena cava appeared dilated and did not change with respiration (RAP > 20 mmHg) There is no pericardial effusion. MMode/2D Measurements & Calculations RVDd: 2.3 cm LVIDd: 4.7 cm FS: 20.4 % Ao root diam: 2.8 cm IVSd: 0.78 cm LVIDs: 3.8 cm EDV(Teich): 104.8 ml Ao root area: 6.4 cm2 LVPWd: 0.94 cm ESV(Teich): 61.1 ml LA dimension: 3.2 cm EF(Teich): 41.6 % LVOT diam: 2.0 cm LVOT area: 3.2 cm2 Doppler Measurements & Calculations MV E max stevenson: MV P1/2t max stevenson: Ao V2 max: AI max stevenson: 89.8 cm/sec 97.5 cm/sec 231.7 cm/sec 251.9 cm/sec MV A max stevenson: MV P1/2t: 67.4 msec Ao max PG: AI max P.0 cm/sec MVA(P1/2t): 3.3 cm2 21.5 mmHg 25.4 mmHg MV E/A: 1.1 MV dec slope: Ao V2 mean: AI dec slope: 157.0 cm/sec 191.6 cm/sec2 423.8 cm/sec2 Ao mean PG: AI P1/2t: MV dec time: 12.0 mmHg 385.0 msec 0.20 sec Ao V2 VTI: 55.4 cm FABIANO(I,D): 1.3 cm2 FABIANO(V,D): 1.3 cm2 LV V1 max PG: SV(LVOT): 73.3 ml PA V2 max: TR max stevenson: 3.4 mmHg 66.8 cm/sec 332.6 cm/sec LV V1 mean PG: PA max PG: TR max P.8 mmHg 1.8 mmHg 44.2 mmHg LV V1 max: 92.3 cm/sec LV V1 mean: 61.3 cm/sec LV V1 VTI: 22.7 cm LV dP/dt: 757.0 mmHg/s AV P1/2t-pr_phl: MV P1/2t-pr_phl: 385.0 msec 67.4 msec Left Ventricle The left ventricle is normal in size. There is normal left ventricular wall thickness. LV EF is 60%. Left ventricular systolic function is normal. Doppler measurements suggest impaired left ventricular relaxation, which is associated with grade I/IV or mild diastolic dysfunction. : By tissue dopplers. The left ventricular wall motion is normal. There is no thrombus. No ASD ,VSD ,or PFO seen. Right Ventricle The right ventricle is mildly dilated. There is mild right ventricular hypertrophy. The right ventricular systolic function is mildly reduced. Atria The right atrium is normal. The left atrial size is normal. Mitral Valve There is no evidence of mitral valve prolapse. There is no vegetation seen on the mitral valve. There is no mitral valve stenosis. There is a moderate to severe amount of mitral regurgitation. Aortic Valve There is no aortic valvular vegetation. There is mild to moderate aortic stenosis. There is a peak gradient of 22 mm of Hg. There is no LVOT obstruction. The Aortic Valve jet is probably underestimated. There is a mild to moderate amount of aortic regurgitation. Tricuspid Valve There is no tricuspid stenosis. There is a moderate amount of tricuspid regurgitation. There is servere pulmonary hypertension by echo. RVSP is 64 mm of Hg , at leastwith atleast a RA mean of 20. Pulmonic Valve There is no pulmonic valvular stenosis. There is no pulmonic valvular regurgitation. Great Vessels The aortic root is not well visualized but is probably normal size. The inferior vena cava appeared dilated and did not change with respiration (RAP > 20 mmHg). Effusions There is no pericardial effusion. : RAHEL TRINIDAD Lakshmi
[2019-04-13 15:08] LABS: PLATELET COUNT 63 10^3/uL (150-450)
[2019-04-13 15:11] LABS: ABSOLUTE LYMPHOCYTES# (MANUAL) 0.3 10^3/uL (0.5-4.7); ABSOLUTE MONOCYTES # (MANUAL) 0.6 10^3/uL (0.1-1.4); BAND NEUTROPHILS % (MANUAL) 14 % (3-5); BASOPHILS % (MANUAL) 0 % (0-2); EOSINOPHILS % (MANUAL) 0 % (0-6); LYMPHOCYTES % (MANUAL) 4 % (13-45); MONOCYTES % (MANUAL) 7 % (3-13); SEGMENTED NEUTROPHILS % (MAN) 75 % (42-78); TOTAL CELLS COUNTED 100
[2019-04-13 15:13] LABS: ANISOCYTOSIS SLIGHT; BURR CELLS 1+; OVALOCYTES SLIGHT; PLATELET COMMENT DECREASED; POIKILOCYTOSIS 1+
[2019-04-13 15:36] LABS: PARTIAL THROMBOPLASTIN TIME 47.9 SEC (23.5-35.8)
[2019-04-13 15:49] LABS: INTERNATIONAL RATION (INR) 1.89; PROTHROMBIN TIME 21.9 SEC (11.4-15.4)
[2019-04-13] MEDS: DEXTROSE 5%-WATER 250 ML with VASOPRESSIN 100 UNIT IV PRN ×2 (16:56)
--- NOTE | 2019-04-13 17:17 | RADIOLOGY REPORT (SQ) ---
EXAM DESCRIPTION: CT LEFT LOWER EXTREMITY WITH COMPLETED DATE/TIME: 04/13/2019 1:48 pm REASON FOR STUDY: sepsis post ORIF COMPARISON: None. TECHNIQUE: Axial CT images were obtained through the pelvis and proximal femora following IV contras t. Sagittal and coronal reconstructions were obtained. CONTRAST TYPE AND DOSE: 100 mL Isovue 370 RENAL FUNCTION: BUN 43 creatinine 1.06 LIMITATIONS: None. FINDINGS: Anasarca. Large amount of free fluid in the pelvis and lower abdomen. No rim enhancing a bscess is identified. Diaz catheter is present in the bladder which is partially decompressed, smal l amount of endoluminal gas is present in the bladder. Diverticulosis. Left femoral compression scr ew -intramedullary nail are present in expected position across a subacute comminuted intertrochanter ic femoral fracture. No acute fracture is identified. IMPRESSION: Anasarca. Large amount of free fluid in the pelvis and lower abdomen. No rim enhancing abscess is identified. Diaz catheter is present in the bladder which is partially decompressed, sma ll amount of endoluminal gas is present in the bladder. Diverticulosis. Left femoral compression scre w -intramedullary nail are present in expected position across a subacute comminuted intertrochanteri c femoral fracture. No acute fracture is identified. COMMENT: Results were discussed with Dr. Oswald. TECHNICAL DOCUMENTATION: JOB ID: [id number] [place]-72 2010 [employer]- All Rights Reserved Reading location - IP/workstation name: [email or web address]
[2019-04-13] MEDS ORDERED: PHYTONADIONE INJ 10 MG/1 ML AMPULE IV ONE (17:32)
--- NOTE | 2019-04-13 17:39 | EKG REPORT ---
SEVERITY:- ABNORMAL ECG - SINUS RHYTHM INCOMPLETE RIGHT BUNDLE BRANCH BLOCK : Confirmed by: Wilbur Quarles 13-Apr-2019 17:39:20
--- NOTE | 2019-04-13 17:39 | EKG REPORT ---
SEVERITY:- ABNORMAL ECG - SINUS TACHYCARDIA RBBB AND LPFB : Confirmed by: Wilbur Quarles 13-Apr-2019 17:39:09
[2019-04-13 18:10] LABS: ARTERIAL BLOOD BASE EXCESS -5.1 mmol/L; ARTERIAL BLOOD H2CO3 1.37 mmol/L (1.05-1.35); ARTERIAL BLOOD HCO3 21.4 mmol/L (20-24); ARTERIAL BLOOD O2 SATURATION 95.1 % (94-98); ARTERIAL BLOOD PCO2 45.4 mmHg (35-45); ARTERIAL BLOOD PH 7.29 (7.35-7.45); ARTERIAL BLOOD PO2 83.7 mmHg (80-100); ARTERIAL BLOOD TOTAL CO2 22.8 mmol/L (21-25)
[2019-04-13 18:11] LABS: ARTERIAL BLOOD FIO2 25%
[2019-04-13 18:30] LABS: ALBUMIN 2.4 g/dL (3.5-5.0); ALKALINE PHOSPHATASE 42 U/L (38-126); ANION GAP 11 (5-19); ASPARTATE AMINO TRANSFERASE 18 U/L (14-36); BLOOD UREA NITROGEN 43 mg/dL (7-20); CALCIUM 7.3 mg/dL (8.4-10.2); CARBON DIOXIDE 21 mmol/L (22-30); CHLORIDE 99 mmol/L (98-107); GLUCOSE 152 mg/dL (75-110); PHOSPHORUS 4.1 mg/dL (2.5-4.5); POTASSIUM 4.8 mmol/L (3.6-5.0); TOTAL PROTEIN 4.6 g/dL (6.3-8.2)
[2019-04-13] MEDS ORDERED: ALBUMIN HUMAN 25.0 GM/100 ML RTUINJ IV ONE (22:41)
[2019-04-14] MEDS: ALBUMIN HUMAN 12.5 GM/50 ML RTUINJ IV SCH ×3 (00:45→03:05)
[2019-04-14] MEDS: INSULIN REG, HUMAN 100 UNIT/ML 3 ML VIAL (PYX) SUBCUT SCH ×5 (00:45→23:19)
[2019-04-14] MEDS: HYDROMORPHONE HCL INJ/PF 2 MG/ML AMPULE IV PRN ×3 (03:13→20:00)
[2019-04-14 04:05] LABS: ARTERIAL BLOOD BASE EXCESS -4.2 mmol/L; ARTERIAL BLOOD HCO3 21.8 mmol/L (20-24); ARTERIAL BLOOD O2 SATURATION 93.9 % (94-98); ARTERIAL BLOOD PCO2 43.2 mmHg (35-45); ARTERIAL BLOOD PH 7.32 (7.35-7.45); ARTERIAL BLOOD PO2 74.5 mmHg (80-100); ARTERIAL BLOOD TOTAL CO2 23.1 mmol/L (21-25)
[2019-04-14 04:12] LABS: ARTERIAL BLOOD FIO2 25%
[2019-04-14 04:13] LABS: HEMATOCRIT 30.8 % (36.0-47.0); HEMOGLOBIN 10.2 g/dL (12.0-15.5); MEAN CORPUSCULAR HEMOGLOBIN 30.4 pg (27.0-33.4); MEAN CORPUSCULAR HGB CONC 33.2 g/dL (32.0-36.0); MEAN CORPUSCULAR VOLUME 92 fl (80-97); RED BLOOD COUNT 3.36 10^6/uL (3.72-5.28); RED CELL DISTRIBUTION WIDTH 16.1 % (11.5-14.0); WHITE BLOOD COUNT 8.6 10^3/uL (4.0-10.5)
[2019-04-14 04:17] LABS: INTERNATIONAL RATION (INR) 1.64; PROTHROMBIN TIME 19.6 SEC (11.4-15.4)
[2019-04-14 04:18] LABS: FIBRINOGEN 294 mg/dL (209-497); PARTIAL THROMBOPLASTIN TIME 47.7 SEC (23.5-35.8)
[2019-04-14 04:21] LABS: D-DIMER 3.64 ug/mL (0.00-0.50)
[2019-04-14 04:22] LABS: ANION GAP 15 (5-19); BLOOD UREA NITROGEN 48 mg/dL (7-20); CALCIUM 7.6 mg/dL (8.4-10.2); CARBON DIOXIDE 21 mmol/L (22-30); CHLORIDE 96 mmol/L (98-107); GLUCOSE 149 mg/dL (75-110); PHOSPHORUS 4.3 mg/dL (2.5-4.5); POTASSIUM 4.8 mmol/L (3.6-5.0)
[2019-04-14] MEDS: ALBUTEROL SULFATE 0.083% NEB 2.5 MG/3 ML AMPUL NEB SCH ×5 (04:23→20:57)
[2019-04-14 04:32] LABS: URINE CREATININE 58.8 mg/dL (15-278)
[2019-04-14 04:33] LABS: URINE SODIUM < 5 mmol/L (30-90)
[2019-04-14 04:38] LABS: ABSOLUTE LYMPHOCYTES# (MANUAL) 0.4 10^3/uL (0.5-4.7); ABSOLUTE MONOCYTES # (MANUAL) 0.3 10^3/uL (0.1-1.4); BASOPHILS % (MANUAL) 0 % (0-2); EOSINOPHILS % (MANUAL) 0 % (0-6); LYMPHOCYTES % (MANUAL) 5 % (13-45); MONOCYTES % (MANUAL) 3 % (3-13); SEGMENTED NEUTROPHILS % (MAN) 92 % (42-78); TOTAL CELLS COUNTED 100
[2019-04-14 04:43] LABS: ANISOCYTOSIS 1+; BURR CELLS 3+; OVALOCYTES 2+; PLATELET COMMENT DECREASED; POIKILOCYTOSIS 2+; TEAR DROP CELLS SLIGHT; TOXIC GRANULATION 1+; TOXIC VACUOLATION PRESENT
[2019-04-14 04:44] LABS: PLATELET COUNT 46 10^3/uL (150-450)
[2019-04-14] MEDS: MEROPENEM 1 GM in NORMAL SALINE 50 ML IV SCH ×2 (05:00→18:53)
[2019-04-14] MEDS: WATER FOR INJECTION,STERILE 1,000 ML with SODIUM BICARBONATE 125 MEQ IV PRN ×4 (05:01→15:24)
[2019-04-14 07:12] LABS: ALBUMIN BODY FLUID 0.3 g/dL (Not Estab.); TOTAL PROTEIN BODY FLUID 0.6 g/dL (.)
--- NOTE | 2019-04-14 07:54 | PDOC CONSULTATION ---
Consultation Consult Date: 04/14/19 Provider Consulted: BETH BARR JR History of Present Illness Admission Date/PCP: 04/12/19 04:36 History of Present Illness: ANALI ARIAS is a 78 year old female The patient is a 78-year-old female who had a left intramedullary nail placed over a week ago. Since that time she went to a local rehab. I discussed care with her rehab facility towards the end of last week and encourage negative pressure wound dressing for some drainage to the proximal wound. Due to respiratory difficulty she was readmitted to the hospital. The patient is disoriented this morning. She is awake, not sedated, responding to stimulus. Otherwise not contributing to history of present illness at this time. Past Medical History Cardiac Medical History: Reports: Hyperlipidema, Hypertension Denies: Atrial Fibrillation, Congestive Heart Failure, Coronary Artery Disease, Myocardial Infarction Pulmonary Medical History: Reports: Chronic Obstructive Pulmonary Disease (COPD), Pneumonia Denies: Asthma, Sleep Apnea EENT Medical History: Reports: Cataracts - s/p surgery both eyes Mar 2019 Neurological Medical History: Denies: Hemorrhagic CVA, Ischemic CVA, Migraine, Multiple Sclerosis, Seizures Endocrine Medical History: Reports: Diabetes Mellitus Type 2 Denies: Diabetes Mellitus Type 1, Hyperthyroidism, Hypothyroidism, Obesity Renal/ Medical History: Denies: Chronic Kidney Disease, Nephrolithiasis Malignancy Medical History: Reports: Other - recently discovred pulmonary nodules GI Medical History: Reports: Gastroesophageal Reflux Disease, Other - Hx H. Pylori 2014 without ulcer-takes Nexium Denies: Cirrhosis, Crohn's Disease, Diverticulitis, Hepatitis, Hiatal Hernia, Peptic Ulcer Disease, Ulcerative Colitis Musculoskeltal Medical History: Reports: Other - Hx H. Pylori without ulcer- takes Neium Denies: Arthritis, Fibromyalgia, Gout Skin Medical History: Reports: Psoriasis Denies: Eczema Psychiatric Medical History: Reports: Other - quit smoking 20 years ago Denies: Alcohol Dependency, Attention Deficit Hyperactivity Disorder, Bipolar Disorder, Depression, General Anxiety Disorder, Post Traumatic Stress Disorder, Schizoaffective Disorder, Tobacco Dependency Traumatic Medical History: Reports: None Hematology: Reports: Anemia - Chronic Denies: Bleeding Tendencies, Heparin Induced Thrombocytopenia, Neutropenia Infectious Medical History: Denies: Clostridium Difficile, Hepatitis B, Hepatitis C, HIV, Methicillin- Resistant Staph Aureus, Vancomycin-Resistant Enterococci Past Surgical History Past Surgical History: Reports: Tubal Ligation, Other - left hip nailing 04/02/[address] Barr Social History Lives with: Other - daughter in [facility] Smoking Status: Former Smoker - quit ~20 years ago Frequency of Alcohol Use: None Hx Recreational Drug Use: No Drugs: None Hx Prescription Drug Abuse: No - Advance Directive Resuscitation Status: Full Code Family History Family History: Hyperlipidemia, Hypertension Parental Family History Reviewed: No Children Family History Reviewed: NA Sibling(s) Family History Reviewed.: NA Medication/Allergy Home Medications: Ascorbic Acid [Vitamin C 500 mg Tablet] 500 mg PO DAILY 03/24/19 Atorvastatin Calcium [Lipitor 40 mg Tablet] 40 mg PO QPM 03/24/19 Carvedilol [Coreg 12.5 mg Tablet] 12.5 mg PO BID 03/24/19 Esomeprazole Mag Trihydrate [Nexium] 40 mg PO DAILY 03/24/19 Ferrous Sulfate [Feosol] 325 mg PO BID 03/24/19 Lisinopril [Prinivil 10 mg Tablet] 10 mg PO DAILY 03/24/19 Montelukast Sodium [Singulair 10 mg Tablet] 10 mg PO QPM 03/24/19 Prednisone [Deltasone 5 mg Tablet] 5 mg PO DAILY 03/24/19 Zolpidem Tartrate 10 mg PO QHS 03/24/19 Arformoterol Tartrate [Brovana Inhalation Solution 15 mcg/2 mL] 15 mcg IH BID 04/12/19 Budesonide [Pulmicort] 0.5 mg IH BID 04/12/19 Difluprednate [Durezol] 1 drop OU BID 04/12/19 Metformin HCl 1,000 mg PO BID 04/12/19 Nepafenac [Ilevro] 1 drop OS DAILY 04/12/19 Allergies/Adverse Reactions: Sulfa (Sulfonamide Antibiotics) Allergy (Intermediate, Verified 03/30/19 17:08) Hives codeine Adverse Reaction (Intermediate, Verified 03/30/19 17:08) Hives tiotropium [From Spiriva with HandiHaler] Adverse Reaction (Verified 03/30/19 17:08) Hives Physical Exam Vital Signs: Temp Pulse Resp BP Pulse Ox 98.2 F 71 14 141/37 H 98 04/14/19 06:00 04/14/19 04:23 04/14/19 06:00 04/13/19 18:00 04/14/19 06:00 Intake & Output 04/13/19 04/14/19 04/15/19 06:59 06:59 06:59 Intake Total 6433.5 1469 Output Total 200 410 Balance 6233.5 1059 Weight 64 kg 68 kg Physical Exam: Left lower extremity -Pulses 1+ distally -Compartments soft -Wound with serous drainage from all sites. Dry dressings in place. Wounds appear clean at this time without overt signs of infection - Blistering on the medial aspect of both legs. -Sensation grossly intact to L3-4-5 S1 -Motor grossly intact to EHL TA gastroc and quad Diffuse anasarca throughout her bilateral lower extremities and upper extremities. Purpuric changes in both lower extremities. Results Laboratory Results: 04/14/19 03:46 04/14/19 03:46 04/12/19 04/13/19 04/13/19 16:00 10:50 12:28 WBC RBC Hgb Hct MCV MCH MCHC RDW Plt Count Seg Neutrophils % Carbonic Acid 1.34 HCO3/H2CO3 Ratio 15:1 ABG pH 7.29 L ABG pCO2 44.4 ABG pO2 43.5 L ABG HCO3 20.9 ABG O2 Saturation 73.9 L ABG Base Excess -5.5 FiO2 25% Sodium Potassium Chloride Carbon Dioxide Anion Gap BUN Creatinine Est GFR ( Amer) Glucose Lactic Acid 2.8 H Calcium Ionized Calcium [place] Phosphorus Magnesium Total Bilirubin AST Alkaline Phosphatase Total Protein Albumin Fluid Glucose 112 Fluid Total Protein 0.6 Fluid Albumin 0.3 Fluid LDH 54 04/13/19 04/13/19 04/13/19 12:28 13:52 18:04 WBC 8.4 RBC 3.50 L Hgb 10.7 L Hct 31.9 L MCV 91 MCH 30.4 MCHC 33.4 RDW 15.7 H Plt Count 63 L Seg Neutrophils % Not Reportable Carbonic Acid 1.10 1.37 H HCO3/H2CO3 Ratio 17:1 15:1 ABG pH 7.33 L 7.29 L ABG pCO2 36.5 45.4 H ABG pO2 85.8 83.7 ABG HCO3 18.8 L 21.4 ABG O2 Saturation 96.0 95.1 ABG Base Excess -6.4 -5.1 FiO2 25% 25% Sodium Potassium Chloride Carbon Dioxide Anion Gap BUN Creatinine Est GFR ( Amer) Glucose Lactic Acid Calcium Ionized Calcium [place] Phosphorus Magnesium Total Bilirubin AST Alkaline Phosphatase Total Protein Albumin Fluid Glucose Fluid Total Protein Fluid Albumin Fluid LDH 04/13/19 04/13/19 04/14/19 18:04 18:04 03:46 WBC RBC Hgb Hct MCV MCH MCHC RDW Plt Count Seg Neutrophils % Carbonic Acid 1.30 HCO3/H2CO3 Ratio 16:1 ABG pH 7.32 L ABG pCO2 43.2 ABG pO2 74.5 L ABG HCO3 21.8 ABG O2 Saturation 93.9 L ABG Base Excess -4.2 FiO2 25% Sodium 131.3 L Potassium 4.8 Chloride 99 Carbon Dioxide 21 L Anion Gap 11 BUN 43 H Creatinine 1.02 Est GFR ( Amer) > 60 Glucose 152 H Lactic Acid 1.9 Calcium 7.3 L Ionized Calcium [place] 1.09 L Phosphorus 4.1 Magnesium 1.9 Total Bilirubin 3.0 H AST 18 Alkaline Phosphatase 42 Total Protein 4.6 L Albumin 2.4 L Fluid Glucose Fluid Total Protein Fluid Albumin Fluid LDH 04/14/19 04/14/19 03:46 03:46 WBC 8.6 RBC 3.36 L Hgb 10.2 L Hct 30.8 L MCV 92 MCH 30.4 MCHC 33.2 RDW 16.1 H Plt Count 46 L Seg Neutrophils % Not Reportable Carbonic Acid HCO3/H2CO3 Ratio ABG pH ABG pCO2 ABG pO2 ABG HCO3 ABG O2 Saturation ABG Base Excess FiO2 Sodium 131.6 L Potassium 4.8 Chloride 96 L Carbon Dioxide 21 L Anion Gap 15 BUN 48 H Creatinine 1.22 Est GFR ( Amer) 52 L Glucose 149 H Lactic Acid Calcium 7.6 L Ionized Calcium [place] Phosphorus 4.3 Magnesium 1.9 Total Bilirubin AST Alkaline Phosphatase Total Protein Albumin Fluid Glucose Fluid Total Protein Fluid Albumin Fluid LDH 04/11/19 23:59 Blood Blood Culture (PCR) - Final Escherichia Coli Serratia Marcescens 04/12/19 04:19 Blood Blood Culture (PCR) - Final Escherichia Coli 04/11/19 04/11/19 04/12/19 21:35 21:35 04:19 Creatine Kinase 29 L CK-MB (CK-2) 1.08 Troponin I 0.036 0.052 NT-Pro-B Natriuret Pep 04/13/19 03:47 Creatine Kinase CK-MB (CK-2) Troponin I NT-Pro-B Natriuret Pep 84532 H Impressions: Abdomen Ultrasound 04/12/19 00:00 IMPRESSION: 1. Sludge in the gallbladder. Wall thickening may be related to the presence of ascites. If clinically warranted, nuclear medicine hepatobiliary study may further prove useful. Chest/Abdomen CTA 04/12/19 00:00 IMPRESSION: Chest: 1. No evidence of pulmonary embolism. 2. Peribronchial thickening with patchy consolidation throughout the lower lobes most confluent in the right lung base. Likely representing multifocal pneumonia. 3. Mild emphysema. 4. Coronary artery and vascular calcifications. Abdomen/Pelvis: 1. Generalized volume overload with mesenteric and body wall edema with moderate abdominal/pelvic ascites. 2. Cholelithiasis without evidence of cholecystitis. 3. Diverticulosis without evidence of diverticulitis. Abdomen/Pelvis CT 04/13/19 00:00 IMPRESSION: 1. As before, there is ascites and soft tissue edema generally. No focal drainable collections. 2. Bilateral effusions have developed in the lungs. There is right lower lobe consolidation/pneumonia. Lower Extremity CT 04/13/19 00:00 IMPRESSION: Anasarca. Large amount of free fluid in the pelvis and lower abdomen. No rim enhancing abscess is identified. Diaz catheter is present in the bladder which is partially decompressed, small amount of endoluminal gas is present in the bladder. Diverticulosis. Left femoral compression screw - intramedullary nail are present in expected position across a subacute comminuted intertrochanteric femoral fracture. No acute fracture is identified. Assessment & Plan - Diagnosis (1) Intertrochanteric fracture of left femur Plan: The patient had a left intertrochanteric nail that was placed on 04/02/2019 -Of note, at the time of surgery, incision resulted in a considerable amount of serous fluid and almost no bleeding -She is admitted now for sepsis. Wound cultures are growing gram-negative rods and gram-positive cocci in clusters however I have low confidence in superficial wound cultures identifying a deep infection. -There is concerns of ITP or other systemic disease contributing to the anasarca and purpura, additionally her bacteremia is not yet completely under control. After she is medically optimized if wound drainage continues to be a concern operative exploration of the hip is warranted. If no other source is identified, operative exploration can be pursued in order to treat potential left hip infection -Recommend negative pressure wound dressing for now, may decrease pressure to 75 or 100 to tolerance of skin quality. -Weightbearing as tolerated encourage mobilization
--- NOTE | 2019-04-14 08:00 | PDOC CONSULTATION ---
Consultation Consult Date: 04/14/19 Attending physician:: RAHEL TRINIDAD Provider Consulted: WIL BAL Consult reason:: Thrombocytopenia History of Present Illness Admission Date/PCP: 04/12/19 04:36 Patient complains of: Thrombocytopenia History of Present Illness: ANALI ARIAS is a 78 year old female with recent prolonged admission for COPD exacerbation and pneumonia, she was also found to have a lung mass at the time of that admission. Her plan was to discharge to rehab which she did, get stronger and either see us as an outpatient or plan for going back to [place] with her daughter, she was visiting for [place] time, and have work-up done there. I discussed her case with her daughter who understood the plan. She was there for about a week at the rehab facility but unfortunately had worsening hypoxia, was admitted and here has been found to have bacteremia as well as infected urine. Her platelet count on admission was normal but has decreased, to 46. Reviewed INR and the INR upon admission was 1.86, d-dimer is elevated, fibrinogen was normal. But overall picture looks like DIC. She does not appear to be actively oozing or bleeding from any of her sites. Past Medical History Cardiac Medical History: Reports: Hyperlipidema, Hypertension Denies: Atrial Fibrillation, Congestive Heart Failure, Coronary Artery Disease, Myocardial Infarction Pulmonary Medical History: Reports: Chronic Obstructive Pulmonary Disease (COPD), Pneumonia Denies: Asthma, Sleep Apnea EENT Medical History: Reports: Cataracts - s/p surgery both eyes Mar 2019 Neurological Medical History: Denies: Hemorrhagic CVA, Ischemic CVA, Migraine, Multiple Sclerosis, Seizures Endocrine Medical History: Reports: Diabetes Mellitus Type 2 Denies: Diabetes Mellitus Type 1, Hyperthyroidism, Hypothyroidism, Obesity Renal/ Medical History: Denies: Chronic Kidney Disease, Nephrolithiasis Malignancy Medical History: Reports: Other - recently discovred pulmonary nodules GI Medical History: Reports: Gastroesophageal Reflux Disease, Other - Hx H. Pylori 2014 without ulcer-takes Nexium Denies: Cirrhosis, Crohn's Disease, Diverticulitis, Hepatitis, Hiatal Hernia, Peptic Ulcer Disease, Ulcerative Colitis Musculoskeltal Medical History: Reports: Other - Hx H. Pylori without ulcer- takes Neium Denies: Arthritis, Fibromyalgia, Gout Skin Medical History: Reports: Psoriasis Denies: Eczema Psychiatric Medical History: Reports: Other - quit smoking 20 years ago Denies: Alcohol Dependency, Attention Deficit Hyperactivity Disorder, Bipolar Disorder, Depression, General Anxiety Disorder, Post Traumatic Stress Disorder, Schizoaffective Disorder, Tobacco Dependency Traumatic Medical History: Reports: None Hematology: Reports: Anemia - Chronic Denies: Bleeding Tendencies, Heparin Induced Thrombocytopenia, Neutropenia Infectious Medical History: Denies: Clostridium Difficile, Hepatitis B, Hepatitis C, HIV, Methicillin- Resistant Staph Aureus, Vancomycin-Resistant Enterococci Past Surgical History Past Surgical History: Reports: Tubal Ligation, Other - left hip nailing 04/02/[address] Randall Social History Information Source: [facility] Records Lives with: Other - daughter in [facility] Smoking Status: Former Smoker - quit ~20 years ago Frequency of Alcohol Use: None Hx Recreational Drug Use: No Drugs: None Hx Prescription Drug Abuse: No - Advance Directive Resuscitation Status: Full Code Family History Family History: Hyperlipidemia, Hypertension Parental Family History Reviewed: Yes Children Family History Reviewed: Yes Sibling(s) Family History Reviewed.: Yes Medication/Allergy Home Medications: Ascorbic Acid [Vitamin C 500 mg Tablet] 500 mg PO DAILY 03/24/19 Atorvastatin Calcium [Lipitor 40 mg Tablet] 40 mg PO QPM 03/24/19 Carvedilol [Coreg 12.5 mg Tablet] 12.5 mg PO BID 03/24/19 Esomeprazole Mag Trihydrate [Nexium] 40 mg PO DAILY 03/24/19 Ferrous Sulfate [Feosol] 325 mg PO BID 03/24/19 Lisinopril [Prinivil 10 mg Tablet] 10 mg PO DAILY 03/24/19 Montelukast Sodium [Singulair 10 mg Tablet] 10 mg PO QPM 03/24/19 Prednisone [Deltasone 5 mg Tablet] 5 mg PO DAILY 03/24/19 Zolpidem Tartrate 10 mg PO QHS 03/24/19 Arformoterol Tartrate [Brovana Inhalation Solution 15 mcg/2 mL] 15 mcg IH BID 04/12/19 Budesonide [Pulmicort] 0.5 mg IH BID 04/12/19 Difluprednate [Durezol] 1 drop OU BID 04/12/19 Metformin HCl 1,000 mg PO BID 04/12/19 Nepafenac [Ilevro] 1 drop OS DAILY 04/12/19 Allergies/Adverse Reactions: Sulfa (Sulfonamide Antibiotics) Allergy (Intermediate, Verified 03/30/19 17:08) Hives codeine Adverse Reaction (Intermediate, Verified 03/30/19 17:08) Hives tiotropium [From Spiriva with HandiHaler] Adverse Reaction (Verified 03/30/19 17:08) Hives Review of Systems ROS unobtainable: Other - Secondary to language barrier, also lethargic Physical Exam Vital Signs: Temp Pulse Resp BP Pulse Ox 98.2 F 71 14 141/37 H 98 04/14/19 06:00 04/14/19 04:23 04/14/19 06:00 04/13/19 18:00 04/14/19 06:00 Intake & Output 04/13/19 04/14/19 04/15/19 06:59 06:59 06:59 Intake Total 6433.5 1469 Output Total 200 410 Balance 6233.5 1059 Weight 64 kg 68 kg General appearance: PRESENT: no acute distress, well-developed, well-nourished Head exam: PRESENT: atraumatic, normocephalic Eye exam: PRESENT: conjunctiva pink, EOMI, PERRLA. ABSENT: scleral icterus Ear exam: PRESENT: normal external ear exam Mouth exam: PRESENT: moist, tongue midline Neck exam: ABSENT: carotid bruit, JVD, lymphadenopathy, thyromegaly Respiratory exam: PRESENT: clear to auscultation wilmer. ABSENT: rales, rhonchi, wheezes Cardiovascular exam: PRESENT: RRR. ABSENT: diastolic murmur, rubs, systolic murmur Pulses: PRESENT: normal dorsalis pedis pul Vascular exam: PRESENT: normal capillary refill GI/Abdominal exam: PRESENT: normal bowel sounds, soft. ABSENT: distended, guarding, mass, organolmegaly, rebound, tenderness Rectal exam: PRESENT: deferred Extremities exam: PRESENT: full ROM. ABSENT: calf tenderness, clubbing, pedal edema Neurological exam: PRESENT: alert, awake, oriented to person, oriented to place, oriented to time, oriented to situation, CN II-XII grossly intact. ABSENT: motor sensory deficit Psychiatric exam: PRESENT: appropriate affect, normal mood. ABSENT: homicidal ideation, suicidal ideation Skin exam: PRESENT: dry, intact, warm. ABSENT: cyanosis, rash Results Laboratory Results: 04/14/19 03:46 04/14/19 03:46 04/12/19 04/13/1920 16:00 10:50 12:28 WBC RBC Hgb Hct MCV MCH MCHC RDW Plt Count Seg Neutrophils % Carbonic Acid 1.34 HCO3/H2CO3 Ratio 15:1 ABG pH 7.29 L ABG pCO2 44.4 ABG pO2 43.5 L ABG HCO3 20.9 ABG O2 Saturation 73.9 L ABG Base Excess -5.5 FiO2 25% Sodium Potassium Chloride Carbon Dioxide Anion Gap BUN Creatinine Est GFR ( Amer) Glucose Lactic Acid 2.8 H Calcium Ionized Calcium [place] Phosphorus Magnesium Total Bilirubin AST Alkaline Phosphatase Total Protein Albumin Fluid Glucose 112 Fluid Total Protein 0.6 Fluid Albumin 0.3 Fluid LDH 54 04/13/19 04/13/19 04/13/19 12:28 13:52 18:04 WBC 8.4 RBC 3.50 L Hgb 10.7 L Hct 31.9 L MCV 91 MCH 30.4 MCHC 33.4 RDW 15.7 H Plt Count 63 L Seg Neutrophils % Not Reportable Carbonic Acid 1.10 1.37 H HCO3/H2CO3 Ratio 17:1 15:1 ABG pH 7.33 L 7.29 L ABG pCO2 36.5 45.4 H ABG pO2 85.8 83.7 ABG HCO3 18.8 L 21.4 ABG O2 Saturation 96.0 95.1 ABG Base Excess -6.4 -5.1 FiO2 25% 25% Sodium Potassium Chloride Carbon Dioxide Anion Gap BUN Creatinine Est GFR ( Amer) Glucose Lactic Acid Calcium Ionized Calcium [place] Phosphorus Magnesium Total Bilirubin AST Alkaline Phosphatase Total Protein Albumin Fluid Glucose Fluid Total Protein Fluid Albumin Fluid LDH 04/13/19 04/13/19 04/14/19 18:04 18:04 03:46 WBC RBC Hgb Hct MCV MCH MCHC RDW Plt Count Seg Neutrophils % Carbonic Acid 1.30 HCO3/H2CO3 Ratio 16:1 ABG pH 7.32 L ABG pCO2 43.2 ABG pO2 74.5 L ABG HCO3 21.8 ABG O2 Saturation 93.9 L ABG Base Excess -4.2 FiO2 25% Sodium 131.3 L Potassium 4.8 Chloride 99 Carbon Dioxide 21 L Anion Gap 11 BUN 43 H Creatinine 1.02 Est GFR ( Amer) > 60 Glucose 152 H Lactic Acid 1.9 Calcium 7.3 L Ionized Calcium [place] 1.09 L Phosphorus 4.1 Magnesium 1.9 Total Bilirubin 3.0 H AST 18 Alkaline Phosphatase 42 Total Protein 4.6 L Albumin 2.4 L Fluid Glucose Fluid Total Protein Fluid Albumin Fluid LDH 04/14/19 04/14/19 03:46 03:46 WBC 8.6 RBC 3.36 L Hgb 10.2 L Hct 30.8 L MCV 92 MCH 30.4 MCHC 33.2 RDW 16.1 H Plt Count 46 L Seg Neutrophils % Not Reportable Carbonic Acid HCO3/H2CO3 Ratio ABG pH ABG pCO2 ABG pO2 ABG HCO3 ABG O2 Saturation ABG Base Excess FiO2 Sodium 131.6 L Potassium 4.8 Chloride 96 L Carbon Dioxide 21 L Anion Gap 15 BUN 48 H Creatinine 1.22 Est GFR ( Amer) 52 L Glucose 149 H Lactic Acid Calcium 7.6 L Ionized Calcium [place] Phosphorus 4.3 Magnesium 1.9 Total Bilirubin AST Alkaline Phosphatase Total Protein Albumin Fluid Glucose Fluid Total Protein Fluid Albumin Fluid LDH 04/11/19 23:59 Blood Blood Culture (PCR) - Final Escherichia Coli Serratia Marcescens 04/12/19 04:19 Blood Blood Culture (PCR) - Final Escherichia Coli 04/11/19 04/11/19 04/12/19 21:35 21:35 04:19 Creatine Kinase 29 L CK-MB (CK-2) 1.08 Troponin I 0.036 0.052 NT-Pro-B Natriuret Pep 04/13/19 03:47 Creatine Kinase CK-MB (CK-2) Troponin I NT-Pro-B Natriuret Pep 90730 H Impressions: Abdomen Ultrasound 04/12/19 00:00 IMPRESSION: 1. Sludge in the gallbladder. Wall thickening may be related to the presence of ascites. If clinically warranted, nuclear medicine hepatobiliary study may further prove useful. Chest/Abdomen CTA 04/12/19 00:00 IMPRESSION: Chest: 1. No evidence of pulmonary embolism. 2. Peribronchial thickening with patchy consolidation throughout the lower lobes most confluent in the right lung base. Likely representing multifocal pneumonia. 3. Mild emphysema. 4. Coronary artery and vascular calcifications. Abdomen/Pelvis: 1. Generalized volume overload with mesenteric and body wall edema with moderate abdominal/pelvic ascites. 2. Cholelithiasis without evidence of cholecystitis. 3. Diverticulosis without evidence of diverticulitis. Abdomen/Pelvis CT 04/13/19 00:00 IMPRESSION: 1. As before, there is ascites and soft tissue edema generally. No focal drainable collections. 2. Bilateral effusions have developed in the lungs. There is right lower lobe consolidation/pneumonia. Lower Extremity CT 04/13/19 00:00 IMPRESSION: Anasarca. Large amount of free fluid in the pelvis and lower abdomen. No rim enhancing abscess is identified. Diaz catheter is present in the bladder which is partially decompressed, small amount of endoluminal gas is present in the bladder. Diverticulosis. Left femoral compression screw - intramedullary nail are present in expected position across a subacute comminuted intertrochanteric femoral fracture. No acute fracture is identified. Status: Image reviewed by me Assessment & Plan - Diagnosis (1) Thrombocytopenia Is this a current diagnosis for this admission?: Yes Plan: Secondary to DIC most likely, INR is elevated, d-dimer is elevated and patient is infected acutely. Hopefully patient will stabilize above 20. If it drops in the teens may be reasonable to transfuse, we only usually keep 2 units of ligia telets in house. So we tend to transfuse a little bit sooner than when it gets under 10. But we will follow and help out with that. (2) Lung mass Is this a current diagnosis for this admission?: Yes Plan: Had a left upper lobe 1.5 cm nodule, that was concerning in the setting of smoking and COPD for a primary lung mass. However not as evident on the CTA of the chest. Would need probable reimaging may be in 3 months and decision made after that on what to do. - Time Time Spent: Greater than 70 Minutes - Inpatient Certification Based on my medical assessment, after consideration of the patient's comorbidities, presenting symptoms, or acuity I expect that the services needed warrant INPATIENT care.: Yes I certify that my determination is in accordance with my understanding of Medicare's requirements for reasonable and necessary INPATIENT services [42 CFR 412.3e].: Yes Medical Necessity: Need for IV Antibiotics, Risk of Complication if Not Cared For in Hospital
[2019-04-14] MEDS ORDERED: LABETALOL HCL INJ 20 MG/4 ML DISP.SYRIN IV ONE ×2 (08:10→18:12)
--- NOTE | 2019-04-14 08:26 | RADIOLOGY REPORT (SQ) ---
EXAM DESCRIPTION: CHEST SINGLE VIEW COMPLETED DATE/TIME: 04/14/2019 6:19 am REASON FOR STUDY: f/u resp failure COMPARISON: 04/13/2019 NUMBER OF VIEWS: One view. TECHNIQUE: Single frontal radiographic image of the chest acquired. LIMITATIONS: None. FINDINGS: LUNGS AND PLEURA: Stable appearance. MEDIASTINUM AND HILAR STRUCTURES: Stable heart size and mediastinal structures. HEART AND VASCULAR STRUCTURES: Stable appearance. BONES: No acute findings. HARDWARE: Central line remains in place. OTHER: No other significant finding. IMPRESSION: STABLE APPEARANCE OF THE CHEST. TECHNICAL DOCUMENTATION: JOB ID: [id number] [employer]- All Rights Reserved Reading location - IP/workstation name: [email or web address]
[2019-04-14] MEDS: AZITHROMYCIN 500 MG in DEXTROSE 5%-WATER 250 ML IV SCH (09:01)
[2019-04-14] MEDS: PANTOPRAZOLE SODIUM 40 MG VIAL IV SCH (09:03)
[2019-04-14] MEDS: METHYLPREDNISOLONE INJ 40 MG/1 ML SDV IV SCH ×2 (09:03→21:04)
[2019-04-14 12:29] LABS: ARTERIAL BLOOD BASE EXCESS -0.8 mmol/L; ARTERIAL BLOOD O2 SATURATION 96.7 % (94-98); ARTERIAL BLOOD PCO2 46.6 mmHg (35-45); ARTERIAL BLOOD PH 7.35 (7.35-7.45); ARTERIAL BLOOD PO2 93.2 mmHg (80-100); ARTERIAL BLOOD TOTAL CO2 26.5 mmol/L (21-25)
--- NOTE | 2019-04-14 12:48 | PDOC CRITICAL CARE PROG REPORT ---
General Date:: 04/14/19 ICU Day:: 3 Resuscitation Status: Full Code Medical Power of School Health Aide: Daughters Events in the past 12 to 24 Hours:: 04.13.2019: Patient was weened from BIPAP to HFNC overnight. Echo was normal (EF >60%) and vasopressors were weaned off this morning. Patient became acutely hypertensive later in the morning and required a single dose of labetalol (10mg IV) to drop her BP to a normal level. The purpuric rash on her legs has worsened and there has been ongoing concern for disseminated intravascular coagulation secondary to her sepsis. Cultures returned with MRSA in her wound, E-coli and ESBL producing gram neg organisms in her blood/urine. Peritoneal fluid from yesterday with no bacteria seen on cytology and no growth to date from cultures. Reason for ICU Addmission:: Acute hypoxic respiratory failure - Medications: Medications reviewed and adjusted accordingly: Yes Vasopressors:: levophed now off. Vasopressin off as well Physical Exam Vital Signs: Temp Pulse Resp BP Pulse Ox 98.8 F 74 8 L 112/49 L 98 04/14/19 10:00 04/14/19 10:00 04/14/19 10:00 04/14/19 10:00 04/14/19 10:00 Intake & Output 04/13/19 04/14/19 04/15/19 06:59 06:59 06:59 Intake Total 6433.5 1469 Output Total 200 410 40 Balance 6233.5 1059 -40 Weight 64 kg 68 kg Weight/Height Weight 68 kg Height 5 ft 2 in General appearance: PRESENT: no acute distress Head exam: PRESENT: atraumatic Eye exam: PRESENT: EOMI, PERRLA. ABSENT: conjunctival injection, conjunctiva pale, nystagmus Ear exam: PRESENT: normal external ear exam Mouth exam: PRESENT: moist, tongue midline Neck exam: ABSENT: carotid bruit, JVD, tenderness, tracheal deviation Respiratory exam: PRESENT: decreased breath sounds, symmetrical, unlabored. ABSENT: accessory muscle use Cardiovascular exam: PRESENT: RRR Pulses: PRESENT: normal radial pulses, normal dorsalis pedis pul Vascular exam: PRESENT: normal capillary refill GI/Abdominal exam: PRESENT: normal bowel sounds, soft. ABSENT: ascites, distended, guarding, Christy's sign, tenderness Rectal exam: PRESENT: deferred Gentrourinary exam: PRESENT: indwelling catheter Extremities exam: ABSENT: calf tenderness Musculoskeletal exam: ABSENT: deformity, tenderness Neurological exam: PRESENT: alert, awake, CN II-XII grossly intact Skin exam: PRESENT: other - Purpuric rash on legs from groin to foot medially. Large, serous filled bullae overling purpura. Laboratory/Radiographs Laboratory Results: 04/14/19 03:46 04/14/19 03:46 04/12/19 04/13/19 04/13/19 16:00 12:28 12:28 WBC RBC Hgb Hct MCV MCH MCHC RDW Plt Count Seg Neutrophils % Carbonic Acid 1.10 HCO3/H2CO3 Ratio 17:1 ABG pH 7.33 L ABG pCO2 36.5 ABG pO2 85.8 ABG HCO3 18.8 L ABG O2 Saturation 96.0 ABG Base Excess -6.4 FiO2 25% Sodium Potassium Chloride Carbon Dioxide Anion Gap BUN Creatinine Est GFR ( Amer) Glucose Lactic Acid 2.8 H Calcium Ionized Calcium [place] Phosphorus Magnesium Total Bilirubin AST Alkaline Phosphatase Total Protein Albumin Fluid Glucose 112 Fluid Total Protein 0.6 Fluid Albumin 0.3 Fluid LDH 54 04/13/19 04/13/19 04/13/19 13:52 18:04 18:04 WBC 8.4 RBC 3.50 L Hgb 10.7 L Hct 31.9 L MCV 91 MCH 30.4 MCHC 33.4 RDW 15.7 H Plt Count 63 L Seg Neutrophils % Not Reportable Carbonic Acid 1.37 H HCO3/H2CO3 Ratio 15:1 ABG pH 7.29 L ABG pCO2 45.4 H ABG pO2 83.7 ABG HCO3 21.4 ABG O2 Saturation 95.1 ABG Base Excess -5.1 FiO2 25% Sodium 131.3 L Potassium 4.8 Chloride 99 Carbon Dioxide 21 L Anion Gap 11 BUN 43 H Creatinine 1.02 Est GFR ( Amer) > 60 Glucose 152 H Lactic Acid Calcium 7.3 L Ionized Calcium [place] Phosphorus 4.1 Magnesium 1.9 Total Bilirubin 3.0 H AST 18 Alkaline Phosphatase 42 Total Protein 4.6 L Albumin 2.4 L Fluid Glucose Fluid Total Protein Fluid Albumin Fluid LDH 04/13/19 04/14/19 04/14/19 18:04 03:46 03:46 WBC RBC Hgb Hct MCV MCH MCHC RDW Plt Count Seg Neutrophils % Carbonic Acid 1.30 HCO3/H2CO3 Ratio 16:1 ABG pH 7.32 L ABG pCO2 43.2 ABG pO2 74.5 L ABG HCO3 21.8 ABG O2 Saturation 93.9 L ABG Base Excess -4.2 FiO2 25% Sodium 131.6 L Potassium 4.8 Chloride 96 L Carbon Dioxide 21 L Anion Gap 15 BUN 48 H Creatinine 1.22 Est GFR ( Amer) 52 L Glucose 149 H Lactic Acid 1.9 Calcium 7.6 L Ionized Calcium [place] 1.09 L Phosphorus 4.3 Magnesium 1.9 Total Bilirubin AST Alkaline Phosphatase Total Protein Albumin Fluid Glucose Fluid Total Protein Fluid Albumin Fluid LDH 04/14/19 03:46 WBC 8.6 RBC 3.36 L Hgb 10.2 L Hct 30.8 L MCV 92 MCH 30.4 MCHC 33.2 RDW 16.1 H Plt Count 46 L Seg Neutrophils % Not Reportable Carbonic Acid HCO3/H2CO3 Ratio ABG pH ABG pCO2 ABG pO2 ABG HCO3 ABG O2 Saturation ABG Base Excess FiO2 Sodium Potassium Chloride Carbon Dioxide Anion Gap BUN Creatinine Est GFR ( Amer) Glucose Lactic Acid Calcium Ionized Calcium [place] Phosphorus Magnesium Total Bilirubin AST Alkaline Phosphatase Total Protein Albumin Fluid Glucose Fluid Total Protein Fluid Albumin Fluid LDH 04/12/19 04:19 Blood Blood Culture (PCR) - Final Escherichia Coli 04/12/19 04:19 Blood Blood Culture - Final Escherichia Coli Esbl 04/11/19 23:59 Blood Blood Culture (PCR) - Final Escherichia Coli Serratia Marcescens 04/11/19 23:59 Blood Blood Culture - Final Escherichia Coli Esbl Serratia Marcescens 04/12/19 13:00 Catheterized Urine Urine Culture - Final Escherichia Coli Esbl 04/12/19 13:00 Hip - Left Gram Stain - Final 04/12/19 13:00 Hip - Left Wound Culture - Final Escherichia Coli Esbl Mrsa (Meth Resis Staph Aureus) 04/12/19 13:37 Nasophary (Mrsa Only) MRSA Culture - Final NO MRSA RECOVERED 04/11/19 04/11/19 04/12/19 21:35 21:35 04:19 Creatine Kinase 29 L CK-MB (CK-2) 1.08 Troponin I 0.036 0.052 NT-Pro-B Natriuret Pep 04/13/19 03:47 Creatine Kinase CK-MB (CK-2) Troponin I NT-Pro-B Natriuret Pep [id number] H Impressions: Abdomen Ultrasound 04/12/19 00:00 IMPRESSION: 1. Sludge in the gallbladder. Wall thickening may be related to the presence of ascites. If clinically warranted, nuclear medicine hepatobiliary study may further prove useful. Chest/Abdomen CTA 04/12/19 00:00 IMPRESSION: Chest: 1. No evidence of pulmonary embolism. 2. Peribronchial thickening with patchy consolidation throughout the lower lobes most confluent in the right lung base. Likely representing multifocal pneumonia. 3. Mild emphysema. 4. Coronary artery and vascular calcifications. Abdomen/Pelvis: 1. Generalized volume overload with mesenteric and body wall edema with moderate abdominal/pelvic ascites. 2. Cholelithiasis without evidence of cholecystitis. 3. Diverticulosis without evidence of diverticulitis. Abdomen/Pelvis CT 04/13/19 00:00 IMPRESSION: 1. As before, there is ascites and soft tissue edema generally. No focal drainable collections. 2. Bilateral effusions have developed in the lungs. There is right lower lobe consolidation/pneumonia. Lower Extremity CT 04/13/19 00:00 IMPRESSION: Anasarca. Large amount of free fluid in the pelvis and lower abdomen. No rim enhancing abscess is identified. Diaz catheter is present in the bladder which is partially decompressed, small amount of endoluminal gas is present in the bladder. Diverticulosis. Left femoral compression screw - intramedullary nail are present in expected position across a subacute comminuted intertrochanteric femoral fracture. No acute fracture is identified. Chest X-Ray 04/14/19 00:00 IMPRESSION: STABLE APPEARANCE OF THE CHEST. All labs, radiographs, diagnostic studies and EKGs were personally reviewed: Yes In addition, reports of radiographic and diagnostic studies were read: Yes Assessment and Plan - Diagnosis (1) Acute respiratory failure with hypoxia Is this a current diagnosis for this admission?: Yes (2) Anemia Qualifiers: Anemia type: unspecified type Qualified Code(s): D64.9 - Anemia, unspecified Is this a current diagnosis for this admission?: Yes (3) Ascites Qualifiers: Ascites type: other type Qualified Code(s): R18.8 - Other ascites Is this a current diagnosis for this admission?: Yes (4) Bacteremia due to Gram-negative bacteria Is this a current diagnosis for this admission?: Yes (5) Bacterial infection due to Serratia Is this a current diagnosis for this admission?: Yes (6) E coli bacteremia Is this a current diagnosis for this admission?: Yes (7) Intertrochanteric fracture of left femur Is this a current diagnosis for this admission?: No (8) Purpura Is this a current diagnosis for this admission?: Yes (9) Sepsis Qualifiers: Sepsis type: sepsis due to unspecified organism Sepsis acute organ dysfunction status: with acute organ dysfunction Severe sepsis acute organ dysfunction type: acute respiratory failure Acute respiratory failure type: with hypoxia Severe sepsis shock status: without septic shock Qualified Code(s): A41.9 - Sepsis, unspecified organism; R65.20 - Severe sepsis without septic shock; J96.01 - Acute respiratory failure with hypoxia Is this a current diagnosis for this admission?: Yes (10) Thrombocytopenia Is this a current diagnosis for this admission?: Yes (11) UTI (urinary tract infection), bacterial Is this a current diagnosis for this admission?: Yes Plan Summary: 04.13.2019: Patient's condition has begun to stabilize. After weaning vasopressors overnight and transitioning to HFNC she now appears comfortable. Her urine output is decreasing and Creatinine level rising slowly which is related to her extravascular sequestration of fluid and relative intravascular hypovolemic state. Responded to albumin overnight from a blood pressure standpoint but it did not drastically alter her urine output. Will plan to run IVF at 200ml/hr for 3 hours and then given small dose of lasix to help draw off fluid. Will consult hematology/oncology for likely early DIC but do not anticipate anything to do differently in her plan of care. Continue to monitor PLT levels. In the absence of spontaneous hemorrhage will avoid platelet transfusion until < 10k. I discussed the patient's status with her family who were all at bedside. After lengthy discussion they have decided to make her DNR/DNI with the exception of chemical resuscitation attempts (No breathing tube, no CPR, but would like to try epinephrine or other pharmacologic agent if it might improve her condition). Patient remains extremely ill. Critical Time Critical Time (minutes): 45 Level of Care: ICU -: 1. The care of a critical patient is a dynamic process. This note is a support representative synopsis but static in nature. The timeframe for treatments given in order is not necessarily the actual time these treatments may have been done. 2. This patient requires critical care secondary to ongoing requirements for therapy not offered or safe outside the critical care environment. Transfer to a lower level of care will result in altered life or limb morbidity and mortality. 3. Multidisciplinary rounds completed. 4. ABCDE bundle addressed.
[2019-04-14] MEDS ORDERED: FUROSEMIDE INJ/PF 20 MG/2 ML SDV IV ONE (13:30)
[2019-04-14] MEDS: VANCOMYCIN HCL 750 MG in DEXTROSE 5%-WATER 250 ML IV SCH (13:30)
[2019-04-14 14:26] LABS: PATH REVIEW PATHOLOGIST REVIEWED
[2019-04-14] MEDS ORDERED: LABETALOL HCL INJ 20 MG/4 ML DISP.SYRIN IV PRN (14:32)
[2019-04-14 16:06] LABS: ANION GAP 13 (5-19); BLOOD UREA NITROGEN 50 mg/dL (7-20); CALCIUM 7.3 mg/dL (8.4-10.2); CARBON DIOXIDE 23 mmol/L (22-30); CHLORIDE 93 mmol/L (98-107); GLUCOSE 155 mg/dL (75-110); POTASSIUM 4.6 mmol/L (3.6-5.0)
[2019-04-14 18:53] LABS: HEMATOCRIT 32.9 % (36.0-47.0); MEAN CORPUSCULAR HEMOGLOBIN 30.2 pg (27.0-33.4); MEAN CORPUSCULAR HGB CONC 33.5 g/dL (32.0-36.0); MEAN CORPUSCULAR VOLUME 90 fl (80-97); RED BLOOD COUNT 3.65 10^6/uL (3.72-5.28); RED CELL DISTRIBUTION WIDTH 16.4 % (11.5-14.0)
[2019-04-14 18:54] LABS: PLATELET COUNT 49 10^3/uL (150-450); WHITE BLOOD COUNT 19.7 10^3/uL (4.0-10.5)
[2019-04-14] MEDS: NORMAL SALINE 1000 ML 1,000 ML IV PRN ×2 (19:00→22:56)
[2019-04-14 19:09] LABS: ABSOLUTE LYMPHOCYTES# (MANUAL) 0.4 10^3/uL (0.5-4.7); ABSOLUTE MONOCYTES # (MANUAL) 1.2 10^3/uL (0.1-1.4); BAND NEUTROPHILS % (MANUAL) 6 % (3-5); BASOPHILS % (MANUAL) 0 % (0-2); EOSINOPHILS % (MANUAL) 0 % (0-6); LYMPHOCYTES % (MANUAL) 2 % (13-45); MONOCYTES % (MANUAL) 6 % (3-13); SEGMENTED NEUTROPHILS % (MAN) 86 % (42-78); TOTAL CELLS COUNTED 100
[2019-04-14 19:10] LABS: ANISOCYTOSIS 1+; HYPOCHROMASIA SLIGHT; PLATELET COMMENT DECREASED
[2019-04-15] MEDS: HYDROMORPHONE HCL INJ/PF 2 MG/ML AMPULE IV PRN ×3 (00:02→17:15)
[2019-04-15] MEDS: ALBUTEROL SULFATE 0.083% NEB 2.5 MG/3 ML AMPUL NEB SCH ×6 (00:42→21:16)
[2019-04-15 00:58] LABS: ANION GAP 12 (5-19); BLOOD UREA NITROGEN 49 mg/dL (7-20); CALCIUM 7.2 mg/dL (8.4-10.2); CARBON DIOXIDE 25 mmol/L (22-30); CHLORIDE 95 mmol/L (98-107); GLUCOSE 117 mg/dL (75-110); POTASSIUM 4.5 mmol/L (3.6-5.0)
[2019-04-15 04:29] LABS: HEMATOCRIT 31.9 % (36.0-47.0); HEMOGLOBIN 10.6 g/dL (12.0-15.5); MEAN CORPUSCULAR HGB CONC 33.2 g/dL (32.0-36.0); MEAN CORPUSCULAR VOLUME 91 fl (80-97); RED BLOOD COUNT 3.52 10^6/uL (3.72-5.28); RED CELL DISTRIBUTION WIDTH 15.9 % (11.5-14.0); WHITE BLOOD COUNT 13.8 10^3/uL (4.0-10.5)
[2019-04-15 04:30] LABS: ALBUMIN 2.3 g/dL (3.5-5.0); ALKALINE PHOSPHATASE 62 U/L (38-126); ANION GAP 10 (5-19); ASPARTATE AMINO TRANSFERASE 16 U/L (14-36); BILIRUBIN,DIRECT 2.2 mg/dL (0.0-0.4); BILIRUBIN,TOTAL 3.2 mg/dL (0.2-1.3); BLOOD UREA NITROGEN 48 mg/dL (7-20); CALCIUM 7.4 mg/dL (8.4-10.2); CARBON DIOXIDE 25 mmol/L (22-30); CHLORIDE 96 mmol/L (98-107); GLUCOSE 114 mg/dL (75-110); POTASSIUM 4.6 mmol/L (3.6-5.0); TOTAL PROTEIN 4.6 g/dL (6.3-8.2)
[2019-04-15 04:57] LABS: PLATELET COUNT 32 10^3/uL (150-450)
[2019-04-15] MEDS: INSULIN REG, HUMAN 100 UNIT/ML 3 ML VIAL (PYX) SUBCUT SCH ×3 (05:02→17:45)
[2019-04-15 05:04] LABS: ABSOLUTE LYMPHOCYTES# (MANUAL) 0.4 10^3/uL (0.5-4.7); ABSOLUTE MONOCYTES # (MANUAL) 0.7 10^3/uL (0.1-1.4); BAND NEUTROPHILS % (MANUAL) 8 % (3-5); BASOPHILS % (MANUAL) 0 % (0-2); EOSINOPHILS % (MANUAL) 0 % (0-6); LYMPHOCYTES % (MANUAL) 3 % (13-45); MONOCYTES % (MANUAL) 5 % (3-13); PLATELET COMMENT DECREASED; SEGMENTED NEUTROPHILS % (MAN) 84 % (42-78); TOTAL CELLS COUNTED 100
[2019-04-15] MEDS: MEROPENEM 1 GM in NORMAL SALINE 50 ML IV SCH ×2 (05:04→17:45)
[2019-04-15 05:07] LABS: ANISOCYTOSIS SLIGHT
[2019-04-15 05:10] LABS: TEAR DROP CELLS SLIGHT
[2019-04-15] MEDS ORDERED: FUROSEMIDE INJ/PF 20 MG/2 ML SDV IV ONE (08:55)
--- NOTE | 2019-04-15 08:55 | PDOC PROGRESS REPORT ---
Subjective Progress Note for:: 04/15/19 Subjective:: Patient with eyes open, but does not respond. Nurses report that she was more responsive yesterday. Some of her skin bulla have opened, but no evidence of active bleeding, or new echymosis. Reason For Visit: ACUTE RESPIRATORY FAILURE DUE TO HYPOXIA Physical Exam Vital Signs: Temp Pulse Resp BP Pulse Ox 97.9 F 79 13 154/51 H 99 04/15/19 08:00 04/15/19 08:00 04/15/19 08:00 04/15/19 08:00 04/15/19 08:00 Intake & Output 04/14/19 04/15/19 04/16/19 06:59 06:59 06:59 Intake Total 1469 493 Output Total 410 510 0 Balance 1059 -17 0 Weight 68 kg 69.4 kg General appearance: PRESENT: well-developed, well-nourished Head exam: PRESENT: normocephalic Extremities exam: PRESENT: +1 edema Neurological exam: PRESENT: altered Skin exam: PRESENT: other - areas of erythema about the same. Some bulla now opened, with serosanguenous fluid. Results Laboratory Results: 04/15/19 03:55 04/15/19 03:55 04/14/19 04/14/19 04/14/19 12:04 15:00 18:16 WBC 19.7 H D RBC 3.65 L Hgb 11.0 L Hct 32.9 L MCV 90 MCH 30.2 MCHC 33.5 RDW 16.4 H Plt Count 49 L Seg Neutrophils % Not Reportable Carbonic Acid 1.40 H HCO3/H2CO3 Ratio 17:1 ABG pH 7.35 ABG pCO2 46.6 H ABG pO2 93.2 ABG HCO3 25.0 H ABG O2 Saturation 96.7 ABG Base Excess -0.8 FiO2 27% Sodium 129.0 L Potassium 4.6 Chloride 93 L Carbon Dioxide 23 Anion Gap 13 BUN 50 H Creatinine 1.11 Est GFR ( Amer) 58 L Glucose 155 H Calcium 7.3 L Total Bilirubin AST Alkaline Phosphatase Total Protein Albumin 04/15/19 04/15/19 04/15/19 00:30 03:55 03:55 WBC 13.8 H RBC 3.52 L Hgb 10.6 L Hct 31.9 L MCV 91 MCH 30.0 MCHC 33.2 RDW 15.9 H Plt Count 32 L Seg Neutrophils % Not Reportable Carbonic Acid HCO3/H2CO3 Ratio ABG pH ABG pCO2 ABG pO2 ABG HCO3 ABG O2 Saturation ABG Base Excess FiO2 Sodium 131.5 L 131.1 L Potassium 4.5 4.6 Chloride 95 L 96 L Carbon Dioxide 25 25 Anion Gap 12 10 BUN 49 H 48 H Creatinine 1.37 H 1.44 H Est GFR ( Amer) 45 L 43 L Glucose 117 H 114 H Calcium 7.2 L 7.4 L Total Bilirubin 3.2 H AST 16 Alkaline Phosphatase 62 Total Protein 4.6 L Albumin 2.3 L 04/12/19 04:19 Blood Blood Culture (PCR) - Final Escherichia Coli 04/12/19 04:19 Blood Blood Culture - Final Escherichia Coli Esbl 04/11/19 23:59 Blood Blood Culture (PCR) - Final Escherichia Coli Serratia Marcescens 04/11/19 23:59 Blood Blood Culture - Final Escherichia Coli Esbl Serratia Marcescens 04/12/19 13:00 Catheterized Urine Urine Culture - Final Escherichia Coli Esbl 04/12/19 13:00 Hip - Left Gram Stain - Final 04/12/19 13:00 Hip - Left Wound Culture - Final Escherichia Coli Esbl Mrsa (Meth Resis Staph Aureus) 04/12/19 13:37 Nasophary (Mrsa Only) MRSA Culture - Final NO MRSA RECOVERED 04/11/19 04/11/19 04/12/19 21:35 21:35 04:19 Creatine Kinase 29 L CK-MB (CK-2) 1.08 Troponin I 0.036 0.052 NT-Pro-B Natriuret Pep 04/13/19 03:47 Creatine Kinase CK-MB (CK-2) Troponin I NT-Pro-B Natriuret Pep [id number] H Impressions: Abdomen Ultrasound 04/12/19 00:00 IMPRESSION: 1. Sludge in the gallbladder. Wall thickening may be related to the presence of ascites. If clinically warranted, nuclear medicine hepatobiliary study may further prove useful. Chest/Abdomen CTA 04/12/19 00:00 IMPRESSION: Chest: 1. No evidence of pulmonary embolism. 2. Peribronchial thickening with patchy consolidation throughout the lower lobes most confluent in the right lung base. Likely representing multifocal pneumonia. 3. Mild emphysema. 4. Coronary artery and vascular calcifications. Abdomen/Pelvis: 1. Generalized volume overload with mesenteric and body wall edema with moderate abdominal/pelvic ascites. 2. Cholelithiasis without evidence of cholecystitis. 3. Diverticulosis without evidence of diverticulitis. Abdomen/Pelvis CT 04/13/19 00:00 IMPRESSION: 1. As before, there is ascites and soft tissue edema generally. No focal drainable collections. 2. Bilateral effusions have developed in the lungs. There is right lower lobe consolidation/pneumonia. Lower Extremity CT 04/13/19 00:00 IMPRESSION: Anasarca. Large amount of free fluid in the pelvis and lower abdomen. No rim enhancing abscess is identified. Diaz catheter is present in the bladder which is partially decompressed, small amount of endoluminal gas is present in the bladder. Diverticulosis. Left femoral compression screw - intramedullary nail are present in expected position across a subacute comminuted intertrochanteric femoral fracture. No acute fracture is identified. Chest X-Ray 04/14/19 00:00 IMPRESSION: STABLE APPEARANCE OF THE CHEST. Assessment & Plan - Diagnosis (1) Bacteremia due to Gram-negative bacteria Is this a current diagnosis for this admission?: Yes Plan: Per primary team. Continues antibiotics, but does not appear to be responding yet. (2) Sepsis Qualifiers: Sepsis type: sepsis due to unspecified organism Sepsis acute organ dysfunction status: with acute organ dysfunction Severe sepsis acute organ dysfunction type: acute respiratory failure Acute respiratory failure type: with hypoxia Severe sepsis shock status: without septic shock Qualified Code(s): A41.9 - Sepsis, unspecified organism; R65.20 - Severe sepsis without septic shock; J96.01 - Acute respiratory failure with hypoxia Is this a current diagnosis for this admission?: Yes Plan: As per primary team. Continues antibiotics. (3) Thrombocytopenia Is this a current diagnosis for this admission?: Yes Plan: PLT continues to drop, but no evidence of active bleeding. Will continue to monitor. No indication for transfusion at this time. (4) Anemia Qualifiers: Anemia type: unspecified type Qualified Code(s): D64.9 - Anemia, unspecified Is this a current diagnosis for this admission?: Yes Plan: HGB currently stable. No indication for blood transfusion currently. No signs of TTP with normal LDH. 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
[2019-04-15 09:18] LABS: ARTERIAL BLOOD BASE EXCESS -6.5 mmol/L; ARTERIAL BLOOD H2CO3 1.35 mmol/L (1.05-1.35); ARTERIAL BLOOD HCO3 20.2 mmol/L (20-24); ARTERIAL BLOOD O2 SATURATION 97.7 % (94-98); ARTERIAL BLOOD PCO2 44.9 mmHg (35-45); ARTERIAL BLOOD PH 7.27 (7.35-7.45); ARTERIAL BLOOD PO2 116.8 mmHg (80-100); ARTERIAL BLOOD TOTAL CO2 21.6 mmol/L (21-25)
[2019-04-15] MEDS: NORMAL SALINE 1000 ML 1,000 ML IV PRN ×2 (09:57→21:41)
[2019-04-15] MEDS: PANTOPRAZOLE SODIUM 40 MG VIAL IV SCH (09:58)
[2019-04-15] MEDS: METHYLPREDNISOLONE INJ 40 MG/1 ML SDV IV SCH ×2 (09:58→21:10)
--- NOTE | 2019-04-15 12:03 | PDOC CRITICAL CARE PROG REPORT ---
General Date:: 04/15/19 Resuscitation Status: Do Not Resuscitate Medical Power of District Court Bailiff: Daughters Events in the past 12 to 24 Hours:: Overnight patient had no acute events. There was question of a possible bruit heard in her mid epigastrium just right of midline but nothing was seen on ultrasound of the area and the finding was not appreciated on follow up exams. Patient continues to follow commands but seems sluggish and tired. HFNC weaned yesterday with minimal to no difference in ABG indicating she tolerated the wean well. Reason for ICU Addmission:: Acute hypoxic respiratory failure - Medications: Medications reviewed and adjusted accordingly: Yes Physical Exam Vital Signs: Temp Pulse Resp BP Pulse Ox 97.5 F 83 18 141/51 H 100 04/15/19 10:00 04/15/19 10:00 04/15/19 10:00 04/15/19 10:00 04/15/19 10:00 Intake & Output 04/14/19 04/15/19 04/16/19 06:59 06:59 06:59 Intake Total 8840 961 1645 Output Total 410 510 50 Balance 1059 -17 950 Weight 68 kg 69.4 kg Weight/Height Weight 69.4 kg Height 5 ft 2 in General appearance: PRESENT: no acute distress Head exam: PRESENT: atraumatic Eye exam: PRESENT: EOMI, PERRLA. ABSENT: scleral icterus Ear exam: PRESENT: normal external ear exam Mouth exam: PRESENT: moist, tongue midline Neck exam: PRESENT: full ROM. ABSENT: carotid bruit, JVD, tracheal deviation Respiratory exam: PRESENT: decreased breath sounds - in bases, symmetrical, unlabored. ABSENT: accessory muscle use, chest wall tenderness, rales, rhonchi, stridor, tachypnea Cardiovascular exam: PRESENT: RRR. ABSENT: diastolic murmur, rubs, systolic mur mur Pulses: PRESENT: normal radial pulses Vascular exam: PRESENT: normal capillary refill GI/Abdominal exam: PRESENT: ascites, normal bowel sounds, soft. ABSENT: distended, firm, guarding, Christy's sign, rebound, tenderness Rectal exam: PRESENT: deferred Gentrourinary exam: PRESENT: indwelling catheter Extremities exam: PRESENT: pedal edema, +2 edema. ABSENT: calf tenderness Neurological exam: PRESENT: alert, awake, oriented to person, CN II-XII grossly intact. ABSENT: oriented to place, oriented to time Skin exam: PRESENT: vesicles, other - Significant edema in all dependent tissues with bullae forming on legs/arms containing serous fluid. Laboratory/Radiographs Laboratory Results: 04/15/19 03:55 04/15/19 03:55 04/14/19 04/14/19 04/14/19 12:04 15:00 18:16 WBC 19.7 H D RBC 3.65 L Hgb 11.0 L Hct 32.9 L MCV 90 MCH 30.2 MCHC 33.5 RDW 16.4 H Plt Count 49 L Seg Neutrophils % Not Reportable Carbonic Acid 1.40 H HCO3/H2CO3 Ratio 17:1 ABG pH 7.35 ABG pCO2 46.6 H ABG pO2 93.2 ABG HCO3 25.0 H ABG O2 Saturation 96.7 ABG Base Excess -0.8 FiO2 27% Sodium 129.0 L Potassium 4.6 Chloride 93 L Carbon Dioxide 23 Anion Gap 13 BUN 50 H Creatinine 1.11 Est GFR ( Amer) 58 L Glucose 155 H Calcium 7.3 L Total Bilirubin AST Alkaline Phosphatase Total Protein Albumin 04/15/19 04/15/19 04/15/19 00:30 03:55 03:55 WBC 13.8 H RBC 3.52 L Hgb 10.6 L Hct 31.9 L MCV 91 MCH 30.0 MCHC 33.2 RDW 15.9 H Plt Count 32 L Seg Neutrophils % Not Reportable Carbonic Acid HCO3/H2CO3 Ratio ABG pH ABG pCO2 ABG pO2 ABG HCO3 ABG O2 Saturation ABG Base Excess FiO2 Sodium 131.5 L 131.1 L Potassium 4.5 4.6 Chloride 95 L 96 L Carbon Dioxide 25 25 Anion Gap 12 10 BUN 49 H 48 H Creatinine 1.37 H 1.44 H Est GFR ( Amer) 45 L 43 L Glucose 117 H 114 H Calcium 7.2 L 7.4 L Total Bilirubin 3.2 H AST 16 Alkaline Phosphatase 62 Total Protein 4.6 L Albumin 2.3 L 04/15/19 09:05 WBC RBC Hgb Hct MCV MCH MCHC RDW Plt Count Seg Neutrophils % Carbonic Acid 1.35 HCO3/H2CO3 Ratio 14:1 ABG pH 7.27 L ABG pCO2 44.9 ABG pO2 116.8 H ABG HCO3 20.2 ABG O2 Saturation 97.7 ABG Base Excess -6.5 FiO2 29% Sodium Potassium Chloride Carbon Dioxide Anion Gap BUN Creatinine Est GFR ( Amer) Glucose Calcium Total Bilirubin AST Alkaline Phosphatase Total Protein Albumin 04/12/19 04:19 Blood Blood Culture (PCR) - Final Escherichia Coli 04/12/19 04:19 Blood Blood Culture - Final Escherichia Coli Esbl 04/11/19 23:59 Blood Blood Culture (PCR) - Final Escherichia Coli Serratia Marcescens 04/11/19 23:59 Blood Blood Culture - Final Escherichia Coli Esbl Serratia Marcescens 04/12/19 13:00 Catheterized Urine Urine Culture - Final Escherichia Coli Esbl 04/12/19 13:00 Hip - Left Gram Stain - Final 04/12/19 13:00 Hip - Left Wound Culture - Final Escherichia Coli Esbl Mrsa (Meth Resis Staph Aureus) 04/12/19 13:37 Nasophary (Mrsa Only) MRSA Culture - Final NO MRSA RECOVERED 04/11/19 04/11/19 04/12/19 21:35 21:35 04:19 Creatine Kinase 29 L CK-MB (CK-2) 1.08 Troponin I 0.036 0.052 NT-Pro-B Natriuret Pep 04/13/19 03:47 Creatine Kinase CK-MB (CK-2) Troponin I NT-Pro-B Natriuret Pep [id number] H Impressions: Abdomen Ultrasound 04/12/19 00:00 IMPRESSION: 1. Sludge in the gallbladder. Wall thickening may be related to the presence of ascites. If clinically warranted, nuclear medicine hepatobiliary study may further prove useful. Chest/Abdomen CTA 04/12/19 00:00 IMPRESSION: Chest: 1. No evidence of pulmonary embolism. 2. Peribronchial thickening with patchy consolidation throughout the lower lobes most confluent in the right lung base. Likely representing multifocal pneumonia. 3. Mild emphysema. 4. Coronary artery and vascular calcifications. Abdomen/Pelvis: 1. Generalized volume overload with mesenteric and body wall edema with moderate abdominal/pelvic ascites. 2. Cholelithiasis without evidence of cholecystitis. 3. Diverticulosis without evidence of diverticulitis. Abdomen/Pelvis CT 04/13/19 00:00 IMPRESSION: 1. As before, there is ascites and soft tissue edema generally. No focal drainable collections. 2. Bilateral effusions have developed in the lungs. There is right lower lobe consolidation/pneumonia. Lower Extremity CT 04/13/19 00:00 IMPRESSION: Anasarca. Large amount of free fluid in the pelvis and lower abdomen. No rim enhancing abscess is identified. Diaz catheter is present in the bladder which is partially decompressed, small amount of endoluminal gas is present in the bladder. Diverticulosis. Left femoral compression screw - intramedullary nail are present in expected position across a subacute comminuted intertrochanteric femoral fracture. No acute fracture is identified. Chest X-Ray 04/14/19 00:00 IMPRESSION: STABLE APPEARANCE OF THE CHEST. Assessment and Plan - Diagnosis (1) DIC (disseminated intravascular coagulation) Is this a current diagnosis for this admission?: Yes (2) Acute respiratory failure with hypoxia Is this a current diagnosis for this admission?: Yes (3) Anemia Qualifiers: Anemia type: unspecified type Qualified Code(s): D64.9 - Anemia, unspecified Is this a current diagnosis for this admission?: Yes (4) Ascites Qualifiers: Ascites type: other type Qualified Code(s): R18.8 - Other ascites Is this a current diagnosis for this admission?: Yes (5) Bacteremia due to Gram-negative bacteria Is this a current diagnosis for this admission?: Yes (6) Bacterial infection due to Serratia Is this a current diagnosis for this admission?: Yes (7) E coli bacteremia Is this a current diagnosis for this admission?: Yes (8) Intertrochanteric fracture of left femur Is this a current diagnosis for this admission?: No (9) Purpura Is this a current diagnosis for this admission?: Yes (10) Sepsis Qualifiers: Sepsis type: sepsis due to unspecified organism Sepsis acute organ dysfunction status: with acute organ dysfunction Severe sepsis acute organ dysfunction type: acute respiratory failure Acute respiratory failure type: with hypoxia Severe sepsis shock status: without septic shock Qualified Code(s): A41.9 - Sepsis, unspecified organism; R65.20 - Severe sepsis without septic shock; J96.01 - Acute respiratory failure with hypoxia Is this a current diagnosis for this admission?: Yes (11) Thrombocytopenia Is this a current diagnosis for this admission?: Yes (12) UTI (urinary tract infection), bacterial Is this a current diagnosis for this admission?: Yes Plan Summary: Overnight the patient remained unchanged. She was able to be weaned down on her HFNC without any changes and her leukocytosis decreased again today. In addition, with fluid and a dose of lasix her urine output increased/remained adequate overnight. The patient remains extremely edematous in all dependent aspects of her body. Platelet count down again today and is nearing co nsideration for transfusion. ABG shows a mild respiratory acidosis as patient is retaining CO2. SLeep hygiene with patient awake and upright during day. Encouraged to deep breathe and weaned to regular nasal canula. With the HF canula off, we will be able to provide enteral nutrition. A bedside swallow will be performed but patient likeluy will require NG tube for feeding. Vanc trough today with dosing per pharmacy. Patient status: DNR/DNI with the exception of chemical resuscitation attempts (No breathing tube, no CPR, but would like to try epinephrine or other pharmacologic agent if it might improve her condition). Patient remains extremely ill. Critical Time Critical Time (minutes): 60 Level of Care: ICU -: 1. The care of a critical patient is a dynamic process. This note is a repre sentative synopsis but static in nature. The timeframe for treatments given in order is not necessarily the actual time these treatments may have been done. 2. This patient requires critical care secondary to ongoing requirements for therapy not offered or safe outside the critical care environment. Transfer to a lower level of care will result in altered life or limb morbidity and mortality. 3. Multidisciplinary rounds completed. 4. ABCDE bundle addressed.
[2019-04-15] MEDS: BUDESONIDE NEB 0.25 MG/2 ML AMPUL NEB SCH ×2 (13:12→21:16)
[2019-04-15 14:29] LABS: VANCOMYCIN,TROUGH 12.8 ug/mL (5.0-20.0)
[2019-04-15] MEDS: VANCOMYCIN HCL 750 MG in DEXTROSE 5%-WATER 250 ML IV SCH (15:50)
[2019-04-15] MEDS ORDERED: PHARMACY COMMUNICATION ORDER MC NR (17:45)
--- NOTE | 2019-04-15 18:16 | RADIOLOGY REPORT (SQ) ---
EXAM DESCRIPTION: KUB/ABDOMEN (SINGLE VIEW) COMPLETED DATE/TIME: 04/15/2019 6:06 pm REASON FOR STUDY: NG tube placement COMPARISON: None. NUMBER OF VIEWS: One view. TECHNIQUE: Supine radiographic image of the abdomen acquired. LIMITATIONS: The lower abdomen is not included on the image. FINDINGS: BOWEL GAS PATTERN: Dilated small bowel loops. CALCIFICATIONS: No suspicious calcifications. SOFT TISSUES: No gross mass or suggestion of organomegaly. HARDWARE: Nasogastric tube, tip in the stomach. BONES: No acute fracture. No worrisome bone lesions. OTHER: No other significant finding. IMPRESSION: TIP OF THE NASOGASTRIC TUBE IN THE STOMACH. DILATED SMALL BOWEL. TECHNICAL DOCUMENTATION: JOB ID: [id number] [employer]- All Rights Reserved Reading location - IP/workstation name: [email or web address]
[2019-04-15] MEDS: ALBUMIN HUMAN 12.5 GM/50 ML RTUINJ IV SCH ×3 (21:11→23:20)
[2019-04-16] MEDS: ALBUMIN HUMAN 12.5 GM/50 ML RTUINJ IV SCH (00:26)
[2019-04-16] MEDS: INSULIN REG, HUMAN 100 UNIT/ML 3 ML VIAL (PYX) SUBCUT SCH ×3 (00:45→13:16)
[2019-04-16] MEDS: ALBUTEROL SULFATE 0.083% NEB 2.5 MG/3 ML AMPUL NEB SCH ×5 (00:46→16:43)
[2019-04-16] MEDS: MEROPENEM 1 GM in NORMAL SALINE 50 ML IV SCH (06:25)
[2019-04-16] MEDS: HYDROMORPHONE HCL INJ/PF 2 MG/ML AMPULE IV PRN (06:36)
[2019-04-16 06:54] LABS: HEMATOCRIT 32.2 % (36.0-47.0); HEMOGLOBIN 10.6 g/dL (12.0-15.5); MEAN CORPUSCULAR HEMOGLOBIN 29.9 pg (27.0-33.4); MEAN CORPUSCULAR HGB CONC 32.8 g/dL (32.0-36.0); MEAN CORPUSCULAR VOLUME 91 fl (80-97); RED BLOOD COUNT 3.53 10^6/uL (3.72-5.28); RED CELL DISTRIBUTION WIDTH 16.4 % (11.5-14.0)
[2019-04-16 07:06] LABS: ANION GAP 12 (5-19); BLOOD UREA NITROGEN 54 mg/dL (7-20); CALCIUM 7.6 mg/dL (8.4-10.2); CARBON DIOXIDE 22 mmol/L (22-30); CHLORIDE 99 mmol/L (98-107); GLUCOSE 166 mg/dL (75-110); PHOSPHORUS 5.6 mg/dL (2.5-4.5); POTASSIUM 4.7 mmol/L (3.6-5.0)
[2019-04-16 08:04] LABS: PLATELET COUNT 19 10^3/uL (150-450)
[2019-04-16 08:08] LABS: ABSOLUTE LYMPHOCYTES# (MANUAL) 0.2 10^3/uL (0.5-4.7); ABSOLUTE MONOCYTES # (MANUAL) 0.6 10^3/uL (0.1-1.4); BAND NEUTROPHILS % (MANUAL) 1 % (3-5); BASOPHILS % (MANUAL) 0 % (0-2); EOSINOPHILS % (MANUAL) 0 % (0-6); LYMPHOCYTES % (MANUAL) 1 % (13-45); MONOCYTES % (MANUAL) 4 % (3-13); SEGMENTED NEUTROPHILS % (MAN) 94 % (42-78); TOTAL CELLS COUNTED 100
[2019-04-16 08:09] LABS: ANISOCYTOSIS 1+; BURR CELLS SLIGHT; OVALOCYTES SLIGHT; PLATELET COMMENT DECREASED; TOXIC GRANULATION 1+; TOXIC VACUOLATION PRESENT
[2019-04-16] MEDS ORDERED: NORMAL SALINE 250 ML IV PRN ×2 (08:36)
--- NOTE | 2019-04-16 08:54 | PDOC PROGRESS REPORT ---
Subjective Progress Note for:: 04/16/19 Subjective:: Patient quite lethargic and edematous today, being considered for transfer to another facility, still doing very poorly. Platelet count is dropped down to 19. Platelets have been ordered. Reason For Visit: ACUTE RESPIRATORY FAILURE DUE TO HYPOXIA Physical Exam Vital Signs: Temp Pulse Resp BP Pulse Ox 96.6 F L 80 14 141/56 H 100 04/16/19 08:00 04/16/19 08:00 04/16/19 08:00 04/16/19 08:00 04/16/19 08:00 Intake & Output 04/15/19 04/16/19 04/17/19 06:59 06:59 06:59 Intake Total 493 3121 50 Output Total 510 919 60 Balance -17 2202 -10 Weight 69.4 kg 69.3 kg General appearance: PRESENT: mild distress Respiratory exam: PRESENT: accessory muscle use, crackles Cardiovascular exam: PRESENT: RRR. ABSENT: diastolic murmur, rubs, systolic murmur GI/Abdominal exam: PRESENT: distended Extremities exam: PRESENT: +2 edema Neurological exam: PRESENT: altered Results Laboratory Results: 04/16/19 06:42 04/16/19 06:42 04/15/19 04/15/19 04/16/19 09:05 13:43 06:42 WBC RBC Hgb Hct MCV MCH MCHC RDW Plt Count Seg Neutrophils % Carbonic Acid 1.35 HCO3/H2CO3 Ratio 14:1 ABG pH 7.27 L ABG pCO2 44.9 ABG pO2 116.8 H ABG HCO3 20.2 ABG O2 Saturation 97.7 ABG Base Excess -6.5 FiO2 29% Sodium 133.1 L Potassium 4.7 Chloride 99 Carbon Dioxide 22 Anion Gap 12 BUN 54 H Creatinine 1.19 1.37 H Est GFR ( Amer) 53 L 45 L Glucose 166 H Calcium 7.6 L Phosphorus 5.6 H Magnesium 2.0 04/16/19 06:42 WBC 16.0 H RBC 3.53 L Hgb 10.6 L Hct 32.2 L MCV 91 MCH 29.9 MCHC 32.8 RDW 16.4 H Plt Count 19 L* Seg Neutrophils % Not Reportable Carbonic Acid HCO3/H2CO3 Ratio ABG pH ABG pCO2 ABG pO2 ABG HCO3 ABG O2 Saturation ABG Base Excess FiO2 Sodium Potassium Chloride Carbon Dioxide Anion Gap BUN Creatinine Est GFR ( Amer) Glucose Calcium Phosphorus Magnesium 04/11/19 04/11/19 04/12/19 21:35 21:35 04:19 Creatine Kinase 29 L CK-MB (CK-2) 1.08 Troponin I 0.036 0.052 NT-Pro-B Natriuret Pep 04/13/19 03:47 Creatine Kinase CK-MB (CK-2) Troponin I NT-Pro-B Natriuret Pep [id number] H Impressions: Abdomen Ultrasound 04/12/19 00:00 IMPRESSION: 1. Sludge in the gallbladder. Wall thickening may be related to the presence of ascites. If clinically warranted, nuclear medicine hepatobiliary study may further prove useful. Chest/Abdomen CTA 04/12/19 00:00 IMPRESSION: Chest: 1. No evidence of pulmonary embolism. 2. Peribronchial thickening with patchy consolidation throughout the lower lobes most confluent in the right lung base. Likely representing multifocal pneumonia. 3. Mild emphysema. 4. Coronary artery and vascular calcifications. Abdomen/Pelvis: 1. Generalized volume overload with mesenteric and body wall edema with moderate abdominal/pelvic ascites. 2. Cholelithiasis without evidence of cholecystitis. 3. Diverticulosis without evidence of diverticulitis. Abdomen/Pelvis CT 04/13/19 00:00 IMPRESSION: 1. As before, there is ascites and soft tissue edema generally. No focal drainable collections. 2. Bilateral effusions have developed in the lungs. There is right lower lobe consolidation/pneumonia. Lower Extremity CT 04/13/19 00:00 IMPRESSION: Anasarca. Large amount of free fluid in the pelvis and lower abdomen. No rim enhancing abscess is identified. Diaz catheter is present in the bladder which is partially decompressed, small amount of endoluminal gas is present in the bladder. Diverticulosis. Left femoral compression screw - intramedullary nail are present in expected position across a subacute comminuted intertrochanteric femoral fracture. No acute fracture is identified. Chest X-Ray 04/14/19 00:00 IMPRESSION: STABLE APPEARANCE OF THE CHEST. KUB X-Ray 04/15/19 00:00 IMPRESSION: TIP OF THE NASOGASTRIC TUBE IN THE STOMACH. DILATED SMALL BOWEL. Assessment & Plan - Diagnosis (1) Thrombocytopenia Is this a current diagnosis for this admission?: Yes Plan: DIC related, agree with platelet transfusion. Continue to treat the underlying condition. But I expect the platelet count to be low over the next week or 2. (2) Lung mass Is this a current diagnosis for this admission?: Yes Plan: If patient improves through this episode ultimately, would need further evaluation but patient is critically ill and unsure if she will improve. - Time Time Spent with patient: 35 or more minutes
[2019-04-16] MEDS: BUDESONIDE NEB 0.25 MG/2 ML AMPUL NEB SCH (08:56)
[2019-04-16 09:05] LABS: ARTERIAL BLOOD BASE EXCESS -3.9 mmol/L; ARTERIAL BLOOD H2CO3 1.57 mmol/L (1.05-1.35); ARTERIAL BLOOD HCO3 23.2 mmol/L (20-24); ARTERIAL BLOOD O2 SATURATION 99.2 % (94-98); ARTERIAL BLOOD PH 7.27 (7.35-7.45); ARTERIAL BLOOD PO2 205.8 mmHg (80-100); ARTERIAL BLOOD TOTAL CO2 24.8 mmol/L (21-25)
[2019-04-16 09:28] LABS: ARTERIAL BLOOD FIO2 2LNC
[2019-04-16] MEDS ORDERED: HYDROMORPHONE HCL INJ/PF 2 MG/ML AMPULE IV ONE (09:30)
--- NOTE | 2019-04-16 09:38 | RADIOLOGY REPORT (SQ) ---
EXAM DESCRIPTION: KUB/ABDOMEN (SINGLE VIEW) COMPLETED DATE/TIME: 04/16/2019 9:22 am REASON FOR STUDY: Worsening abdominal pain/distension COMPARISON: AP and lateral radiographs of the left hip. NUMBER OF VIEWS: One view. TECHNIQUE: Supine radiographic image of the abdomen acquired. LIMITATIONS: None. FINDINGS: BOWEL GAS PATTERN: There are scattered air-filled nondilated loops of bowel in the mid abd omen. The diffusely increased density of the abdomen and the medial displacement of the bowel (away from the properitoneal fat) could be related to ascites. CALCIFICATIONS: Vascular calcifications. SOFT TISSUES: As above. HARDWARE: The tip and side hole of the enteric tube projects within the gastric lumen. There is ORIF hardware in place that is transfixing a fracture of the proximal left femur. The tip of the right g roin venous catheter projects within the right external iliac vein. BONES: As above. OTHER: No other finding. IMPRESSION: Nonobstructive bowel gas pattern. The diffusely increased density of the abdomen and the medial displacement of the bowel (away from the properitoneal fat) could be related to ascites. TECHNICAL DOCUMENTATION: JOB ID: [id number] [employer]- All Rights Reserved Reading location - IP/workstation name: [email or web address]
[2019-04-16] MEDS ORDERED: POLYETHYLENE GLYCOL 3350 POWDER 17 GM/1 PACKET NG SCH (10:00)
[2019-04-16] MEDS: NORMAL SALINE 1000 ML 1,000 ML IV PRN ×2 (10:13→20:20)
[2019-04-16] MEDS: PANTOPRAZOLE SODIUM 40 MG VIAL IV SCH (10:13)
[2019-04-16] MEDS: METHYLPREDNISOLONE INJ 40 MG/1 ML SDV IV SCH (10:14)
--- NOTE | 2019-04-16 12:10 | PDOC PROGRESS REPORT ---
Subjective Progress Note for:: 04/16/19 Subjective:: The patient appears to be in less distress today than previously evaluated however she is not able to provide detailed or quality history at this time Reason For Visit: ACUTE RESPIRATORY FAILURE DUE TO HYPOXIA Physical Exam Vital Signs: Temp Pulse Resp BP Pulse Ox 96.8 F L 75 10 L 105/37 L 100 04/16/19 10:00 04/16/19 10:00 04/16/19 10:00 04/16/19 10:00 04/16/19 10:00 Intake & Output 04/15/19 04/16/19 04/17/19 06:59 06:59 06:59 Intake Total 493 3121 1050 Output Total 510 919 90 Balance -17 2202 960 Weight 69.4 kg 69.3 kg Physical Exam: Left lower extremity -Pulses 1+ distally -Compartments soft -Wound with serous drainage from all sites. Dry dressings in place. Wounds appear clean at this time without overt signs of infection - Blistering on the medial aspect of both legs. Diffuse purpura -Sensation grossly intact to L3-4-5 S1 -Motor grossly intact to EHL TA gastroc and quad - Diffuse anasarca throughout her bilateral lower extremities and upper extremities. Results Laboratory Results: 04/16/19 06:42 04/16/19 06:42 04/15/19 04/16/19 04/16/19 13:43 06:42 06:42 WBC 16.0 H RBC 3.53 L Hgb 10.6 L Hct 32.2 L MCV 91 MCH 29.9 MCHC 32.8 RDW 16.4 H Plt Count 19 L* Seg Neutrophils % Not Reportable Carbonic Acid HCO3/H2CO3 Ratio ABG pH ABG pCO2 ABG pO2 ABG HCO3 ABG O2 Saturation ABG Base Excess FiO2 Sodium 133.1 L Potassium 4.7 Chloride 99 Carbon Dioxide 22 Anion Gap 12 BUN 54 H Creatinine 1.19 1.37 H Est GFR ( Amer) 53 L 45 L Glucose 166 H Calcium 7.6 L Ionized Calcium [place] Phosphorus 5.6 H Magnesium 2.0 Blood Type 04/16/19 04/16/19 04/16/19 08:40 09:52 10:10 WBC RBC Hgb Hct MCV MCH MCHC RDW Plt Count Seg Neutrophils % Carbonic Acid 1.57 H HCO3/H2CO3 Ratio 14:1 ABG pH 7.27 L ABG pCO2 52.0 H ABG pO2 205.8 H ABG HCO3 23.2 ABG O2 Saturation 99.2 H ABG Base Excess -3.9 FiO2 2LNC Sodium Potassium Chloride Carbon Dioxide Anion Gap BUN Creatinine Est GFR ( Amer) Glucose Calcium Ionized Calcium [place] 1.10 L Phosphorus Magnesium Blood Type O POSITIVE 04/12/19 16:00 Ascities Fluid Gram Stain - Final 04/12/19 16:00 Ascities Fluid Body Fluid Culture - Final NO AEROBIC OR ANAEROBIC ORGANISMS RECOVERED 04/11/19 04/11/19 04/12/19 21:35 21:35 04:19 Creatine Kinase 29 L CK-MB (CK-2) 1.08 Troponin I 0.036 0.052 NT-Pro-B Natriuret Pep 04/13/19 03:47 Creatine Kinase CK-MB (CK-2) Troponin I NT-Pro-B Natriuret Pep [id number] H Impressions: Abdomen Ultrasound 04/12/19 00:00 IMPRESSION: 1. Sludge in the gallbladder. Wall thickening may be related to the presence of ascites. If clinically warranted, nuclear medicine hepatobiliary study may further prove useful. Chest/Abdomen CTA 04/12/19 00:00 IMPRESSION: Chest: 1. No evidence of pulmonary embolism. 2. Peribronchial thickening with patchy consolidation throughout the lower lobes most confluent in the right lung base. Likely representing multifocal pneumonia. 3. Mild emphysema. 4. Coronary artery and vascular calcifications. Abdomen/Pelvis: 1. Generalized volume overload with mesenteric and body wall edema with moderate abdominal/pelvic ascites. 2. Cholelithiasis without evidence of cholecystitis. 3. Diverticulosis without evidence of diverticulitis. Abdomen/Pelvis CT 04/13/19 00:00 IMPRESSION: 1. As before, there is ascites and soft tissue edema generally. No focal drainable collections. 2. Bilateral effusions have developed in the lungs. There is right lower lobe consolidation/pneumonia. Lower Extremity CT 04/13/19 00:00 IMPRESSION: Anasarca. Large amount of free fluid in the pelvis and lower abdomen. No rim enhancing abscess is identified. Diaz catheter is present in the bladder which is partially decompressed, small amount of endoluminal gas is present in the bladder. Diverticulosis. Left femoral compression screw - intramedullary nail are present in expected position across a subacute comminuted intertrochanteric femoral fracture. No acute fracture is identified. Chest X-Ray 04/14/19 00:00 IMPRESSION: STABLE APPEARANCE OF THE CHEST. KUB X-Ray 04/16/19 08:53 IMPRESSION: Nonobstructive bowel gas pattern. The diffusely increased density of the abdomen and the medial displacement of the bowel (away from the properitoneal fat) could be related to ascites. Assessment & Plan - Diagnosis (1) Intertrochanteric fracture of left femur Is this a current diagnosis for this admission?: No Plan: At this time there is not direct evidence that any of the infection is originating from the hip. Without signs of purulent drainage, erythema, or abscess, I&D of the left hip given her current medical condition may be cavalier. I have spoken to the ICU wedding transportation driver and discussed that I am available if the medical team feels there is no other option but to explore the wound however I would have a conversation with the family at length letting them know that she would have to be ventilated, because spinal is not an option given her platelet count, and and given her current medical status she may have difficulty coming off the ventilator. This is a large risk given that we cannot identifiably confirmed that the hip as a source for her bacteremia. Her physical appearance I have very low suspicion that the hip is the active source of infection. I would like for her to have a incisional wound VAC negative pressure dressing applied over the sites. I have asked for that to be done 3 days ago however it was not on today. I would also encourage compression either with compression shorts for a well placed Leonel wrap around both the thigh and then incorporating the waist. I will continue to follow her. Please contact me with any acute changes or needs. Thank you. [phone] - Time Time Spent with patient: Less than 15 minutes
--- NOTE | 2019-04-16 13:00 | PDOC CRITICAL CARE PROG REPORT ---
General Date:: 04/16/19 ICU Day:: 5 Hospital Day:: 6 Resuscitation Status: Do Not Resuscitate Medical Power of Boomboat Operator: Daughters Events in the past 12 to 24 Hours:: The patient was taken off of HFNC yesterday and placed on 5L NC. She continued to oxygenate well and was initially very responsive. Unfortunately, through the course of the day she became very fatigued and tired. This morning an ABG was performed which demonstrated a PCO2 of 55 with no real change in her pH from yesterday (still 7.27). She is retaining CO2 but is not compensating from a respiratory standpoint and seems to have a blunted stimulus to breathe. Additionally, a feeding tube was placed yesterday due to poor nutrition and tube feeds were started. She continues to make adequate urine and oxygenate well. She was placed on BiPAP after the ABG this morning but is requiring constant arousal to get her to breathe. Because she is DNR/DNI, intubation is not a consideration. Reason for ICU Addmission:: Acute hypoxic respiratory failure - Medications: Vasopressors:: levophed now off. Vasopressin off as well Physical Exam Vital Signs: Temp Pulse Resp BP Pulse Ox 96.4 F L 73 18 125/45 L 100 04/16/19 12:00 04/16/19 12:00 04/16/19 12:00 04/16/19 12:00 04/16/19 12:00 Intake & Output 04/15/19 04/16/19 04/17/19 06:59 06:59 06:59 Intake Total 493 3121 1050 Output Total 510 919 90 Balance -17 2202 960 Weight 69.4 kg 69.3 kg Weight/Height Weight 69.3 kg Height 5 ft 2 in General appearance: PRESENT: mild distress, thin Head exam: PRESENT: atraumatic, normocephalic Eye exam: PRESENT: EOMI, PERRLA. ABSENT: conjunctival injection, nystagmus, scleral icterus Ear exam: PRESENT: normal external ear exam Mouth exam: PRESENT: moist, tongue midline Neck exam: PRESENT: full ROM. ABSENT: JVD, lymphadenopathy, tenderness, tracheal deviation Respiratory exam: PRESENT: accessory muscle use, clear to auscultation wilmer, symmetrical. ABSENT: chest wall tenderness, crackles, rales, retraction, rhonchi, stridor, wheezes Cardiovascular exam: PRESENT: RRR. ABSENT: diastolic murmur, systolic murmur Pulses: PRESENT: normal carotid pulses, normal femoral pulses GI/Abdominal exam: PRESENT: normal bowel sounds, soft. ABSENT: distended, firm, guarding, rebound, rigid, tenderness Rectal exam: PRESENT: deferred Gentrourinary exam: PRESENT: indwelling catheter Extremities exam: PRESENT: pedal edema, +2 edema, other - Generalized anasarca with dependent fluid pooling and large bullae on the extremities with surrounding ecchymosis. Neurological exam: PRESENT: altered, awake, CN II-XII grossly intact. ABSENT: alert Skin exam: PRESENT: other - as above, generalized anasarca with numerous bullae in dependenct aspects of jayy body. Tubes/Lines: PRESENT: Central Line, Nasogastic Tube Laboratory/Radiographs Laboratory Results: 04/16/19 06:42 04/16/19 06:42 04/15/19 04/16/19 04/16/19 13:43 06:42 06:42 WBC 16.0 H RBC 3.53 L Hgb 10.6 L Hct 32.2 L MCV 91 MCH 29.9 MCHC 32.8 RDW 16.4 H Plt Count 19 L* Seg Neutrophils % Not Reportable Carbonic Acid HCO3/H2CO3 Ratio ABG pH ABG pCO2 ABG pO2 ABG HCO3 ABG O2 Saturation ABG Base Excess FiO2 Sodium 133.1 L Potassium 4.7 Chloride 99 Carbon Dioxide 22 Anion Gap 12 BUN 54 H Creatinine 1.19 1.37 H Est GFR ( Amer) 53 L 45 L Glucose 166 H Calcium 7.6 L Ionized Calcium [place] Phosphorus 5.6 H Magnesium 2.0 Blood Type 04/16/19 04/16/19 04/16/19 08:40 09:52 10:10 WBC RBC Hgb Hct MCV MCH MCHC RDW Plt Count Seg Neutrophils % Carbonic Acid 1.57 H HCO3/H2CO3 Ratio 14:1 ABG pH 7.27 L ABG pCO2 52.0 H ABG pO2 205.8 H ABG HCO3 23.2 ABG O2 Saturation 99.2 H ABG Base Excess -3.9 FiO2 2LNC Sodium Potassium Chloride Carbon Dioxide Anion Gap BUN Creatinine Est GFR ( Amer) Glucose Calcium Ionized Calcium [place] 1.10 L Phosphorus Magnesium Blood Type O POSITIVE 04/12/19 16:00 Ascities Fluid Gram Stain - Final 04/12/19 16:00 Ascities Fluid Body Fluid Culture - Final NO AEROBIC OR ANAEROBIC ORGANISMS RECOVERED 04/11/19 04/11/19 04/12/19 21:35 21:35 04:19 Creatine Kinase 29 L CK-MB (CK-2) 1.08 Troponin I 0.036 0.052 NT-Pro-B Natriuret Pep 04/13/19 03:47 Creatine Kinase CK-MB (CK-2) Troponin I NT-Pro-B Natriuret Pep 36385 H Impressions: Abdomen Ultrasound 04/12/19 00:00 IMPRESSION: 1. Sludge in the gallbladder. Wall thickening may be related to the presence of ascites. If clinically warranted, nuclear medicine hepatobiliary study may further prove useful. Chest/Abdomen CTA 04/12/19 00:00 IMPRESSION: Chest: 1. No evidence of pulmonary embolism. 2. Peribronchial thickening with patchy consolidation throughout the lower lobes most confluent in the right lung base. Likely representing multifocal pneumonia. 3. Mild emphysema. 4. Coronary artery and vascular calcifications. Abdomen/Pelvis: 1. Generalized volume overload with mesenteric and body wall edema with moderate abdominal/pelvic ascites. 2. Cholelithiasis without evidence of cholecystitis. 3. Diverticulosis without evidence of diverticulitis. Abdomen/Pelvis CT 04/13/19 00:00 IMPRESSION: 1. As before, there is ascites and soft tissue edema generally. No focal drainable collections. 2. Bilateral effusions have developed in the lungs. There is right lower lobe consolidation/pneumonia. Lower Extremity CT 04/13/19 00:00 IMPRESSION: Anasarca. Large amount of free fluid in the pelvis and lower abdomen. No rim enhancing abscess is identified. Diaz catheter is present in the bladder which is partially decompressed, small amount of endoluminal gas is present in the bladder. Diverticulosis. Left femoral compression screw - intramedullary nail are present in expected position across a subacute comminu elizabeth intertrochanteric femoral fracture. No acute fracture is identified. Chest X-Ray 04/14/19 00:00 IMPRESSION: STABLE APPEARANCE OF THE CHEST. KUB X-Ray 04/16/19 08:53 IMPRESSION: Nonobstructive bowel gas pattern. The diffusely increased density of the abdomen and the medial displacement of the bowel (away from the properitoneal fat) could be related to ascites. All labs, radiographs, diagnostic studies and EKGs were personally reviewed: Yes In addition, reports of radiographic and diagnostic studies were read: Yes Assessment and Plan - Diagnosis (1) DIC (disseminated intravascular coagulation) Is this a current diagnosis for this admission?: Yes (2) Acute respiratory failure with hypoxia Is this a current diagnosis for this admission?: Yes (3) Anemia Qualifiers: Anemia type: unspecified type Qualified Code(s): D64.9 - Anemia, unspecified Is this a current diagnosis for this admission?: Yes (4) Ascites Qualifiers: Ascites type: other type Qualified Code(s): R18.8 - Other ascites Is this a current diagnosis for this admission?: Yes (5) Bacteremia due to Gram-negative bacteria Is this a current diagnosis for this admission?: Yes (6) Bacterial infection due to Serratia Is this a current diagnosis for this admission?: Yes (7) E coli bacteremia Is this a current diagnosis for this admission?: Yes (8) Intertrochanteric fracture of left femur Is this a current diagnosis for this admission?: No (9) Purpura Is this a current diagnosis for this admission?: Yes (10) Sepsis Qualifiers: Sepsis type: sepsis due to unspecified organism Sepsis acute organ dysfunction status: with acute organ dysfunction Severe sepsis acute organ dysfunction type: acute respiratory failure Acute respiratory failure type: with hypoxia Severe sepsis shock status: without septic shock Qualified Code(s): A41.9 - Sepsis, unspecified organism; R65.20 - Severe sepsis without s eptic shock; J96.01 - Acute respiratory failure with hypoxia Is this a current diagnosis for this admission?: Yes (11) Thrombocytopenia Is this a current diagnosis for this admission?: Yes (12) UTI (urinary tract infection), bacterial Is this a current diagnosis for this admission?: Yes Plan Summary: 78yo F admitted after found to be lethargic/fatigued at rehab facility with sepsis and respiratory failure. Patient initially began to recover and then req uired reintubation. She developed DIC and has become thrombocytopenic with a platelet count of 19k this morning. Despite broad spectrum ABX covering all culture results the patient continues to have an uptrending leukocytosis, worsening thrombocytopenia and does not seem to be turnign the corner on her infection leading to ongoing DIC. The only other source not addressed would be the hardware in the left hip but in the absence of erythema, induration, purulent discharge or any other infectious changes it is low likelihood that it is involved. The patient is currently altered and not able to follow commands; her breathing is shallow and slow without the assistance of BiPAP. I had a very long disussion with the family this morning after administering the last unit of platelets in the hospital. Her condition has declined and she is now in danger of respiratory failure. However, she is a DNR/DNI and the family does not want any invasive ventilation/treatments. Additionally, the hip is very low likelihood as a source and removal of the nail would require her to be intubated, sedated, bed bound while healing a fracture, and supported by artificial means. In her current state she would likely not wean from the ventilator easily and a tracheostomy is a real possibility. With all of that considered, I still offered the family the option of transferring to a larger facility where additional resources may be available (though likely would not affect outcome). In light of her change in condition and grim prognosis the family has decided that they would like to stay here, continue with her current treatment plan but pursue no further aggressive measures. We will not transfuse any additional platelets, she will not be intubated and CPR will not be performed should her heart stop. Should she continue to decline, will likely transition to palliative measures (family does not desire true palliative care at this time). Will also call for pastoral care/pattern weaver as the family would like to perform last rights. Critical Time Critical Time (minutes): 90 Level of Care: ICU Anticipated discharge: Other Within: within 72 hours -: 1. The care of a critical patient is a dynamic process. This note is a safety representative synopsis but static in nature. The timeframe for treatments given in order is not necessarily the actual time these treatments may have been done. 2. This patient requires critical care secondary to ongoing requirements for therapy not offered or safe outside the critical care environment. Transfer to a lower level of care will result in altered life or limb morbidity and mortality. 3. Multidisciplinary rounds completed. 4. ABCDE bundle addressed.
[2019-04-16 14:34] LABS: ARTERIAL BLOOD BASE EXCESS -4.2 mmol/L; ARTERIAL BLOOD H2CO3 1.74 mmol/L (1.05-1.35); ARTERIAL BLOOD HCO3 23.7 mmol/L (20-24); ARTERIAL BLOOD O2 SATURATION 80.1 % (94-98); ARTERIAL BLOOD PCO2 57.8 mmHg (35-45); ARTERIAL BLOOD PH 7.23 (7.35-7.45); ARTERIAL BLOOD PO2 52.5 mmHg (80-100); ARTERIAL BLOOD TOTAL CO2 25.4 mmol/L (21-25)
[2019-04-16 14:36] LABS: ARTERIAL BLOOD FIO2 30%
[2019-04-16 16:14] VITALS: BP 102/66
[2019-04-16] MEDS: VANCOMYCIN HCL 750 MG in DEXTROSE 5%-WATER 250 ML IV SCH (16:49)
[2019-04-16 16:52] LABS: HEMATOCRIT 28.4 % (36.0-47.0); HEMOGLOBIN 9.5 g/dL (12.0-15.5); MEAN CORPUSCULAR HEMOGLOBIN 30.4 pg (27.0-33.4); MEAN CORPUSCULAR HGB CONC 33.4 g/dL (32.0-36.0); MEAN CORPUSCULAR VOLUME 91 fl (80-97); RED BLOOD COUNT 3.12 10^6/uL (3.72-5.28); RED CELL DISTRIBUTION WIDTH 16.3 % (11.5-14.0); WHITE BLOOD COUNT 11.8 10^3/uL (4.0-10.5)
[2019-04-16 17:09] LABS: PLATELET COUNT 17 10^3/uL (150-450)
--- NOTE | 2019-04-16 17:21 | Progress Note ---
Provider Note Provider Note: Patient has been on BiPAP all day with minimal spontaneous respiratory effort. As she is DNR/DNI, intubation was not an option. Most recent ABG shows worsening respiratory acidosis with increasing PCO2 levels correlating with her decreased respiratory effort. She has been intermittently hypotensive and is not responsive to verbal stimulus. She attempts to localize to pain. Palpation of her abdomen, thorax or extremities leads to spikes in her HR and blood pressure which is concerning for increased pain. The goal of returning her to BiPAP was to hopefully provide a stimulus to keep her breathing but with her worsening ABG and need for constant physical stimulus to initiate a breath it appers non-invasive ventilation has not made any significant difference. The patient's platelet count is even lower despite transfusion (19k this morning, 17k post transfusion). The family has decided that they would like to make their mother comfort care only. Will remove her BiPAP (replace with NC), stop antibiotics, hold any vasoactive medications, continue as DNR/DNI and initiate pain medication to continue making her comfortable (Morphine gtt at 2mg/hr initially--titrate to comfort). Second physician verification with hospitalist team initiated.
[2019-04-16] MEDS ORDERED: MORPHINE SULFATE 60 MG/60 ML RTUINJ IV PRN ×2 (17:23→18:31)
[2019-04-16] MEDS ORDERED: MORPHINE SULFATE 10 MG/ML INJ IV ONE (18:45)
[2019-04-16] MEDS ORDERED: ATROPINE SULFATE 1% OPH SOLN 5 ML BOTTLE SL PRN (20:49)
[2019-04-16] MEDS ORDERED: NORMAL SALINE 1000 ML 1,000 ML IV PRN (20:58)
--- NOTE | 2019-04-17 08:54 | PDOC CRITICAL CARE PROG REPORT ---
General Date:: 04/17/19 Resuscitation Status: Comfort Measures Only Medical Power of Web Operations Lead: Daughters Events in the past 12 to 24 Hours:: Patient declined rapidly yesterday and despite aggressive non-invasive respiratory measures she developed a worsening respiratory acidosis. SHe was DNR/DNI which precluded intubation, however, intubation likely would not have ch anged her overall outcome. Additionally, despite platelet transfusion her platelet numbers continue to drop. The decision was made to transition to comfort care measures only. Overnight the patient was bradycardic, hypotensive, breathing only 3-4 times per munite but still had a pulse. Reason for ICU Addmission:: Acute hypoxic respiratory failure - Medications: Medications reviewed and adjusted accordingly: Yes Physical Exam Vital Signs: Temp Pulse Resp BP Pulse Ox 95.0 F L 84 3 L 102/66 98 04/17/19 06:00 04/16/19 16:43 04/17/19 06:48 04/16/19 16:00 04/17/19 06:48 Intake & Output 04/16/19 04/17/19 04/18/19 06:59 06:59 06:59 Intake Total 3121 2678 Output Total 919 300 Balance 2202 2378 Weight 69.3 kg Weight/Height Weight 69.3 kg Height 5 ft 2 in General appearance: PRESENT: no acute distress Head exam: PRESENT: atraumatic, normocephalic Eye exam: PRESENT: PERRLA Ear exam: PRESENT: normal external ear exam Mouth exam: PRESENT: moist Respiratory exam: PRESENT: decreased breath sounds, unlabored Cardiovascular exam: PRESENT: bradycardia Pulses: PRESENT: other GI/Abdominal exam: PRESENT: hypoactive bowel sounds. ABSENT: tenderness Rectal exam: PRESENT: deferred Extremities exam: PRESENT: +2 edema Neurological exam: PRESENT: CN II-XII grossly intact Psychiatric exam: ABSENT: agitated, anxious Skin exam: PRESENT: other - Purpuric rash with large bullae in dependent portions Laboratory/Radiographs Laboratory Results: 04/16/19 16:35 04/16/19 06:42 04/16/19 04/16/19 04/16/19 08:40 09:52 10:10 WBC RBC Hgb Hct MCV MCH MCHC RDW Plt Count Carbonic Acid 1.57 H HCO3/H2CO3 Ratio 14:1 ABG pH 7.27 L ABG pCO2 52.0 H ABG pO2 205.8 H ABG HCO3 23.2 ABG O2 Saturation 99.2 H ABG Base Excess -3.9 FiO2 2LNC Ionized Calcium [place] 1.10 L Blood Type O POSITIVE 04/16/19 04/16/19 14:25 16:35 WBC 11.8 H RBC 3.12 L Hgb 9.5 L Hct 28.4 L MCV 91 MCH 30.4 MCHC 33.4 RDW 16.3 H Plt Count 17 L* Carbonic Acid 1.74 H HCO3/H2CO3 Ratio 13:1 ABG pH 7.23 L ABG pCO2 57.8 H ABG pO2 52.5 L ABG HCO3 23.7 ABG O2 Saturation 80.1 L ABG Base Excess -4.2 FiO2 30% Ionized Calcium [place] Blood Type 04/12/19 16:00 Ascities Fluid Gram Stain - Final 04/12/19 16:00 Ascities Fluid Body Fluid Culture - Final NO AEROBIC OR ANAEROBIC ORGANISMS RECOVERED 04/11/19 04/11/19 04/12/19 21:35 21:35 04:19 Creatine Kinase 29 L CK-MB (CK-2) 1.08 Troponin I 0.036 0.052 NT-Pro-B Natriuret Pep 04/13/19 03:47 Creatine Kinase CK-MB (CK-2) Troponin I NT-Pro-B Natriuret Pep 34078 H Impressions: Abdomen Ultrasound 04/12/19 00:00 IMPRESSION: 1. Sludge in the gallbladder. Wall thickening may be related to the presence of ascites. If clinically warranted, nuclear medicine hepatobiliary study may further prove useful. Chest/Abdomen CTA 04/12/19 00:00 IMPRESSION: Chest: 1. No evidence of pulmonary embolism. 2. Peribronchial thickening with patchy consolidation throughout the lower lobes most confluent in the right lung base. Likely representing multifocal pneumonia. 3. Mild emphysema. 4. Coronary artery and vascular calcifications. Abdomen/Pelvis: 1. Generalized volume overload with mesenteric and body wall edema with moderate abdominal/pelvic ascites. 2. Cholelithiasis without evidence of cholecystitis. 3. Diverticulosis without evidence of diverticulitis. Abdomen/Pelvis CT 04/13/19 00:00 IMPRESSION: 1. As before, there is ascites and soft tissue edema generally. No focal drainable collections. 2. Bilateral effusions have developed in the lungs. There is right lower lobe consolidation/pneumonia. Lower Extremity CT 04/13/19 00:00 IMPRESSION: Anasarca. Large amount of free fluid in the pelvis and lower abdomen. No rim enhancing abscess is identified. Diaz catheter is present in the bladder which is partially decompressed, small amount of endoluminal gas is present in the bladder. Diverticulosis. Left femoral compression screw - intramedullary nail are present in expected position across a subacute comminuted intertrochanteric femoral fracture. No acute fracture is identified. Chest X-Ray 04/14/19 00:00 IMPRESSION: STABLE APPEARANCE OF THE CHEST. KUB X-Ray 04/16/19 08:53 IMPRESSION: Nonobstructive bowel gas pattern. The diffusely increased density of the abdomen and the medial displacement of the bowel (away from the p roperitoneal fat) could be related to ascites. All labs, radiographs, diagnostic studies and EKGs were personally reviewed: Yes In addition, reports of radiographic and diagnostic studies were read: Yes Assessment and Plan - Diagnosis (1) DIC (disseminated intravascular coagulation) Is this a current diagnosis for this admission?: Yes (2) Acute respiratory failure with hypoxia Is this a current diagnosis for this admission?: Yes (3) Anemia Qualifiers: Anemia type: unspecified type Qualified Code(s): D64.9 - Anemia, unspecified Is this a current diagnosis for this admission?: Yes (4) Ascites Qualifiers: Ascites type: other type Qualified Code(s): R18.8 - Other ascites Is this a current diagnosis for this admission?: Yes (5) Bacteremia due to Gram-negative bacteria Is this a current diagnosis for this admission?: Yes (6) Bacterial infection due to Serratia Is this a current diagnosis for this admission?: Yes (7) E coli bacteremia Is this a current diagnosis for this admission?: Yes (8) Intertrochanteric fracture of left femur Is this a current diagnosis for this admission?: No (9) Purpura Is this a current diagnosis for this admission?: Yes (10) Sepsis Qualifiers: Sepsis type: sepsis due to unspecified organism Sepsis acute organ dys function status: with acute organ dysfunction Severe sepsis acute organ d ysfunction type: acute respiratory failure Acute respiratory failure type: with hypoxia Severe sepsis shock status: without septic shock Qualified Code(s): A41.9 - Sepsis, unspecified organism; R65.20 - Severe sepsis without septic shock; J96.01 - Acute respiratory failure with hypoxia Is this a current diagnosis for this admission?: Yes (11) Thrombocytopenia Is this a current diagnosis for this admission?: Yes (12) UTI (urinary tract infection), bacterial Is this a current diagnosis for this admission?: Yes Plan Summary: Patient transitioned to comfort measures only-all invasive equipment removed and patient provided IVF, oxygen and adequate pain medication. As she is bradycardic to the 30's, her RR is 4 per minute, her blood pressure is too low to register and she has a very faint pulse, I do not anticipate her to last through the day. Will continue to monitor. Critical Time Critical Time (minutes): 0 - 30 minutes time, not critical care (17331) Level of Care: MEDICAL Anticipated discharge: Other Within: within 24 hours -: 1. The care of a critical patient is a dynamic process. This note is a service support representative synopsis but static in nature. The timeframe for treatments given in order is not necessarily the actual time these treatments may have been done. 2. Multidisciplinary rounds completed.
[2019-04-17 10:24] LABS: PATH REVIEW PATHOLOGIST REVIEWED
--- NOTE | 2019-04-17 11:13 | Death Summary ---
Summary Date : 04/17/19 Time of :: 09:08 Autopsy: No Resuscitation Status: Comfort Measures Only Primary Care Provider: Mehrdad Munoz - Final Diagnosis (1) DIC (disseminated intravascular coagulation) Is this a current diagnosis for this admission?: Yes (2) Acute respiratory failure with hypoxia Is this a current diagnosis for this admission?: Yes (3) Anemia Is this a current diagnosis for this admission?: Yes (4) Ascites Is this a current diagnosis for this admission?: Yes (5) Bacteremia due to Gram-negative bacteria Is this a current diagnosis for this admission?: Yes (6) Bacterial infection due to Serratia Is this a current diagnosis for this admission?: Yes (7) E coli bacteremia Is this a current diagnosis for this admission?: Yes (8) Intertrochanteric fracture of left femur Is this a current diagnosis for this admission?: No (9) Purpura Is this a current diagnosis for this admission?: Yes (10) Sepsis Is this a current diagnosis for this admission?: Yes (11) Thrombocytopenia Is this a current diagnosis for this admission?: Yes (12) UTI (urinary tract infection), bacterial Is this a current diagnosis for this admission?: Yes Hospital Course:: Patient admitted on 04/12/2019 with sepsis and respiratory distress secondary to a UTI and pneumonia. She was treated with non-invasive ventillatory measures which improved her respiratory status. She was also started on broad spectrum antibiotics for her sepsis. Despite culture and sensitivity data demonstrating sensitivity to her antibiotic regimen her condition worsened and she develope disseminated intravascular coagulation (DIC). She became profoundly thrombocytopenic and despite platelet transfusion continued to drop her PLT levels. She was a DNR/DNI and did not want to be on a ventilator. The patient's respiratory status declined and non-invasive measures were no longer effective. She developed a worsening respiratory acidosis and ultimately her family changed her status to comfort care measures only. She was monitored overnight and at 09:08 on 04/17/2019 she .
== END 2019-04-17 12:10 | DRG 871 ==
LOC: ER 20:09 → EH 04-12 04:36 → ICU 04-12 07:15
PROVIDERS: ADMIT Internal Medicine Critical Care Medicine; ATTEND Surgery
PROC: 0W9G3ZX Drainage of Peritoneal Cavity, Percutaneous Approach, Diagnostic (ICD-10-PCS; principal; 2019-04-12)
PROC: 02HV33Z Insertion of Infusion Device into Superior Vena Cava, Percutaneous Approach (ICD-10-PCS; 2019-04-12)
PROC: B548ZZA Ultrasonography of Superior Vena Cava, Guidance (ICD-10-PCS; 2019-04-12)
PROC: 06HM33Z Insertion of Infusion Device into Right Femoral Vein, Percutaneous Approach (ICD-10-PCS; 2019-04-12)
PROC: B54BZZA Ultrasonography of Right Lower Extremity Veins, Guidance (ICD-10-PCS; 2019-04-12)
PROC: 30233N1 Transfusion of Nonautologous Red Blood Cells into Peripheral Vein, Percutaneous Approach (ICD-10-PCS; 2019-04-12)
PROC: 5A09457 Assistance with Respiratory Ventilation, 24-96 Consecutive Hours, Continuous Positive Airway Pressure (ICD-10-PCS; 2019-04-12)
PROC: 30233R1 Transfusion of Nonautologous Platelets into Peripheral Vein, Percutaneous Approach (ICD-10-PCS; 2019-04-16)
DX: A41.51 Sepsis due to Escherichia coli [E. coli] (principal); J96.01 Acute respiratory failure with hypoxia; J18.9 Pneumonia, unspecified organism; S72.142A Displaced intertrochanteric fracture of left femur, initial encounter for closed fracture; D65 Disseminated intravascular coagulation [defibrination syndrome]; J44.0 Chronic obstructive pulmonary disease with (acute) lower respiratory infection; N39.0 Urinary tract infection, site not specified; R18.8 Other ascites; Z16.12 Extended spectrum beta lactamase (ESBL) resistance; E87.2 Acidosis; A41.53 Sepsis due to Serratia; Z51.5 Encounter for palliative care; E78.5 Hyperlipidemia, unspecified; I10 Essential (primary) hypertension; J44.9 Chronic obstructive pulmonary disease, unspecified; E11.9 Type 2 diabetes mellitus without complications; D64.9 Anemia, unspecified; K21.9 Gastro-esophageal reflux disease without esophagitis; I87.2 Venous insufficiency (chronic) (peripheral); B96.20 Unspecified Escherichia coli [E. coli] as the cause of diseases classified elsewhere; W19.XXXA Unspecified fall, initial encounter; R91.8 Other nonspecific abnormal finding of lung field; Z87.891 Personal history of nicotine dependence; Z88.6 Allergy status to analgesic agent; Z88.8 Allergy status to other drugs, medicaments and biological substances; Z88.2 Allergy status to sulfonamides; Z79.82 Long term (current) use of aspirin; Z79.899 Other long term (current) drug therapy; Z98.890 Other specified postprocedural states
CPT/HCPCS: 36415; 36430; 36556; 36620; 51701; 71045; 71275; 74018; 74177; 76705; 80048; 80053; 80202; 81001; 82040; 82042; 82140; 82330; 82550; 82553; 82565; 82570; 82803; 82945; 82962; 83605; 83615; 83735; 83880; 84100; 84157; 84300; 84484; 85025; 85379; 85384; 85610; 85730; 86850; 86900; 86901; 86920; 87015; 87040; 87070; 87075; 87077; 87086; 87088; 87101; 87116; 87150; 87186; 87205; 87206; 87804; 88305; 89050; 93005; 93010; 93306; 93970; 93976; 94640; 94660; 96361; 96365; 96366; 96375; 99232; 99291; 99292; C9113; J0456; J0692; J0696; J1170; J1580; J1650; J1815; J1940; J1956; J2185; J2270; J2405; J2920; J2930; J3370; J3430; J3490; J7030; J7050; J7060; J7120; J7614; J7626; P9016; P9035; P9047